=== PATIENT | female | born 1935 | race Caucasian/White ===

== ENCOUNTER → 2019-11-17 14:10 | Outpatient (REF) | payer MEDICARE, MEDICAID, SELFPAY ==
--- NOTE | 2019-11-17 14:14 | ECG_ITS ---
Test Reason : HTN Blood Pressure : / mmHG Vent. Rate : 053 BPM Atrial Rate : 053 BPM P-R Int : 166 ms QRS Dur : 096 ms QT Int : 442 ms P-R-T Axes : 050 -36 -23 degrees QTc Int : 414 ms Sinus bradycardia Left axis deviation Nonspecific ST and T wave abnormality Abnormal ECG When compared with ECG of 07-JAN-2015 09:23, Premature ventricular complexes are no longer Present Referred By: Adry Young Electronically Signed By:PHIL GOTTI
== END ==
LOC: HO.CARD 14:10
PROVIDERS: PCP Internal Medicine; Visit Provider Internal Medicine
DX: I10 Essential (primary) hypertension (principal)
CPT/HCPCS: 93005; 93010

== ENCOUNTER 2019-12-09 20:47 | Observation (INO) | payer MEDICARE, MEDICAID, SELFPAY ==
--- NOTE | 2019-12-09 | ECG_ITS ---
Test Reason : CHEST PAIN Blood Pressure : / mmHG Vent. Rate : 062 BPM Atrial Rate : 062 BPM P-R Int : 158 ms QRS Dur : 092 ms QT Int : 424 ms P-R-T Axes : 046 -43 051 degrees QTc Int : 430 ms Normal sinus rhythm Left anterior fascicular block Nonspecific ST abnormality Abnormal ECG When compared with ECG of 17-NOV-2019 14:59, Heart rate has increased Referred By: Demarco Shell Electronically Signed By:DIGNA GONZALEZ MD
[2019-12-09 22:36] VITALS: BP 128/66; PULSE 62; RESP 16; TEMP 37.9; O2SAT 97; BMI 32.1
--- NOTE | 2019-12-09 23:06 | ED.CHESTPAIN ---
HPI - Chest Pain General Chief Complaint: Chest Pain Stated Complaint: chest pain,sob Time Seen by Provider: 12/09/19 23:06 Source: patient Mode of arrival: ambulatory Limitations: no limitations History of Present Illness MD complaint: chest pain Onset (ago): hour(s) (6pm ) Timing of current episode: constant Prior episodes: No Onset: after eating (felt like her BLT got stuck but able to swallow and drink fluids) Pain location: substernal Pain radiation: none Severity: mild Quality: aching and fullness Relieving factors: nothing Exacerbating factors: inspiration Context: recent surgery (11/16 status post bilateral oopherectomy ) Associated symptoms: dyspnea Treatment prior to arrival: none Related Data Home Medications Medication Instructions Recorded Confirmed amlodipine 10 mg tablet 10 mg PO DAILY 11/13/19 11/17/19 losartan 100 mg tablet 100 mg PO DAILY 11/13/19 11/17/19 metoprolol succinate 50 mg 50 mg PO DAILY 11/13/19 11/17/19 tablet,extended release 24 hr tizanidine 4 mg tablet 4 mg PO TID PRN 11/13/19 11/17/19 triamcinolone acetonide 0.5 % 1 applic TOPICAL BID 11/13/19 11/17/19 topical cream Previous Rx's Medication Instructions Recorded terbinafine HCl 250 mg tablet 250 mg PO DAILY 90 Days #90 tab 11/25/19 Allergies Allergy/AdvReac Type Severity Reaction Status Date / Time No Known Allergies Allergy Unverified 11/17/19 13:32 [No Known Allergies*] Review of Systems Review of Systems: Constitutional : No Weight loss, No Fever, No Chills ENT/Mouth : No sore throat, No Rhinorrhea Eyes: No Eye Pain, No Swelling Cardiovascular : pos Chest Pain, pos SOB, no Dyspnea on Exertion, No Orthopnea, No Edema, No Palpitations Respiratory : No Cough, No Sputum Gastrointestinal : no Nausea, No Vomiting, No Diarrhea, No abdominal Pain, No Hematochezia, No Melena Genitourinary : No Dysuria, No Urinary Frequency Musculoskeletal : No joint pain, No Myalgias, No Joint Swelling Skin : No Skin Lesions, No rash Neuro : No Weakness, No Numbness, No Dizziness, No Headache Psych : No Anxiety/Panic, No Depression All other systems reviewed and are negative [facility] Past Medical History Medical History Adnexal mass Chronic kidney disease (CKD) stage G3b/A3, moderately decreased glomerular filtration rate (GFR) between 30-44 mL/min/1.73 square meter and albuminuria creatinine ratio greater than 300 mg/g Degenerative disc disease, lumbar Gout Hypercholesterolemia Hypertension Onychomycosis Osteopenia Polycystic kidney disease Surgical History History of cholecystectomy History of hysterectomy Family History Family History (Updated 11/13/19 @ 16:24 by Barbara Jimenez CMA) Father No problems noted. Mother No problems noted. Brother No problems noted. Daughter No problems noted. Daughter No problems noted. Daughter No problems noted. Daughter No problems noted. Social History Social History Alcohol intake: never Smoking Status: Never smoker Advance Directives: No Physical Exam Vital Signs: Vital Signs: Vital Signs Temp Pulse Resp BP Pulse Ox 12/10/19 00:00 61 16 165/69 H 96 12/09/19 23:27 97.9 F 62 18 156/80 H 98 12/09/19 22:36 100.3 F 62 16 128/66 97 Body Mass Index 32.1 Appearance: Alert. Oriented X3. No acute distress. Eyes: Pupils equal, round and reactive to light. ENT: Pharynx normal. Neck: Normal inspection. Neck supple. CVS: Normal heart rate and rhythm. Pulses normal. Respiratory: No respiratory distress. Breath sounds normal. Abdomen: Soft and nontender. Skin: Skin warm and dry. Normal skin color. Normal skin turgor. Extremities: No lower extremity edema. No calf ttp Neuro: Oriented X 3. No motor deficit. No sensory deficit. Course Course Course Narrative: plan to admit for chest pain and observation with VQ scan in AM MDM - Chest Pain MDM Narrative Medical decision making narrative: 84 yo female s/p bilateral oophorectomy on 11/16 here with chest pain that started at 6pm after eating a BLT - at this time will need labs, EKG, troponin, states pain is pleuritic in nature will also need ddimer and likely VQ scan she has CRI so CTA not possible at this time - tylenol and ASA. dispo per results and improvement. Lab Data Result diagrams: 12/09/19 23:33 12/10/19 00:23 Labs: Lab Results 12/09/19 12/09/19 12/09/19 Range/Units 23:33 23:33 23:33 WBC 14.3 H (4.8-10.8) X10*3/uL RBC 4.68 (4.20-5.50) X10*6/uL Hgb 14.3 (12.0-16.0) g/dl Hct 43.0 (37-47) % MCV 91.9 (80-98) fL MCH 30.6 (27.0-33.0) pg MCHC 33.3 (31.0-35.0) g/dl RDW 13.0 (11.0-16.0) % Plt Count 212 (160-400) X10*3/uL MPV 11.6 (9.4-12.3) fL Immature Gran % (Auto) 0.4 (0.0-0.4) % Neut % (Auto) 84.9 H (45-73) % Lymph % (Auto) 7.4 L (20-40) % [place] % (Auto) 6.1 (2-11) % Eos % (Auto) 0.7 (0-4) % Baso % (Auto) 0.5 (0-2) % Lymph # (Auto) 1.1 L (1.2-4.9) X10*3/uL [place] # (Auto) 0.9 (0.1-1.2) X10*3/uL Eos # (Auto) 0.1 (0.0-0.4) X10*3/uL Baso # (Auto) 0.1 (0.0-0.2) X10*3/uL Abs Immat Gran (auto) 0.05 H (0.00-0.03) X10*3/uL Absolute Neuts (auto) 12.1 H (2.0-8.3) X10*3/uL Absolute Nucleated RBC 0.000 (0.0-0.012) X10*3/uL Nucleated RBC % (auto) 0.0 (0.0-0.2) /100WBC PT (10.8-13.0) SEC INR (0.9-1.1) APTT (24.1-38.0) SEC D-Dimer NG/ML Lactate Dehydrogenase Cancelled Troponin I High Sens (<3.5-17.0) ng/L B-Natriuretic Peptide 93 (<100) pg/mL 12/09/19 12/09/19 Range/Units 23:33 23:33 WBC (4.8-10.8) X10*3/uL RBC (4.20-5.50) X10*6/uL Hgb (12.0-16.0) g/dl Hct (37-47) % MCV (80-98) fL MCH (27.0-33.0) pg MCHC (31.0-35.0) g/dl RDW (11.0-16.0) % Plt Count (160-400) X10*3/uL MPV (9.4-12.3) fL Immature Gran % (Auto) (0.0-0.4) % Neut % (Auto) (45-73) % Lymph % (Auto) (20-40) % [place] % (Auto) (2-11) % Eos % (Auto) (0-4) % Baso % (Auto) (0-2) % Lymph # (Auto) (1.2-4.9) X10*3/uL [place] # (Auto) (0.1-1.2) X10*3/uL Eos # (Auto) (0.0-0.4) X10*3/uL Baso # (Auto) (0.0-0.2) X10*3/uL Abs Immat Gran (auto) (0.00-0.03) X10*3/uL Absolute Neuts (auto) (2.0-8.3) X10*3/uL Absolute Nucleated RBC (0.0-0.012) X10*3/uL Nucleated RBC % (auto) (0.0-0.2) /100WBC PT 11.7 (10.8-13.0) SEC INR 1.0 (0.9-1.1) APTT 34.7 (24.1-38.0) SEC D-Dimer 558 NG/ML Lactate Dehydrogenase Troponin I High Sens 28.4 H (<3.5-17.0) ng/L B-Natriuretic Peptide (<100) pg/mL ECG Data ECG #1: Attestation: I personally reviewed and interpreted this ECG as follows: ECG interpretation date: 12/09/19 ECG interpretation time: 23:21 Interpretation: Rate: 62 Rhythm: NSR [place]: left, LVS Normal P waves. Normal CALVIN. Normal QRS complex. ST T wave : nonspecific qTC: normal prior studies: unchanged no acute ischemia The study has been interpreted contemporaneously by me. . Discharge Plan Discharge Prescriptions: No Action terbinafine HCl 250 mg tablet 250 mg PO DAILY 90 Days Qty: 90 RF: 0 triamcinolone acetonide 0.5 % cream 1 applic topical BID RF: 0 tizanidine 4 mg tablet 4 mg PO TID PRNRF: 0 losartan 100 mg tablet 100 mg PO DAILY RF: 0 metoprolol succinate 50 mg tablet extended release 24 hr 50 mg PO DAILY RF: 0 amlodipine 10 mg tablet 10 mg PO DAILY RF: 0
--- NOTE | 2019-12-09 23:09 | XR_ITS ---
EXAMINATION: XR CHEST CLINICAL INFORMATION: Dyspnea COMPARISON: 07/25/2019 TECHNIQUE: Frontal view of the chest was obtained. FINDINGS: Cardiac leads overlie the chest. The lungs are well expanded. There is no focal consolidation, edema, or effusion. No pneumothorax. The cardiomediastinal silhouette is within normal limits. No acute osseous abnormality. XR/XR chest 1V IMPRESSION: No acute pulmonary finding.
[2019-12-09] MEDS: Acetaminophen 325 MG TABLET 650 MG PO (23:21)
[2019-12-09] MEDS: Aspirin 81 MG TAB.CHEW PO (23:22)
[2019-12-09 23:27] VITALS: BP 156/80; PULSE 62; RESP 18; TEMP 36.6; O2SAT 98
[2019-12-09 23:39] LABS: MANUAL DIFF FLAG NO
[2019-12-09 23:44] LABS: Basophils Absolute Auto 0.1 X10*3/uL (0.0-0.2); Basophils Percent Auto 0.5 % (0-2); Eosinophils Absolute Auto 0.1 X10*3/uL (0.0-0.4); Eosinophils Percent Auto 0.7 % (0-4); Hemoglobin 14.3 g/dl (12.0-16.0); Imm Gran Abs Auto 0.05 X10*3/uL (0.00-0.03); Imm Gran Pct Auto 0.4 % (0.0-0.4); Lymphocytes Absolute Auto 1.1 X10*3/uL (1.2-4.9); Lymphocytes Percent Auto 7.4 % (20-40); Mean Corpuscular HGB Conc 33.3 g/dl (31.0-35.0); Mean Corpuscular Hemoglobin 30.6 pg (27.0-33.0); Mean Corpuscular Volume 91.9 fL (80-98); Mean Platelet Volume 11.6 fL (9.4-12.3); Monocytes Absolute Auto 0.9 X10*3/uL (0.1-1.2); Monocytes Percent Auto 6.1 % (2-11); Neutrophils Absolute Auto 12.1 X10*3/uL (2.0-8.3); Neutrophils Percent Auto 84.9 % (45-73); Platelet Count 212 X10*3/uL (160-400); Red Blood Count 4.68 X10*6/uL (4.20-5.50); White Blood Count 14.3 X10*3/uL (4.8-10.8)
[2019-12-09 23:53] LABS: D Dimer 558 NG/ML
[2019-12-10] VITALS (12 sets, daily range): BP systolic 92–182; BP diastolic 55–90; PULSE 58–94; RESP 14–18; TEMP 36.4–36.7; O2SAT 92–99; BMI 32.0
--- NOTE | 2019-12-10 | ECG_ITS ---
Test Reason : CHest pain Blood Pressure : / mmHG Vent. Rate : 068 BPM Atrial Rate : 068 BPM P-R Int : 174 ms QRS Dur : 088 ms QT Int : 686 ms P-R-T Axes : 051 -40 016 degrees QTc Int : 729 ms Sinus rhythm with marked sinus arrhythmia with Premature atrial complexes Left axis deviation Nonspecific ST and T wave abnormality Abnormal ECG When compared with ECG of 09-DEC-2019 20:53, Premature atrial complexes and Sinus Arrhythmia are new Referred By: Geremias Weinstein Electronically Signed By:DIGNA GONZALEZ MD
[2019-12-10 00:09] LABS: Prothrombin Time 11.7 SEC (10.8-13.0)
[2019-12-10 00:12] LABS: Partial Thromboplastin Time 34.7 SEC (24.1-38.0)
[2019-12-10 00:14] LABS: B Type Natriuretic Peptide 93 pg/mL (<100)
[2019-12-10 00:20] LABS: Troponin-I High Sensitivity 28.4 ng/L (<3.5-17.0)
--- NOTE | 2019-12-10 00:44 | NM_ITS ---
EXAMINATION: PULMONARY PERFUSION STUDY CLINICAL INFORMATION: Pleuritic chest pain. Elevated d-dimer. COMPARISON: No previous lung scan is available for comparison. A radiograph the chest dated 12/09/2019 is available for comparison. TECHNIQUE: Following the intravenous injection of 4.0 mCi Tc-99m MAA, an 8-view perfusion study was performed using a gamma scintillation camera. FINDINGS: No segmental perfusion defects are present. There is minimal heterogeneity in the distribution of activity bilaterally. There are no focal anatomic appearing perfusion defects present. NM/NM pul perfusion IMPRESSION: Very low probability of pulmonary embolism.
[2019-12-10 00:57] LABS: Alanine Aminotransferase 12 U/L (0-31); Albumin Level 4.3 g/dL (3.5-5.0); Alkaline Phosphatase 82 U/L (39-117); Anion Gap 14 (12-20); Aspartate Amino Transferase 12 U/L (5-31); Bilirubin Direct < 0.2 mg/dL (0.0-0.5); Bilirubin Total 0.4 mg/dL (0.0-1.0); Blood Urea Nitrogen 14 mg/dL (9-16); Calcium 9.7 mg/dL (8.4-10.2); Carbon Dioxide 26 mmol/L (22-29); Chloride 107 mmol/L (96-108); Estimated Glomerular Filt Rate 34; Glucose Random 159 mg/dL (60-115); Lactate Dehydrogenase 173 U/L (122-220); Magnesium 1.9 mg/dL (1.6-2.6); Potassium 4.1 mmol/l (3.3-5.1); Sodium 143 mmol/L (135-145); Total Protein 6.6 g/dL (6.5-8.0)
[2019-12-10 02:11] LABS: SARS COV2 PCR INHOUSE NEGATIVE (Negative)
--- NOTE | 2019-12-10 04:20 | PC.NURSE ---
report given to imc at this time. no distress ntoed. pt awaiting admission transport.
--- NOTE | 2019-12-10 05:24 | P.HPIM_ITS ---
History of Present Illness Date of Service: 12/10/19 Chief Complaint: chest pain this is an 84-year-old female with past medical history of hypertension, CKD and hyperlipidemia who presents to the hospital stating chest pain. Patient reports that she ate a grinder hand earlier in the day and felt that it was a little dry and has slight difficulty swallowing it. She reports that after eating this grinder hand she started having esophageal pain radiating to the back as well as throat. She describes it as achy/horrible feeling and taking a deep breath caused her worsening of this pain. She reports that it is the pain radiates from the epigastric region all the way to the neck, radiating to the back. Not radiating to the arm. patient denies any shortness of breath although reports has difficulty taking a deep breath due to the pain, she has no palpitations, no cough, no sputum production, no abdominal pain nausea or vomiting. No urinary symptoms and no lower extremity edema. Of note patient recently underwent complete of her ectomy secondary to ovarian cyst on the 16 of November but has been active and not bed-bound. on arrival to the ED patient hemodynamically stable with no significant abnormal vitals. Labs are significant for WBC count of 14.3, BUN of 14, creatinine of 1.48 (around baseline ), high sensitivity troponin of 28.4, no EKG changes suggestive of ACS. D-dimer of [address] scan for PE and therefore will be admitted for V/Q scan in the a.m. chest x-ray shows no acute pulmonary findings past medical history: Hypertension, hyperlipidemia, CKD past surgical history: Oophorectomy, partial hysterectomy, cholecystectomy family history: she is adopted by her aunt and does not know her mother or father's past medical history social history: Comes from home, denies any tobacco alcohol or illicit drugs Review of Systems Review of Systems: Yes all other systems are reviewed and are negative [facility] Medical History Adnexal mass Chronic kidney disease (CKD) stage G3b/A3, moderately decreased glomerular filtration rate (GFR) between 30-44 mL/min/1.73 square meter and albuminuria creatinine ratio greater than 300 mg/g Degenerative disc disease, lumbar Gout Hypercholesterolemia Hypertension Onychomycosis Osteopenia Polycystic kidney disease Family History Father No problems noted. Mother No problems noted. Brother No problems noted. Daughter No problems noted. Daughter No problems noted. Daughter No problems noted. Daughter No problems noted. Surgical History History of cholecystectomy History of hysterectomy Social History Alcohol intake: never Smoking Status: Never smoker Smoked in Last 30 Days: No Use of substances other than those prescribed or required for medical reasons: No Advance Directives: No Meds Allergies Allergy/AdvReac Type Severity Reaction Status Date / Time No Known Allergies Allergy Unverified 11/17/19 13:32 [No Known Allergies*] Home Medications Medication Instructions Recorded Confirmed Type amlodipine 10 mg tablet 10 mg PO DAILY 11/13/19 12/10/19 History losartan 100 mg tablet 100 mg PO DAILY 11/13/19 12/10/19 History metoprolol succinate 50 mg 50 mg PO DAILY 11/13/19 12/10/19 History tablet,extended release 24 hr tizanidine 4 mg tablet 4 mg PO TID PRN 11/13/19 12/10/19 History mirabegron [Myrbetriq] 50 mg PO DAILY 12/10/19 12/10/19 History Physical Exam Vital Signs and Narrative: Vital Signs: Last Vital Signs Temp 97.6 F 12/10/19 03:10 Pulse 58 12/10/19 03:10 Resp 14 12/10/19 03:10 BP 180/73 H 12/10/19 03:10 Pulse Ox 96 12/10/19 03:10 Body Mass Index 32.1 Const: General: cooperative and no acute distress Orientation/consciousness: patient oriented x3 Eyes: General: appearance normal, both eyes and all related structures Pupils: Equal, round and reactive pupils present Resp: Effort & Inspection: normal respiratory effort and able to speak in complete sentences Auscultation: clear to auscultation bilaterally Cardio: Rate: regular rate Rhythm: regular rhythm GI: Palpation (GI): Soft to palpation Auscultation: normal bowel sounds Skin: General skin exam: no rashes or lesions noted Neuro: General: patient oriented x3 Cranial nerves: Yes Equal, round and reactive pupils present Cognition (Neuro): normal cognition Extrem: General: Yes normal to inspection and Yes no pedal edema Results Labs Labs: Laboratory Tests 12/09/19 12/09/19 12/09/19 23:33 23:33 23:33 WBC 14.3 H RBC 4.68 Hgb 14.3 Hct 43.0 MCV 91.9 MCH 30.6 MCHC 33.3 RDW 13.0 Plt Count 212 MPV 11.6 Immature Gran % (Auto) 0.4 Neut % (Auto) 84.9 H Lymph % (Auto) 7.4 L [place] % (Auto) 6.1 Eos % (Auto) 0.7 Baso % (Auto) 0.5 Lymph # (Auto) 1.1 L [place] # (Auto) 0.9 Eos # (Auto) 0.1 Baso # (Auto) 0.1 Abs Immat Gran (auto) 0.05 H Absolute Neuts (auto) 12.1 H Absolute Nucleated RBC 0.000 Nucleated RBC % (auto) 0.0 PT INR APTT D-Dimer Sodium Potassium Chloride Carbon Dioxide Anion Gap BUN Creatinine Estim Creat Clear Calc Estimated GFR Random Glucose Calcium Magnesium Total Bilirubin Direct Bilirubin AST ALT Alkaline Phosphatase Lactate Dehydrogenase Cancelled Troponin I High Sens B-Natriuretic Peptide 93 Total Protein Albumin Coronavirus (PCR) 12/09/19 12/09/19 12/10/19 23:33 23:33 00:23 WBC RBC Hgb Hct MCV MCH MCHC RDW Plt Count MPV Immature Gran % (Auto) Neut % (Auto) Lymph % (Auto) [place] % (Auto) Eos % (Auto) Baso % (Auto) Lymph # (Auto) [place] # (Auto) Eos # (Auto) Baso # (Auto) Abs Immat Gran (auto) Absolute Neuts (auto) Absolute Nucleated RBC Nucleated RBC % (auto) PT 11.7 INR 1.0 APTT 34.7 D-Dimer 558 Sodium 143 Potassium 4.1 Chloride 107 Carbon Dioxide 26 Anion Gap 14 BUN 14 Creatinine 1.48 H Estim Creat Clear Calc 24.0 Estimated GFR 34 Random Glucose 159 H Calcium 9.7 Magnesium 1.9 Total Bilirubin 0.4 Direct Bilirubin < 0.2 AST 12 ALT 12 Alkaline Phosphatase 82 Lactate Dehydrogenase 173 Troponin I High Sens 28.4 H B-Natriuretic Peptide Total Protein 6.6 Albumin 4.3 Coronavirus (PCR) 12/10/19 12/10/19 00:23 00:50 WBC RBC Hgb Hct MCV MCH MCHC RDW Plt Count MPV Immature Gran % (Auto) Neut % (Auto) Lymph % (Auto) [place] % (Auto) Eos % (Auto) Baso % (Auto) Lymph # (Auto) [place] # (Auto) Eos # (Auto) Baso # (Auto) Abs Immat Gran (auto) Absolute Neuts (auto) Absolute Nucleated RBC Nucleated RBC % (auto) PT INR APTT D-Dimer Sodium Cancelled Potassium Cancelled Chloride Cancelled Carbon Dioxide Cancelled Anion Gap Cancelled BUN Cancelled Creatinine Cancelled Estim Creat Clear Calc Cancelled Estimated GFR Cancelled Random Glucose Cancelled Calcium Cancelled Magnesium Cancelled Total Bilirubin Cancelled Direct Bilirubin Cancelled AST Cancelled ALT Cancelled Alkaline Phosphatase Cancelled Lactate Dehydrogenase Troponin I High Sens B-Natriuretic Peptide Total Protein Cancelled Albumin Cancelled Coronavirus (PCR) NEGATIVE Imaging Chest x-ray: Radiologist's impression: No acute pulmonary finding. Assessment and Plan (1) Chest pain: Qualifiers: Chest pain type: chest pain on breathing Qualified Code(s): R07.1 - Chest pain on breathing Status: Acute (2) Chronic kidney disease (CKD) stage G3b/A3, moderately decreased glomerular filtration rate (GFR) between 30-44 mL/min/1.73 square meter and albuminuria creatinine ratio greater than 300 mg/g: Status: Acute (3) Hypercholesterolemia: Status: Acute (4) Hypertension: Qualifiers: Hypertension type: essential hypertension Qualified Code(s): I10 - Essential (primary) hypertension Status: Acute this is a an 84-year-old female with past medical history of hypertension who presents to the hospital with chest pain. Patient is being admitted for further management # pleuritic chest pain - atypical, pleuritic in nature, occurred after eating there for possible esophageal spasm versus GERD versus PE versus ACS less likely - patient has no tachypnea, no tachycardia, no hypoxia, D-dimer is elevated but patient cannot undergo CT angiogram for PE protocol due to CKD - high sensitivity troponin slightly elevated at 28,awaiting a 2nd troponin Plan: - Repeat troponin stat, obtain stat EKG ( no ekg done on pt arrival) - will obtain V/Q scan to rule out high PE probability - Maalox p.r.n. - telemetry # leukocytosis - possibly reactive although unclear etiology - afebrile, no evidence of infection, chest x-ray negative, patient has no urinary symptoms, no evidence of soft tissue injury or infection Plan: - Will follow CBC # hypertension - elevated - will resume her home medications including amlodipine and losartan as well as metoprolol monitor # CKD - creatinine at baseline - monitor daily BMP DVT prophylaxis: Lovenox
[2019-12-10] MEDS: Enoxaparin Sodium 40 MG/0.4 ML SYRINGE SUBCUT (05:29)
[2019-12-10 06:18] LABS: Appearance Urine HAZY; Color Urine YELLOW; Glucose Urine UA NEG (NEG); Leukocyte Esterase Urine NEG (NEG); Nitrite Urine POS (NEG); Specific Gravity - Urine 1.015 (1.005-1.025); Urine Blood NEG (NEG); Urine Ketones NEG (NEG); Urine Protein NEG (NEG-TRACE)
[2019-12-10 06:24] LABS: Bacteria Urine 4+ /LPF; RBC Urine 0 /HPF (0); Squamous Epithelial Cell Urine 2+ /LPF
[2019-12-10 07:32] LABS: Alanine Aminotransferase 12 U/L (0-31); Albumin Level 4.1 g/dL (3.5-5.0); Alkaline Phosphatase 75 U/L (39-117); Anion Gap 15 (12-20); Aspartate Amino Transferase 13 U/L (5-31); Bilirubin Direct 0.2 mg/dL (0.0-0.5); Bilirubin Total 0.5 mg/dL (0.0-1.0); Blood Urea Nitrogen 15 mg/dL (9-16); Calcium 9.6 mg/dL (8.4-10.2); Carbon Dioxide 28 mmol/L (22-29); Chloride 107 mmol/L (96-108); Creatinine Clr Calc Pharmacy 27.3; Estimated Glomerular Filt Rate 39; Glucose Random 92 mg/dL (60-115); Potassium 4.6 mmol/l (3.3-5.1); Sodium 145 mmol/L (135-145); Total Protein 6.3 g/dL (6.5-8.0)
[2019-12-10] MEDS: 0.9 % Sodium Chloride Flush 3 ML SYRINGE IVFLUSH ×3 (09:12→23:31)
[2019-12-10] MEDS: amLODIPine Besylate 10 MG TABLET PO (09:13)
[2019-12-10] MEDS: Metoprolol Succinate ER 50 MG TAB.ER.24H PO (09:15)
[2019-12-10] MEDS: Losartan Potassium 50 MG TABLET 100 MG PO (09:15)
[2019-12-10] MEDS: Mirabegron 50 MG TAB.ER.24H PO (09:15)
[2019-12-10 09:25] LABS: Troponin-I High Sensitivity 60.5 ng/L (<3.5-17.0)
--- NOTE | 2019-12-10 12:37 | MHC.CM.PN ---
CM met patient at the bedside who reports she lives alone, dtr lives upstairs and is independent. Patient does have a HCP and a copy is on file. Discussed discharge plan, home no services. Dtr will provide transport. CM will continue to follow for discharge needs.
[2019-12-10 16:13] LABS: Troponin-I High Sensitivity 49.1 ng/L (<3.5-17.0)
[2019-12-10] MEDS: TiZANidine HCL 4 MG TABLET PO (21:50)
[2019-12-11] VITALS (7 sets, daily range): BP systolic 94–150; BP diastolic 51–85; PULSE 57–96; RESP 16–20; TEMP 35.8–36.8; O2SAT 91–98
--- NOTE | 2019-12-11 | NM_ITS ---
Myocardial perfusion study Indication: Elevated troponin chest discomfort to evaluate for myocardial ischemia Technique: The patient was brought in for a Lexiscan perfusion study on 12/12/2019. Patient performed low-level exercise and was injected 0.4 mg of Lexiscan intravenously. Within a minute of injection, 25 mCi of sestamibi was given intravenously. Images were obtained using the SPECT gamma camera interlaced with the gating device. Images were obtained in supine position. Resting perfusion study was performed on 12/11/2019. Patient was administered 25 mCi of sestamibi intravenously at rest. Images were then obtained in supine position. Images obtained with and without CT attenuation. Total DLP 95 MGY-CM Images were processed with the software and compared side to side in short axis, horizontal long axis and vertical long axis views. Findings: The stress perfusion study showed non attenuated images show minimally reduced uptake in the distal lateral wall of the LV myocardium. Remainder of the LV myocardium is normally perfused. Attenuation corrected images show mildly reduced uptake in the apex of the LV myocardium.. The gated study shows normal LV systolic function with calculated LVEF of greater than 70 %. LV cavity is normal in size. The gated study shows normal systolic wall thickening and contraction of segments. Resting study shows nontender images show mildly reduced uptake in the inferior wall of the LV myocardium. Attenuation corrected images shows mildly reduced uptake in the apex of the LV myocardium. Gating at rest reveals normal systolic wall motion with ejection fraction at greater than 70 %. The findings are consistent with likely normal myocardial perfusion. NM/NM yovany perf SPECT rest & str Impression: 1. Myocardial perfusion imaging study shows normal myocardial perfusion 2. Gated LVEF is greater than 70% 3. Transient ischemic dilatation not present : EKG is nondiagnostic for ischemia
[2019-12-11] MEDS: Enoxaparin Sodium 40 MG/0.4 ML SYRINGE SUBCUT (05:20)
[2019-12-11 06:18] LABS: MANUAL DIFF FLAG NO
[2019-12-11 06:28] LABS: Basophils Absolute Auto 0.1 X10*3/uL (0.0-0.2); Basophils Percent Auto 0.6 % (0-2); Eosinophils Absolute Auto 0.1 X10*3/uL (0.0-0.4); Eosinophils Percent Auto 0.6 % (0-4); Hematocrit 35.7 % (37-47); Hemoglobin 11.7 g/dl (12.0-16.0); Imm Gran Abs Auto 0.03 X10*3/uL (0.00-0.03); Imm Gran Pct Auto 0.4 % (0.0-0.4); Lymphocytes Absolute Auto 1.4 X10*3/uL (1.2-4.9); Mean Corpuscular HGB Conc 32.8 g/dl (31.0-35.0); Mean Corpuscular Hemoglobin 30.5 pg (27.0-33.0); Mean Platelet Volume 12.5 fL (9.4-12.3); Monocytes Absolute Auto 0.9 X10*3/uL (0.1-1.2); Monocytes Percent Auto 10.9 % (2-11); Neutrophils Absolute Auto 5.9 X10*3/uL (2.0-8.3); Neutrophils Percent Auto 70.5 % (45-73); Platelet Count 164 X10*3/uL (160-400); Red Blood Count 3.84 X10*6/uL (4.20-5.50); Red Cell Distribution Width 13.1 % (11.0-16.0); White Blood Count 8.3 X10*3/uL (4.8-10.8)
[2019-12-11 06:55] LABS: Anion Gap 13 (12-20); Blood Urea Nitrogen 18 mg/dL (9-16); Carbon Dioxide 28 mmol/L (22-29); Chloride 105 mmol/L (96-108); Creatinine Clr Calc Pharmacy 26.1; Estimated Glomerular Filt Rate 37; Glucose Random 116 mg/dL (60-115); Potassium 4.6 mmol/l (3.3-5.1); Sodium 141 mmol/L (135-145)
[2019-12-11] MEDS: Metoprolol Succinate ER 50 MG TAB.ER.24H PO (09:53)
[2019-12-11] MEDS: 0.9 % Sodium Chloride Flush 3 ML SYRINGE IVFLUSH ×2 (09:53→15:59)
[2019-12-11] MEDS: Mirabegron 50 MG TAB.ER.24H PO (09:53)
[2019-12-11] MEDS: Losartan Potassium 50 MG TABLET 100 MG PO (09:53)
[2019-12-11] MEDS: amLODIPine Besylate 10 MG TABLET PO (09:53)
--- NOTE | 2019-12-11 10:00 | CA_ITS ---
Acquisition Time: 2019-12-12 10:45:30 Total Exercise Time: 00:02:00 Test Indications: chest pain Medications: Protocol: LEXISCAN Max HR: 100 BPM 74% of Pred: 135 BPM Max BP: 140/078 mmHG Max Work Load: 1.0 METS Pharmacological stress test using Lexiscan while sitting and kicking her feet. Pt tolerated well, denies any anginal sx. EKG without any arrhythmias. non-diagnostic for ischemia. Nuclear images to follow. Normotensiver esponse to test. Test reviewed with Dr. Ramos. Referred By: Demarco Shell Overread By: Tayla Pepe
--- NOTE | 2019-12-11 10:05 | CA_ITS ---
Transthoracic Echocardiogram Patient (Last, First, Middle): Tiffani Garíca, Gender: Female Date of : 1935 Age: 84 Procedure Date: 12/11/2019 Procedure Type: Transthoracic Echocardiogram [place] [facility] [place]: 149. cm Weight: 72. kg BSA: 1.66 m2 Heart Rate: bpm BP: 137 / 85 mmHg Bridge Crew Member: MITCH Referring MD: Demarco Shell MD Sort Worker: Demarco Shell MD Symptoms: Elevated troponin Study Quality: Technically Difficult ECG Rhythm: Sinus Conclusions: - 1. Normal LV systolic function with mild LVH with impaired relaxation filling pattern 2. Mild aortic regurgitation 3. Normal RV systolic pressure Findings Left Ventricle Normal left ventricular size and systolic function. There is mildly increased left ventricular wall thickness. The visually estimated ejection fraction is between 60-65%. Spectral Doppler is indicative of an impaired relaxation filling pattern. E/E prime ratio is between 8 and 15 consistent with indeterminate filling pressures. Right Ventricle The right ventricle was not well visualized. Atria The left atrium is likely dilated. Interatrial shunt cannot be excluded. The right atrium was not well visualized. Aortic Valve The aortic valve was not well visualized. There is no aortic valve stenosis. There is mild aortic valve regurgitation. Mitral Valve There is mild anterior and posterior mitral leaflet thickening. There is trace mitral valve regurgitation. There is no mitral valve stenosis. Pulmonic Valve The pulmonic valve was not well visualized. Tricuspid Valve Likely normal tricuspid valve structure and function. There is trace tricuspid valve regurgitation. The right ventricular systolic pressure is normal. The right ventricular systolic pressure is 28 mmHg. Normal right atrial pressure. There is no evidence of pulmonary hypertension. Great Vessels All visible segments of the aorta are normal in size. The pulmonary artery was not well visualized. Venous The inferior vena cava is normal in size and collapses greater than 50% with inspiration. Pericardium/Pleural The pericardium was not well visualized. Prior Study Comparison No previous study in the last 5 years for comparison Measurements 2D Linear Measurements IVSd: 1.37 0.6-0.9/0.6-1.0 cm LVIDd: 4.19 3.9-5.3/4.2-5.9 cm LVIDd Index: 2.52 2.4-3.2/2.2-3.1 cm/m2 LVIDs: 2.70 2.0-3.6 cm LVPWd: 1.33 0.7-1.1 cm Ao Root: 2.90 2.1-3.5 cm LA Diam: 4.00 2.7-3.8/3.0-4.0 cm LAIDs Index: 2.41 1.5-2.3 cm/m2 LV Mass: 263.66 67-162/88-224 g LV Mass Index: 158.83 43-95/49-115 g/m2 LVOT Diam: 2.00 3.0+(-)1.3 cm 2D Systolic Function EF 4C: 71.00 >55% EF 2C: 61.70 >55% Mitral Valve MV Pk E: 0.42 MV PK A: 0.74 MV Decel Time: 90.00 E/A: 0.60 E'Lateral: 6.77 E'Medial: 4.64 E/E' Med: 9.10 E/E' Lat: 6.20 PHT: 26.00 MVA PHT: 8.46 Decel [place]kins: 4.70 Aortic Valve AoV Pk Caleb: 1.15 AoV Pk Grad: 5.00 AI Pk Caleb: 2.44 AI Tompkins: 1.67 LVOT LVOT Pk Caleb: 0.98 LVOT Mn Caleb: 0.70 LVOT VTI: 0.18 LVOT Pk Grad: 4.00 LVOT Mn Grad: 2.00 LVOT Diam: 2.00 LVOT Area: 3.14 Diastolic Function MV Pk E: 0.42 MV Pk A: 0.74 E/A: 0.60 E'Medial: 4.64 E/E' Med: 9.10 E' Laterial: 6.77 E/E' Lat: 6.20 Tricuspid Valve TR Pk Caleb: 2.50 TR Pk Grad: 25.00 RA Press: 3.00 RVSP: 28.00 Great Vessels Aorta Ao Root-2D: 2.90 2.0-3.7 cm Ao Asc: 3.70 2.1-3.4 cm Updated in Other Vendor System with Status of Final Demarco Shell MD electronically signed on 12/11/2019 4:52:55 PM with status of Final
--- NOTE | 2019-12-11 10:05 | P.CONCA_ITS ---
History of Present Illness History of Present Illness Date of Consult: December 11, 2019 Requesting physician: Jose Alberto [facility] Consult reason: chest pain Chief complaint: chest pain,sob/CHEST PAIN, R/O PE Narrative: Tiffani is an 84-year-old woman who was admitted on Sunday evening with symptoms of acute onset chest discomfort. She is a pleasant and active 84-year-old man who lives by herself, a prior history of hypertension as well as chronic kidney disease. No prior cardiac issues. Since Sunday night she had supper with a regrinder operator which she ate. She then felt like the food got stuck in the esophagus and subsequently developed sudden onset of severe retrosternal chest discomfort. She was not able to shake this chest discomfort after few hours her daughter brought her to the emergency room. Symptoms she said lasted for few hours, was worse with deep breathing. She has never had prior discomfort like this. No exertional chest discomfort recently. Initial troponin as listed at 28.1. Subsequent troponin elevated into the 60s. EKG shows nonspecific ST changes. She says her chest discomfort has completely resolved but lasted for almost today. Cardiology consult was called for further management plan. She has had no recent shortness of breath, orthopnea, PND. No recent palpitations, syncope. No nausea vomiting diaphoresis. She has always had some issues with swallowing in the past but never has had chest discomfort with it. Due to the chest discomfort and pleuritic nature of chest discomfort as well as elevated D-dimer she underwent V/Q scan which was showing low probability for pulmonary embolism. Review of Systems Constitutional: Comments: No systemic symptoms. No recent weight loss weight gain. Eyes: Eyes: Reports no additional eye complaints ENT: Reports system reviewed and no additional complaints, except as d ocumented Cardiovascular: Cardiovascular: Reports no additional cardiovascular complaints Respiratory: Respiratory: Reports no additional respiratory complaints Gastrointestinal: Gastrointestinal: Reports no additional gastrointestinal complaints Genitourinary: Genitourinary: Reports no additional female genitourinary complaints Musculoskeletal: Musculoskeletal: Reports no additional musculoskeletal complaints Neurologic: Reports system reviewed and no additional complaints, except as documented Psychiatric: Psychiatric: Reports no additional psychiatric complaints Allergic/Immunologic: Allergic/Immunologic: Reports no additional allergic/immunologic complaints PMFSH Past Medical History Medical History Adnexal mass Chronic kidney disease (CKD) stage G3b/A3, moderately decreased glomerular filtration rate (GFR) between 30-44 mL/min/1.73 square meter and albuminuria creatinine ratio greater than 300 mg/g Degenerative disc disease, lumbar Gout Hypercholesterolemia Hypertension Onychomycosis Osteopenia Polycystic kidney disease Functional capacity: independent ambulation Patient : No Family History Family History Father No problems noted. Mother No problems noted. Brother No problems noted. Daughter No problems noted. Daughter No problems noted. Daughter No problems noted. Daughter No problems noted. Surgical History Surgical History History of cholecystectomy History of hysterectomy Social History Social History Alcohol intake: never Smoking Status: Never smoker Smoked in Last 30 Days: No Use of substances other than those prescribed or required for medical reasons: No Advance Directives: No service: No Current occupational status: retired [employer] Allergies Allergy/AdvReac Type Severity Reaction Status Date / Time No Known Allergies Allergy Unverified 11/17/19 13:32 [No Known Allergies*] Home Medications Medication Instructions Recorded Confirmed Type amlodipine 10 mg tablet 10 mg PO DAILY 11/13/19 12/10/19 History losartan 100 mg tablet 100 mg PO DAILY 11/13/19 12/10/19 History metoprolol succinate 50 mg 50 mg PO DAILY 11/13/19 12/10/19 History tablet,extended release 24 hr tizanidine 4 mg tablet 4 mg PO TID PRN 11/13/19 12/10/19 History mirabegron [Myrbetriq] 50 mg PO DAILY 12/10/19 12/10/19 History Physical Exam Vital Signs: Vital Signs: Vital Signs Temp Pulse Resp BP Pulse Ox 12/11/19 07:26 98.1 F 65 18 132/81 91 L 12/11/19 03:43 98.3 F 57 18 103/51 L 94 12/10/19 23:34 97.9 F 65 18 92/55 L 92 12/10/19 19:56 98.0 F 90 18 170/60 H 96 12/10/19 16:00 66 172/82 H 12/10/19 15:20 98.0 F 82 18 170/80 H 96 12/10/19 11:05 98 F 94 18 180/88 H 99 Body Mass Index 32.0 Const: General: cooperative, healthy appearing, comfortable, no acute distress, alert and awake Nutritional Appearance: obese Orientation/consciousness: patient oriented x3 HENMT: Head: Yes normal to inspection, Yes normocephalic and Yes atraumatic Eyes: General: appearance normal, both eyes and all related structures Neck: Neck: Yes full ROM, Yes trachea midline and Yes no JVD Carotids: other (No carotid bruit) Chest: Chest palpation & inspection: normal inspection of the chest Resp: Effort & Inspection: normal respiratory effort Auscultation: clear to auscultation bilaterally Cardio: Jugular venous distension: no JVD Palpation: normal PMI Rate: regular rate Rhythm: regular rhythm Heart sounds: S1 normal heart sound present, S2 normal heart sound present and Other heart sounds present (Soft S4) GI: Inspection: Yes normal to inspection Auscultation: normal bowel sounds Skin: General skin exam: elasticity normal and turgor normal Neuro: General: patient oriented x3 and no focal motor deficits Extrem: General: Yes no clubbing, cyanosis or edema Psych: Appearance: grossly normal Results Labs and Meds Result diagrams: 12/11/19 05:18 12/11/19 05:18 Lab results: Laboratory Results - last 24 hr 12/10/19 12/11/19 12/11/19 15:13 05:18 05:18 WBC 8.3 RBC 3.84 L Hgb 11.7 L Hct 35.7 L MCV 93.0 MCH 30.5 MCHC 32.8 RDW 13.1 Plt Count 164 MPV 12.5 H Immature Gran % (Auto) 0.4 Neut % (Auto) 70.5 Lymph % (Auto) 17.0 L [place] % (Auto) 10.9 Eos % (Auto) 0.6 Baso % (Auto) 0.6 Lymph # (Auto) 1.4 [place] # (Auto) 0.9 Eos # (Auto) 0.1 Baso # (Auto) 0.1 Abs Immat Gran (auto) 0.03 Absolute Neuts (auto) 5.9 Absolute Nucleated RBC 0.000 Nucleated RBC % (auto) 0.0 Sodium 141 Potassium 4.6 Chloride 105 Carbon Dioxide 28 Anion Gap 13 BUN 18 H Creatinine 1.36 Estim Creat Clear Calc 26.1 Estimated GFR 37 Random Glucose 116 H Calcium 9.0 Troponin I High Sens 49.1 H EKG reviewed shows normal sinus rhythm with PACs but shows nonspecific ST rema nges. Assessment and Plan (1) Elevated troponin: Status: Acute (2) Chest pain: Qualifiers: Chest pain type: chest pain on breathing Qualified Code(s): R07.1 - Chest pain on breathing Status: Acute Sudden-onset chest discomfort in elderly woman with risk factors of hypertension and hyperlipidemia. Rise and fall of troponin is concerning for possible unstable angina despite given underlying chronic kidney disease. Will need further evaluation for myocardial ischemia. I recommend inpatient myocardial perfusion imaging to further assess for myocardial ischemia and further guidance for treatment. Will suggest a resting perfusion study today and stress perfusion study with vaso dilator tomorrow morning. Also recommend echocardiogram to evaluate LV systolic and diastolic function as well as to evaluate for regional wall motion abnormality. Currently she is chest pain- free. She is slightly disappointed for staying another day in the hospital but understands the management. Other option of pursuing invasive management was discussed. She favors noninvasive workup at this point in time. Continue low- dose aspirin therapy. Blood pressure is well optimized. Continue current therapy. No need for anticoagulation at this point in time. Will follow with the patient. Thank you for allowing me to partake in her care (3) Hypertension: Qualifiers: Hypertension type: essential hypertension Qualified Code(s): I10 - Essential (primary) hypertension Status: Acute
--- NOTE | 2019-12-11 10:47 | P.PNIM_ITS ---
Subjective Subjective Date of Service: 12/11/19 Interval History: Seen in follow up for for chest pain and elevated troponin. Has no chest pain or sob this morning Review of Systems no chest pain no sob Physical Exam Vital Signs: Vital Signs: Vital Signs Temp Pulse Resp BP Pulse Ox 12/11/19 07:26 98.1 F 65 18 132/81 91 L 12/11/19 03:43 98.3 F 57 18 103/51 L 94 12/10/19 23:34 97.9 F 65 18 92/55 L 92 12/10/19 19:56 98.0 F 90 18 170/60 H 96 12/10/19 16:00 66 172/82 H 12/10/19 15:20 98.0 F 82 18 170/80 H 96 12/10/19 11:05 98 F 94 18 180/88 H 99 Appearance: Alert. Oriented X3. No acute distress. Eyes: Pupils equal, round and reactive to light. ENT: Pharynx normal. Neck: Normal inspection. Neck supple. CVS: Normal heart rate and rhythm. Pulses normal. Respiratory: No respiratory distress. Breath sounds normal. Abdomen: Soft and nontender. Skin: Skin warm and dry. Normal skin color. Normal skin turgor. Extremities: No lower extremity edema. No calf ttp Neuro: Oriented X 3. No motor deficit. No sensory deficit. Objective Data Current Medications Generic Name Dose Route Start Last Admin Trade Name Freq PRN Reason Stop Dose Admin Acetaminophen 650 mg 12/10/19 04:10 Acetaminophen 325 Mg Tablet PO Q6H PRN Pain, Mild (Pain Scale 1-3) Al Hydroxide/Mg Hydroxide 15 ml 12/10/19 05:49 Magnesium Hydrox/Alum Hydrox 30 Ml Oral.Susp PO Q6H PRN Heartburn Amlodipine Besylate 10 mg 12/10/19 09:00 12/11/19 09:53 Amlodipine Besylate 10 Mg Tablet PO 10 mg DAILY JEANNINE Administration Protocol Enoxaparin Sodium 40 mg 12/10/19 04:10 12/11/19 05:20 Enoxaparin Sodium 40 Mg/0.4 Ml Syringe SUBCUT 40 mg Q24H JEANNINE Administration Losartan Potassium 100 mg 12/10/19 09:00 12/11/19 09:53 Losartan Potassium 50 Mg Tablet PO 100 mg DAILY JEANNINE Administration Protocol Metoprolol Succinate 50 mg 12/10/19 09:00 12/11/19 09:53 Metoprolol Succinate Er 50 Mg Tab.Er.24h PO 50 mg DAILY JEANNINE Administration Protocol Mirabegron 50 mg 12/10/19 09:00 12/11/19 09:53 Mirabegron 50 Mg Tab.Er.24h PO 50 mg DAILY JEANNINE Administration Ondansetron HCl 4 mg 12/10/19 04:10 Ondansetron Hcl 4 Mg/2 Ml Vial IVPUSH Q8H PRN Nausea and Vomiting Pharmacy Consult 1 each 12/10/19 00:37 Consult Rx Perform Med Rec MISCELLANE ONCE PRN Consult order Sodium Chloride 3 ml 12/10/19 08:00 12/11/19 09:53 0.9 % Sodium Chloride Flush 3 Ml Syringe IVFLUSH 3 ml QSHIFT JEANNINE Administration Tizanidine HCl 4 mg 12/10/19 05:50 12/10/19 21:50 Tizanidine Hcl 4 Mg Tablet PO 4 mg TID PRN Administration Muscle Spasm Labs CBC & Chem 7: 12/11/19 05:18 12/11/19 05:18 Microbiology Microbiology Results: Microbiology 12/10/19 00:23 Blood - Venous Blood Culture - Preliminary No growth after 24 hours. 12/10/19 00:23 Blood - Venous Blood Culture - Preliminary No growth after 24 hours. Assessment and Plan (1) Chest pain: Status: Acute (2) Chronic kidney disease (CKD) stage G3b/A3, moderately decreased glomerular filtration rate (GFR) between 30-44 mL/min/1.73 square meter and albuminuria cre atinine ratio greater than 300 mg/g: Status: Acute (3) Hypercholesterolemia: Status: Acute (4) Hypertension: Status: Acute Assessment and Plan: 84-year-old female with past medical history of hypertension who presents to the hospital with chest pain. Patient is being admitted for further management # Chest pain--atypical yet + trop, non specific ECG changes. Negaive VQ scan -cardiology recommends inpatient stress with resting today # leukocytosis--reactive, now normal. # hypertension--BP within normal today. Continue outpatient meds # CKD - creatinine at baseline - monitor daily BMP DVT prophylaxis: Lovenox
[2019-12-11] MEDS: TiZANidine HCL 4 MG TABLET PO (21:10)
[2019-12-12] MEDS: 0.9 % Sodium Chloride Flush 3 ML SYRINGE IVFLUSH ×2 (00:08→08:49)
[2019-12-12 03:54] VITALS: BP 114/55; PULSE 60; RESP 18; TEMP 36.9; O2SAT 94
[2019-12-12] MEDS: Enoxaparin Sodium 40 MG/0.4 ML SYRINGE SUBCUT (05:59)
[2019-12-12 08:00] VITALS: BP 145/83; PULSE 65; RESP 18; TEMP 36.4; O2SAT 96
[2019-12-12 12:45] VITALS: BP 125/67; PULSE 86; RESP 18; TEMP 36.5; O2SAT 98
[2019-12-12] MEDS: amLODIPine Besylate 10 MG TABLET PO (12:46)
[2019-12-12] MEDS: Mirabegron 50 MG TAB.ER.24H PO (12:46)
[2019-12-12] MEDS: Metoprolol Succinate ER 50 MG TAB.ER.24H PO (12:46)
[2019-12-12] MEDS: Losartan Potassium 50 MG TABLET 100 MG PO (12:47)
--- NOTE | 2019-12-12 12:59 | PM.DS ---
DS: Providers Provider Date of admission: 12/10/19 01:50 Primary care physician: Adry Young MD Consults: 12/10/19 14:56 Consult to Cardiology Routine Consulting Provider: Demarco Shell Reason for consultation: elevated troponin, chest pain Has provider been notified: Yes DS: Diagnosis Discharge Diagnosis (1) Chest pain: Status: Acute (2) Chronic kidney disease (CKD) stage G3b/A3, moderately decreased glomerular filtration rate (GFR) between 30-44 mL/min/1.73 square meter and albuminuria creatinine ratio greater than 300 mg/g: Status: Acute (3) Hypercholesterolemia: Status: Acute (4) Hypertension: Status: Acute DS: Summary Hospital Course Hospital Course: Patient presented with chest discomfort and mild increase in troponin. She was observed in hospital and underwent stress test which show Status at Discharge Functional status at discharge: independent ambulation Overall status at discharge: patient is back to baseline Time Spent with Patient Time attestation: Total time spent providing and/or coordinating discharge services: Physical Exam Vital Signs: Vital Signs: Vital Signs Temp Pulse Resp BP Pulse Ox 12/12/19 12:45 97.7 F 86 18 125/67 98 12/12/19 08:00 97.6 F 65 18 145/83 H 96 12/12/19 03:54 98.5 F 60 18 114/55 L 94 12/11/19 23:54 98.1 F 76 18 94/59 L 91 L 12/11/19 19:30 98.1 F 96 16 138/74 96 12/11/19 15:52 98.1 F 89 16 138/74 93 12/11/19 14:00 96.4 F L 86 20 150/74 H 98 Body Mass Index 32.0 General: AO X 3, no acute distress Resp: CTA bilateral CVS: S1,S2,RRR GI: +BS, NT, no distention Skin: No rash Neuro: motor grossly intact Psych: appropriate affect DS: Data Data Completed and Pending Labs on day of discharge: Preliminary micro results at discharge 12/10/19 00:23 Blood Culture - Preliminary Blood - Venous No growth after 48 hours. 12/10/19 00:23 Blood Culture - Preliminary Blood - Venous No growth after 48 hours. Discharge Plan Discharge Anticipated Discharge Date/Time: 12/12/19 12:48 Patient Disposition: Home, Self-Care Referrals: Adry Young MD [Primary Care Provider] - Discharge Medications: Continued Myrbetriq 50 mg tablet extended release 24 hr 50 mg PO DAILY RF: 0 tizanidine 4 mg tablet 4 mg PO TID PRN (Reason: Muscle Spasm) RF: 0 losartan 100 mg tablet 100 mg PO DAILY RF: 0 metoprolol succinate 50 mg tablet extended release 24 hr 50 mg PO DAILY RF: 0 amlodipine 10 mg tablet 10 mg PO DAILY RF: 0 Diet: advance to your usual diet Activity on Discharge: As tolerated Visit Report Forms: Patient Portal Discharge page Care Plan Goals: control heart disease Health Concerns: cardiovascular disease Plan of Treatment: Take all your medications as recommended and follow up with your Doctor in a week, call for appointment
--- NOTE | 2019-12-12 15:20 | P.PNCAR_ITS ---
Subjective Subjective Principal diagnosis: abnormal troponin, chest discomfort Interval history: Seen in follow up for for chest pain and elevated troponin. Has no chest pain or sob this morning. underwent myocardial perfusion imaging this morning with normal myocardial perfusion Review of Systems Review of Systems Yes all other systems are reviewed and are negative Reports system reviewed and no additional complaints, except as documented Physical Exam Vital Signs: Vital Signs Temp Pulse Resp BP Pulse Ox 12/12/19 12:45 97.7 F 86 18 125/67 98 12/12/19 08:00 97.6 F 65 18 145/83 H 96 12/12/19 03:54 98.5 F 60 18 114/55 L 94 12/11/19 23:54 98.1 F 76 18 94/59 L 91 L 12/11/19 19:30 98.1 F 96 16 138/74 96 12/11/19 15:52 98.1 F 89 16 138/74 93 Body Mass Index 32.0 Const General: cooperative, comfortable and no acute distress Nutritional Appearance: obese HENMT Head: Yes normocephalic and Yes atraumatic Neck Neck: Yes trachea midline and Yes no JVD Chest Chest palpation & inspection: normal inspection of the chest Resp Effort & Inspection: normal respiratory effort Auscultation: clear to auscultation bilaterally Cardio Rate: regular rate Rhythm: regular rhythm Heart sounds: S1 normal heart sound present and S2 normal heart sound present Peripheral pulses: Peripheral pulses 2+ throughout GI Auscultation: normal bowel sounds Skin General skin exam: elasticity normal and turgor normal Neuro General: no focal motor deficits Extrem General: Yes no clubbing, cyanosis or edema Results Labs and Meds Result diagrams: 12/11/19 05:18 12/11/19 05:18 Progress Note: A&P Assessment and plan (1) Elevated troponin: Problem details: abnormal troponin with rise and fall in a elderly woman with chest pain after eating. Myocardial perfusion imaging is within normal limits and reassuring. Likelihood of significant obstructive coronary artery disease is extremely low. No further workup is necessary at this point in time. Continue medical therapy with low-dose aspirin therapy and control of blood pressure. Blood pressure is well optimized. Evaluate for other causes of chest discomfort especially es ophageal pathology. Patient can be discharged from cardiac perspective. Status: Acute (2) Chest pain: Status: Acute (3) Hypertension: Status: Acute Fall Risk Details Current Medications: Current Medications Generic Name Dose Route Start Last Admin Trade Name Freq PRN Reason Stop Dose Admin Acetaminophen 650 mg 12/10/19 04:10 Acetaminophen 325 Mg Tablet PO Q6H PRN Pain, Mild (Pain Scale 1-3) Al Hydroxide/Mg Hydroxide 15 ml 12/10/19 05:49 Magnesium Hydrox/Alum Hydrox 30 Ml Oral.Susp PO Q6H PRN Heartburn Amlodipine Besylate 10 mg 12/10/19 09:00 12/12/19 12:46 Amlodipine Besylate 10 Mg Tablet PO 10 mg DAILY JEANNINE Administration Protocol Enoxaparin Sodium 40 mg 12/10/19 04:10 12/12/19 05:59 Enoxaparin Sodium 40 Mg/0.4 Ml Syringe SUBCUT 40 mg Q24H JEANNINE Administration Losartan Potassium 100 mg 12/10/19 09:00 12/12/19 12:47 Losartan Potassium 50 Mg Tablet PO 100 mg DAILY JEANNINE Administration Protocol Metoprolol Succinate 50 mg 12/10/19 09:00 12/12/19 12:46 Metoprolol Succinate Er 50 Mg Tab.Er.24h PO 50 mg DAILY JEANNINE Administration Protocol Mirabegron 50 mg 12/10/19 09:00 12/12/19 12:46 Mirabegron 50 Mg Tab.Er.24h PO 50 mg DAILY JEANNINE Administration Ondansetron HCl 4 mg 12/10/19 04:10 Ondansetron Hcl 4 Mg/2 Ml Vial IVPUSH Q8H PRN Nausea and Vomiting Pharmacy Consult 1 each 12/10/19 00:37 Consult Rx Perform Med Rec MISCELLANE ONCE PRN Consult order Sodium Chloride 3 ml 12/10/19 08:00 12/12/19 08:49 0.9 % Sodium Chloride Flush 3 Ml Syringe IVFLUSH 3 ml QSHIFT JEANNINE Administration Tizanidine HCl 4 mg 12/10/19 05:50 12/11/19 21:10 Tizanidine Hcl 4 Mg Tablet PO 4 mg TID PRN Administration Muscle Spasm Time Spent With Patient Time: Total time spent is greater than 50% in coordination of care (as documented) at patient's floor/unit and/or counseling patient: Time with patient: 15 - 24 minutes
--- NOTE | 2019-12-12 15:28 | MHC.CM.PN ---
Patient will be discharged home no services. Dtr will provide transportation.
[2019-12-12 15:44] VITALS: BP 135/57; PULSE 81; RESP 18; TEMP 36.5; O2SAT 98
== END 2019-12-12 16:15 | disposition home or self-care (01) ==
LOC: HO.ED 12-10 01:42 → HO.IMC 12-10 06:23
PROVIDERS: Admitting Provider Internal Medicine; Emergency Provider Emergency Medicine; PCP Internal Medicine; Visit Provider Internal Medicine
DX: R07.1 Chest pain on breathing (principal); R06.00 Dyspnea, unspecified; R77.8 Other specified abnormalities of plasma proteins; I44.4 Left anterior fascicular block; I49.1 Atrial premature depolarization; E78.00 Pure hypercholesterolemia, unspecified; E78.5 Hyperlipidemia, unspecified; I12.9 Hypertensive chronic kidney disease with stage 1 through stage 4 chronic kidney disease, or unspecified chronic kidney disease; N18.32 Chronic kidney disease, stage 3b; M10.9 Gout, unspecified; M85.80 Other specified disorders of bone density and structure, unspecified site; Q61.3 Polycystic kidney, unspecified; D72.829 Elevated white blood cell count, unspecified; Z20.828 Contact with and (suspected) exposure to other viral communicable diseases; Z90.710 Acquired absence of both cervix and uterus; Z90.49 Acquired absence of other specified parts of digestive tract; Z90.722 Acquired absence of ovaries, bilateral; Z79.899 Other long term (current) drug therapy
CPT/HCPCS: 36415; 71045; 78452; 78580; 80048; 80076; 81001; 83615; 83735; 83880; 84484; 85025; 85379; 85610; 85730; 87040; 87086; 87088; 87186; 87635; 93005; 93017; 93306; 99219; 99285; A9500; A9540; J1650; J2785

== ENCOUNTER 2020-03-17 | Outpatient (REF) | payer MEDICARE, MEDICAID, SELFPAY | END 2020-03-17 00:01 | disposition home or self-care (01) | LOC: HO.VC | PROVIDERS: Visit Provider Internal Medicine | DX: Z23 Encounter for immunization (principal) | CPT/HCPCS: 0011A ==

== ENCOUNTER 2020-04-13 | Outpatient (REF) | payer MEDICARE, MEDICAID, SELFPAY | END 2020-04-13 00:01 | disposition home or self-care (01) | LOC: HO.VC | PROVIDERS: Visit Provider Internal Medicine | DX: Z23 Encounter for immunization (principal) | CPT/HCPCS: 0012A ==

== ENCOUNTER 2020-05-29 13:20 | Emergency (ER) | payer MEDICARE, MEDICAID, SELFPAY ==
--- NOTE | ~2020-05-29 | CT_ITS ---
EXAMINATION: CT HEAD WITHOUT CONTRAST CLINICAL INFORMATION: Headache. Rule out bleed. COMPARISON: None TECHNIQUE: Contiguous axial imaging was performed from the skull base to vertex without intravenous administration of contrast. This CT examination was performed using dose optimization techniques as appropriate, variously including the following: *Automated exposure control *Adjustment of mA and/or kV according to patient size (this includes techniques or standardized protocols for targeted exams where dose is matched to indication/reason for exam; i.e. extremities or head) *Use of iterative reconstruction technique DLP: 653 mGy-cm FINDINGS: There is no evidence of acute intracranial hemorrhage or territorial infarction. No abnormal mass effect or midline shift is seen. Dean to white matter differentiation is well preserved. No extra-axial fluid collections are identified. The lateral ventricles are enlarged and so are the cortical sulci. There is mild periventricular hypodensity and both cerebral hemispheres without mass effect. The osseous structures and soft tissues are normal. The mastoid air cells and visualized portions of the paranasal sinuses are well aerated. CT/CT head/brain wo con IMPRESSION: No acute intracranial process seen.
[2020-05-29 13:57] VITALS: BP 214/102; PULSE 58; RESP 18; TEMP 36.7; O2SAT 99; BMI 32.5
--- NOTE | 2020-05-29 14:12 | ED.GENADULT ---
HPI - General Adult General Chief complaint: General Medical Stated complaint: SHARP PAIN LUTHERAN OF HEAD Time Seen by Provider: 05/29/20 14:09 Source: patient Mode of arrival: ambulatory Limitations: no limitations History of Present Illness HPI narrative: 84 yo female with past medical history of HLD, HTN, GERD, gout, CKD, DDD here with complaints of right sided DANIEL described as throbbing intermittent x 7 days. Pain radiates from posterior head to right samaritan. No vision changes, photophobia, fevers, chills, neck pain, nausea, vomiting, diarrhea. Took APAP with continued symptoms. She has had some nasal congestion with clear rhinorrhea. No ear pain, cough, SOB, sore throat. H/o hypertension. No recent changes in medication. She has been compliant. Related Data Home Medications Medication Instructions Recorded Confirmed tizanidine 4 mg tablet 4 mg PO TID PRN 11/13/19 04/05/20 terbinafine HCl 250 mg tablet 250 mg PO DAILY 01/05/20 04/05/20 melatonin 10 mg tablet 10 mg PO BEDTIME PRN 04/05/20 04/05/20 Previous Rx's Medication Instructions Recorded metoprolol succinate 50 mg 50 mg PO DAILY #90 tab 01/29/20 tablet,extended release 24 hr donepezil 10 mg tablet 10 mg PO BEDTIME #30 tab 04/05/20 fluticasone propionate 50 1 spray INTRANASAL DAILY #16 g 04/05/20 mcg/actuation nasal spray,suspension losartan 100 mg tablet 100 mg PO DAILY #90 tab 04/05/20 mirabegron 50 mg tablet,extended 50 mg PO BID #60 tab 04/19/20 release 24 hr amlodipine 5 mg tablet 5 mg PO DAILY #90 tab 05/28/20 azithromycin See Rx Instructions .ROUTE 05/29/20 .COMPLEX #6 tab Allergies Allergy/AdvReac Type Severity Reaction Status Date / Time No Known Allergies Allergy Verified 03/22/20 12:57 [No Known Allergies*] Review of Systems Review of Systems: Yes all other systems are reviewed and are negative Constitutional: Constitutional: Reports no additional constitutional complaints, Denies body ache(s), Denies chills, Denies fever(s), Reports headache(s) and Denies weakness Eyes: Eyes: Reports no additional eye complaints and Denies change in vision ENT: Reports system reviewed and no additional complaints, except as documented, Denies dizziness, Reports headache(s), Denies nasal congestion, Denies nasal discharge and Denies neck pain Cardiovascular: Cardiovascular: Reports no additional cardiovascular complaints, Denies chest pain, Denies leg edema and Denies dyspnea Respiratory: Respiratory: Reports no additional respiratory complaints, Denies cough and Denies dyspnea Gastrointestinal: Gastrointestinal: Reports no additional gastrointestinal complaints, Denies abdominal pain, Denies diarrhea, Denies nausea and Denies vomiting Genitourinary: Genitourinary: Reports no additional female genitourinary complaints and Denies urinary incontinence Musculoskeletal: Musculoskeletal: Reports no additional musculoskeletal complaints, Denies back pain, Denies arthralgias, Denies joint swelling, Denies neck pain, Denies numbness and Denies tingling Integumentary/Breasts: Skin/Breast: Reports system reviewed and no additional complaints, except as docu and Denies rash Neurologic: Reports system reviewed and no additional complaints, except as documented, Denies Abnormal speech present, Denies dizziness, Reports headache(s), Denies numbness, Denies tingling and Denies weakness PMFSH Past Medical History Attestation statement: The following information was validated with the patient. Source: old records reviewed and nursing notes reviewed Medical History Adnexal mass Chronic kidney disease (CKD) stage G3b/A3, moderately decreased glomerular filtration rate (GFR) between 30-44 mL/min/1.73 square meter and albuminuria creatinine ratio greater than 300 mg/g Degenerative disc disease, lumbar GERD (gastroesophageal reflux disease) Gout Hypercholesterolemia Hypertension Mild cognitive impairment Obesity (BMI 30-39.9) Onychomycosis Osteoarthritis Osteopenia Peripheral vascular disease Polycystic kidney disease Spondylosis of cervical spine Urinary incontinence Vitamin D deficiency Surgical History History of cholecystectomy History of hysterectomy Family History Family History Father No problems noted. Mother No problems noted. Brother No problems noted. Daughter No problems noted. Daughter No problems noted. Daughter No problems noted. Daughter No problems noted. Social History Social History Alcohol intake: never Smoking Status: Never smoker Advance Directives: Yes Advance Directives Information Provided: Yes Advance Directives on File: No service: No Current occupational status: retired Physical Exam Vital Signs: Vital Signs: Last Vital Signs Temp 98.6 F 05/29/20 16:58 Pulse 55 05/29/20 16:58 Resp 15 05/29/20 16:58 BP 173/78 H 05/29/20 16:58 Pulse Ox 96 05/29/20 16:58 Body Mass Index 32.5 Const: General: cooperative, healthy appearing, comfortable and no acute distress Orientation/consciousness: patient oriented x3 Limitations: no limitations HENMT: Other: R sided DANIEL-unable to illicit pain on palpation, no temporal artery tenderness Head: Yes normal to inspection Ears: hearing grossly normal bilaterally General nose exam: Normal external nose present Face and sinus: Yes normal facial exam Mouth: Normal oral and palatal mucosa present Throat: Yes posterior oropharynx normal Eyes: General: appearance normal, both eyes and all related structures Pupils: Equal, round and reactive pupils present Neck: Neck: Yes normal visual inspection, Yes full ROM, Yes no lymphadenopathy and Yes no meningeal signs Chest: Chest palpation & inspection: normal inspection of the chest Resp: Effort & Inspection: normal respiratory effort Auscultation: clear to auscultation bilaterally Cardio: Rate: regular rate Rhythm: regular rhythm Peripheral pulses: Peripheral pulses 2+ throughout GI: Inspection: Yes normal to inspection Palpation (GI): Soft to palpation and nontender Auscultation: normal bowel sounds Back/Spine/Pelvis: Thoracic/Lumbar Spine: thoracic and lumbar spine normal to inspection Skin: General skin exam: no rashes or lesions noted Neuro: General: patient oriented x3, no meningeal signs, no focal motor deficits and normal sensation to monofilament Cranial nerves: Yes CN's II-XII intact bilaterally, Yes Equal, round and reactive pupils present, Yes Bilaterally intact EOM present, Yes Nystagmus not present, Yes Normal facial strength present and Yes Midline tongue present Cognition (Neuro): normal cognition Speech: No Abnormal speech present Gait exam (Neuro): Normal gait present Motor exam (neuro): 5/5 motor strength present throughout Sensory Exam: Normal double simultaneous stimulation for sensation Coordination: [id number] test normal and [id number] test normal Extrem: General: Yes normal to inspection, Yes no pedal edema and Yes no calf tenderness Course Course Course Narrative: 84 yo female here with intermittent R sided DANIEL x 1 week with associated nasal congestion with clear rhinorrhea. No neuro deficits. Mild hypertension with no recent changes in medications and she has been compliant. ?secondary to pain vs hypertensive crisis. Will need labs including inflammatory markers, CT head, and analgesia. Will follow blood pressure and address as needed. 1630-Labs including inflammatory markers are unremarkable. CT head negative. Blood pressure improved without intervention. Patient tells me her headache is improving. She tells me that it feels worse when she lays flat and when she moves her head and she feels like there is pressure over the sinus. ? Sinusitis. Will treat with course of antibiotics, recommend OTC allergy medicine. Reviewed worrisome signs and symptoms and when to return to the emergency department. Comfortable with discharge home. Medical Decision Making MDM Narrative Medical decision making narrative: ICH versus lesion versus CVA versus temporal arteritis versus sinusitis versus hypertensive crisis Less likely ICH, lesion or CVA with negative CT head and symptoms greater than 7 days. Less likely temporal arteritis with no visual disturbances, no fever, and negative inflammatory markers. Less likely hypertensive crisis with blood pressure improved without intervention. Medical Records Medical records reviewed: Yes I reviewed the patient's medical records. Lab Data Lab results reviewed: Yes I reviewed the patient's lab results. Result diagrams: 05/29/20 15:06 05/29/20 15:06 Labs: Lab Results 05/29/20 05/29/20 05/29/20 Range/Units 15:05 15:06 15:06 WBC 7.6 (4.8-10.8) X10*3/uL RBC 4.71 D (4.20-5.50) X10*6/uL Hgb 14.3 D (12.0-16.0) g/dl Hct 43.0 D (37-47) % MCV 91.3 (80-98) fL MCH 30.4 (27.0-33.0) pg MCHC 33.3 (31.0-35.0) g/dl RDW 13.2 (11.0-16.0) % Plt Count 237 D (160-400) X10*3/uL MPV 11.0 (9.4-12.3) fL Immature Gran % (Auto) 0.3 (0.0-0.4) % Neut % (Auto) 63.9 (45-73) % Lymph % (Auto) 23.9 (20-40) % [place] % (Auto) 7.0 (2-11) % Eos % (Auto) 3.8 (0-4) % Baso % (Auto) 1.1 (0-2) % Lymph # (Auto) 1.8 (1.2-4.9) X10*3/uL [place] # (Auto) 0.5 (0.1-1.2) X10*3/uL Eos # (Auto) 0.3 (0.0-0.4) X10*3/uL Baso # (Auto) 0.1 (0.0-0.2) X10*3/uL Abs Immat Gran (auto) 0.02 (0.00-0.03) X10*3/uL Absolute Neuts (auto) 4.9 (2.0-8.3) X10*3/uL Absolute Nucleated RBC 0.000 (0.0-0.012) X10*3/uL Nucleated RBC % (auto) 0.0 (0.0-0.2) /100WBC ESR 8 (0-20) MM/HR PT (10.8-13.0) SEC INR (0.9-1.1) Sodium (135-145) mmol/L Potassium (3.3-5.1) mmol/L Chloride (96-108) mmol/L Carbon Dioxide (22-29) mmol/L Anion Gap (12-20) BUN (9-16) mg/dL Creatinine (0.5-1.4) mg/dL Estim Creat Clear Calc Estimated GFR Random Glucose (60-115) mg/dL Calcium (8.4-10.2) mg/dL Magnesium 2.2 (1.6-2.6) mg/dL Total Bilirubin (0.0-1.0) mg/dL Direct Bilirubin (0.0-0.5) mg/dL AST (5-31) U/L ALT (0-31) U/L Alkaline Phosphatase (39-117) U/L C-Reactive Protein (< or = 0.50) mg/dL Total Protein (6.5-8.0) g/dL Albumin (3.5-5.0) g/dL 05/29/20 05/29/20 Range/Units 15:06 15:06 WBC (4.8-10.8) X10*3/uL RBC (4.20-5.50) X10*6/uL Hgb (12.0-16.0) g/dl Hct (37-47) % MCV (80-98) fL MCH (27.0-33.0) pg MCHC (31.0-35.0) g/dl RDW (11.0-16.0) % Plt Count (160-400) X10*3/uL MPV (9.4-12.3) fL Immature Gran % (Auto) (0.0-0.4) % Neut % (Auto) (45-73) % Lymph % (Auto) (20-40) % [place] % (Auto) (2-11) % Eos % (Auto) (0-4) % Baso % (Auto) (0-2) % Lymph # (Auto) (1.2-4.9) X10*3/uL [place] # (Auto) (0.1-1.2) X10*3/uL Eos # (Auto) (0.0-0.4) X10*3/uL Baso # (Auto) (0.0-0.2) X10*3/uL Abs Immat Gran (auto) (0.00-0.03) X10*3/uL Absolute Neuts (auto) (2.0-8.3) X10*3/uL Absolute Nucleated RBC (0.0-0.012) X10*3/uL Nucleated RBC % (auto) (0.0-0.2) /100WBC ESR (0-20) MM/HR PT 11.4 (10.8-13.0) SEC INR 1.0 (0.9-1.1) Sodium 142 (135-145) mmol/L Potassium 4.4 (3.3-5.1) mmol/L Chloride 108 (96-108) mmol/L Carbon Dioxide 24 (22-29) mmol/L Anion Gap 14 (12-20) BUN 20 H (9-16) mg/dL Creatinine 1.02 (0.5-1.4) mg/dL Estim Creat Clear Calc 35.0 Estimated GFR 52 Random Glucose 89 (60-115) mg/dL Calcium 9.3 (8.4-10.2) mg/dL Magnesium (1.6-2.6) mg/dL Total Bilirubin 0.5 (0.0-1.0) mg/dL Direct Bilirubin < 0.2 (0.0-0.5) mg/dL AST 22 D (5-31) U/L ALT 17 (0-31) U/L Alkaline Phosphatase 80 (39-117) U/L C-Reactive Protein 0.69 H (< or = 0.50) mg/dL Total Protein 6.7 (6.5-8.0) g/dL Albumin 4.1 (3.5-5.0) g/dL Imaging Data CT scan - abdomen: Attestation: I personally reviewed and interpreted this imaging study as follows: Radiologist's impression: FINDINGS: There is no evidence of acute intracranial hemorrhage or territorial infarction. No abnormal mass effect or midline shift is seen. Dean to white matter differentiation is well preserved. No extra-axial fluid collections are identified. The lateral ventricles are enlarged and so are the cortical sulci. There is mild periventricular hypodensity and both cerebral hemispheres without mass effect. The osseous structures and soft tissues are normal. The mastoid air cells and visualized portions of the paranasal sinuses are well aerated. CT/CT head/brain wo con IMPRESSION: No acute intracranial process seen. Discharge Plan Discharge Clinical Impression: Sinusitis, Headache, Hypertension Patient Disposition: Home, Self-Care Instructions: Sinusitis (ED), Acute Headache (ED), Hypertension (ED) Additional Instructions: Take an over the counter allergy medication such as claritin or zrytec once daily for the next few days Starting tomorrow increase your dose of amlodipine to 10mg daily from 5mg daily Start your antibiotic and take with food Return for fever >100.4, vomiting, severe headache which is worsening. Follow-up with your PCP on Sunday for a blood pressure check Prescriptions: New azithromycin 250 mg tablet See Rx Instructions .ROUTE .COMPLEX Qty: 6 RF: 0 No Action metoprolol succinate 50 mg tablet extended release 24 hr 50 mg PO DAILY Qty: 90 RF: 1 mirabegron [Myrbetriq] 50 mg tablet extended release 24 hr 50 mg PO BID Qty: 60 RF: 6 amlodipine 5 mg tablet 5 mg PO DAILY Qty: 90 RF: 3 terbinafine HCl 250 mg tablet 250 mg PO DAILY RF: 0 melatonin 10 mg tablet 10 mg PO BEDTIME PRNRF: 0 donepezil [Aricept] 10 mg tablet 10 mg PO BEDTIME Qty: 30 RF: 2 losartan 100 mg tablet 100 mg PO DAILY Qty: 90 RF: 3 fluticasone propionate [Flonase Allergy Relief] 50 mcg/actuation spray,suspension 1 spray intranasal DAILY Qty: 16 RF: 4 tizanidine 4 mg tablet 4 mg PO TID PRN (Reason: Muscle Spasm) RF: 0 Referrals: Po,Adry Fink MD [Primary Care Provider] - 2 days Interventions: ED Discharge Assessment Last Done: 05/29/20 17:39 Discharge Date/Time: 05/29/20 17:39
[2020-05-29 15:11] LABS: MANUAL DIFF FLAG NO
[2020-05-29 15:12] LABS: Basophils Absolute Auto 0.1 X10*3/uL (0.0-0.2); Basophils Percent Auto 1.1 % (0-2); Eosinophils Absolute Auto 0.3 X10*3/uL (0.0-0.4); Eosinophils Percent Auto 3.8 % (0-4); Hemoglobin 14.3 g/dl (12.0-16.0); Imm Gran Abs Auto 0.02 X10*3/uL (0.00-0.03); Imm Gran Pct Auto 0.3 % (0.0-0.4); Lymphocytes Absolute Auto 1.8 X10*3/uL (1.2-4.9); Lymphocytes Percent Auto 23.9 % (20-40); Mean Corpuscular HGB Conc 33.3 g/dl (31.0-35.0); Mean Corpuscular Hemoglobin 30.4 pg (27.0-33.0); Mean Corpuscular Volume 91.3 fL (80-98); Monocytes Absolute Auto 0.5 X10*3/uL (0.1-1.2); Neutrophils Absolute Auto 4.9 X10*3/uL (2.0-8.3); Neutrophils Percent Auto 63.9 % (45-73); Platelet Count 237 X10*3/uL (160-400); Red Blood Count 4.71 X10*6/uL (4.20-5.50); Red Cell Distribution Width 13.2 % (11.0-16.0); White Blood Count 7.6 X10*3/uL (4.8-10.8)
[2020-05-29 15:18] LABS: Prothrombin Time 11.4 SEC (10.8-13.0)
[2020-05-29] MEDS: Butalb/Acetamin/Caff 50/325/40 TABLET 1 TAB PO (15:39)
[2020-05-29 15:50] VITALS: BP 188/68; PULSE 56; RESP 18
[2020-05-29 15:50] LABS: Alanine Aminotransferase 17 U/L (0-31); Albumin Level 4.1 g/dL (3.5-5.0); Alkaline Phosphatase 80 U/L (39-117); Anion Gap 14 (12-20); Aspartate Amino Transferase 22 U/L (5-31); Bilirubin Direct < 0.2 mg/dL (0.0-0.5); Bilirubin Total 0.5 mg/dL (0.0-1.0); Blood Urea Nitrogen 20 mg/dL (9-16); C Reactive Protein 0.69 mg/dL (< or = 0.50); Calcium 9.3 mg/dL (8.4-10.2); Carbon Dioxide 24 mmol/L (22-29); Chloride 108 mmol/L (96-108); Estimated Glomerular Filt Rate 52; Glucose Random 89 mg/dL (60-115); Potassium 4.4 mmol/L (3.3-5.1); Sodium 142 mmol/L (135-145); Total Protein 6.7 g/dL (6.5-8.0)
[2020-05-29 15:50] LABS: Magnesium 2.2 mg/dL (1.6-2.6)
[2020-05-29 15:54] LABS: Erythrocyte Sedimentation Rate 8 MM/HR (0-20)
[2020-05-29 16:58] VITALS: BP 173/78; PULSE 55; RESP 15; TEMP 37; O2SAT 96
== END 2020-05-29 17:39 | disposition home or self-care (01) ==
PROVIDERS: Nurse Practitioner Family; Emergency Provider Emergency Medicine; PCP Internal Medicine
DX: J32.9 Chronic sinusitis, unspecified (principal); R51.9 Headache, unspecified; I12.9 Hypertensive chronic kidney disease with stage 1 through stage 4 chronic kidney disease, or unspecified chronic kidney disease; N18.32 Chronic kidney disease, stage 3b; K21.9 Gastro-esophageal reflux disease without esophagitis; E78.5 Hyperlipidemia, unspecified
CPT/HCPCS: 36415; 70450; 80048; 80076; 83735; 85025; 85610; 85652; 86140; 99283; 99284

== ENCOUNTER → 2020-08-04 13:46 | Outpatient (BNVA) | payer MEDICARE, MEDICAID, SELFPAY | PROVIDERS: PCP Internal Medicine | DX: R32 Unspecified urinary incontinence (principal); N18.31 Chronic kidney disease, stage 3a; E78.00 Pure hypercholesterolemia, unspecified; I10 Essential (primary) hypertension; Q61.3 Polycystic kidney, unspecified; E55.9 Vitamin D deficiency, unspecified; Z90.710 Acquired absence of both cervix and uterus; Z90.49 Acquired absence of other specified parts of digestive tract | CPT/HCPCS: 51798; 99212 ==

== ENCOUNTER 2020-10-15 16:01 | Inpatient (IN) | payer MEDICARE, MEDICAID, SELFPAY ==
--- NOTE | ~2020-10-15 | XR_ITS ---
EXAMINATION: XR CHEST CLINICAL INFORMATION: Chest pain, left shoulder pain COMPARISON: 12/09/2019, 07/25/2019 TECHNIQUE: 2 views of the chest were obtained. FINDINGS: The lungs and pleural spaces appear clear. The mediastinum is stable. There is no vascular congestion. There is accentuation of the thoracic kyphosis with spondylosis through the mid thoracic spine. XR/XR chest 2V IMPRESSION: No evidence of active disease in the chest.
[2020-10-15 16:13] VITALS: BP 160/80; BP 98/59; PULSE 80; PULSE 88; RESP 19; TEMP 37.8; O2SAT 96; BMI 33.9
--- NOTE | 2020-10-15 16:22 | ECG_ITS ---
Test Reason : CHEST HEAVYNESS Blood Pressure : / mmHG Vent. Rate : 084 BPM Atrial Rate : 084 BPM P-R Int : 162 ms QRS Dur : 100 ms QT Int : 370 ms P-R-T Axes : 013 -39 071 degrees QTc Int : 437 ms Normal sinus rhythm Left axis deviation Nonspecific ST and T wave abnormality Abnormal ECG When compared with ECG of 10-DEC-2019 05:50, Premature atrial complexes are no longer Present Non-specific change in ST segment in Lateral leads QT has shortened Referred By: My Pickett Electronically Signed By:PHIL GOTTI
--- NOTE | 2020-10-15 16:26 | ED_ITS ---
HPI - Chest Pain General Chief Complaint: Chest Pain Stated Complaint: chest pain-resolved Time Seen by Provider: 10/15/20 16:22 Source: patient, family and EMS Mode of arrival: EMS Limitations: no limitations History of Present Illness HPI narrative: 84-year-old female with past medical history of hypercholesterole adriana, hypertension, GERD, obesity, round, lumbar degenerative disc disease, mild cognitive impairment is coming here today with left shoulder, neck pain, chest pressure that now resolved. Epigastric discomfort and burning. Patient denies any SOB with or without exertion. Patient denies any presyncope, syncope, PND. Patient reports that he had he will at home, will great subjective fever. Wilma ríos gave her full-dose aspirin. Patient's daughter reports that her mom was moving furniture couple days ago today reports that her left neck and shoulder is painful. Patient denies any dyspepsia, dysphagia or odynophagia. Denies any nausea, vomiting and diarrhea, constipation. MD complaint: chest pain Onset (ago): hour(s) Pain radiation: left arm, neck and left shoulder Severity: mild Quality: tightness Associated symptoms: vomiting Treatment prior to arrival: none Risk Factors Coronary artery disease risk factors: hyperlipidemia and hypertension Related Data Home Medications Medication Instructions Recorded Confirmed tizanidine 4 mg tablet 4 mg PO BEDTIME PRN 11/13/19 10/15/20 terbinafine HCl 250 mg tablet 250 mg PO DAILY 01/05/20 10/15/20 amlodipine 5 mg tablet 5 mg PO DAILY@1200 10/15/20 10/15/20 metoprolol succinate 50 mg 50 mg PO BEDTIME 10/15/20 10/15/20 tablet,extended release 24 hr Previous Rx's Medication Instructions Recorded losartan 100 mg tablet 100 mg PO DAILY #90 tab 04/05/20 donepezil 10 mg tablet (Aricept) 10 mg PO BEDTIME 90 Days #90 tab 06/21/20 cholestyramine-aspartame 4 gram 4 g PO BID #60 ea 07/05/20 oral powder for susp in a packet (Prevalite) trazodone 50 mg tablet 50 mg PO BEDTIME PRN 30 Days #30 08/17/20 tab mirabegron 50 mg tablet,extended 50 mg PO BID #60 tab 09/27/20 release 24 hr (Myrbetriq) Allergies Allergy/AdvReac Type Severity Reaction Status Date / Time No Known Allergies Allergy Verified 10/15/20 16:13 [No Known Allergies*] Review of Systems Review of Systems: Constitutional : No Weight loss, No Fever, No Chills, No Night Sweats, No Fatigue, No Malaise ENT/Mouth : No Hearing loss, No Ear Pain, No Nasal Congestion, No Sinus Pain, No Hoarseness, No sore throat, No Rhinorrhea, No Swallowing Difficulty Eyes: No Eye Pain, No Swelling, No Redness, No Foreign Body, No Discharge, No Vision Changes Cardiovascular : Chest Pain, No SOB, No Dyspnea on Exertion, No Orthopnea, No Edema, No Palpitations Respiratory : No Cough, No Sputum, No Wheezing, No Smoke Exposure, No Dyspnea Gastrointestinal : No Nausea, No Vomiting, No Diarrhea, No Constipation, No abd ominal Pain, No Hematochezia, No Melena Genitourinary : no irregular bleeding, No Dysuria, No Urinary Frequency, No Hematuria, No Urinary Incontinence, No Urgency, No Flank Pain, No Urinary Flow Changes, No Hesitancy Musculoskeletal : joint pain, Myalgias, No Joint Swelling, left shoulder pain Skin : No Skin Lesions, No rash Neuro : No Weakness, No Numbness, No Paresthesias, No Loss of Consciousness, No Dizziness, No Headache Psych : No Anxiety/Panic, No Depression, No SI/HI/AH/VH, No Social Issues, Heme/Lymph: No Bruising, No Bleeding,No Lymphadenopathy Endocrine : No Polyuria, No Polydipsia, No Temperature Intolerance Yes all other systems are reviewed and are negative [facility] Past Medical History Medical History Adnexal mass Chronic kidney disease (CKD) stage G3b/A3, moderately decreased glomerular filtration rate (GFR) between 30-44 mL/min/1.73 square meter and albuminuria creatinine ratio greater than 300 mg/g Degenerative disc disease, lumbar GERD (gastroesophageal reflux disease) Gout Hypercholesterolemia Hypertension Mild cognitive impairment Obesity (BMI 30-39.9) Onychomycosis Osteoarthritis Osteopenia Peripheral vascular disease Polycystic kidney disease Spondylosis of cervical spine Urinary incontinence Vitamin D deficiency Surgical History History of cholecystectomy History of hysterectomy History of surgery Family History Family History Father No problems noted. Mother No problems noted. Brother No problems noted. Daughter No problems noted. Daughter No problems noted. Daughter No problems noted. Daughter No problems noted. Social History Social History Household Members: None Housing: Apartment Do you presently have visiting nurse or other home services: No Alcohol intake: never Patient Tobacco Use Status: Never used Tobacco e-Cigarette/Vaping Use: Never Used Second Hand Smoke Exposure: No Use of substances other than those prescribed or required for medical reasons: No Have you been hit, kicked, punched, or otherwise hurt by someone within the past year? If so, by whom?: No Do you feel safe in your current relationship?: No Current Relationship Is there a partner from a previous relationship who is making you feel unsafe now?: No Are you made to feel afraid or neglected: No Advance Directives: No Advance Directives Information Provided: Yes Do you have thoughts of harming others: None Do you have a plan to hurt others: No Plan Recently lost weight without trying: No Nutrition Risks: No Nutritional Risk service: No Current occupational status: retired Physical Exam Vital Signs: Vital Signs: Last Vital Signs Temp 98.4 F 10/16/20 00:00 Pulse 69 10/16/20 00:00 Resp 18 10/16/20 00:00 BP 138/88 10/16/20 00:00 Pulse Ox 95 10/16/20 00:00 Body Mass Index 33.9 Const: General: healthy appearing, no acute distress and well developed Nutritional Appearance: well nourished Orientation/consciousness: patient oriented x3 HENMT: Head: Yes normal to inspection, Yes normocephalic and Yes atraumatic Ears: external ears normal, TM's normal bilaterally and other ([place]) General nose exam: Normal external nose present Face and sinus: Yes normal facial exam Mouth: Normal oral and palatal mucosa present Eyes: General: appearance normal, both eyes and all related structures Pupils: Equal, round and reactive pupils present Neck: Neck: Yes normal visual inspection, Yes full ROM and Yes trachea midline Thyroid: Thyroid normal Resp: Auscultation: clear to auscultation bilaterally Cardio: Rate: regular rate Rhythm: regular rhythm GI: Inspection: Yes normal to inspection and No distended Palpation (GI): No hepatosplenomegaly present Auscultation: normal bowel sounds Skin: General skin exam: elasticity normal, turgor normal and dry skin Neuro: General: patient oriented x3 Cranial nerves: Yes Equal, round and reactive pupils present Course Course Course Narrative: 84-year-old female with past medical history of cholesterolemia hypertension, GERD, obesity, gout is here today for complaint of chest tightness, left shoulder and neck pain. Patient was moving furniture few days ago and is complaining of neck pain and chest tightness Upon exam left trapezius very tense and tender to touch. Decreased range of motion to left extremity. Upon exam patient started belching, patient vomited. Will do CBC, CMP with lipase. I will order troponin, EKG, chest x-ray. Patient has low- grade fever will do blood cultures and COVID testing. Reevaluation(s) Reevaluation #1: Labs back patient has troponin 40.9. Will repeat EKG and troponin in 2 hours, patient denies any chest pain right now. Patient reports to be feeling much better. Patient denies chest pain, nausea or vomiting. COVID test negative Reevaluation #2: Troponin up to 92.5. Patient denies any chest pain at this time. Will call hospitalist for admission, call out to Cardiology for further management consult. Heparin drip ordered per protocol Reevaluation #3: Spoke with Dr. Shell who was on-call for Cardiology, appropriate treatment with heparin. Patient can have troponin repeated in 8 hours from the last one. Will let the hospitalist know. Patient denies any chest pain at this moment. Aware of admission both patient and her daughter. MDM - Chest Pain Differential Diagnosis Differential diagnosis: Likely chest pain Differential diagnosis: NSTEMI, Medical Records Data Attestation: I reviewed the patient's medical records. Lab Data Attestation: I reviewed the patient's lab results. Result diagrams: 10/15/20 17:51 10/15/20 17:51 Labs: Lab Results 10/15/20 10/15/20 10/15/20 Range/Units 16:57 17:51 17:51 WBC 8.2 (4.8-10.8) X10*3/uL RBC 4.04 L (4.20-5.50) X10*6/uL Hgb 12.3 (12.0-16.0) g/dl Hct 36.6 L (37-47) % MCV 90.6 (80-98) fL MCH 30.4 (27.0-33.0) pg MCHC 33.6 (31.0-35.0) g/dl RDW 13.0 (11.0-16.0) % Plt Count 144 L D (160-400) X10*3/uL MPV 10.5 (9.4-12.3) fL Immature Gran % (Auto) 0.9 H (0.0-0.4) % Neut % (Auto) 94.5 H (45-73) % Lymph % (Auto) 3.1 L (20-40) % [place] % (Auto) 0.9 L (2-11) % Eos % (Auto) 0.2 (0-4) % Baso % (Auto) 0.4 (0-2) % Lymph # (Auto) 0.3 L (1.2-4.9) X10*3/uL [place] # (Auto) 0.1 (0.1-1.2) X10*3/uL Eos # (Auto) 0.0 (0.0-0.4) X10*3/uL Baso # (Auto) 0.0 (0.0-0.2) X10*3/uL Abs Immat Gran (auto) 0.07 H (0.00-0.03) X10*3/uL Absolute Neuts (auto) 7.7 (2.0-8.3) X10*3/uL Absolute Nucleated RBC 0.000 (0.0-0.012) X10*3/uL Nucleated RBC % (auto) 0.0 (0.0-0.2) /100WBC Smear Tech's Comments VERIFIED Sodium 139 (135-145) mmol/L Potassium 3.9 (3.3-5.1) mmol/L Chloride 113 H (96-108) mmol/L Carbon Dioxide 18 L (22-29) mmol/L Anion Gap 12 (12-20) BUN 16 (9-16) mg/dL Creatinine 1.05 (0.5-1.4) mg/dL Estim Creat Clear Calc 34.9 Estimated GFR 50 Random Glucose 88 (60-115) mg/dL Calcium 8.7 D (8.4-10.2) mg/dL Total Bilirubin 0.7 (0.0-1.0) mg/dL AST 16 (5-31) U/L ALT 11 (0-31) U/L Alkaline Phosphatase 65 (39-117) U/L Troponin I High Sens (<3.5-17.0) ng/L Total Protein 5.4 L (6.5-8.0) g/dL Albumin 3.7 (3.5-5.0) g/dL Lipase (8-78) U/L Coronavirus (PCR) NEGATIVE (Negative) Influenza Type A (PCR) NEGATIVE (Negative) Influenza Type B (PCR) NEGATIVE (Negative) RSV RNA Qual (PCR) NEGATIVE (Negative) 10/15/20 10/15/20 10/15/20 Range/Units 17:51 17:51 20:13 WBC (4.8-10.8) X10*3/uL RBC (4.20-5.50) X10*6/uL Hgb (12.0-16.0) g/dl Hct (37-47) % MCV (80-98) fL MCH (27.0-33.0) pg MCHC (31.0-35.0) g/dl RDW (11.0-16.0) % Plt Count (160-400) X10*3/uL MPV (9.4-12.3) fL Immature Gran % (Auto) (0.0-0.4) % Neut % (Auto) (45-73) % Lymph % (Auto) (20-40) % [place] % (Auto) (2-11) % Eos % (Auto) (0-4) % Baso % (Auto) (0-2) % Lymph # (Auto) (1.2-4.9) X10*3/uL [place] # (Auto) (0.1-1.2) X10*3/uL Eos # (Auto) (0.0-0.4) X10*3/uL Baso # (Auto) (0.0-0.2) X10*3/uL Abs Immat Gran (auto) (0.00-0.03) X10*3/uL Absolute Neuts (auto) (2.0-8.3) X10*3/uL Absolute Nucleated RBC (0.0-0.012) X10*3/uL Nucleated RBC % (auto) (0.0-0.2) /100WBC Smear Tech's Comments Sodium (135-145) mmol/L Potassium (3.3-5.1) mmol/L Chloride (96-108) mmol/L Carbon Dioxide (22-29) mmol/L Anion Gap (12-20) BUN (9-16) mg/dL Creatinine (0.5-1.4) mg/dL Estim Creat Clear Calc Estimated GFR Random Glucose (60-115) mg/dL Calcium (8.4-10.2) mg/dL Total Bilirubin (0.0-1.0) mg/dL AST (5-31) U/L ALT (0-31) U/L Alkaline Phosphatase (39-117) U/L Troponin I High Sens 40.9 H* 92.5 H* D (<3.5-17.0) ng/L Total Protein (6.5-8.0) g/dL Albumin (3.5-5.0) g/dL Lipase 54 (8-78) U/L Coronavirus (PCR) (Negative) Influenza Type A (PCR) (Negative) Influenza Type B (PCR) (Negative) RSV RNA Qual (PCR) (Negative) Imaging Data Chest x-ray: Radiologist's impression: No evidence of active disease in the chest ECG Data ECG #1: Interpretation: Ventricular and atrial rate 84, P are 0.16, QRS 0.1 normal sinus with left axis deviation Attending Attestation The lungs pleural spaces appear clear. The mediastinum a is stable. There is no vascular congestion. There is accentuation of the thoracic kyphosis with spondylosis through the midthoracic spine Discharge Plan Discharge Clinical Impression: Elevated troponin Chest pain Qualifiers: Chest pain type: unspecified Qualified Code(s): R07.9 - Chest pain, unspecified Patient Disposition: Admitted As Inpatient Interventions: Admission Worksheet (ED) Last Done: 10/16/20 00:07 Discharge Date/Time: 10/16/20 00:08
[2020-10-15] MEDS: ondansetron HCL 4 MG/2 ML VIAL IVPUSH (16:29)
[2020-10-15] MEDS: Pantoprazole Sodium 40 MG/10 ML VIAL IVPUSH (16:29)
[2020-10-15] MEDS: 0.9 % Sodium Chloride 500 ML IV (16:29)
[2020-10-15 16:36] VITALS: PULSE 85
[2020-10-15 17:58] LABS: Basophils Percent Auto 0.4 % (0-2); Eosinophils Percent Auto 0.2 % (0-4); Hematocrit 36.6 % (37-47); Hemoglobin 12.3 g/dl (12.0-16.0); Imm Gran Abs Auto 0.07 X10*3/uL (0.00-0.03); Imm Gran Pct Auto 0.9 % (0.0-0.4); Lymphocytes Absolute Auto 0.3 X10*3/uL (1.2-4.9); Lymphocytes Percent Auto 3.1 % (20-40); MANUAL DIFF FLAG SCAN; Mean Corpuscular HGB Conc 33.6 g/dl (31.0-35.0); Mean Corpuscular Hemoglobin 30.4 pg (27.0-33.0); Mean Corpuscular Volume 90.6 fL (80-98); Mean Platelet Volume 10.5 fL (9.4-12.3); Monocytes Absolute Auto 0.1 X10*3/uL (0.1-1.2); Monocytes Percent Auto 0.9 % (2-11); Neutrophils Absolute Auto 7.7 X10*3/uL (2.0-8.3); Neutrophils Percent Auto 94.5 % (45-73); Platelet Count 144 X10*3/uL (160-400); Red Blood Count 4.04 X10*6/uL (4.20-5.50); SCAN SMEAR FLAG 1; White Blood Count 8.2 X10*3/uL (4.8-10.8)
[2020-10-15 18:16] LABS: Alanine Aminotransferase 11 U/L (0-31); Albumin Level 3.7 g/dL (3.5-5.0); Alkaline Phosphatase 65 U/L (39-117); Anion Gap 12 (12-20); Aspartate Amino Transferase 16 U/L (5-31); Bilirubin Total 0.7 mg/dL (0.0-1.0); Blood Urea Nitrogen 16 mg/dL (9-16); Calcium 8.7 mg/dL (8.4-10.2); Carbon Dioxide 18 mmol/L (22-29); Chloride 113 mmol/L (96-108); Creatinine Clr Calc Pharmacy 34.9; Estimated Glomerular Filt Rate 50; Glucose Random 88 mg/dL (60-115); Potassium 3.9 mmol/L (3.3-5.1); Sodium 139 mmol/L (135-145); Total Protein 5.4 g/dL (6.5-8.0)
[2020-10-15 18:17] LABS: Lipase 54 U/L (8-78)
[2020-10-15 18:18] LABS: Influenza A PCR NEGATIVE (Negative); Influenza B PCR NEGATIVE (Negative); Resp Syncy Virus RNA Qual PCR NEGATIVE (Negative); SARS COV2 PCR INHOUSE NEGATIVE (Negative)
[2020-10-15 18:21] LABS: SLIDE REVIEW VERIFIED
[2020-10-15 18:23] LABS: Troponin-I High Sensitivity 40.9 ng/L (<3.5-17.0)
[2020-10-15 19:49] VITALS: BP 122/54; PULSE 72; RESP 18; O2SAT 95
[2020-10-15 20:49] LABS: Troponin-I High Sensitivity 92.5 ng/L (<3.5-17.0)
--- NOTE | 2020-10-15 21:19 | PC.NURSE ---
PATIENT HAD A TUNA SANDWICH ,AND SOME ORANGE JUICE .
[2020-10-15 21:42] VITALS: BMI 34.2
--- NOTE | 2020-10-15 21:42 | PM.IMHP ---
History of Present Illness Date of Service: 10/15/20 Chief Complaint: Chest pain 84-year-old female with a past medical history of hypertension, hyperlipidemia, GERD, obesity, mild cognitive impairment, osteoarthritis, chronic back pain presented to the hospital with a chief complaint of chest pain. Patient reports that she had chest pain, tight in nature, no associated lightheadedness dizziness nausea vomiting or diaphoresis. Lasted about few minutes; nonradiating; currently resolved with the time of my injury. Denies any recent travel or sick contacts. Patient does report moving furniture around and subsequently developed body aches. Denies any cough. Denies any GI or symptoms. Review of all other systems is negative except mentioned above ER course: Per ER team patient's EKG was nonischemic; patient chest pain improved. Patient troponins up from 40.9 to 92.5. Cardiology was notified. Patient was started on heparin drip for possible NSTEMI. Admitted for further management. [facility] Medical History Adnexal mass Chronic kidney disease (CKD) stage G3b/A3, moderately decreased glomerular filtration rate (GFR) between 30-44 mL/min/1.73 square meter and albuminuria creatinine ratio greater than 300 mg/g Degenerative disc disease, lumbar GERD (gastroesophageal reflux disease) Gout Hypercholesterolemia Hypertension Mild cognitive impairment Obesity (BMI 30-39.9) Onychomycosis Osteoarthritis Osteopenia Peripheral vascular disease Polycystic kidney disease Spondylosis of cervical spine Urinary incontinence Vitamin D deficiency Family History Father No problems noted. Mother No problems noted. Brother No problems noted. Daughter No problems noted. Daughter No problems noted. Daughter No problems noted. Daughter No problems noted. Surgical History History of cholecystectomy History of hysterectomy History of surgery Social History Household Members: None Housing: Apartment Do you presently have visiting nurse or other home services: No Alcohol intake: never Patient Tobacco Use Status: Never used Tobacco e-Cigarette/Vaping Use: Never Used Second Hand Smoke Exposure: No Use of substances other than those prescribed or required for medical reasons: No Currently Displaying Signs/Symptoms of Drug Intoxication Withdrawal: No Have you been hit, kicked, punched, or otherwise hurt by someone within the past year? If so, by whom?: No Do you feel safe in your current relationship?: No Current Relationship Is there a partner from a previous relationship who is making you feel unsafe now?: No Are you made to feel afraid or neglected: No Advance Directives: No Advance Directives Information Provided: Yes Do you have thoughts of harming others: None Do you have a plan to hurt others: No Plan Recently lost weight without trying: No Nutrition Risks: No Nutritional Risk service: No Current occupational status: retired [employer] Allergies Allergy/AdvReac Type Severity Reaction Status Date / Time No Known Allergies Allergy Verified 10/15/20 16:13 [No Known Allergies*] Active Medications: Current Medications Generic Name Dose Route Start Last Admin Trade Name Freq PRN Reason Stop Dose Admin Acetaminophen 650 mg 10/15/20 21:36 Acetaminophen 325 Mg Tablet PO Q6H PRN Pain, Mild (Pain Scale 1-3) Aspirin 81 mg 10/16/20 09:00 Aspirin Enteric Coated 81 Mg Tablet.Dr PO DAILY [facility] Famotidine 20 mg 10/16/20 09:00 Famotidine 20 Mg Tablet PO BID [facility] Heparin Sodium (Porcine) 3,000 unit 10/15/20 21:36 Heparin Sodium,Porcine 5,000 Unit/Ml Vial 40 unit/kg (3000 unit) IVPUSH PROTOCOL BOLUS PRN 40 unit/kg - Heparin Protocol Protocol Heparin Sodium (Porcine) 6,100 unit 10/15/20 21:36 Heparin Sodium,Porcine 5,000 Unit/Ml Vial 80 unit/kg (6100 unit) IVPUSH PROTOCOL BOLUS PRN 80 unit/kg - Heparin Protocol Protocol Heparin Sodium/Sodium Chloride 25,000 unit in 250 mls @ 0 mls/hr 10/15/20 21:15 IVCONT .Q0M [facility] Protocol Per Protocol Melatonin 6 mg 10/15/20 21:36 Melatonin 3 Mg Tablet PO BEDTIME PRN Insomnia Metoprolol Succinate 50 mg 10/16/20 09:00 Metoprolol Succinate Er 50 Mg Tab.Er.24h PO DAILY [facility] Protocol Oxycodone HCl 5 mg 10/15/20 21:36 Oxycodone Hcl Immed Release 5 Mg Tablet PO Q6H PRN Pain, Severe (Pain Scale 7-10) Pharmacy Consult 1 each 10/15/20 21:39 Consult Rx Perform Med Rec MISCELLANE ONCE PRN Consult order Sodium Chloride 3 ml 10/16/20 00:00 0.9 % Sodium Chloride Flush 3 Ml Syringe [facility] Home Medications Medication Instructions Recorded Confirmed Last Taken Type tizanidine 4 mg tablet 4 mg PO BEDTIME PRN 11/13/19 10/15/20 10/14/20 History terbinafine HCl 250 mg tablet 250 mg PO DAILY 01/05/20 10/15/20 10/15/20 History amlodipine 5 mg tablet 5 mg PO DAILY@1200 10/15/20 10/15/20 10/15/20 History metoprolol succinate 50 mg 50 mg PO BEDTIME 10/15/20 10/15/20 10/14/20 History tablet,extended release 24 hr Physical Exam Vital Signs and Narrative: Vital Signs: Last Vital Signs Temp 100.0 F 10/15/20 16:13 Pulse 72 10/15/20 19:49 Resp 18 10/15/20 19:49 BP 122/54 L 10/15/20 19:49 Pulse Ox 95 10/15/20 19:49 Body Mass Index 33.9 Gen: Appears be in no acute distress HEENT: NCAT, Moist mucosa. Pulmonary: Vesicular breath sounds, fair air entry CVS: Normal S1-S2 Abdomen: BS+, Soft, Nontender Extremities: Warm well perfused Neuro: Alert and awake. Results Labs CBC and Chem 7: 10/15/20 17:51 10/15/20 17:51 Labs: Laboratory Results - last 24 hr 10/15/20 10/15/20 10/15/20 16:57 17:51 17:51 MCV 90.6 MCH 30.4 MCHC 33.6 RDW 13.0 Plt Count 144 L D MPV 10.5 Immature Gran % (Auto) 0.9 H Neut % (Auto) 94.5 H Lymph % (Auto) 3.1 L [place] % (Auto) 0.9 L Eos % (Auto) 0.2 Baso % (Auto) 0.4 Lymph # (Auto) 0.3 L [place] # (Auto) 0.1 Eos # (Auto) 0.0 Baso # (Auto) 0.0 Abs Immat Gran (auto) 0.07 H Absolute Neuts (auto) 7.7 Absolute Nucleated RBC 0.000 Nucleated RBC % (auto) 0.0 Smear Tech's Comments VERIFIED Anion Gap 12 Estim Creat Clear Calc 34.9 Estimated GFR 50 Random Glucose 88 Calcium 8.7 D Total Bilirubin 0.7 AST 16 ALT 11 Alkaline Phosphatase 65 Troponin I High Sens Total Protein 5.4 L Albumin 3.7 Lipase Coronavirus (PCR) NEGATIVE Influenza Type A (PCR) NEGATIVE Influenza Type B (PCR) NEGATIVE RSV RNA Qual (PCR) NEGATIVE 10/15/20 10/15/20 10/15/20 17:51 17:51 20:13 MCV MCH MCHC RDW Plt Count MPV Immature Gran % (Auto) Neut % (Auto) Lymph % (Auto) [place] % (Auto) Eos % (Auto) Baso % (Auto) Lymph # (Auto) [place] # (Auto) Eos # (Auto) Baso # (Auto) Abs Immat Gran (auto) Absolute Neuts (auto) Absolute Nucleated RBC Nucleated RBC % (auto) Smear Tech's Comments Anion Gap Estim Creat Clear Calc Estimated GFR Random Glucose Calcium Total Bilirubin AST ALT Alkaline Phosphatase Troponin I High Sens 40.9 H* 92.5 H* D Total Protein Albumin Lipase 54 Coronavirus (PCR) Influenza Type A (PCR) Influenza Type B (PCR) RSV RNA Qual (PCR) Assessment and Plan (1) Chest pain: Status: Acute 84-year-old female with a past medical history of hypertension, hyperlipidemia, GERD, obesity, mild cognitive impairment, osteoarthritis, chronic back pain presented to the hospital with a chief complaint of chest pain. Noted to have NSTEMI. Admitted for further management. NSTEMI: Continue heparin drip. Patient started on aspirin. Continue home beta-marilynn. Also start the patient on Lipitor 40 mg. Cardiology consult. Telemetry Cycle cardiac enzymes Echocardiogram UTI: pt reported chills; ; has Low grade temp; UA abnormal consistant with UTI. s/w Ceftriaxone f/u Cultures Hypertension: Blood pressure controlled. Continue home metoprolol. Hold home losartan and amlodipine for now. For all other chronic conditions, home medications will be continued DVT prophylaxis: Patient on systemic anticoagulation Code status: Full code Quality Stroke Does the patient have a stroke diagnosis?: No VTE Prior VTE?: No VTE Risk Level:: Medical - moderate - high VTE Device Contraindication: N/A - Device Ordered VTE Drug Contraindication: Treatment Not Indicated
[2020-10-15 22:08] LABS: INTERNATIONAL NORM RATIO 1.1 (0.9-1.1); Prothrombin Time 12.4 SEC (9.9-13.0)
[2020-10-15 22:11] LABS: Partial Thromboplastin Time 32.9 SEC (24.1-38.0)
--- NOTE | 2020-10-15 22:13 | PC.NURSE ---
heparin on hold awaiting labs.
[2020-10-15 22:17] LABS: D Dimer 2728 NG/ML
[2020-10-15] MEDS: Heparin Sodium,Porcine 5,000 UNIT/ML VIAL 5000 UNIT IVPUSH (22:21)
[2020-10-15] MEDS: Heparin Sodium,Porcine/1/2NS 25,000 UNIT/250 ML IV.SOLN 9.14 UNIT IVCONT (22:22)
[2020-10-15 22:43] VITALS: BP 106/44; PULSE 78; RESP 18; TEMP 37.3
--- NOTE | 2020-10-15 23:09 | PC.NURSE ---
pt a&O, denies any sob or chest pain. Vital signs are stable. report called to unit. Gave report to
--- NOTE | 2020-10-15 23:14 | PC.NURSE ---
pt is normal sinus on monitor.
[2020-10-16] VITALS (8 sets, daily range): BP systolic 119–143; BP diastolic 54–88; PULSE 57–69; RESP 18; TEMP 36.6–37.3; O2SAT 93–97; BMI 33.1
[2020-10-16 00:56] LABS: Glucose Urine UA NEG (NEG); Leukocyte Esterase Urine 2+ (NEG); Nitrite Urine POS (NEG); PH 5.5 (5.0-8.0); UACC Culture Trigger YES; Urine Blood NEG (NEG); Urine Ketones NEG (NEG); Urine Protein TRACE MG/DL (NEG-TRACE)
[2020-10-16 00:57] LABS: Appearance Urine HAZY; Color Urine YELLOW
[2020-10-16 01:06] LABS: Bacteria Urine 4+ /LPF; RBC Urine 0 /HPF (0); Squamous Epithelial Cell Urine 2+ /LPF; WBC Urine 30-49 /HPF (0-4)
[2020-10-16] MEDS: cefTRIAXone sodium 1 GM in 0.9 % Sodium Chloride 50 ML IV (02:31)
[2020-10-16 04:54] LABS: Basophils Absolute Auto 0.1 X10*3/uL (0.0-0.2); Basophils Percent Auto 0.3 % (0-2); Eosinophils Percent Auto 0.1 % (0-4); Hematocrit 33.3 % (37-47); Imm Gran Abs Auto 0.08 X10*3/uL (0.00-0.03); Imm Gran Pct Auto 0.5 % (0.0-0.4); Lymphocytes Absolute Auto 0.7 X10*3/uL (1.2-4.9); MANUAL DIFF FLAG SCAN; Mean Corpuscular Hemoglobin 30.4 pg (27.0-33.0); Mean Platelet Volume 11.4 fL (9.4-12.3); Monocytes Absolute Auto 0.6 X10*3/uL (0.1-1.2); Neutrophils Absolute Auto 13.2 X10*3/uL (2.0-8.3); Neutrophils Percent Auto 90.1 % (45-73); Platelet Count 145 X10*3/uL (160-400); Red Blood Count 3.62 X10*6/uL (4.20-5.50); Red Cell Distribution Width 13.2 % (11.0-16.0); SCAN SMEAR FLAG 1; White Blood Count 14.6 X10*3/uL (4.8-10.8)
[2020-10-16 05:21] LABS: PTT Heparin Drip > 200.0 SEC (53-77.9)
[2020-10-16 05:23] LABS: SLIDE REVIEW VERIFIED
[2020-10-16 05:27] LABS: Anion Gap 12 (12-20); Blood Urea Nitrogen 20 mg/dL (9-16); Calcium 8.2 mg/dL (8.4-10.2); Carbon Dioxide 20 mmol/L (22-29); Chloride 112 mmol/L (96-108); Creatinine Clr Calc Pharmacy 27.2; Estimated Glomerular Filt Rate 38; Glucose Random 90 mg/dL (60-115); Potassium 4.2 mmol/L (3.3-5.1); Sodium 140 mmol/L (135-145)
[2020-10-16 07:21] LABS: PTT Heparin Drip 182.8 SEC (53-77.9)
--- NOTE | 2020-10-16 08:00 | CA_ITS ---
Transthoracic Echocardiogram Patient (Last, First, Middle): Tiffani García, Gender: Female Date of : 1935 Age: 84 Procedure Date: 10/16/2020 Procedure Type: Transthoracic Echocardiogram Location: [facility] [place] [facility] [place] Height: 149.86 cm Weight: 74.39 kg BSA: 1.69 m2 Heart Rate: bpm BP: 122 / 61 mmHg Voltmeter Operator: KAVITHA Harrison MD: Lee Kumar MD Caramel Coloring Operator: Demarco Shell MD Symptoms: NSTEMI Study Quality: Fair ECG Rhythm: Sinus Conclusions: - 1. Normal LV systolic function with grade 1 diastolic dysfunction 2. Mild aortic regurgitation 3. Normal RV systolic pressure 4. No gross pericardial effusion Findings Left Ventricle Normal left ventricular size, thickness, and systolic function. The visually estimated ejection fraction is between 60-65%. Spectral Doppler is indicative of an impaired relaxation filling pattern. E/E prime ratio is <8, consistent with normal filling pressures. Evidence suggests grade I (mild) diastolic dysfunction. Right Ventricle Normal right ventricular cavity size and systolic function. Atria The left atrium is mildly dilated. There is no evidence of interatrial shunt. The right atrium is normal in size. Aortic Valve Normal aortic valve structure and function. There is no aortic valve stenosis. There is mild aortic valve regurgitation. Mitral Valve There is mild anterior and posterior mitral leaflet thickening. There is trace mitral valve regurgitation. There is no mitral valve stenosis. Pulmonic Valve The pulmonic valve was not well visualized. Tricuspid Valve Likely normal tricuspid valve structure and function. There is trace tricuspid valve regurgitation. The right ventricular systolic pressure is normal. The right ventricular systolic pressure is 32 mmHg. Normal right atrial pressure. There is no evidence of pulmonary hypertension. Great Vessels All visible segments of the aorta are normal in size. The pulmonary artery was not well visualized. Venous The inferior vena cava is normal in size and collapses greater than 50% with inspiration. Pericardium/Pleural There is no evidence of pericardial effusion. Prior Study Comparison No significant change compared to prior study dated: 12/11/2019. Measurements 2D Linear Measurements IVSd: 1.14 0.6-0.9/0.6-1.0 cm LVIDd: 4.50 3.9-5.3/4.2-5.9 cm LVIDd Index: 2.66 2.4-3.2/2.2-3.1 cm/m2 LVIDs: 2.36 2.0-3.6 cm LVPWd: 1.11 0.7-1.1 cm Ao Root: 3.40 2.1-3.5 cm LA Diam: 3.10 2.7-3.8/3.0-4.0 cm LAIDs Index: 1.83 1.5-2.3 cm/m2 LV Mass: 225.08 67-162/88-224 g LV Mass Index: 133.18 43-95/49-115 g/m2 LVOT Diam: 2.00 3.0+(-)1.3 cm 2D Systolic Function EF 4C: 66.40 >55% EF 2C: 67.90 >55% EF BiP: 66.80 >55% Mitral Valve MV Pk E: 0.71 MV PK A: 1.15 MV Decel Time: 302.00 E/A: 0.60 E'Lateral: 8.05 E'Medial: 6.85 E/E' Med: 10.40 E/E' Lat: 8.80 PHT: 88.00 MVA PHT: 2.50 Decel [place]: 2.35 Aortic Valve AoV Pk Caleb: 1.69 AoV Mn Caleb: 1.15 AoV VTI: 0.39 AoV Pk Grad: 11.00 Aov Mn Grad: 6.00 CARSON Cont.VTI: 1.83 LVOT LVOT Pk Caleb: 1.11 LVOT Mn Caleb: 0.70 LVOT VTI: 0.23 LVOT Pk Grad: 5.00 LVOT Mn Grad: 2.00 LVOT Diam: 2.00 LVOT Area: 3.14 Diastolic Function MV Pk E: 0.71 MV Pk A: 1.15 E/A: 0.60 E'Medial: 6.85 E/E' Med: 10.40 E' Laterial: 8.05 E/E' Lat: 8.80 Right Ventricle TAPSE (mm): 1.67 TVS' Caleb: 12.10 Tricuspid Valve TR Pk Caleb: 2.69 TR Pk Grad: 29.00 RA Press: 3.00 RVSP: 32.00 Great Vessels Aorta Ao Root-2D: 3.40 2.0-3.7 cm Ao Asc: 3.70 2.1-3.4 cm Updated in Other Vendor System with Status of Final Demarco Suleman MD electronically signed on 10/16/2020 11:43:49 AM with status of Final
[2020-10-16] MEDS: 0.9 % Sodium Chloride Flush 3 ML SYRINGE IVFLUSH ×3 (08:34→20:26)
[2020-10-16] MEDS: Aspirin Enteric Coated 81 MG TABLET.DR PO (08:34)
[2020-10-16] MEDS: Metoprolol Succinate ER 50 MG TAB.ER.24H PO (08:34)
[2020-10-16] MEDS: Famotidine 20 MG TABLET PO ×2 (08:34→20:26)
[2020-10-16 08:44] LABS: PTT Heparin Drip 79.5 SEC (53-77.9)
--- NOTE | 2020-10-16 08:50 | MHC.CM.PN ---
CM met with Patient and her Daughter/HCP/Fara and addressed IMM with them, providing them with the original and placing a copy on the chart. 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 CM has initiated and will follow for dc planning. PCP is DR. Adry Young.
--- NOTE | 2020-10-16 10:54 | P.CONCA_ITS ---
History of Present Illness History of Present Illness Date of Service: 10/16/20 Requesting physician: Lee Kumar Chief complaint: NSTEMI Narrative: I was requested to see Tiffani in cardiology consultation today for chest pressure and elevated troponins. She is 84-year-old woman with prior history of hypertension, acid reflux disease, chronic diarrhea, hyperlipidemia came to the hospital with chest pressure. She says she was in usual state of health yesterday rearranging her seasonal decorations in her bowel kidney and then was sitting down. She then started having shaking feeling similar to chills throughout her body. Her daughter said for a to go and rest. She then developed left shoulder discomfort which was reproducible with movement as well as than severe right shoulder discomfort which was also reproducible with movement and she could not move her shoulders. And then she developed retrosternal chest pressure. She called her daughter for help who then called 911 and brought her to the emergency room. The emergency room initial troponin was in the 40s subsequent troponin alpa into the 90s. She was admitted with IV heparin and treatment for unstable angina. She says she had similar symptoms last year and seems like she underwent a myocardial perfusion imaging which was within normal limits. She has not had any exertional chest pain leading into this symptoms. She vomited when she came to the emergency room. Otherwise she has no other complaints. She complains of chronic diarrhea which she is trying to control with her diet pattern. She denies any shortness of breath, orthopnea, PND. Her symptoms have completely resolved at this point time. Review of Systems Review of Systems: Yes all other systems are reviewed and are negative Constitutional: Constitutional: Denies body ache(s), Reports chills, Denies fever(s) and Denies frequent falls Eyes: Eyes: Reports no additional eye complaints ENT: Reports system reviewed and no additional complaints, except as documented Cardiovascular: Cardiovascular: Reports chest pain, Denies leg edema, Denies lightheadedness, Denies Loss of Consciousness, Denies palpitations and Denies dyspnea Respiratory: Respiratory: Reports no additional respiratory complaints and Denies dyspnea Gastrointestinal: Gastrointestinal: Reports no additional gastrointestinal complaints Genitourinary: Genitourinary: Reports no additional female genitourinary complaints Musculoskeletal: Musculoskeletal: Reports no additional musculoskeletal complaints Integumentary/Breasts: Skin/Breast: Reports system reviewed and no additional complaints, except as docu Neurologic: Reports system reviewed and no additional complaints, except as documented and Denies frequent falls Psychiatric: Psychiatric: Reports no additional psychiatric complaints Endocrine: Endocrine: Denies palpitations PMFSH Past Medical History Medical History Adnexal mass Chronic kidney disease (CKD) stage G3b/A3, moderately decreased glomerular filtration rate (GFR) between 30-44 mL/min/1.73 square meter and albuminuria creatinine ratio greater than 300 mg/g Degenerative disc disease, lumbar GERD (gastroesophageal reflux disease) Gout Hypercholesterolemia Hypertension Mild cognitive impairment Obesity (BMI 30-39.9) Onychomycosis Osteoarthritis Osteopenia Peripheral vascular disease Polycystic kidney disease Spondylosis of cervical spine Urinary incontinence Vitamin D deficiency Family History Family History Father No problems noted. Mother No problems noted. Brother No problems noted. Daughter No problems noted. Daughter No problems noted. Daughter No problems noted. Daughter No problems noted. Surgical History Surgical History History of cholecystectomy History of hysterectomy History of surgery Social History Social History Household Members: None Housing: Apartment Do you presently have visiting nurse or other home services: No Alcohol intake: never Patient Tobacco Use Status: Never used Tobacco e-Cigarette/Vaping Use: Never Used Second Hand Smoke Exposure: No Use of substances other than those prescribed or required for medical reasons: No Currently Displaying Signs/Symptoms of Drug Intoxication Withdrawal: No Have you been hit, kicked, punched, or otherwise hurt by someone within the past year? If so, by whom?: No Do you feel safe in your current relationship?: No Current Relationship Is there a partner from a previous relationship who is making you feel unsafe now?: No Are you made to feel afraid or neglected: No Advance Directives: No Advance Directives Information Provided: Yes Do you have thoughts of harming others: None Do you have a plan to hurt others: No Plan Recently lost weight without trying: No Nutrition Risks: No Nutritional Risk service: No Current occupational status: retired Meds Allergies Allergy/AdvReac Type Severity Reaction Status Date / Time No Known Allergies Allergy Verified 10/15/20 16:13 [No Known Allergies*] Active Medications: Current Medications Generic Name Dose Route Start Last Admin Trade Name Vicq PRN Reason Stop Dose Admin Acetaminophen 650 mg 10/15/20 21:36 Acetaminophen 325 Mg Tablet PO Q6H PRN Pain, Mild (Pain Scale 1-3) Aspirin 81 mg 10/16/20 09:00 10/16/20 08:34 Aspirin Enteric Coated 81 Mg Tablet.Dr PO 81 mg DAILY JEANNINE Administration Atorvastatin Calcium 40 mg 10/16/20 21:00 Atorvastatin Calcium 40 Mg Tablet PO BEDTIME JEANNINE Famotidine 20 mg 10/16/20 09:00 10/16/20 08:34 Famotidine 20 Mg Tablet PO 20 mg BID JEANNINE Administration Heparin Sodium (Porcine) 3,000 unit 10/15/20 21:36 Heparin Sodium,Porcine 5,000 Unit/Ml Vial 40 unit/kg (3000 unit) IVPUSH PROTOCOL BOLUS PRN 40 unit/kg - Heparin Protocol Protocol Heparin Sodium (Porcine) 6,100 unit 10/15/20 21:36 Heparin Sodium,Porcine 5,000 Unit/Ml Vial 80 unit/kg (6100 unit) IVPUSH PROTOCOL BOLUS PRN 80 unit/kg - Heparin Protocol Protocol Heparin Sodium/Sodium Chloride 25,000 unit in 250 mls @ 0 mls/hr 10/15/20 21:15 10/16/20 08:59 IVCONT 10 units/kg/hr .Q0M JEANNINE 7.62 mls/hr Titration Protocol Per Protocol Ceftriaxone Sodium 1 gm/ 50 mls @ 100 mls/hr 10/16/20 02:00 10/16/20 03:24 Sodium Chloride IV Infused Q24H JEANNINE Infusion Melatonin 6 mg 10/15/20 21:36 Melatonin 3 Mg Tablet PO BEDTIME PRN Insomnia Metoprolol Succinate 50 mg 10/16/20 09:00 10/16/20 08:34 Metoprolol Succinate Er 50 Mg Tab.Er.24h PO 50 mg DAILY JEANNINE Administration Protocol Oxycodone HCl 5 mg 10/15/20 21:36 Oxycodone Hcl Immed Release 5 Mg Tablet PO Q6H PRN Pain, Severe (Pain Scale 7-10) Pharmacy Consult 1 each 10/15/20 21:39 Consult Rx Perform Med Rec MISCELLANE ONCE PRN Consult order Sodium Chloride 3 ml 10/16/20 00:00 10/16/20 08:34 0.9 % Sodium Chloride Flush 3 Ml [facility] Home Medications Medication Instructions Recorded Confirmed Last Taken Type tizanidine 4 mg tablet 4 mg PO BEDTIME PRN 11/13/19 10/15/20 10/14/20 History terbinafine HCl 250 mg tablet 250 mg PO DAILY 01/05/20 10/15/20 10/15/20 History amlodipine 5 mg tablet 5 mg PO DAILY@1200 10/15/20 10/15/20 10/15/20 History metoprolol succinate 50 mg 50 mg PO BEDTIME 10/15/20 10/15/20 10/14/20 History tablet,extended release 24 hr Physical Exam Vital Signs: Vital Signs: Last Vital Signs Temp 98.4 F 10/16/20 07:44 Pulse 64 10/16/20 08:34 Resp 18 10/16/20 07:44 BP 122/61 10/16/20 08:34 Pulse Ox 96 10/16/20 07:44 Body Mass Index 33.1 Const: General: cooperative, comfortable, no acute distress, alert and awake Nutritional Appearance: obese Orientation/consciousness: patient oriented x3 HENMT: Head: Yes normocephalic and Yes atraumatic Neck: Neck: Yes trachea midline, Yes supple and Yes no JVD Resp: Effort & Inspection: normal respiratory effort Auscultation: clear to auscultation bilaterally Cardio: Jugular venous distension: no JVD Palpation: normal PMI Rate: regular rate Rhythm: regular rhythm Heart sounds: S1 normal heart sound present, S2 normal heart sound present, no click, no gallops, no murmurs and no rubs GI: Auscultation: normal bowel sounds Skin: General skin exam: no rashes or lesions noted Neuro: General: patient oriented x3 and no focal motor deficits Extrem: General: Yes no clubbing, cyanosis or edema Psych: Appearance: grossly normal Affect: Anxious affect present Results Labs and Meds Result diagrams: 10/16/20 04:27 10/16/20 04:27 Lab results: Laboratory Results - last 24 hr 10/15/20 10/15/20 10/15/20 16:57 17:51 17:51 WBC 8.2 RBC 4.04 L Hgb 12.3 Hct 36.6 L MCV 90.6 MCH 30.4 MCHC 33.6 RDW 13.0 Plt Count 144 L D MPV 10.5 Immature Gran % (Auto) 0.9 H Neut % (Auto) 94.5 H Lymph % (Auto) 3.1 L [place] % (Auto) 0.9 L Eos % (Auto) 0.2 Baso % (Auto) 0.4 Lymph # (Auto) 0.3 L [place] # (Auto) 0.1 Eos # (Auto) 0.0 Baso # (Auto) 0.0 Abs Immat Gran (auto) 0.07 H Absolute Neuts (auto) 7.7 Absolute Nucleated RBC 0.000 Nucleated RBC % (auto) 0.0 Smear Tech's Comments VERIFIED PT INR APTT PTT (Heparin Protocol) D-Dimer Sodium 139 Potassium 3.9 Chloride 113 H Carbon Dioxide 18 L Anion Gap 12 BUN 16 Creatinine 1.05 Estim Creat Clear Calc 34.9 Estimated GFR 50 Random Glucose 88 Calcium 8.7 D Total Bilirubin 0.7 AST 16 ALT 11 Alkaline Phosphatase 65 Troponin I High Sens Total Protein 5.4 L Albumin 3.7 Lipase Urine Color Urine Appearance Urine pH Ur Specific [place] Urine Protein Urine Glucose (UA) Urine Ketones Urine Blood Urine Nitrite Ur Leukocyte Esterase Urine RBC Urine WBC Ur Squamous Epith Cells Urine Bacteria Coronavirus (PCR) NEGATIVE Influenza Type A (PCR) NEGATIVE Influenza Type B (PCR) NEGATIVE RSV RNA Qual (PCR) NEGATIVE 10/15/20 10/15/20 10/15/20 17:51 17:51 20:13 WBC RBC Hgb Hct MCV MCH MCHC RDW Plt Count MPV Immature Gran % (Auto) Neut % (Auto) Lymph % (Auto) [place] % (Auto) Eos % (Auto) Baso % (Auto) Lymph # (Auto) [place] # (Auto) Eos # (Auto) Baso # (Auto) Abs Immat Gran (auto) Absolute Neuts (auto) Absolute Nucleated RBC Nucleated RBC % (auto) Smear Tech's Comments PT INR APTT PTT (Heparin Protocol) D-Dimer Sodium Potassium Chloride Carbon Dioxide Anion Gap BUN Creatinine Estim Creat Clear Calc Estimated GFR Random Glucose Calcium Total Bilirubin AST ALT Alkaline Phosphatase Troponin I High Sens 40.9 H* 92.5 H* D Total Protein Albumin Lipase 54 Urine Color Urine Appearance Urine pH Ur Specific [place] Urine Protein Urine Glucose (UA) Urine Ketones Urine Blood Urine Nitrite Ur Leukocyte Esterase Urine RBC Urine WBC Ur Squamous Epith Cells Urine Bacteria Coronavirus (PCR) Influenza Type A (PCR) Influenza Type B (PCR) RSV RNA Qual (PCR) 10/15/20 10/15/20 10/16/20 21:57 21:57 00:30 WBC RBC Hgb Hct MCV MCH MCHC RDW Plt Count MPV Immature Gran % (Auto) Neut % (Auto) Lymph % (Auto) [place] % (Auto) Eos % (Auto) Baso % (Auto) Lymph # (Auto) [place] # (Auto) Eos # (Auto) Baso # (Auto) Abs Immat Gran (auto) Absolute Neuts (auto) Absolute Nucleated RBC Nucleated RBC % (auto) Smear Tech's Comments PT 12.4 INR 1.1 APTT 32.9 PTT (Heparin Protocol) D-Dimer 2728 Sodium Potassium Chloride Carbon Dioxide Anion Gap BUN Creatinine Estim Creat Clear Calc Estimated GFR Random Glucose Calcium Total Bilirubin AST ALT Alkaline Phosphatase Troponin I High Sens Total Protein Albumin Lipase Urine Color YELLOW Urine Appearance HAZY Urine pH 5.5 Ur Specific [place] 1.020 Urine Protein TRACE Urine Glucose (UA) NEG Urine Ketones NEG Urine Blood NEG Urine Nitrite POS H Ur Leukocyte Esterase 2+ H Urine RBC 0 Urine WBC 30-49 H Ur Squamous Epith Cells 2+ Urine Bacteria 4+ Coronavirus (PCR) Influenza Type A (PCR) Influenza Type B (PCR) RSV RNA Qual (PCR) 10/16/20 10/16/20 10/16/20 04:27 04:27 04:27 WBC 14.6 H RBC 3.62 L Hgb 11.0 L Hct 33.3 L MCV 92.0 MCH 30.4 MCHC 33.0 RDW 13.2 Plt Count 145 L MPV 11.4 Immature Gran % (Auto) 0.5 H Neut % (Auto) 90.1 H Lymph % (Auto) 5.0 L [place] % (Auto) 4.0 Eos % (Auto) 0.1 Baso % (Auto) 0.3 Lymph # (Auto) 0.7 L [place] # (Auto) 0.6 Eos # (Auto) 0.0 Baso # (Auto) 0.1 Abs Immat Gran (auto) 0.08 H Absolute Neuts (auto) 13.2 H Absolute Nucleated RBC 0.000 Nucleated RBC % (auto) 0.0 Smear Tech's Comments VERIFIED PT INR APTT PTT (Heparin Protocol) > 200.0 H* D-Dimer Sodium 140 Potassium 4.2 Chloride 112 H Carbon Dioxide 20 L Anion Gap 12 BUN 20 H Creatinine 1.33 Estim Creat Clear Calc 27.2 Estimated GFR 38 Random Glucose 90 Calcium 8.2 L Total Bilirubin AST ALT Alkaline Phosphatase Troponin I High Sens Total Protein Albumin Lipase Urine Color Urine Appearance Urine pH Ur Specific [place] Urine Protein Urine Glucose (UA) Urine Ketones Urine Blood Urine Nitrite Ur Leukocyte Esterase Urine RBC Urine WBC Ur Squamous Epith Cells Urine Bacteria Coronavirus (PCR) Influenza Type A (PCR) Influenza Type B (PCR) RSV RNA Qual (PCR) 10/16/20 10/16/20 06:36 08:09 WBC RBC Hgb Hct MCV MCH MCHC RDW Plt Count MPV Immature Gran % (Auto) Neut % (Auto) Lymph % (Auto) [place] % (Auto) Eos % (Auto) Baso % (Auto) Lymph # (Auto) [place] # (Auto) Eos # (Auto) Baso # (Auto) Abs Immat Gran (auto) Absolute Neuts (auto) Absolute Nucleated RBC Nucleated RBC % (auto) Smear Tech's Comments PT INR APTT PTT (Heparin Protocol) 182.8 H* 79.5 H D D-Dimer Sodium Potassium Chloride Carbon Dioxide Anion Gap BUN Creatinine Estim Creat Clear Calc Estimated GFR Random Glucose Calcium Total Bilirubin AST ALT Alkaline Phosphatase Troponin I High Sens Total Protein Albumin Lipase Urine Color Urine Appearance Urine pH Ur Specific [place] Urine Protein Urine Glucose (UA) Urine Ketones Urine Blood Urine Nitrite Ur Leukocyte Esterase Urine RBC Urine WBC Ur Squamous Epith Cells Urine Bacteria Coronavirus (PCR) Influenza Type A (PCR) Influenza Type B (PCR) RSV RNA Qual (PCR) EKG shows normal sinus with no acute ST depression elevation. Assessment and Plan (1) Acute coronary syndrome: Status: Acute Patient presents with acute chest pressure symptoms which are concerning for myocardial ischemia. Her other symptoms of chills and bilateral shoulder discomfort, not sure if they are related to the whole syndrome or could be related to anxiety. Her chest pain syndrome has resolved. There is bump in troponin consistent with a delta suggestive of myocardial injury with her symptoms is concerning for underlying coronary artery disease. She had workup for similar symptoms last year which was within normal limits with normal myocardial perfusion. At this time her symptoms are resolved and would consider treating her medically at this point time. And will follow as outpatient. Will continue IV heparin for total of 48 hours. Continue aspirin. Start on high- intensity statin therapy. Would also start on metoprolol as well as isosorbide mononitrate 30 mg daily. Out of bed to chair today. Ambulate tomorrow. If she has no recurrent symptoms will discharge home tomorrow with outpatient follow- up. If any point in time in future she has recurrent symptoms will require invasive cardiac catheterization. This was discussed with her and she is agreeable with this management plan. Will review her echocardiogram is done today and is as significant wall motion abnormalities unchanged in plan with cardiac catheterization during this hospitalization. Will follow the patient Procedures Date of Service Date of Service: 10/16/20
--- NOTE | 2020-10-16 14:57 | P.PNIM_ITS ---
Progress Note: A&P (1) Acute coronary syndrome: Status: Acute Assessment and Plan: 84-year-old female with a past medical history of hypertension, hyperlipidemia, GERD, obesity, mild cognitive impairment, osteoarthritis, chronic back pain presented to the hospital with a chief complaint of chest pain.? Noted to have NSTEMI.? Admitted for further management. ? Bacteremia. Blood cx 1/2 GPR Follow species Continue Rocephin for now NSTEMI. Continue heparin drip fo ute more day asa, BB and statin Echocardiogram showed normal LV systolic function with grade 1 diastolic d ysfunction, mild aortic regurgitation, EF 60-65% cardiology following Trend troponin UTI. Rocephin f/u Cultures Hypertension Blood pressure controlled.? Continue home metoprolol, losartan and amlodipine for now. DVT prophylaxis:? Patient on systemic anticoagulation Code status:? Full code Attending Dr Silva Subjective Subjective Date of Service: 10/16/20 Review of Systems Follow up NSTEMI, UTI No chest pain feeling better Physical Exam Vital Signs: Vital Signs: Last Vital Signs Temp 98.0 F 10/16/20 12:00 Pulse 63 10/16/20 12:00 Resp 18 10/16/20 12:00 BP 139/60 10/16/20 12:00 Pulse Ox 97 10/16/20 12:00 Body Mass Index 33.1 Appearing in no acute distress lung sounds are clear to auscultation heart regular rate rhythm, clear S1, S2 positive bowel sounds, abdomen is soft, nontender neuro patient is alert x3, no focal deficits Objective Data Current Medications Generic Name Dose Route Start Last Admin Trade Name Freq PRN Reason Stop Dose Admin Acetaminophen 650 mg 10/15/20 21:36 Acetaminophen 325 Mg Tablet PO Q6H PRN Pain, Mild (Pain Scale 1-3) Aspirin 81 mg 10/16/20 09:00 10/16/20 08:34 Aspirin Enteric Coated 81 Mg Tablet. PO 81 mg DAILY JEANNINE Administration Atorvastatin Calcium 40 mg 10/16/20 21:00 Atorvastatin Calcium 40 Mg Tablet PO BEDTIME JEANNINE Famotidine 20 mg 10/16/20 09:00 10/16/20 08:34 Famotidine 20 Mg Tablet PO 20 mg BID JEANNINE Administration Heparin Sodium (Porcine) 3,000 unit 10/15/20 21:36 Heparin Sodium,Porcine 5,000 Unit/Ml Vial 40 unit/kg (3000 unit) IVPUSH PROTOCOL BOLUS PRN 40 unit/kg - Heparin Protocol Protocol Heparin Sodium (Porcine) 6,100 unit 10/15/20 21:36 Heparin Sodium,Porcine 5,000 Unit/Ml Vial 80 unit/kg (6100 unit) IVPUSH PROTOCOL BOLUS PRN 80 unit/kg - Heparin Protocol Protocol Heparin Sodium/Sodium Chloride 25,000 unit in 250 mls @ 0 mls/hr 10/15/20 21:15 10/16/20 08:59 IVCONT 10 units/kg/hr .Q0M JEANNINE 7.62 mls/hr Titration Protocol Per Protocol Ceftriaxone Sodium 1 gm/ 50 mls @ 100 mls/hr 10/16/20 02:00 10/16/20 03:24 Sodium Chloride IV Infused Q24H [facility] Infusion Melatonin 6 mg 10/15/20 21:36 Melatonin 3 Mg Tablet PO BEDTIME PRN Insomnia Metoprolol Succinate 50 mg 10/16/20 09:00 10/16/20 08:34 Metoprolol Succinate Er 50 Mg Tab.Er.24h PO 50 mg DAILY [facility] Administration Protocol Oxycodone HCl 5 mg 10/15/20 21:36 Oxycodone Hcl Immed Release 5 Mg Tablet PO Q6H PRN Pain, Severe (Pain Scale 7-10) Pharmacy Consult 1 each 10/15/20 21:39 Consult Rx Perform Med Rec MISCELLANE ONCE PRN Consult order Sodium Chloride 3 ml 10/16/20 00:00 10/16/20 08:34 0.9 % Sodium Chloride Flush 3 Ml Syringe IVFLUSH 3 ml QSHIFT [facility] Administration Labs CBC & Chem 7: 10/16/20 04:27 10/16/20 04:27 Labs: Laboratory Results - last 24 hr 10/15/20 10/15/20 10/15/20 16:57 17:51 17:51 MCV 90.6 MCH 30.4 MCHC 33.6 RDW 13.0 Plt Count 144 L D MPV 10.5 Immature Gran % (Auto) 0.9 H Neut % (Auto) 94.5 H Lymph % (Auto) 3.1 L Randolph % (Auto) 0.9 L Eos % (Auto) 0.2 Baso % (Auto) 0.4 Lymph # (Auto) 0.3 L Randolph # (Auto) 0.1 Eos # (Auto) 0.0 Baso # (Auto) 0.0 Abs Immat Gran (auto) 0.07 H Absolute Neuts (auto) 7.7 Absolute Nucleated RBC 0.000 Nucleated RBC % (auto) 0.0 Smear Tech's Comments VERIFIED PT INR APTT PTT (Heparin Protocol) D-Dimer Anion Gap 12 Estim Creat Clear Calc 34.9 Estimated GFR 50 Random Glucose 88 Calcium 8.7 D Total Bilirubin 0.7 AST 16 ALT 11 Alkaline Phosphatase 65 Troponin I High Sens Total Protein 5.4 L Albumin 3.7 Lipase Urine Color Urine Appearance Urine pH Ur Specific Mcdermott Urine Protein Urine Glucose (UA) Urine Ketones Urine Blood Urine Nitrite Ur Leukocyte Esterase Urine RBC Urine WBC Ur Squamous Epith Cells Urine Bacteria Coronavirus (PCR) NEGATIVE Influenza Type A (PCR) NEGATIVE Influenza Type B (PCR) NEGATIVE RSV RNA Qual (PCR) NEGATIVE 10/15/20 10/15/20 10/15/20 17:51 17:51 20:13 MCV MCH MCHC RDW Plt Count MPV Immature Gran % (Auto) Neut % (Auto) Lymph % (Auto) Randolph % (Auto) Eos % (Auto) Baso % (Auto) Lymph # (Auto) Randolph # (Auto) Eos # (Auto) Baso # (Auto) Abs Immat Gran (auto) Absolute Neuts (auto) Absolute Nucleated RBC Nucleated RBC % (auto) Smear Tech's Comments PT INR APTT PTT (Heparin Protocol) D-Dimer Anion Gap Estim Creat Clear Calc Estimated GFR Random Glucose Calcium Total Bilirubin AST ALT Alkaline Phosphatase Troponin I High Sens 40.9 H* 92.5 H* D Total Protein Albumin Lipase 54 Urine Color Urine Appearance Urine pH Ur Specific [place] Urine Protein Urine Glucose (UA) Urine Ketones Urine Blood Urine Nitrite Ur Leukocyte Esterase Urine RBC Urine WBC Ur Squamous Epith Cells Urine Bacteria Coronavirus (PCR) Influenza Type A (PCR) Influenza Type B (PCR) RSV RNA Qual (PCR) 10/15/20 10/15/20 10/16/20 21:57 21:57 00:30 MCV MCH MCHC RDW Plt Count MPV Immature Gran % (Auto) Neut % (Auto) Lymph % (Auto) Randolph % (Auto) Eos % (Auto) Baso % (Auto) Lymph # (Auto) Randolph # (Auto) Eos # (Auto) Baso # (Auto) Abs Immat Gran (auto) Absolute Neuts (auto) Absolute Nucleated RBC Nucleated RBC % (auto) Smear Tech's Comments PT 12.4 INR 1.1 APTT 32.9 PTT (Heparin Protocol) D-Dimer 2728 Anion Gap Estim Creat Clear Calc Estimated GFR Random Glucose Calcium Total Bilirubin AST ALT Alkaline Phosphatase Troponin I High Sens Total Protein Albumin Lipase Urine Color YELLOW Urine Appearance HAZY Urine pH 5.5 Ur Specific Mcdermott 1.020 Urine Protein TRACE Urine Glucose (UA) NEG Urine Ketones NEG Urine Blood NEG Urine Nitrite POS H Ur Leukocyte Esterase 2+ H Urine RBC 0 Urine WBC 30-49 H Ur Squamous Epith Cells 2+ Urine Bacteria 4+ Coronavirus (PCR) Influenza Type A (PCR) Influenza Type B (PCR) RSV RNA Qual (PCR) 10/16/20 10/16/20 10/16/20 04:27 04:27 04:27 MCV 92.0 MCH 30.4 MCHC 33.0 RDW 13.2 Plt Count 145 L MPV 11.4 Immature Gran % (Auto) 0.5 H Neut % (Auto) 90.1 H Lymph % (Auto) 5.0 L Randolph % (Auto) 4.0 Eos % (Auto) 0.1 Baso % (Auto) 0.3 Lymph # (Auto) 0.7 L Randolph # (Auto) 0.6 Eos # (Auto) 0.0 Baso # (Auto) 0.1 Abs Immat Gran (auto) 0.08 H Absolute Neuts (auto) 13.2 H Absolute Nucleated RBC 0.000 Nucleated RBC % (auto) 0.0 Smear Tech's Comments VERIFIED PT INR APTT PTT (Heparin Protocol) > 200.0 H* D-Dimer Anion Gap 12 Estim Creat Clear Calc 27.2 Estimated GFR 38 Random Glucose 90 Calcium 8.2 L Total Bilirubin AST ALT Alkaline Phosphatase Troponin I High Sens Total Protein Albumin Lipase Urine Color Urine Appearance Urine pH Ur Specific Mc[place]ott Urine Protein Urine Glucose (UA) Urine Ketones Urine Blood Urine Nitrite Ur Leukocyte Esterase Urine RBC Urine WBC Ur Squamous Epith Cells Urine Bacteria Coronavirus (PCR) Influenza Type A (PCR) Influenza Type B (PCR) RSV RNA Qual (PCR) 10/16/20 10/16/20 06:36 08:09 MCV MCH MCHC RDW Plt Count MPV Immature Gran % (Auto) Neut % (Auto) Lymph % (Auto) Randolph % (Auto) Eos % (Auto) Baso % (Auto) Lymph # (Auto) Randolph # (Auto) Eos # (Auto) Baso # (Auto) Abs Immat Gran (auto) Absolute Neuts (auto) Absolute Nucleated RBC Nucleated RBC % (auto) Smear Tech's Comments PT INR APTT PTT (Heparin Protocol) 182.8 H* 79.5 H D D-Dimer Anion Gap Estim Creat Clear Calc Estimated GFR Random Glucose Calcium Total Bilirubin AST ALT Alkaline Phosphatase Troponin I High Sens Total Protein Albumin Lipase Urine Color Urine Appearance Urine pH Ur Specific Mc[place]ott Urine Protein Urine Glucose (UA) Urine Ketones Urine Blood Urine Nitrite Ur Leukocyte Esterase Urine RBC Urine WBC Ur Squamous Epith Cells Urine Bacteria Coronavirus (PCR) Influenza Type A (PCR) Influenza Type B (PCR) RSV RNA Qual (PCR) Microbiology Microbiology Results: Microbiology 10/15/20 16:57 Blood - Venous Blood Culture - Preliminary Prelim: GPR Gram Stain only Quality Stroke Does the patient have a stroke diagnosis?: No VTE Prior VTE?: No VTE Risk Level:: Medical - moderate - high VTE Device Contraindication: N/A - Device Ordered VTE Drug Contraindication: Treatment Not Indicated
[2020-10-16] MEDS: Atorvastatin Calcium 40 MG TABLET PO (20:26)
[2020-10-16 22:34] LABS: PTT Heparin Drip 61.1 SEC (53-77.9)
[2020-10-16] MEDS: Heparin Sodium,Porcine/1/2NS 25,000 UNIT/250 ML IV.SOLN 5.33 UNIT IVCONT (22:58)
[2020-10-17] VITALS (10 sets, daily range): BP systolic 122–165; BP diastolic 47–85; PULSE 50–67; RESP 18; TEMP 36.4–37.1; O2SAT 95–97
[2020-10-17] MEDS: cefTRIAXone sodium 1 GM in 0.9 % Sodium Chloride 50 ML IV (01:52)
[2020-10-17 04:22] LABS: PTT Heparin Drip 56.1 SEC (53-77.9)
[2020-10-17] MEDS: 0.9 % Sodium Chloride Flush 3 ML SYRINGE IVFLUSH ×3 (07:55→20:37)
[2020-10-17] MEDS: Aspirin Enteric Coated 81 MG TABLET.DR PO (07:55)
[2020-10-17] MEDS: Famotidine 20 MG TABLET PO ×2 (07:55→20:36)
[2020-10-17] MEDS: Metoprolol Succinate ER 50 MG TAB.ER.24H PO ×2 (07:55→20:36)
[2020-10-17 08:50] LABS: Anion Gap 11 (12-20); Blood Urea Nitrogen 17 mg/dL (9-16); Calcium 8.2 mg/dL (8.4-10.2); Carbon Dioxide 21 mmol/L (22-29); Chloride 112 mmol/L (96-108); Creatinine Clr Calc Pharmacy 28.5; Estimated Glomerular Filt Rate 40; Glucose Random 91 mg/dL (60-115); Potassium 4.1 mmol/L (3.3-5.1); Sodium 140 mmol/L (135-145)
[2020-10-17 09:34] LABS: Troponin-I High Sensitivity 32.5 ng/L (<3.5-17.0)
--- NOTE | 2020-10-17 11:01 | PM.PNCARD ---
Subjective Subjective Date of Service: 10/17/20 Principal diagnosis: Acute coronary syndrome Interval history: Patient not having chest pain this morning. Says a urinary and diarrhea symptoms have improved. Count is elevated today and her blood cultures are positive. She has been started on antibiotics. Echocardiogram showed normal LV systolic function with no regional wall motion abnormality, basically unchanged. Review of Systems Review of Systems Yes all other systems are reviewed and are negative Constitutional: Denies body ache(s), Reports chills, Denies fever(s) and Denies frequent falls Eyes: Reports no additional eye complaints Reports system reviewed and no additional complaints, except as documented Cardiovascular: Reports chest pain, Denies leg edema, Denies lightheadedness, Denies Loss of Consciousness, Denies palpitations and Denies dyspnea Respiratory: Reports no additional respiratory complaints and Denies dyspnea Gastrointestinal: Reports no additional gastrointestinal complaints Genitourinary: Reports no additional female genitourinary complaints Musculoskeletal: Reports no additional musculoskeletal complaints Skin/Breast: Reports system reviewed and no additional complaints, except as docu Reports system reviewed and no additional complaints, except as documented and Denies frequent falls Psychiatric: Reports no additional psychiatric complaints Endocrine: Denies palpitations Physical Exam Vital Signs: Last Vital Signs Temp 97.6 F 10/17/20 07:38 Pulse 66 10/17/20 07:55 Resp 18 10/17/20 07:38 BP 165/67 H 10/17/20 07:55 Pulse Ox 95 10/17/20 07:38 Body Mass Index 33.1 Const General: cooperative, comfortable, alert and awake Nutritional Appearance: obese Orientation/consciousness: patient oriented x3 Neck Neck: Yes trachea midline, Yes supple and Yes no JVD Resp Effort & Inspection: normal respiratory effort Auscultation: clear to auscultation bilaterally Cardio Jugular venous distension: no JVD Palpation: normal PMI Rate: regular rate Rhythm: regular rhythm Heart sounds: S1 normal heart sound present, S2 normal heart sound present, no click, no gallops, no murmurs and no rubs GI Percussion: Yes normal to percussion Neuro General: patient oriented x3 Extrem General: Yes no clubbing, cyanosis or edema Results Labs and Meds Result diagrams: 10/16/20 04:27 10/17/20 03:39 Lab results: Laboratory Results - last 24 hr 10/16/20 10/16/20 10/17/20 14:58 22:09 03:39 PTT (Heparin Protocol) 102.0 H D 61.1 D Sodium 140 Potassium 4.1 Chloride 112 H Carbon Dioxide 21 L Anion Gap 11 L BUN 17 H Creatinine 1.27 Estim Creat Clear Calc 28.5 Estimated GFR 40 Random Glucose 91 Calcium 8.2 L Troponin I High Sens 10/17/20 10/17/20 04:00 08:55 PTT (Heparin Protocol) 56.1 Sodium Potassium Chloride Carbon Dioxide Anion Gap BUN Creatinine Estim Creat Clear Calc Estimated GFR Random Glucose Calcium Troponin I High Sens 32.5 H* D Progress Note: A&P Assessment and plan (1) Acute coronary syndrome: Status: Acute Assessment and Plan: Acute coronary syndrome. Currently not having any cardiac symptoms. Troponin has down trended. Echocardiogram shows no significant abnormalities and wall motion abnormality that are concerning at this point time. Management will be conservative. Continue metoprolol, isosorbide was added by me today. IV heparin for total of 48 hours. Continue aspirin high-intensity statin therapy. Blood pressure is elevated and can restart her amlodipine. Home measurement of blood pressure and if remains elevated can add losartan at home. From cardiac perspective later in the day patient ambulating and having no chest discomfort can be discharged. Will follow up as outpatient Fall Risk Details Current Medications: Current Medications Generic Name Dose Route Start Last Admin Trade Name Freq PRN Reason Stop Dose Admin Acetaminophen 650 mg 10/15/20 21:36 Acetaminophen 325 Mg Tablet PO Q6H PRN Pain, Mild (Pain Scale 1-3) Aspirin 81 mg 10/16/20 09:00 10/17/20 07:55 Aspirin Enteric Coated 81 Mg Tablet. PO 81 mg DAILY JEANNINE Administration Atorvastatin Calcium 40 mg 10/16/20 21:00 10/16/20 20:26 Atorvastatin Calcium 40 Mg Tablet PO 40 mg BEDTIME JEANNINE Administration Famotidine 20 mg 10/16/20 09:00 10/17/20 07:55 Famotidine 20 Mg Tablet PO 20 mg BID JEANNINE Administration Heparin Sodium (Porcine) 3,000 unit 10/15/20 21:36 Heparin Sodium,Porcine 5,000 Unit/Ml Vial 40 unit/kg (3000 unit) IVPUSH PROTOCOL BOLUS PRN 40 unit/kg - Heparin Protocol Protocol Heparin Sodium (Porcine) 6,100 unit 10/15/20 21:36 Heparin Sodium,Porcine 5,000 Unit/Ml Vial 80 unit/kg (6100 unit) IVPUSH PROTOCOL BOLUS PRN 80 unit/kg - Heparin Protocol Protocol Heparin Sodium/Sodium Chloride 25,000 unit in 250 mls @ 0 mls/hr 10/15/20 21:15 10/17/20 05:40 IVCONT 7 units/kg/hr .Q0M JEANNINE 5.33 mls/hr Titration Protocol Per Protocol Ceftriaxone Sodium 1 gm/ 50 mls @ 100 mls/hr 10/16/20 02:00 10/17/20 03:04 Sodium Chloride IV Infused Q24H JEANNINE Infusion Isosorbide Mononitrate 30 mg 10/17/20 10:30 Isosorbide Mononitrate 30 Mg Tab.Er.24h PO DAILY JEANNINE Protocol Melatonin 6 mg 10/15/20 21:36 Melatonin 3 Mg Tablet PO BEDTIME PRN Insomnia Metoprolol Succinate 50 mg 10/16/20 09:00 10/17/20 07:55 Metoprolol Succinate Er 50 Mg Tab.Er.24h PO 50 mg DAILY JEANNINE Administration Protocol Oxycodone HCl 5 mg 10/15/20 21:36 Oxycodone Hcl Immed Release 5 Mg Tablet PO Q6H PRN Pain, Severe (Pain Scale 7-10) Pharmacy Consult 1 each 10/15/20 21:39 Consult Rx Perform Med Rec MISCELLANE ONCE PRN Consult order Sodium Chloride 3 ml 10/16/20 00:00 10/17/20 07:55 0.9 % Sodium Chloride Flush 3 Ml Syringe IVFLUSH 3 ml QSHIFT JEANNINE Administration Time Spent With Patient Time: Total time spent is greater than 50% in coordination of care (as documented) at patient's floor/unit and/or counseling patient: Time with patient: 15 - 24 minutes Progress Note: Quality Stroke Does the patient have a stroke diagnosis?: No Procedures Date of Service Date of Service: 10/17/20
[2020-10-17] MEDS: Isosorbide Mononitrate 30 MG TAB.ER.24H PO (11:13)
--- NOTE | 2020-10-17 11:53 | PM.IMPN ---
Progress Note: A&P (1) Acute coronary syndrome: Status: Acute (2) Bacteremia: Status: Acute (3) UTI (urinary tract infection): Status: Acute Assessment and Plan: 84-year-old female with a past medical history of hypertension, hyperlipidemia, GERD, obesity, mild cognitive impairment, osteoarthritis, chronic back pain presented to the hospital with a chief complaint of chest pain.? Noted to have NSTEMI.? Admitted for further management. ? Bacteremia. Blood and urine cx GNR Follow species Continue Rocephin for now NSTEMI. Stop heparin at 10pm. asa, BB and statin, isosorbide added Echocardiogram showed normal LV systolic function with grade 1 diastolic dysfunction, mild aortic regurgitation, EF 60-65% cardiology following Trend troponin UTI. Rocephin f/u Cultures Hypertension Blood pressure controlled.? Continue home metoprolol, losartan and amlodipine for now. DVT prophylaxis:? Patient on systemic anticoagulation Code status:? Full code Attending Dr Silva Subjective Subjective Date of Service: 10/17/20 Review of Systems Follow up NSTEMI, UTI and bacteremia Doing well OOB to chair no chest pain or urinary difficulties Physical Exam Vital Signs: Vital Signs: Last Vital Signs Temp 97.7 F 10/17/20 11:05 Pulse 54 10/17/20 11:13 Resp 18 10/17/20 11:05 BP 156/85 H 10/17/20 11:13 Pulse Ox 96 10/17/20 11:05 Body Mass Index 33.1 Appearing in no acute distress lung sounds are clear to auscultation heart regular rate rhythm, clear S1, S2 positive bowel sounds, abdomen is soft, nontender neuro patient is alert x3, no focal deficits Objective Data Current Medications Generic Name Dose Route Start Last Admin Trade Name Freq PRN Reason Stop Dose Admin Acetaminophen 650 mg 10/15/20 21:36 Acetaminophen 325 Mg Tablet PO Q6H PRN Pain, Mild (Pain Scale 1-3) Amlodipine Besylate 5 mg 10/17/20 12:00 Amlodipine Besylate 5 Mg Tablet PO DAILY@1200 [facility] Protocol Aspirin 81 mg 10/16/20 09:00 10/17/20 07:55 Aspirin Enteric Coated 81 Mg Tablet. PO 81 mg DAILY JEANNINE Administration Atorvastatin Calcium 40 mg 10/16/20 21:00 10/16/20 20:26 Atorvastatin Calcium 40 Mg Tablet PO 40 mg BEDTIME JEANNINE Administration Donepezil HCl 10 mg 10/17/20 21:00 Donepezil Hcl 10 Mg Tablet PO BEDTIME JEANNINE Famotidine 20 mg 10/16/20 09:00 10/17/20 07:55 Famotidine 20 Mg Tablet PO 20 mg BID JEANNINE Administration Heparin Sodium (Porcine) 3,000 unit 10/15/20 21:36 Heparin Sodium,Porcine 5,000 Unit/Ml Vial 40 unit/kg (3000 unit) IVPUSH PROTOCOL BOLUS PRN 40 unit/kg - Heparin Protocol Protocol Heparin Sodium (Porcine) 6,100 unit 10/15/20 21:36 Heparin Sodium,Porcine 5,000 Unit/Ml Vial 80 unit/kg (6100 unit) IVPUSH PROTOCOL BOLUS PRN 80 unit/kg - Heparin Protocol Protocol Heparin Sodium/Sodium Chloride 25,000 unit in 250 mls @ 0 mls/hr 10/15/20 21:15 10/17/20 05:40 IVCONT 7 units/kg/hr .Q0M JEANNINE 5.33 mls/hr Titration Protocol Per Protocol Ceftriaxone Sodium 1 gm/ 50 mls @ 100 mls/hr 10/16/20 02:00 10/17/20 03:04 Sodium Chloride IV Infused Q24H JEANNINE Infusion Isosorbide Mononitrate 30 mg 10/17/20 10:30 10/17/20 11:13 Isosorbide Mononitrate 30 Mg Tab.Er.24h PO 30 mg DAILY JEANNINE Administration Protocol Losartan Potassium 100 mg 10/17/20 12:00 Losartan Potassium 50 Mg Tablet PO DAILY JEANNINE Protocol Melatonin 6 mg 10/15/20 21:36 Melatonin 3 Mg Tablet PO BEDTIME PRN Insomnia Metoprolol Succinate 50 mg 10/16/20 09:00 10/17/20 07:55 Metoprolol Succinate Er 50 Mg Tab.Er.24h PO 50 mg DAILY JEANNINE Administration Protocol Metoprolol Succinate 50 mg 10/17/20 21:00 Metoprolol Succinate Er 50 Mg Tab.Er.24h PO BEDTIME JEANNINE Protocol Mirabegron 50 mg 10/17/20 21:00 Mirabegron 50 Mg Tab.Er.24h PO BID JEANNINE Non-Formulary Medication 250 mg 10/18/20 09:00 Terbinafine Hcl PO DAILY JEANNINE Oxycodone HCl 5 mg 10/15/20 21:36 Oxycodone Hcl Immed Release 5 Mg Tablet PO Q6H PRN Pain, Severe (Pain Scale 7-10) Pharmacy Consult 1 each 10/15/20 21:39 Consult Rx Perform Med Rec MISCELLANE ONCE PRN Consult order Sodium Chloride 3 ml 10/16/20 00:00 10/17/20 07:55 0.9 % Sodium Chloride Flush 3 Ml Syringe IVFLUSH 3 ml QSHIFT JEANNINE Administration Tizanidine HCl 4 mg 10/17/20 11:51 Tizanidine Hcl 4 Mg Tablet PO BEDTIME PRN Muscle Spasm Trazodone HCl 50 mg 10/17/20 11:51 Trazodone Hcl 50 Mg Tablet PO BEDTIME PRN sleep Labs CBC & Chem 7: 10/16/20 04:27 10/17/20 03:39 Labs: Laboratory Results - last 24 hr 10/16/20 10/16/20 10/17/20 14:58 22:09 03:39 PTT (Heparin Protocol) 102.0 H D 61.1 D Anion Gap 11 L Estim Creat Clear Calc 28.5 Estimated GFR 40 Random Glucose 91 Calcium 8.2 L Troponin I High Sens 10/17/20 10/17/20 04:00 08:55 PTT (Heparin Protocol) 56.1 Anion Gap Estim Creat Clear Calc Estimated GFR Random Glucose Calcium Troponin I High Sens 32.5 H* D Microbiology Microbiology Results: Microbiology 10/16/20 00:00 Urine clean catch - Urine hagan top Urine Culture - Preliminary Gram negative maura 10/15/20 16:57 Blood - Venous Blood Culture - Preliminary Gram negative maura 10/15/20 17:31 Blood - Venous Blood Culture - Preliminary No growth after 24 hours. Quality Stroke Does the patient have a stroke diagnosis?: No VTE Prior VTE?: No VTE Risk Level:: Medical - moderate - high VTE Device Contraindication: N/A - Device Ordered VTE Drug Contraindication: Treatment Not Indicated
[2020-10-17] MEDS: Mirabegron 50 MG TAB.ER.24H PO (12:50)
[2020-10-17] MEDS: amLODIPine Besylate 5 MG TABLET PO (12:50)
[2020-10-17] MEDS: Losartan Potassium 50 MG TABLET 100 MG PO (12:50)
--- NOTE | 2020-10-17 16:35 | PC.NURSE ---
Patient ambulated in the hallway per cardiology request. Patient ambulated 100 feet with stand by assist. Patient tolerated activity well
[2020-10-17] MEDS: Donepezil HCl 10 MG TABLET PO (20:36)
[2020-10-17] MEDS: Atorvastatin Calcium 40 MG TABLET PO (20:36)
[2020-10-18] VITALS (8 sets, daily range): BP systolic 108–166; BP diastolic 53–92; PULSE 50–59; RESP 18–20; TEMP 36.4–37.1; O2SAT 94–98
[2020-10-18] MEDS: cefTRIAXone sodium 1 GM in 0.9 % Sodium Chloride 50 ML IV (02:21)
[2020-10-18 06:35] LABS: PTT Heparin Drip 47.2 SEC (53-77.9)
--- NOTE | 2020-10-18 09:31 | PM.IMPN ---
Progress Note: A&P (1) Bacteremia due to Klebsiella pneumoniae: Status: Acute (2) UTI due to Klebsiella species: Status: Acute (3) Acute coronary syndrome: Status: Acute Assessment and Plan: 84-year-old female with a past medical history of hypertension, hyperlipidemia, GERD, obesity, mild cognitive impairment, osteoarthritis, chronic back pain presented to the hospital with a chief complaint of chest pain.? Noted to have NSTEMI.? Admitted for further management. Bacteremia. Blood and urine cx klebsiella Continue Rocephin for now ID consult Can do 10 days of po ceftin on discharge NSTEMI. heparin stopped asa, BB and statin, isosorbide added Echocardiogram showed normal LV systolic function with grade 1 diastolic dysfunction, mild aortic regurgitation, EF 60-65% cardiology following UTI. klebsiella Rocephin Hypertension Blood pressure controlled.? Continue home metoprolol, losartan and amlodipine Likely dc tomorrow if medically stable DVT prophylaxis sc heparin Code status:? Full code Attending Dr Silva Subjective Subjective Date of Service: 10/18/20 Review of Systems Follow up NSTEMI, klebsiella bacteremia No chest pain feels good oob to chair Physical Exam Vital Signs: Vital Signs: Last Vital Signs Temp 98.7 F 10/18/20 07:41 Pulse 57 10/18/20 07:41 Resp 20 10/18/20 07:41 BP 164/72 H 10/18/20 07:41 Pulse Ox 94 10/18/20 07:41 Body Mass Index 33.1 Appearing in no acute distress lung sounds are clear to auscultation heart regular rate rhythm, clear S1, S2 positive bowel sounds, abdomen is soft, nontender neuro patient is alert x3, no focal deficits Bruising to both arms Objective Data Current Medications Generic Name Dose Route Start Last Admin Trade Name Freq PRN Reason Stop Dose Admin Acetaminophen 650 mg 10/15/20 21:36 Acetaminophen 325 Mg Tablet PO Q6H PRN Pain, Mild (Pain Scale 1-3) Amlodipine Besylate 5 mg 10/17/20 12:00 10/17/20 12:50 Amlodipine Besylate 5 Mg Tablet PO 5 mg DAILY@1200 JEANNINE Administration Protocol Aspirin 81 mg 10/16/20 09:00 10/17/20 07:55 Aspirin Enteric Coated 81 Mg Tablet. PO 81 mg DAILY JEANNINE Administration Atorvastatin Calcium 40 mg 10/16/20 21:00 10/17/20 20:36 Atorvastatin Calcium 40 Mg Tablet PO 40 mg BEDTIME JEANNINE Administration Donepezil HCl 10 mg 10/17/20 21:00 10/17/20 20:36 Donepezil Hcl 10 Mg Tablet PO 10 mg BEDTIME JEANNINE Administration Famotidine 20 mg 10/16/20 09:00 10/17/20 20:36 Famotidine 20 Mg Tablet PO 20 mg BID JEANNINE Administration Heparin Sodium (Porcine) 3,000 unit 10/15/20 21:36 Heparin Sodium,Porcine 5,000 Unit/Ml Vial 40 unit/kg (3000 unit) IVPUSH PROTOCOL BOLUS PRN 40 unit/kg - Heparin Protocol Protocol Heparin Sodium (Porcine) 6,100 unit 10/15/20 21:36 Heparin Sodium,Porcine 5,000 Unit/Ml Vial 80 unit/kg (6100 unit) IVPUSH PROTOCOL BOLUS PRN 80 unit/kg - Heparin Protocol Protocol Ceftriaxone Sodium 1 gm/ 50 mls @ 100 mls/hr 10/16/20 02:00 10/18/20 03:20 Sodium Chloride IV Infused Q24H JEANNINE Infusion Isosorbide Mononitrate 30 mg 10/17/20 10:30 10/17/20 11:13 Isosorbide Mononitrate 30 Mg Tab.Er.24h PO 30 mg DAILY JEANNINE Administration Protocol Losartan Potassium 100 mg 10/17/20 12:00 10/17/20 12:50 Losartan Potassium 50 Mg Tablet PO 100 mg DAILY JEANNINE Administration Protocol Melatonin 6 mg 10/15/20 21:36 Melatonin 3 Mg Tablet PO BEDTIME PRN Insomnia Metoprolol Succinate 50 mg 10/16/20 09:00 10/17/20 07:55 Metoprolol Succinate Er 50 Mg Tab.Er.24h PO 50 mg DAILY JEANNINE Administration Protocol Metoprolol Succinate 50 mg 10/17/20 21:00 10/17/20 20:36 Metoprolol Succinate Er 50 Mg Tab.Er.24h PO 50 mg BEDTIME JEANNINE Administration Protocol Mirabegron 50 mg 10/17/20 12:15 10/17/20 12:50 Mirabegron 50 Mg Tab.Er.24h PO 50 mg DAILY JEANNINE Administration Oxycodone HCl 5 mg 10/15/20 21:36 Oxycodone Hcl Immed Release 5 Mg Tablet PO Q6H PRN Pain, Severe (Pain Scale 7-10) Pharmacy Consult 1 each 10/15/20 21:39 Consult Rx Perform Med Rec MISCELLANE ONCE PRN Consult order Sodium Chloride 3 ml 10/16/20 00:00 10/17/20 20:37 0.9 % Sodium Chloride Flush 3 Ml Syringe IVFLUSH 3 ml QSHIFT JEANNINE Administration Tizanidine HCl 4 mg 10/17/20 11:51 Tizanidine Hcl 4 Mg Tablet PO BEDTIME PRN Muscle Spasm Trazodone HCl 50 mg 10/17/20 11:51 Trazodone Hcl 50 Mg Tablet PO BEDTIME PRN sleep Labs CBC & Chem 7: 10/16/20 04:27 10/17/20 03:39 Labs: Laboratory Results - last 24 hr 10/17/20 10/18/20 08:55 05:52 PTT (Heparin Protocol) 47.2 L Troponin I High Sens 32.5 H* D Microbiology Microbiology Results: Microbiology 10/15/20 16:57 Blood - Venous Blood Culture - Final Klebsiella pneumoniae 10/16/20 00:00 Urine clean catch - Urine hagan top Urine Culture - Final Klebsiella pneumoniae 10/15/20 17:31 Blood - Venous Blood Culture - Preliminary No growth after 48 hours. Quality Stroke Does the patient have a stroke diagnosis?: No VTE Prior VTE?: No VTE Risk Level:: Medical - moderate - high VTE Device Contraindication: N/A - Device Ordered VTE Drug Contraindication: Treatment Not Indicated
[2020-10-18] MEDS: 0.9 % Sodium Chloride Flush 3 ML SYRINGE IVFLUSH ×3 (09:47→20:31)
[2020-10-18] MEDS: Famotidine 20 MG TABLET PO ×2 (09:50→20:31)
[2020-10-18] MEDS: Aspirin Enteric Coated 81 MG TABLET.DR PO (09:50)
[2020-10-18] MEDS: Mirabegron 50 MG TAB.ER.24H PO (09:51)
[2020-10-18] MEDS: Losartan Potassium 50 MG TABLET 100 MG PO (09:59)
[2020-10-18] MEDS: Isosorbide Mononitrate 30 MG TAB.ER.24H PO (09:59)
--- NOTE | 2020-10-18 11:17 | PC.NURSE ---
MD NOTIFIED OF LOW HR OF 50 BEFORE GIVING AM MEDICATIONS. METOPROLOL SUCC ER 50 MG HELD PER .
[2020-10-18] MEDS: amLODIPine Besylate 5 MG TABLET PO (11:34)
--- NOTE | 2020-10-18 13:53 | W.PM.IDCN ---
History of Present Illness Data of Consult Service Date: 10/18/20 Requesting physician: Carmelita Solis Primary Care Provider: Unknown Physician HPI Reason for consult: bacteremia She had urinary hesitancy on presentation,now improved. 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 Mother No problems noted. Brother No problems noted. Daughter No problems noted. Daughter No problems noted. Daughter No problems noted. Daughter No problems noted. Surgical History Surgical History History of cholecystectomy History of hysterectomy History of surgery Social History Social History Household Members: None Housing: Apartment Do you presently have visiting nurse or other home services: No Alcohol intake: never Patient Tobacco Use Status: Never used Tobacco e-Cigarette/Vaping Use: Never Used Second Hand Smoke Exposure: No service: No Current occupational status: retired [employer] Allergies Allergy/AdvReac Type Severity Reaction Status Date / Time No Known Allergies Allergy Verified 10/15/20 16:13 [No Known Allergies*] Active Medications: Current Medications Generic Name Dose Route Start Last Admin Trade Name Freq PRN Reason Stop Dose Admin Acetaminophen 650 mg 10/15/20 21:36 Acetaminophen 325 Mg Tablet PO Q6H PRN Pain, Mild (Pain Scale 1-3) Amlodipine Besylate 5 mg 10/17/20 12:00 10/18/20 11:34 Amlodipine Besylate 5 Mg Tablet PO 5 mg DAILY@1200 JEANNINE Administration Protocol Aspirin 81 mg 10/16/20 09:00 10/18/20 09:50 Aspirin Enteric Coated 81 Mg Tablet.Dr PO 81 mg DAILY JEANNINE Administration Atorvastatin Calcium 40 mg 10/16/20 21:00 10/17/20 20:36 Atorvastatin Calcium 40 Mg Tablet PO 40 mg BEDTIME JEANNINE Administration Donepezil HCl 10 mg 10/17/20 21:00 10/17/20 20:36 Donepezil Hcl 10 Mg Tablet PO 10 mg BEDTIME JEANNINE Administration Famotidine 20 mg 10/16/20 09:00 10/18/20 09:50 Famotidine 20 Mg Tablet PO 20 mg BID JEANNINE Administration Heparin Sodium (Porcine) 3,000 unit 10/15/20 21:36 Heparin Sodium,Porcine 5,000 Unit/Ml Vial 40 unit/kg (3000 unit) IVPUSH PROTOCOL BOLUS PRN 40 unit/kg - Heparin Protocol Protocol Heparin Sodium (Porcine) 6,100 unit 10/15/20 21:36 Heparin Sodium,Porcine 5,000 Unit/Ml Vial 80 unit/kg (6100 unit) IVPUSH PROTOCOL BOLUS PRN 80 unit/kg - Heparin Protocol Protocol Ceftriaxone Sodium 1 gm/ 50 mls @ 100 mls/hr 10/16/20 02:00 10/18/20 03:20 Sodium Chloride IV Infused Q24H JEANNINE Infusion Isosorbide Mononitrate 30 mg 10/17/20 10:30 10/18/20 09:59 Isosorbide Mononitrate 30 Mg Tab.Er.24h PO 30 mg DAILY JEANNINE Administration Protocol Losartan Potassium 100 mg 10/17/20 12:00 10/18/20 09:59 Losartan Potassium 50 Mg Tablet PO 100 mg DAILY JEANNINE Administration Protocol Melatonin 6 mg 10/15/20 21:36 Melatonin 3 Mg Tablet PO BEDTIME PRN Insomnia Metoprolol Succinate 50 mg 10/16/20 09:00 10/18/20 09:58 Metoprolol Succinate Er 50 Mg Tab.Er.24h PO Not Given DAILY JEANNINE Protocol Metoprolol Succinate 50 mg 10/17/20 21:00 10/17/20 20:36 Metoprolol Succinate Er 50 Mg Tab.Er.24h PO 50 mg BEDTIME JEANNINE Administration Protocol Mirabegron 50 mg 10/17/20 12:15 10/18/20 09:51 Mirabegron 50 Mg Tab.Er.24h PO 50 mg DAILY JEANNINE Administration Oxycodone HCl 5 mg 09/03/21 21:36 Oxycodone Hcl Immed Release 5 Mg Tablet PO Q6H PRN Pain, Severe (Pain Scale 7-10) Pharmacy Consult 1 each 10/15/20 21:39 Consult Rx Perform Med Rec MISCELLANE ONCE PRN Consult order Sodium Chloride 3 ml 10/16/20 00:00 10/18/20 09:47 0.9 % Sodium Chloride Flush 3 Ml Syringe IVFLUSH 3 ml QSHIFT JEANNINE Administration Tizanidine HCl 4 mg 10/17/20 11:51 Tizanidine Hcl 4 Mg Tablet PO BEDTIME PRN Muscle Spasm Trazodone HCl 50 mg 10/17/20 11:51 Trazodone Hcl 50 Mg Tablet PO BEDTIME PRN sleep Home Medications Medication Instructions Recorded Confirmed Last Taken Type tizanidine 4 mg tablet 4 mg PO BEDTIME PRN 11/13/19 10/15/20 10/14/20 History amlodipine 5 mg tablet 5 mg PO DAILY@1200 10/15/20 10/15/20 10/15/20 History metoprolol succinate 50 mg 50 mg PO BEDTIME 10/15/20 10/15/20 10/14/20 History tablet,extended release 24 hr Physical Exam Vital Signs: Vital Signs: Last Vital Signs Temp 97.7 F 10/18/20 11:01 Pulse 51 10/18/20 11:34 Resp 20 10/18/20 11:01 BP 151/61 H 10/18/20 11:34 Pulse Ox 95 10/18/20 11:01 Body Mass Index 33.1 HENMT: Head: Yes normal to inspection Mouth: Normal oral and palatal mucosa present Resp: Effort & Inspection: normal respiratory effort Cardio: Rate: regular rate Rhythm: regular rhythm Skin: General skin exam: no rashes or lesions noted Extrem: General: Yes normal to inspection Results Labs CBC & Chem 7: 10/16/20 04:27 10/17/20 03:39 Microbiology Microbiology Results: Microbiology 10/15/20 16:57 Blood - Venous Blood Culture - Final Klebsiella pneumoniae 10/16/20 00:00 Urine clean catch - Urine hagan top Urine Culture - Final Klebsiella pneumoniae 10/15/20 17:31 Blood - Venous Blood Culture - Preliminary No growth after 48 hours. Assessment and Plan (1) UTI (urinary tract infection): Status: Deleted (2) Bacteremia: Status: Acute She has Klebsiella Now improving There appears to be no obstruction Po Ceftin bid for 10 days Cranberry juice home acidify urine
[2020-10-18] MEDS: Atorvastatin Calcium 40 MG TABLET PO (20:31)
[2020-10-18] MEDS: Donepezil HCl 10 MG TABLET PO (20:31)
[2020-10-18] MEDS: traZODone HCL 50 MG TABLET PO (22:15)
[2020-10-19] VITALS: BP 117/42; PULSE 73; RESP 18; TEMP 36.8; O2SAT 93
[2020-10-19] MEDS: cefTRIAXone sodium 1 GM in 0.9 % Sodium Chloride 50 ML IV (02:30)
[2020-10-19 04:00] VITALS: BP 141/70; PULSE 55; RESP 18; TEMP 36.8; O2SAT 95
[2020-10-19 07:25] VITALS: BP 147/65; PULSE 67; RESP 16; TEMP 37; O2SAT 95
[2020-10-19 08:51] VITALS: PULSE 74
[2020-10-19 08:52] VITALS: BP 147/65; PULSE 74
[2020-10-19] MEDS: Metoprolol Succinate ER 50 MG TAB.ER.24H PO (08:52)
[2020-10-19] MEDS: Mirabegron 50 MG TAB.ER.24H PO (08:52)
[2020-10-19] MEDS: Losartan Potassium 50 MG TABLET 100 MG PO (08:52)
[2020-10-19 08:53] VITALS: PULSE 74
[2020-10-19] MEDS: Aspirin Enteric Coated 81 MG TABLET.DR PO (08:53)
[2020-10-19] MEDS: Famotidine 20 MG TABLET PO (08:53)
[2020-10-19] MEDS: Isosorbide Mononitrate 30 MG TAB.ER.24H PO (08:53)
[2020-10-19] MEDS: 0.9 % Sodium Chloride Flush 3 ML SYRINGE IVFLUSH (08:54)
--- NOTE | 2020-10-19 10:00 | P.DS_ITS ---
DS: Providers Provider Date of Service: 10/19/20 Date of admission: 10/15/20 21:36 Primary care physician: Unknown Physician Consults: 10/15/20 21:36 Consult to Cardiology Routine Consulting Provider: Demarco Shell Reason for consultation: NSTEMI 10/17/20 08:18 Consult to Infectious Diseases Routine Consulting Provider: Lauren Ch Reason for consultation: gnr 1 Has provider been notified: No Attending physician on discharge: Rome Frank Discharging clinician: Carmelita Solis DS: Diagnosis Discharge Diagnosis (1) Acute coronary syndrome: Status: Acute (2) Bacteremia due to Klebsiella pneumoniae: Status: Acute (3) UTI due to Klebsiella species: Status: Acute DS: Summary Hospital Course Hospital Course: HP as per admitting provider 84-year-old female with a past medical history of hypertension, hyperlipidemia, GERD, obesity, mild cognitive impairment, osteoarthritis, chronic back pain presented to the hospital with a chief complaint of chest pain. Patient reports that she had chest pain, tight in nature, no associated lightheadedness dizziness nausea vomiting or diaphoresis. Lasted about few minutes; nonradiating; currently resolved with the time of my injury. Denies any recent travel or sick contacts.? Patient does report moving furniture around and subsequently developed body aches. Denies any cough.? Denies any GI or symptoms. Review of all other systems is negative except mentioned above ER course: Per ER team patient's EKG was nonischemic; patient chest pain improved.? Patient troponins up from 40.9 to 92.5.? Cardiology was notified.? Patient was started on heparin drip for possible NSTEMI.? Admitted for further management . NSTEMI . Initially presented with chest tightness and had elevated troponins with peak at 92.5. Patient was treated with IV heparin, aspirin, statin, beta- marilynn. She was seen and evaluated by Cardiology. Conservative measures recommended at this time. Patient no longer had any chest pain or noted further ischemic changes on EKG. IV heparin drip was discontinued and patient will be sent home. She may follow-up with Cardiology as needed on an outpatient basis. Klebsiella bacteremia with Klebsiella UTI. / blood culture, positive urine culture. Treated with IV Rocephin . Patient never had any fever, she did have mild leukocytosis. Urinary symptoms improved significantly with antibiotics. She will be sent home with p.o. Ceftin for 10 days. Time Spent with Patient Time attestation: Total time spent providing and/or coordinating discharge services: Discharge coordination time: Greater than 30 minutes Quality: Stroke Does the patient have a stroke diagnosis?: No Physical Exam Vital Signs: Vital Signs: Last Vital Signs Temp 98.6 F 10/19/20 07:25 Pulse 74 10/19/20 08:53 Resp 16 10/19/20 07:25 BP 147/65 H 10/19/20 08:52 Pulse Ox 95 10/19/20 07:25 Body Mass Index 33.1 Appearing in no acute distress head is normocephalic atraumatic eyes pupils are PERRLA sclera is anicteric mouth throat mucous membranes are intact and moist neck is supple no lymphadenopathy, no JVD noted lung sounds are clear to auscultation heart regular rate rhythm, clear S1, S2 positive bowel sounds, abdomen is soft, nontender neuro patient is alert x3, no focal deficits DS: Data Data Completed and Pending Labs on day of discharge: Preliminary micro results at discharge 10/15/20 17:31 Blood Culture - Preliminary Blood - Venous No growth after 48 hours. Discharge Plan Discharge Anticipated Discharge Date/Time: 10/19/20 08:03 Patient Disposition: Home, Self-Care Discharge Diagnosis: Nstemi Klebsiella bacteremia Klebsiella UTI Referrals: Physician,Unknown [Primary Care Provider] - 1 Week Discharge Medications: New aspirin 81 mg Tablet,Delayed Release (Dr/Ec) 81 mg PO DAILY Qty: 30 RF: 0 atorvastatin 40 mg Tablet 40 mg PO BEDTIME Qty: 30 RF: 0 cefuroxime axetil 500 mg tablet 500 mg PO BID Qty: 20 RF: 0 Continued donepezil [Aricept] 10 mg tablet 10 mg PO BEDTIME 90 Days Qty: 90 RF: 1 Myrbetriq 50 mg tablet extended release 24 hr 50 mg PO BID Qty: 60 RF: 6 metoprolol succinate 50 mg tablet extended release 24 hr 50 mg PO BEDTIME RF: 0 amlodipine 5 mg tablet 5 mg PO DAILY@1200 RF: 0 losartan 100 mg tablet 100 mg PO DAILY Qty: 90 RF: 3 trazodone 50 mg tablet 50 mg PO BEDTIME PRN (Reason: sleep) 30 Days Qty: 30 RF: 3 tizanidine 4 mg tablet 4 mg PO BEDTIME PRN (Reason: Muscle Spasm) RF: 0 Prevalite 4 gram powder in packet 4 g PO BID Qty: 60 RF: 3 Discharge Orders: Discharge Order (Routine); Ordered 10/19/20 Ordered By: Carmelita Solis Diet: advance to usual diet Activity on Discharge: As tolerated Stand Alone Forms: Patient Portal Discharge page Care Plan Goals: Complete resolution of bacteremia Health Concerns: Nstemi Klebsiella bacteremia Klebsiella UTI Plan of Treatment: Follow-up in her primary care provider as needed Take prescribed antibiotics for the next 10 days Assessment: See discharge summary
--- NOTE | 2020-10-19 10:03 | MHC.CM.PN ---
PT CLEARED TO [facility] TODAY WITH NO SERVICES. FOLLOW UP [facility] DELIVERED PT REPORTS SHE SPOKE WITH HER DAUGHTER WHO WILL BE PICKING HER UP AROUND LUNCH TIME
== END 2020-10-19 13:37 | disposition home or self-care (01) | DRG 689 ==
LOC: HO.ED 16:35 → HO.IMC 22:52
PROVIDERS: Nurse Practitioner Family; Admitting Provider Hospitalist; Emergency Provider Emergency Medicine; Visit Provider Nurse Practitioner Acute Care
DX: N39.0 Urinary tract infection, site not specified (principal); I21.4 Non-ST elevation (NSTEMI) myocardial infarction; R78.81 Bacteremia; B96.1 Klebsiella pneumoniae [K. pneumoniae] as the cause of diseases classified elsewhere; K21.9 Gastro-esophageal reflux disease without esophagitis; I10 Essential (primary) hypertension; Z20.822 Contact with and (suspected) exposure to COVID-19; Z79.82 Long term (current) use of aspirin; Z79.899 Other long term (current) drug therapy
CPT/HCPCS: 0241U; 36415; 71046; 80048; 80053; 81001; 83690; 84484; 85025; 85379; 85610; 85730; 87040; 87077; 87086; 87088; 87186; 87205; 93005; 93306; 96361; 96374; 96375; 99285; J0696; J2405

== ENCOUNTER → 2020-11-17 14:31 | Outpatient (BNVA) | payer MEDICARE, MEDICAID, SELFPAY | PROVIDERS: Referring Provider Internal Medicine; Visit Provider Nurse Practitioner Family | DX: I24.9 Acute ischemic heart disease, unspecified (principal); I10 Essential (primary) hypertension; R07.89 Other chest pain; E78.00 Pure hypercholesterolemia, unspecified | CPT/HCPCS: 99212 ==

== ENCOUNTER → 2021-02-08 10:01 | Outpatient (BNVA) | payer MEDICARE, MEDICAID, SELFPAY | PROVIDERS: PCP Internal Medicine | DX: R32 Unspecified urinary incontinence (principal) | CPT/HCPCS: 99212 ==

== ENCOUNTER 2021-04-22 09:37 | Outpatient (REF) | payer MEDICARE, MEDICAID, SELFPAY ==
--- NOTE | ~2021-04-22 | MM_ITS ---
EXAMINATION: BONE DENSITOMETRY CLINICAL INDICATION: Encounter for screening for osteoporosis. COMPARISON: Previous BD dated 04/19/2018 and baseline BD dated 04/06/2006. TECHNIQUE: Using a Infrascale DXA System (software version: 13.1) manufactured by [employer], dual-energy x-ray absorptiometry was performed of the lumbar spine and left hip. The images are of good technical quality. Summary results are attached. FINDINGS: AP SPINE L1-L4: Current: BMD 1.323 g/cm2, Z-score 2.8, T-score 1.2, normal, 0.6% decrease from previous, 22.4% increase from baseline (<5% change is not significant). Prior: BMD 1.331 g/cm2. Baseline: BMD 1.081 g/cm2. LEFT FEMUR, NECK: Current: BMD 0.591 g/cm2, Z-score -1.0, T-score -3.2, osteoporosis. Prior: BMD 0.807 g/cm2. Baseline: BMD 0.866 g/cm2. LEFT FEMUR, TOTAL: Current: BMD 0.688 g/cm2, Z-score -0.4, T-score -2.5, osteoporosis, 24.4% decrease from previous, 31.3% decrease from baseline (<5% change is not significant). Prior: BMD 0.910 g/cm2. Baseline: BMD 1.001 g/cm2. IDENTIFIED RISK FACTORS: Renal, height loss, low calcium intake. Early menopause, secondary osteoporosis, hysterectomy, bilateral oophorectomy. HISTORY OF FRACTURE: None listed. MEDICATIONS: None listed. MM/XR DEXA axial skeleton IMPRESSION: 1. DIAGNOSIS: Osteoporosis based on the lowest T-score value of -3.2 in the femoral neck applying World Health Organization criteria. 2. 10-YEAR FRACTURE RISK PREDICTION, FRAX: According to the guidelines, FRAX calculation should only be performed on patients in the osteopenia bone density category. Therefore, FRAX was not performed on this patient. 3. Treatment Recommendations: NOF guidelines recommend consideration for treatment in postmenopausal women and men age 50 and older presenting with the following: -A hip or vertebral (clinical or morphometric) fracture. -T-score less than or equal to -2.5 at the femoral neck or spine after appropriate evaluation to exclude secondary causes. -Low bone mass at the hip or spine and a 10-year fracture probability by FRAX of greater than or equal to 3% for hip fracture or greater than or equal to 20% for major osteoporotic fracture based on the [place] adapted WHO algorithm. 4. Other Recommendations: All treatment decisions require clinical judgment and consideration of individual patient factors, including patient preferences, comorbidities, previous drug use, risk factors not captured in the FRAX model (e.g. frailty, falls, vitamin D deficiency, increased bone turnover, interval significant decline in bone density) and possible under or overestimation of fracture risk by FRAX. Additional medical evaluation for secondary cause of low bone mineral density may be appropriate. FUTURE SCAN RECOMMENDATION: People with diagnosed cases of osteoporosis or at high risk for fracture should have regular bone mineral density tests. For patients eligible for Medicare, routine testing is allowed once every 2 years. The testing frequency can be increased to one year for patients who have rapidly progressing disease, those who are receiving or discontinuing medical therapy to restore bone mass, or have additional risk factors.
== END 2021-04-22 09:38 | disposition home or self-care (01) ==
LOC: HO.MAMMO 09:37
PROVIDERS: PCP Internal Medicine; Visit Provider Nurse Practitioner Family
DX: Z13.820 Encounter for screening for osteoporosis (principal); M81.0 Age-related osteoporosis without current pathological fracture; Z78.0 Asymptomatic menopausal state; Z98.890 Other specified postprocedural states
CPT/HCPCS: 77080

== ENCOUNTER 2021-07-07 07:51 | Outpatient (REF) | payer MEDICARE, MEDICAID, SELFPAY ==
[2021-07-07 08:38] LABS: MANUAL DIFF FLAG NO
[2021-07-07 09:23] LABS: Basophils Absolute Auto 0.1 X10*3/uL (0.0-0.2); Basophils Percent Auto 0.9 % (0-2); Eosinophils Absolute Auto 0.5 X10*3/uL (0.0-0.4); Eosinophils Percent Auto 6.3 % (0-4); Hematocrit 42.2 % (37.0-47.0); Hemoglobin 13.9 g/dl (12.0-16.0); Imm Gran Abs Auto 0.02 X10*3/uL (0.00-0.03); Imm Gran Pct Auto 0.3 % (0.0-0.4); Lymphocytes Absolute Auto 1.4 X10*3/uL (1.2-4.9); Lymphocytes Percent Auto 18.3 % (20-40); Mean Corpuscular HGB Conc 32.9 g/dl (31.0-35.0); Mean Corpuscular Hemoglobin 29.4 pg (27.0-33.0); Mean Corpuscular Volume 89.4 fL (80.0-98.0); Monocytes Absolute Auto 0.5 X10*3/uL (0.1-1.2); Monocytes Percent Auto 6.7 % (2-11); Neutrophils Absolute Auto 5.2 x10*3/uL (2.0-8.3); Neutrophils Percent Auto 67.5 % (45-73); Platelet Count 210 X10*3/uL (160-400); Red Blood Count 4.72 X10*6/uL (4.20-5.50); Red Cell Distribution Width 12.9 % (11.0-16.0); White Blood Count 7.7 X10*3/uL (4.8-10.8)
[2021-07-07 09:48] LABS: Appearance Urine HAZY; Color Urine YELLOW; Glucose Urine UA NEG (NEG); Leukocyte Esterase Urine 2+ (NEG); Nitrite Urine POS (NEG); UACC Culture Trigger YES; Urine Blood NEG (NEG); Urine Ketones NEG (NEG); Urine Protein NEG (NEG-TRACE)
[2021-07-07 09:56] LABS: Alanine Aminotransferase 17 U/L (0-31); Albumin Level 4.2 g/dL (3.5-5.0); Alkaline Phosphatase 79 U/L (39-117); Anion Gap 13 (12-20); Aspartate Amino Transferase 16 U/L (5-31); Bilirubin Total 0.7 mg/dL (0.0-1.0); Blood Urea Nitrogen 19 mg/dL (9-16); Calcium 9.8 mg/dL (8.4-10.2); Carbon Dioxide 26 mmol/L (22-29); Chloride 108 mmol/L (96-108); Cholesterol 112 mg/dL; Estimated Glomerular Filt Rate 35; Glucose Random 88 mg/dL (60-115); HDL Cholesterol 43 mg/dL; Iron 85 mcg/dL (30-160); LDL Cholesterol Calculated 48 mg/dl; Magnesium 2.1 mg/dL (1.6-2.6); Percent Iron Saturation 28 % (15-50); Phosphorus 3.6 mg/dL (2.7-4.5); Potassium 4.5 mmol/L (3.3-5.1); Sodium 142 mmol/L (135-145); Total Iron Binding Capacity 304 mcg/dL (228-428); Total Protein 6.6 g/dL (6.5-8.0); Triglycerides 106 mg/dL; Unsaturated Iron Binding 219 ug/dL
[2021-07-07 10:12] LABS: Bacteria Urine 4+ /LPF; RBC Urine 0-2 /HPF (0); Squamous Epithelial Cell Urine 3+ /LPF
[2021-07-07 10:13] LABS: Renal Epithelial Cells Urine 1+ /LPF
[2021-07-07 10:20] LABS: Ferritin 82 ng/mL (10-250); Free T4 (Free Thyroxine) 1.08 ng/dL (0.71-1.85); Thyroid Stimulating Hormone 2.28 uIU/mL (0.32-4.0)
[2021-07-07 10:26] LABS: Folate 10.1 ng/mL (> or = 4.0); Vitamin B12 865 pg/mL (200-900)
== END 2021-07-07 07:52 | disposition home or self-care (01) ==
LOC: HO.LAB 07:51
PROVIDERS: PCP Internal Medicine; Visit Provider Internal Medicine
DX: R25.2 Cramp and spasm (principal); E78.00 Pure hypercholesterolemia, unspecified; I10 Essential (primary) hypertension; D64.9 Anemia, unspecified; E55.9 Vitamin D deficiency, unspecified; M81.0 Age-related osteoporosis without current pathological fracture; R82.71 Bacteriuria; B96.89 Other specified bacterial agents as the cause of diseases classified elsewhere
CPT/HCPCS: 36415; 80053; 80061; 81001; 82306; 82607; 82728; 82746; 83540; 83735; 84100; 84439; 84443; 85025; 87086; 87088; 87186

== ENCOUNTER 2021-11-30 09:07 | Outpatient (REF) | payer MEDICARE, MEDICAID, SELFPAY ==
[2021-11-30 10:09] LABS: Alanine Aminotransferase 18 U/L (0-31); Albumin Level 4.1 g/dL (3.5-5.0); Alkaline Phosphatase 85 U/L (39-117); Anion Gap 16 (12-20); Aspartate Amino Transferase 19 U/L (5-31); Bilirubin Total 0.7 mg/dL (0.0-1.0); Blood Urea Nitrogen 16 mg/dL (9-16); Calcium 9.3 mg/dL (8.4-10.2); Carbon Dioxide 23 mmol/L (22-29); Chloride 108 mmol/L (96-108); Estimated Glomerular Filt Rate 38; Glucose Random 105 mg/dL (60-115); Potassium 4.6 mmol/L (3.3-5.1); Sodium 142 mmol/L (135-145); Total Protein 6.2 g/dL (6.5-8.0)
[2021-11-30 15:57] LABS: Appearance Urine Turbid; Color Urine Yellow; Glucose Urine UA Negative (Negative); Leukocyte Esterase Urine Small (1+) (Negative); Nitrite Urine Negative (Negative); PH 5.5 (5.0-9.0); UMIC TRIGGER UACC YES; Urine Blood Negative (Negative); Urine Ketones Negative (Negative); Urine Protein Negative (Neg-Trace)
[2021-11-30 16:02] LABS: Bacteria Urine 2+ (None Seen); Hyaline Casts Urine 0-2 /LPF (0-2); RBC Urine 0-2 /HPF (0-2); UACC Culture Trigger YES
== END 2021-11-30 09:08 | disposition home or self-care (01) ==
LOC: HO.LAB 09:07
PROVIDERS: PCP Internal Medicine; Visit Provider Internal Medicine
DX: N28.9 Disorder of kidney and ureter, unspecified (principal)
CPT/HCPCS: 36415; 80053; 81001; 81003; 87086

== ENCOUNTER 2021-12-01 14:42 | Outpatient (REF) | payer MEDICARE, MEDICAID, SELFPAY ==
--- NOTE | ~2021-12-01 | US_ITS ---
EXAMINATION: US RETROPERITONEAL COMPLETE (RENAL) CLINICAL INFORMATION: Unspecified urinary incontinence. COMPARISON: Ultrasound abdomen complete there were 02/01/2020. TECHNIQUE: Real-time imaging of the kidneys and bladder. FINDINGS: RIGHT KIDNEY: 12.1 x 4.1 x 6.4 cm (SAG x AP x TRV). The kidney is normal in size, contour, and echogenicity. Renal cortical thickness is normal. There are innumerable cysts, largest measuring 1.5 cm. No renal calculi or hydronephrosis. LEFT KIDNEY: 11.7 x 5.6 x 5.2 cm (SAG x AP x TRV). The kidney is normal in size, contour, and echogenicity. Renal cortical thickness is normal. There are innumerable cysts, largest measuring 1 x 2 cm. There is a 3 mm echogenic density with twinkle artifact in the upper pole suggestive of a small stone. No hydronephrosis. BLADDER: Partially distended. Bilateral ureteral jets are demonstrated. Prevoid bladder volume is 85.8 mL. Postvoid bladder volume is 12.1 mL. US/US retroperitoneal comp IMPRESSION: Multiple small bilateral renal cysts. 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 Question small left renal stone. Bladder not optimally distended but appears unremarkable.
== END 2021-12-01 14:43 | disposition home or self-care (01) ==
LOC: HO.US 14:42
PROVIDERS: Visit Provider Internal Medicine
DX: R32 Unspecified urinary incontinence (principal)
CPT/HCPCS: 76770

== ENCOUNTER 2021-12-23 10:45 | Outpatient (REF) | payer MEDICARE, MEDICAID, SELFPAY ==
--- NOTE | ~2021-12-23 | XR_ITS ---
EXAMINATION: XR CHEST CLINICAL INFORMATION: COVID-19 COMPARISON: Chest 10/15/2020. TECHNIQUE: 2 views of the chest were obtained. FINDINGS: No significant abnormality is noted involving the heart, lungs, mediastinum, bony thorax or soft tissues. XR/XR chest 2V IMPRESSION: Unremarkable examination.
== END 2021-12-23 10:46 | disposition home or self-care (01) ==
LOC: HO.XRAY 10:45
PROVIDERS: PCP Internal Medicine; Visit Provider Internal Medicine
DX: U07.1 COVID-19 (principal)
CPT/HCPCS: 71046

== ENCOUNTER → 2022-02-08 09:26 | Outpatient (BNVA) | payer MEDICARE, MEDICAID, SELFPAY | PROVIDERS: PCP Internal Medicine; Visit Provider Nurse Practitioner Family | DX: N39.46 Mixed incontinence (principal) | CPT/HCPCS: 51798; 99212 ==

== ENCOUNTER 2022-03-28 11:34 | Observation (INO) | payer MEDICARE, MEDICAID, SELFPAY ==
--- NOTE | ~2022-03-28 | XR_ITS ---
EXAMINATION: XR CHEST CLINICAL INFORMATION: Shortness of breath COMPARISON: X-ray 03/28/2022 TECHNIQUE: Frontal view of the chest was obtained. FINDINGS: Study somewhat limited by rotation and suboptimal inspiration. Low lung volumes. Right hemidiaphragm elevation. Bronchovascular crowding in the right lung base. Hazy opacity left cardiophrenic angle, could represent a small effusion versus overlapping densities. No gross infiltrate. No pulmonary edema or pneumothorax is seen. Degenerative changes in the spine. XR/XR chest 1V IMPRESSION: Low lung volumes. Right lung base bronchovascular crowding. Small left pleural effusion versus sequela of overlapping densities. No gross infiltrate.
--- NOTE | ~2022-03-28 | CT_ITS ---
EXAMINATION: CT ABDOMEN AND PELVIS WITHOUT CONTRAST CLINICAL INFORMATION: 86-year-old female with abdominal pain. COMPARISON: Ultrasound exams from 03/26/2019 and 12/01/2021. Pelvic ultrasound from 07/25/2019. TECHNIQUE: Multidetector volumetric imaging was performed from the superior aspect of the liver through the pubic symphysis. Sagittal and coronal reformatted images were obtained on the technologist's workstation. This CT examination was performed using dose optimization techniques as appropriate, variously including the following: *Automated exposure control *Adjustment of mA and/or kV according to patient size (this includes techniques or standardized protocols for targeted exams where dose is matched to indication/reason for exam; i.e. extremities or head) *Use of iterative reconstruction technique DLP: 692 mGy-cm FINDINGS: LUNG BASES: Mild atelectasis within visualized lung bases. No focal consolidation or pleural effusion. There is atherosclerotic calcification of coronary arteries. LIVER: Liver has density of approximately 30 Hounsfield units which suggests likelihood of steatosis. No focal lesion or intrahepatic ductal dilatation. GALLBLADDER AND BILIARY TREE: Gallbladder is surgically absent. Common duct is chronically, mildly dilated and measures up to 1 cm transverse diameter. PANCREAS: Moderately atrophied. No edema, pancreatic ductal dilatation or mass. SPLEEN: Normal. ADRENAL GLANDS: Normal. KIDNEYS AND URETERS: Again noted is polycystic renal disease. Multiple simple cysts are present. Also, there are several hyperdense foci, likely representing proteinaceous cyst but not fully characterized on this noncontrast examination. Many of the lesions are indeterminate, such as 1.9 cm focus of the lateral right lower pole, density of 50 Hounsfield units and 1.6 cm meter focus of posterior left upper pole, density of 55 Hounsfield units. No nephrolithiasis or hydronephrosis. Mild bilateral perinephric edema is present. BLADDER: Unremarkable. BOWEL AND PERITONEUM: No dilated bowel loops. Instead, there is lack of distention of bowel. The appendix is not identified. No inflammatory changes in the right lower quadrant. Diverticula of the colon without evidence of diverticulitis. No abdominal free fluid or free air. ABDOMINAL WALL: Obese body habitus. Mild streak artifact produced by metallic eduin of the right abdominal wall. There is atrophy of rectus abdominis muscles. At the level of the umbilicus there is approximately 6 cm diastases of the rectus abdominis muscles. No significant hernia. VASCULATURE: Mild atherosclerotic calcification of the abdominal aorta without aneurysm. No retroperitoneal hematoma. LYMPH NODES: No pathologic sized lymph nodes in the abdomen or pelvis. No inguinal lymphadenopathy. PELVIC VISCERA: Status post hysterectomy. No adnexal mass or pelvic free fluid. MUSCULOSKELETAL: Chondrocalcinosis, multilevel facet osteoarthritis and degenerative disc disease of the lumbar spine. Discovertebral degenerative changes within the visualized lower thoracic spine, as well. Mild degenerative retrolisthesis at T12-L1, L1-L2 and L2-L3. There is 0.8 cm of grade 2 anterolisthesis at L4-L5. No suspicious bone lesions. CT/CT abdomen pelvis wo IV con IMPRESSION: * Obesity and mild hepatic steatosis. * Cholecystectomy and chronically mildly dilated common duct. * Polycystic renal disease. Multiple foci within both kidneys are not simple cysts and are not well characterized on this noncontrast examination. Some of these have a density of > 70 HU and are consistent with benign proteinaceous/hyperdense cysts whereas others are indeterminate, but are probably proteinaceous cysts. No nephrolithiasis or hydronephrosis. * Colonic diverticulosis without diverticulitis.
--- NOTE | ~2022-03-28 | XR_ITS ---
EXAMINATION: XR CHEST CLINICAL INFORMATION: Weakness. COMPARISON: December 23, 2021. TECHNIQUE: Semierect, associated AP and lateral views of the chest. XR/XR chest 2V FINDINGS/IMPRESSION: The study is somewhat limited by suboptimal inspiration. No gross infiltrate, effusion, pneumothorax is seen. The right hemidiaphragm is mildly elevated. The heart appears normal in size. The aorta is uncoiled, suggesting hypertension. There are mild degenerative changes of the spine.
--- NOTE | ~2022-03-28 | CT_ITS ---
EXAMINATION: CT CHEST WITHOUT CONTRAST CLINICAL INFORMATION: Questionable lung mass COMPARISON: CT abdomen pelvis and chest radiograph earlier today which failed to demonstrate any mass lesions. TECHNIQUE: Multidetector volumetric CT imaging of the chest was done. Axial MIP volume rendering provided. Sagittal and coronal reformatted images were obtained. This CT examination was performed using dose optimization techniques as appropriate, variously including the following: *Automated exposure control *Adjustment of mA and/or kV according to patient size (this includes techniques or standardized protocols for targeted exams where dose is matched to indication/reason for exam; i.e. extremities or head) *Use of iterative reconstruction technique DLP: 328 mGy-cm FINDINGS: LUNGS: Scattered areas atelectasis are present. There is a 4 mm perifissural right middle lobe nodule, most likely a lymph node again (5:248). There are some tiny areas of endobronchial mucous (for example 5:197). No worrisome lung mass is seen MEDIASTINUM: Heart size is normal. No mediastinal or hilar lymphadenopathy is seen. The thoracic aorta is unremarkable. CORONARY ARTERY CALCIFICATION: Moderate present. PLEURA: There is no pleural effusion. No pleural mass or thickening. AXILLA: No lymphadenopathy. UPPER ABDOMEN: See CT scan performed earlier today. Again noted is hepatic steatosis, cholecystectomy and benign bilateral renal cysts which need no additional imaging or follow-up. OSSEOUS STRUCTURES: Degenerative changes are present throughout the spine. No acute fractures or bony destructive lesions. CT/CT chest wo IV con IMPRESSION: 1. A worrisome lung mass is not seen. There is a 4 mm perifissural right middle lobe nodule which is most likely a lymph node. 2. Incidentally noted hepatic steatosis, cholecystectomy and benign renal cysts which need no additional imaging or follow-up. 2017 Fleischner Society Recommendations for Lung Nodule(s): Follow-Up based on size (average of long- and short-axis diameters). Use most suspicious nodule for followup. Single Solid low risk nodule < 6 mm: No routine follow-up imaging is recommended in low risk and high risk patients. These guidelines do not apply to patients younger than 35 years, immunocompromised patients, and patients with cancer. F/u in patients with significant comorbidities as clinically warranted. For lung cancer screening, adhere to Lung-RADS guidelines. Reference: Radiology. 2017 Alex; 284(1):228-243
[2022-03-28 11:51] VITALS: BP 156/69; PULSE 78; RESP 22; TEMP 36.6; O2SAT 91; BMI 33.2
--- NOTE | 2022-03-28 12:01 | ED.GENADULT ---
HPI - General Adult General Chief complaint: Nausea/Vomiting/Diarrhea Stated complaint: N/V/LOW FEVER PER EMS Time Seen by Provider: 03/28/22 12:00 Source: patient Mode of arrival: ambulatory Limitations: no limitations History of Present Illness HPI narrative: 86 [id number] presents from home via EMS c/o generalized weakness, N/V/D, dysuria, and fever for two days. Initially awoke with nausea with progression to vomiting and diarrhea. Unable to keep any liquids/solids/medications down. Pt endorses abdominal pain, with localization in RLQ as well as generalized fatigue. Denies sick contacts/recent travel. Denies chills, chest pain, SOB, cough. Onset (ago): day(s) (2) Location: abdomen Related Data Home Medications Medication Instructions Recorded Confirmed fexofenadine 60 mg tablet 60 mg PO DAILY 03/28/22 03/28/22 tizanidine 4 mg tablet 4 mg PO BEDTIME PRN Muscle Pain 03/28/22 03/28/22 Previous Rx's Medication Instructions Recorded losartan 100 mg tablet 100 mg PO DAILY #90 tabs 04/04/21 donepezil 10 mg tablet (Aricept) 10 mg PO BEDTIME 90 days #90 tabs 06/14/21 metoprolol succinate 50 mg 50 mg PO BEDTIME 90 days #90 tabs 09/26/21 tablet,extended release 24 hr ropinirole 0.25 mg tablet 0.25 mg PO BEDTIME #90 tabs 01/18/22 atorvastatin 40 mg tablet 40 mg PO BEDTIME 30 days #30 tabs 02/27/22 mirabegron 50 mg tablet,extended 50 mg PO BID 90 days #180 tabs 03/22/22 release 24 hr (Myrbetriq) trazodone 50 mg tablet 100 mg PO BEDTIME PRN sleep 90 03/24/22 days #180 tabs amlodipine 10 mg tablet 10 mg PO DAILY #30 tabs 04/02/22 cefuroxime axetil 500 mg tablet 500 mg PO BID 10 days #20 tabs 04/02/22 Allergies Allergy/AdvReac Type Severity Reaction Status Date / Time No Known Allergies Allergy Verified 03/24/22 09:26 [No Known Allergies*] Review of Systems Constitutional: Constitutional: Reports no additional constitutional complaints, Denies chills and Denies night sweats Eyes: Eyes: Reports no additional eye complaints, Denies blurry vision, Denies change in vision, Denies diplopia, Denies eye discharge, Denies loss of vision and Denies eye pain ENT: Denies dizziness Cardiovascular: Cardiovascular: Reports no additional cardiovascular complaints, Denies chest pain, Denies lightheadedness, Denies Loss of Consciousness and Denies dyspnea Respiratory: Respiratory: Reports no additional respiratory complaints and Denies dyspnea Gastrointestinal: Gastrointestinal: Reports no additional gastrointestinal complaints, Reports abdominal pain, Denies melena, Denies hematochezia, Denies change in bowel habits, Denies change in stool character, Reports diarrhea, Reports nausea and Reports vomiting Genitourinary: Genitourinary: Denies hematuria, Denies urinary frequency, Denies dysuria, Reports urinary incontinence (baseline for patient), Denies urinary hesitancy and Denies urinary urgency Musculoskeletal: Musculoskeletal: Reports no additional musculoskeletal complaints, Reports myalgias, Denies numbness and Denies tingling Neurologic: Denies dizziness, Denies loss of vision, Denies numbness and Denies tingling Psychiatric: Psychiatric: Reports no additional psychiatric complaints Endocrine: Endocrine: Reports no additional endocrine complaints Hematologic/Lymphatic: Hematologic/Lymphatic: Reports no additional hematologic/lymphatic complaints Allergic/Immunologic: Allergic/Immunologic: Reports no additional allergic/immunologic complaints [facility] Past Medical History Attestation statement: The following information was validated with the patient. Source: old records reviewed Medical History (Updated 03/31/22 @ 15:49 by Lauren Ch MD) Acute coronary syndrome Adnexal mass Bacteremia due to Klebsiella pneumoniae Chest discomfort Chronic kidney disease (CKD) stage G3b/A3, moderately decreased glomerular filtration rate (GFR) between 30-44 mL/min/1.73 square meter and albuminuria creatinine ratio greater than 300 mg/g Decreased hearing of both ears Degenerative disc disease, lumbar Diarrhea E coli bacteremia Encounter for annual wellness exam in Medicare patient GERD (gastroesophageal reflux disease) Gout Hypercholesterolemia Hypertension Leg cramps Mild cognitive impairment Obesity (BMI 30-39.9) Onychomycosis Osteoarthritis Osteopenia Osteoporosis screening Peripheral vascular disease Polycystic kidney disease Sepsis Spondylosis of cervical spine Urinary incontinence Vitamin D deficiency Surgical History History of cholecystectomy History of hysterectomy History of surgery Family History Family History Father No problems noted. Mother No problems noted. Brother No problems noted. Daughter No problems noted. Daughter No problems noted. Daughter No problems noted. Daughter No problems noted. Social History Social History Household Members: Family Household Members Other:: 1 Housing: House Do you presently have visiting nurse or other home services: No Alcohol intake: never Patient Tobacco Use Status: Never used Tobacco e-Cigarette/Vaping Use: Never Used Second Hand Smoke Exposure: No Advance Directives Date on File: 11/17/19 service: No Current occupational status: retired Cognitive needs: No Hearing needs: No Vision needs: Yes Physical Exam ED Vital Signs: Vital Signs - 24 hr 03/28/22 11:51 03/28/22 12:07 03/28/22 13:50 Temperature 97.8 F 103.2 F H 100.1 F Pulse Rate 78 89 Respiratory Rate 22 H 28 H Blood Pressure 156/69 H 145/65 H Pulse Oximetry 91 L 90 L Oxygen Delivery Method Room Air Room Air Oxygen Flow Rate 03/28/22 15:46 Temperature 101.3 F H Pulse Rate 85 Respiratory Rate 18 Blood Pressure 118/46 L Pulse Oximetry 93 Oxygen Delivery Method Nasal Cannula Oxygen Flow Rate 2 BMI result Body Mass Index 33.2 Const General: cooperative, awake and ill appearing Nutritional Appearance: well nourished Orientation/consciousness: patient oriented x3 Limitations: no limitations HENMT Head: Yes normal to inspection and Yes atraumatic Ears: hearing grossly normal bilaterally and external ears normal General nose exam: Normal external nose present, no nasal discharge noted and no epistaxis Face and sinus: Yes normal facial exam, No abrasion and No laceration Mouth: Normal oral and palatal mucosa present, no drooling and no muffled voice Throat: Yes posterior oropharynx normal Eyes General: appearance normal, both eyes and all related structures Periorbital: periorbital findings normal Eyelids: Yes eyelids normal Conjunctivae: conjunctivae normal Pupils: Equal, round and reactive pupils present EOM: EOMs intact bilaterally Neck Neck: Yes normal visual inspection, Yes full ROM and Yes no lymphadenopathy Chest Chest palpation & inspection: normal inspection of the chest Resp Effort & Inspection: normal respiratory effort and able to speak in complete sentences Auscultation: clear to auscultation bilaterally Cardio Rate: regular rate Rhythm: regular rhythm GI Inspection: Yes scar (RUQ) Palpation (GI): Tenderness to palpation present (GI) (RLQ>LLQ; abdomen distended) in the LLQ and in the RLQ Auscultation: normal bowel sounds Neuro General: patient oriented x3 Cranial nerves: Yes Equal, round and reactive pupils present Cognition (Neuro): normal cognition Motor exam (neuro): 5/5 motor strength present throughout Sensory Exam: Normal double simultaneous stimulation for sensation Coordination: [id number] test normal Extrem General: Yes normal to inspection, Yes full ROM and Yes capillary refill normal Psych Appearance: grossly normal Mental Status: mental status grossly normal Affect: normal affect Attitude: cooperative Thought process: Normal thought process present Thought content: Normal thought content present Insight: Good insight present (Psych) Medications Administered Discontinued Medications Generic Name Dose Route Start Last Admin Trade Name Freq PRN Reason Stop Dose Admin Acetaminophen 650 mg 03/28/22 12:22 03/28/22 14:42 Acetaminophen Supp [address] 650 mg Q6H PRN Administration fever Acetaminophen 650 mg 03/28/22 18:52 04/01/22 11:27 Acetaminophen 325 Mg Tablet PO 650 mg Q6H PRN Administration Pain, Mild (Pain Scale 1-3) Amlodipine Besylate 5 mg 04/01/22 09:00 04/01/22 09:07 Amlodipine Besylate 5 Mg Tablet PO 5 mg DAILY JEANNINE Administration Protocol Amlodipine Besylate 10 mg 04/02/22 09:00 04/02/22 07:59 Amlodipine Besylate 10 Mg Tablet PO 10 mg DAILY JEANNINE Administration Protocol Atorvastatin Calcium 40 mg 03/28/22 21:00 04/01/22 23:05 Atorvastatin Calcium 40 Mg Tablet PO 40 mg BEDTIME JEANNINE Administration Donepezil HCl 10 mg 03/28/22 21:00 04/01/22 23:06 Donepezil Hcl 10 Mg Tablet PO 10 mg BEDTIME JEANNINE Administration Enoxaparin Sodium 30 mg 03/28/22 19:00 04/01/22 18:24 Enoxaparin Sodium 30 Mg/0.3 Ml Syringe SUBCUT 30 mg Q24H JEANNINE Administration Hydralazine HCl 10 mg 04/01/22 10:57 04/01/22 15:49 Hydralazine Hcl 20 Mg/Ml Vial IVPUSH 10 mg Q6H PRN Administration SBP> 180 Protocol Sodium Chloride 1,000 mls @ 999 mls/hr 03/28/22 12:30 03/28/22 19:19 Ns IV 03/28/22 13:30 Infused .Q1H1M JEANNINE Infusion Ceftriaxone Sodium 2 gm/ 50 mls @ 100 mls/hr 03/28/22 12:21 03/28/22 15:44 Sodium Chloride IV 03/28/22 12:50 Infused ONCE ONE Infusion Sodium Chloride 1,000 mls @ 999 mls/hr 03/28/22 17:45 03/28/22 21:18 Ns IV 03/28/22 18:45 Infused .Q1H1M JEANNINE Infusion Sodium Chloride 1,000 mls @ 80 mls/hr 03/28/22 19:00 03/30/22 22:23 Ns IVCONT Infused .[id number] JEANNINE Infusion Ceftriaxone Sodium 1 gm/ 50 mls @ 100 mls/hr 03/29/22 14:00 03/30/22 16:19 Sodium Chloride IV Infused Q24H JEANNINE Infusion Ceftriaxone Sodium 2 gm/ 50 mls @ 100 mls/hr 03/31/22 15:00 04/01/22 15:35 Sodium Chloride IV Infused Q24H JEANNINE Infusion Ketorolac Tromethamine 15 mg 03/28/22 17:34 03/28/22 19:18 Ketorolac Tromethamine 15 Mg/Ml Vial IVPUSH 03/28/22 17:35 15 mg ONCE ONE Administration Loratadine 10 mg 03/29/22 09:00 04/02/22 07:58 Loratadine 10 Mg Tablet PO 10 mg DAILY JEANNINE Administration Losartan Potassium 100 mg 04/01/22 09:00 04/02/22 07:59 Losartan Potassium 50 Mg Tablet PO 100 mg DAILY JEANNINE Administration Protocol Metoprolol Succinate 50 mg 03/28/22 21:00 03/31/22 21:43 Metoprolol Succinate Er 50 Mg Tab.Er.24h PO 50 mg BEDTIME JEANNINE Administration Protocol Metoprolol Succinate 50 mg 04/01/22 09:00 04/02/22 07:59 Metoprolol Succinate Er 50 Mg Tab.Er.24h PO 50 mg DAILY JEANNINE Administration Protocol Mirabegron 50 mg 03/28/22 21:00 04/02/22 07:59 Mirabegron 50 Mg Tab.Er.24h PO 50 mg BID JEANNINE Administration Ondansetron HCl 4 mg 03/28/22 12:16 03/28/22 14:41 Ondansetron Hcl 4 Mg/2 Ml Vial IVPUSH 03/28/22 12:17 4 mg ONCE ONE Administration Ropinirole HCl 0.25 mg 03/28/22 21:00 04/01/22 23:05 Ropinirole Hcl 0.25 Mg Tablet PO 0.25 mg BEDTIME JEANNINE Administration Sodium Chloride 3 ml 03/29/22 00:00 04/02/22 07:58 0.9 % Sodium Chloride Flush 3 Ml Syringe IVFLUSH 3 ml QSHIFT JEANNINE Administration Tizanidine HCl 4 mg 03/28/22 18:54 03/29/22 21:09 Tizanidine Hcl 4 Mg Tablet PO 4 mg BEDTIME PRN Administration Muscle Pain Trazodone HCl 100 mg 03/28/22 18:54 03/30/22 21:09 Trazodone Hcl 100 Mg Tablet PO 100 mg BEDTIME PRN Administration sleep Medical Decision Making Medical Decision Making MDM Narrative: Patient is an 86 year old assigned female at with a history of klebsiella UTI, HTN, and CKD presenting to the emergency department today with nausea, vomiting, diarrhea, dysuria, and fever. Patient's physical exam showed a febrile and obviously dry individual. Patient's blood work showed a WBC count of 12, CR of 1.65, lactic acid of 2.5 with a repeat of 2.4, mag of 1.5, trop of 22.9 with a repeat of 2.1 - this is chronic for the patient, and BNP of 118. Patient's urine showed an acute urinary tract infection. Patient's EKG was unremarkable. Patient's chest x-ray showed no acute process. Patient's CT of the abdomen/pelvis shows polycystic renal disease. Patient's chest CT showed no acute process. Patient was given IV antibiotics and fluids. I spoke to the hospitalist team who agreed to admission. I explained my physical exam findings as well as all test results to the patient. I answered all questions asked by the patient. Patient verbalized agreement and understanding with this treatment plan and admission. Differential Diagnosis Differential Diagnoses: The differential diagnosis associated with the presentation includes UTI Consult Healthcare Provider Management of the patient was discussed with: Hospitalist (agreed to admission) Lab Data MDM Lab Attestation statement: I reviewed the patient's lab results. 03/28/22 12:50 03/28/22 12:50 Labs: Lab Results 03/28/22 03/28/22 03/28/22 Range/Units 12:50 12:50 12:50 WBC 12.0 H (4.8-10.8) X10*3/uL RBC 4.60 (4.20-5.50) X10*6/uL Hgb 13.7 (12.0-16.0) g/dl Hct 41.4 (37.0-47.0) % MCV 90.0 (80.0-98.0) fL MCH 29.8 (27.0-33.0) pg MCHC 33.1 (31.0-35.0) g/dl RDW 12.9 (11.0-16.0) % Plt Count 142 L D (160-400) X10*3/uL MPV 11.1 (9.4-12.3) fL Immature Gran % (Auto) 0.6 H (0.0-0.4) % Neut % (Auto) 96.7 H (45-73) % Lymph % (Auto) 1.3 L (20-40) % [place] % (Auto) 1.1 L (2-11) % Eos % (Auto) 0.0 (0-4) % Baso % (Auto) 0.3 (0-2) % Lymph # (Auto) 0.2 L (1.2-4.9) X10*3/uL [place] # (Auto) 0.1 (0.1-1.2) X10*3/uL Eos # (Auto) 0.0 (0.0-0.4) X10*3/uL Baso # (Auto) 0.0 (0.0-0.2) X10*3/uL Abs Immat Gran (auto) 0.07 H (0.00-0.03) X10*3/uL Absolute Neuts (auto) 11.6 H (2.0-8.3) x10*3/uL Absolute Nucleated RBC 0.000 (0.0-0.012) X10*3/uL Nucleated RBC % (auto) 0.0 (0.0-0.2) /100WBC Smear Tech's Comments VERIFIED Sodium 142 (135-145) mmol/L Potassium 4.1 (3.3-5.1) mmol/L Chloride 107 (96-108) mmol/L Carbon Dioxide 25 (22-29) mmol/L Anion Gap 14 (12-20) BUN 15 (9-16) mg/dL Creatinine 1.65 H (0.5-1.4) mg/dL Estim Creat Clear Calc 22.0 Estimated GFR 29 Random Glucose 121 H (60-115) mg/dL Lactic Acid 2.5 H* (0.5-2.0) mmol/L Lactic Acid F/U @ 2Hr (0.5-2.0) mmol/L Calcium 9.3 (8.4-10.2) mg/dL Magnesium 1.5 L (1.6-2.6) mg/dL Total Bilirubin 1.9 H (0.0-1.0) mg/dL AST 31 (5-31) U/L ALT 26 (0-31) U/L Alkaline Phosphatase 115 (39-117) U/L Troponin I High Sens (<3.5-17.0) ng/L B-Natriuretic Peptide (<100) pg/mL Total Protein 5.9 L (6.5-8.0) g/dL Albumin 3.9 (3.5-5.0) g/dL Respiratory Panel [place] Adenovirus (Rapid PCR) (Not Detect.) B.pert (TEM-PCR) (Not Detect.) B.parapertussis DNA PCR (Not Detect.) C. pneumoniae DNA (PCR) (Not Detect.) Coronavirus OC43 (PCR) (Not Detect.) Coronavirus HKU1 (PCR) (Not Detect.) Coronavirus 229E (PCR) (Not Detect.) Coronavirus NL63 (PCR) (Not Detect.) Human Metapneumovir PCR (Not Detect.) Influenza A (RT-PCR) (Not Detect.) Influenza Type A (PCR) (Negative) Influenza B (RT-PCR) (Not Detect.) Influenza Type B (PCR) (Negative) M. pneumoniae (PCR) (Not Detect.) Parainfluenza 1 (PCR) (Not Detect.) Parainfluenza 2 (PCR) (Not Detect.) Parainfluenza 3 (PCR) (Not Detect.) Parainfluenza 4 (PCR) (Not Detect.) RSV (PCR) (Not Detect.) RSV RNA Qual (PCR) (Negative) Entero/Rhino (PCR) (Not Detect.) SARS-CoV-2 RNA (RT-PCR) (Negative) 03/28/22 03/28/22 03/28/22 Range/Units 12:50 12:50 12:50 WBC (4.8-10.8) X10*3/uL RBC (4.20-5.50) X10*6/uL Hgb (12.0-16.0) g/dl Hct (37.0-47.0) % MCV (80.0-98.0) fL MCH (27.0-33.0) pg MCHC (31.0-35.0) g/dl RDW (11.0-16.0) % Plt Count (160-400) X10*3/uL MPV (9.4-12.3) fL Immature Gran % (Auto) (0.0-0.4) % Neut % (Auto) (45-73) % Lymph % (Auto) (20-40) % [place] % (Auto) (2-11) % Eos % (Auto) (0-4) % Baso % (Auto) (0-2) % Lymph # (Auto) (1.2-4.9) X10*3/uL [place] # (Auto) (0.1-1.2) X10*3/uL Eos # (Auto) (0.0-0.4) X10*3/uL Baso # (Auto) (0.0-0.2) X10*3/uL Abs Immat Gran (auto) (0.00-0.03) X10*3/uL Absolute Neuts (auto) (2.0-8.3) x10*3/uL Absolute Nucleated RBC (0.0-0.012) X10*3/uL Nucleated RBC % (auto) (0.0-0.2) /100WBC Smear Tech's Comments Sodium (135-145) mmol/L Potassium (3.3-5.1) mmol/L Chloride (96-108) mmol/L Carbon Dioxide (22-29) mmol/L Anion Gap (12-20) BUN (9-16) mg/dL Creatinine (0.5-1.4) mg/dL Estim Creat Clear Calc Estimated GFR Random Glucose (60-115) mg/dL Lactic Acid (0.5-2.0) mmol/L Lactic Acid F/U @ 2Hr (0.5-2.0) mmol/L Calcium (8.4-10.2) mg/dL Magnesium (1.6-2.6) mg/dL Total Bilirubin (0.0-1.0) mg/dL AST (5-31) U/L ALT (0-31) U/L Alkaline Phosphatase (39-117) U/L Troponin I High Sens 22.9 H (<3.5-17.0) ng/L B-Natriuretic Peptide 118 H (<100) pg/mL Total Protein (6.5-8.0) g/dL Albumin (3.5-5.0) g/dL Respiratory Panel [place] Adenovirus (Rapid PCR) (Not Detect.) B.pert (TEM-PCR) (Not Detect.) B.parapertussis DNA PCR (Not Detect.) C. pneumoniae DNA (PCR) (Not Detect.) Coronavirus OC43 (PCR) (Not Detect.) Coronavirus HKU1 (PCR) (Not Detect.) Coronavirus 229E (PCR) (Not Detect.) Coronavirus NL63 (PCR) (Not Detect.) Human Metapneumovir PCR (Not Detect.) Influenza A (RT-PCR) (Not Detect.) Influenza Type A (PCR) NEGATIVE (Negative) Influenza B (RT-PCR) (Not Detect.) Influenza Type B (PCR) NEGATIVE (Negative) M. pneumoniae (PCR) (Not Detect.) Parainfluenza 1 (PCR) (Not Detect.) Parainfluenza 2 (PCR) (Not Detect.) Parainfluenza 3 (PCR) (Not Detect.) Parainfluenza 4 (PCR) (Not Detect.) RSV (PCR) (Not Detect.) RSV RNA Qual (PCR) NEGATIVE (Negative) Entero/Rhino (PCR) (Not Detect.) SARS-CoV-2 RNA (RT-PCR) NEGATIVE (Negative) 03/28/22 03/28/22 03/28/22 Range/Units 15:56 15:57 16:00 WBC (4.8-10.8) X10*3/uL RBC (4.20-5.50) X10*6/uL Hgb (12.0-16.0) g/dl Hct (37.0-47.0) % MCV (80.0-98.0) fL MCH (27.0-33.0) pg MCHC (31.0-35.0) g/dl RDW (11.0-16.0) % Plt Count (160-400) X10*3/uL MPV (9.4-12.3) fL Immature Gran % (Auto) (0.0-0.4) % Neut % (Auto) (45-73) % Lymph % (Auto) (20-40) % [place] % (Auto) (2-11) % Eos % (Auto) (0-4) % Baso % (Auto) (0-2) % Lymph # (Auto) (1.2-4.9) X10*3/uL [place] # (Auto) (0.1-1.2) X10*3/uL Eos # (Auto) (0.0-0.4) X10*3/uL Baso # (Auto) (0.0-0.2) X10*3/uL Abs Immat Gran (auto) (0.00-0.03) X10*3/uL Absolute Neuts (auto) (2.0-8.3) x10*3/uL Absolute Nucleated RBC (0.0-0.012) X10*3/uL Nucleated RBC % (auto) (0.0-0.2) /100WBC Smear Tech's Comments Sodium (135-145) mmol/L Potassium (3.3-5.1) mmol/L Chloride (96-108) mmol/L Carbon Dioxide (22-29) mmol/L Anion Gap (12-20) BUN (9-16) mg/dL Creatinine (0.5-1.4) mg/dL Estim Creat Clear Calc Estimated GFR Random Glucose (60-115) mg/dL Lactic Acid (0.5-2.0) mmol/L Lactic Acid F/U @ 2Hr 2.4 H* (0.5-2.0) mmol/L Calcium (8.4-10.2) mg/dL Magnesium (1.6-2.6) mg/dL Total Bilirubin (0.0-1.0) mg/dL AST (5-31) U/L ALT (0-31) U/L Alkaline Phosphatase (39-117) U/L Troponin I High Sens 25.1 H (<3.5-17.0) ng/L B-Natriuretic Peptide (<100) pg/mL Total Protein (6.5-8.0) g/dL Albumin (3.5-5.0) g/dL Respiratory Panel [place] See Note Adenovirus (Rapid PCR) Not Detected (Not Detect.) B.pert (TEM-PCR) Not Detected (Not Detect.) B.parapertussis DNA PCR Not Detected (Not Detect.) C. pneumoniae DNA (PCR) Not Detected (Not Detect.) Coronavirus OC43 (PCR) Not Detected (Not Detect.) Coronavirus HKU1 (PCR) Not Detected (Not Detect.) Coronavirus 229E (PCR) Not Detected (Not Detect.) Coronavirus NL63 (PCR) Not Detected (Not Detect.) Human Metapneumovir PCR Not Detected (Not Detect.) Influenza A (RT-PCR) Not Detected (Not Detect.) Influenza Type A (PCR) (Negative) Influenza B (RT-PCR) Not Detected (Not Detect.) Influenza Type B (PCR) (Negative) M. pneumoniae (PCR) Not Detected (Not Detect.) Parainfluenza 1 (PCR) Not Detected (Not Detect.) Parainfluenza 2 (PCR) Not Detected (Not Detect.) Parainfluenza 3 (PCR) Not Detected (Not Detect.) Parainfluenza 4 (PCR) Not Detected (Not Detect.) RSV (PCR) Not Detected (Not Detect.) RSV RNA Qual (PCR) (Negative) Entero/Rhino (PCR) Not Detected (Not Detect.) SARS-CoV-2 RNA (RT-PCR) Not Detected (Negative) Independent Interpretation I performed an independent interpretation of an: EKG Interpretation: Vent. Rate: 093 BPM ? ? Atrial Rate: 093 BPM P-R Int: 154 ms? QRS Dur: 092 ms QT Int: 362 ms ? ? ? P-R-T Axes: 021 -50 007 degrees QTc Int: 450 ms ? Normal sinus rhythm Left anterior fascicular block Nonspecific ST and T wave abnormality Abnormal ECG When compared with ECG of 15-OCT-2020 16:35, No significant change was found ? Electronically Signed By:Matheus Velazquez Dictated By: Matheus Velazquez MD Signed By: Electronically signed by Matheus Velazquez MD 03/28/222130 Radiology Impression Radiologist Impression: My interpretation is in agreement with the radiologist's impression of these imaging studies. EXAMINATION: CT ABDOMEN AND PELVIS WITHOUT CONTRAST? CLINICAL INFORMATION: 86-year-old female with abdominal pain.? COMPARISON: Ultrasound exams from 03/26/2019 and 12/01/2021. Pelvic ultrasound from 07/25/2019.? TECHNIQUE: Multidetector volumetric imaging was performed from the superior aspect of the liver through the pubic symphysis. Sagittal and coronal reformatted images were obtained on the technologist's workstation.? This CT examination was performed using dose optimization techniques as appropriate, variously including the following: *Automated exposure control *Adjustment of mA and/or kV according to patient size (this includes techniques or standardized protocols for targeted exams where dose is matched to indication/reason for exam; i.e. extremities or head) *Use of iterative reconstruction technique DLP: 692 mGy-cm FINDINGS: LUNG BASES: Mild atelectasis within visualized lung bases. No focal consolidation or pleural effusion. There is atherosclerotic calcification of coronary arteries. LIVER: Liver has density of approximately 30 Hounsfield units which suggests likelihood of steatosis. No focal lesion or intrahepatic ductal dilatation. GALLBLADDER AND BILIARY TREE: Gallbladder is surgically absent. Common duct is chronically, mildly dilated and measures up to 1 cm transverse diameter. PANCREAS: Moderately atrophied. No edema, pancreatic ductal dilatation or mass.? SPLEEN: Normal.? ADRENAL GLANDS: Normal.? KIDNEYS AND URETERS: Again noted is polycystic renal disease. Multiple simple cysts are present. Also, there are several hyperdense foci, likely representing proteinaceous cyst but not fully characterized on this noncontrast examination. Many of the lesions are indeterminate, such as 1.9 cm focus of the lateral right lower pole, density of 50 Hounsfield units and 1.6 cm meter focus of posterior left upper pole, density of 55 Hounsfield units. No nephrolithiasis or hydronephrosis. Mild bilateral perinephric edema is present. BLADDER:? Unremarkable. BOWEL AND PERITONEUM: No dilated bowel loops. Instead, there is lack of distention of bowel. The appendix is not identified. No inflammatory changes in the right lower quadrant. Diverticula of the colon without evidence of diverticulitis. No abdominal free fluid or free air. ABDOMINAL WALL: Obese body habitus. Mild streak artifact produced by metallic eduin of the right abdominal wall. There is atrophy of rectus abdominis muscles. At the level of the umbilicus there is approximately 6 cm diastases of the rectus abdominis muscles. No significant hernia.? VASCULATURE: Mild atherosclerotic calcification of the abdominal aorta without aneurysm. No retroperitoneal hematoma. LYMPH NODES: No pathologic sized lymph nodes in the abdomen or pelvis. No inguinal lymphadenopathy. PELVIC VISCERA: Status post hysterectomy. No adnexal mass or pelvic free fluid. MUSCULOSKELETAL: Chondrocalcinosis, multilevel facet osteoarthritis and degenerative disc disease of the lumbar spine. Discovertebral degenerative changes within the visualized lower thoracic spine, as well. Mild degenerative retrolisthesis at T12-L1, L1-L2 and L2-L3. There is 0.8 cm of grade 2 anterolisthesis at L4-L5. No suspicious bone lesions. CT/CT abdomen pelvis wo IV con IMPRESSION: *? Obesity and mild hepatic steatosis. *? Cholecystectomy and chronically mildly dilated common duct. *? Polycystic renal disease. Multiple foci within both kidneys are not simple cysts and are not well characterized on this noncontrast examination. Some of these have a density of > 70 HU and are consistent with benign proteinaceous/hyperdense cysts whereas others are indeterminate, but are probably proteinaceous cysts. No nephrolithiasis or hydronephrosis. *? Colonic diverticulosis without diverticulitis. Dictated By: Villa Ambrocio MD Signed By: Electronically signed by Villa Ambrocio MD 03/28/22 1504 EXAMINATION: XR CHEST CLINICAL INFORMATION: Weakness. COMPARISON: December 23, 2021. TECHNIQUE: Semierect, associated AP and lateral views of the chest. XR/XR chest 2V FINDINGS/IMPRESSION: ? The study is somewhat limited by suboptimal inspiration. ? No gross infiltrate, effusion, pneumothorax is seen. ? The right hemidiaphragm is mildly elevated. ? The heart appears normal in size. The aorta is uncoiled, suggesting hypertension. ? There are mild degenerative changes of the spine. Dictated By: Rian Sutherland Signed By: Electronically signed by Maxim 03/28/22 1600 EXAMINATION: CT CHEST WITHOUT CONTRAST CLINICAL INFORMATION: Questionable lung mass? COMPARISON: CT abdomen pelvis and chest radiograph earlier today which failed to demonstrate any mass lesions.? TECHNIQUE: Multidetector volumetric CT imaging of the chest was done. Axial MIP volume rendering provided. Sagittal and coronal reformatted images were obtained.? This CT examination was performed using dose optimization techniques as appropriate, variously including the following: *Automated exposure control *Adjustment of mA and/or kV according to patient size (this includes techniques or standardized protocols for targeted exams where dose is matched to indication/reason for exam; i.e. extremities or head) *Use of iterative reconstruction technique DLP: 328 mGy-cm FINDINGS: LUNGS: Scattered areas atelectasis are present. There is a 4 mm perifissural right middle lobe nodule, most likely a lymph node again (5:248). There are some tiny areas of endobronchial mucous (for example 5:197). No worrisome lung mass is seen MEDIASTINUM: Heart size is normal. No mediastinal or hilar lymphadenopathy is seen. The thoracic aorta is unremarkable.? CORONARY ARTERY CALCIFICATION: Moderate present. PLEURA: There is no pleural effusion. No pleural mass or thickening.? AXILLA: No lymphadenopathy.? UPPER ABDOMEN: See CT scan performed earlier today. Again noted is hepatic steatosis, cholecystectomy and benign bilateral renal cysts which need no additional imaging or follow-up. OSSEOUS STRUCTURES: Degenerative changes are present throughout the spine. No acute fractures or bony destructive lesions.? CT/CT chest wo IV con IMPRESSION: 1.? A worrisome lung mass is not seen. There is a 4 mm perifissural right middle lobe nodule which is most likely a lymph node. 2.? Incidentally noted hepatic steatosis, cholecystectomy and benign renal cysts which need no additional imaging or follow-up. ? 2017 Fleischner Society Recommendations for Lung Nodule(s): Follow-Up based on size (average of long- and short-axis diameters). Use most suspicious nodule for followup. ? Single Solid low risk nodule < 6 mm: No routine follow-up imaging is recommended in low risk and high risk patients.? ? These guidelines do not apply to patients younger than 35 years, immunocompromised patients, and patients with cancer. F/u in patients with significant comorbidities as clinically warranted. For lung cancer screening, adhere to Lung-RADS guidelines.? Reference:? Radiology. 2017 Aug; 284(1):228-243 Dictated By: Mason Borrero MD Signed By: Electronically signed by Mason Borrero MD 03/28/22 5311 Critical Care Time Critical Care Time Critical Care Time: Yes Total Critical Care Time: 30 Attestation: I spent 30 minutes of Critical Care Time with this patient. This does not include time spent on separately reported billable procedures. Discharge Plan Discharge Clinical Impression: Sepsis, Acidosis, lactic Patient Disposition: Admitted As Inpatient Interventions: Admission Worksheet (ED) Last Done: 03/29/22 19:23 Discharge Date/Time: 03/29/22 19:24
[2022-03-28 12:07] VITALS: TEMP 39.6
--- NOTE | 2022-03-28 12:16 | ECG_ITS ---
Test Reason : weakness Blood Pressure : / mmHG Vent. Rate : 093 BPM Atrial Rate : 093 BPM P-R Int : 154 ms QRS Dur : 092 ms QT Int : 362 ms P-R-T Axes : 021 -50 007 degrees QTc Int : 450 ms Normal sinus rhythm Left anterior fascicular block Nonspecific ST and T wave abnormality Abnormal ECG When compared with ECG of 15-OCT-2020 16:35, No significant change was found Referred By: Sofia Cee Electronically Signed By:Matheus Velazquez
--- NOTE | 2022-03-28 12:57 | PHA.MEDREC ---
Pharmacy Consult ? Medication Reconciliation Pharmacy has completed the medication reconciliation. Spoke to patients daughter at bedside and she reviewed medication list with me.
[2022-03-28 13:00] LABS: Basophils Percent Auto 0.3 % (0-2); Hematocrit 41.4 % (37.0-47.0); Hemoglobin 13.7 g/dl (12.0-16.0); Imm Gran Abs Auto 0.07 X10*3/uL (0.00-0.03); Imm Gran Pct Auto 0.6 % (0.0-0.4); Lymphocytes Absolute Auto 0.2 X10*3/uL (1.2-4.9); Lymphocytes Percent Auto 1.3 % (20-40); MANUAL DIFF FLAG SCAN; Mean Corpuscular HGB Conc 33.1 g/dl (31.0-35.0); Mean Corpuscular Hemoglobin 29.8 pg (27.0-33.0); Mean Platelet Volume 11.1 fL (9.4-12.3); Monocytes Absolute Auto 0.1 X10*3/uL (0.1-1.2); Monocytes Percent Auto 1.1 % (2-11); Neutrophils Absolute Auto 11.6 x10*3/uL (2.0-8.3); Neutrophils Percent Auto 96.7 % (45-73); Platelet Count 142 X10*3/uL (160-400); Red Cell Distribution Width 12.9 % (11.0-16.0); SCAN SMEAR FLAG 1
[2022-03-28 13:18] LABS: Alanine Aminotransferase 26 U/L (0-31); Albumin Level 3.9 g/dL (3.5-5.0); Alkaline Phosphatase 115 U/L (39-117); Anion Gap 14 (12-20); Aspartate Amino Transferase 31 U/L (5-31); Bilirubin Total 1.9 mg/dL (0.0-1.0); Blood Urea Nitrogen 15 mg/dL (9-16); Calcium 9.3 mg/dL (8.4-10.2); Carbon Dioxide 25 mmol/L (22-29); Chloride 107 mmol/L (96-108); Estimated Glomerular Filt Rate 29; Glucose Random 121 mg/dL (60-115); Magnesium 1.5 mg/dL (1.6-2.6); Potassium 4.1 mmol/L (3.3-5.1); Sodium 142 mmol/L (135-145); Total Protein 5.9 g/dL (6.5-8.0)
[2022-03-28 13:22] LABS: Lactic Acid 2.5 mmol/L (0.5-2.0)
[2022-03-28 13:25] LABS: Troponin-I High Sensitivity 22.9 ng/L (<3.5-17.0)
[2022-03-28 13:38] LABS: SLIDE REVIEW VERIFIED
[2022-03-28 13:50] VITALS: BP 145/65; PULSE 89; RESP 28; TEMP 37.8; O2SAT 90
[2022-03-28 14:03] LABS: Influenza A PCR NEGATIVE (Negative); Influenza B PCR NEGATIVE (Negative); Resp Syncy Virus RNA Qual PCR NEGATIVE (Negative); SARS COV2 PCR INHOUSE NEGATIVE (Negative)
[2022-03-28] MEDS: 0.9 % Sodium Chloride 1,000 ML 999 ML IV ×2 (14:41→19:19)
[2022-03-28] MEDS: ondansetron HCL 4 MG/2 ML VIAL IVPUSH (14:41)
[2022-03-28] MEDS: cefTRIAXone sodium 2 GM in 0.9 % Sodium Chloride 50 ML IV (14:42)
[2022-03-28] MEDS: Acetaminophen Supp 650 MG SUPP.RECT PR (14:42)
[2022-03-28 14:55] LABS: Reflex Lactate? Lactic Acid Added
[2022-03-28 15:46] VITALS: BP 118/46; PULSE 85; RESP 18; TEMP 38.5; O2SAT 93
[2022-03-28 16:25] LABS: ~Lactic Acid-LAB USE ONLY 2.4 mmol/L (0.5-2.0)
[2022-03-28 16:32] LABS: Troponin-I High Sensitivity 25.1 ng/L (<3.5-17.0)
[2022-03-28 16:32] LABS: B Type Natriuretic Peptide 118 pg/mL (<100)
[2022-03-28 17:31] LABS: Adenovirus PCR Not Detected (Not Detect.); Bordetella parapertussis PCR Not Detected (Not Detect.); Bordetella pertussis PCR Not Detected (Not Detect.); Chlamydia pneumoniae PCR Not Detected (Not Detect.)
[2022-03-28 17:32] LABS: Coronavirus 229E PCR Not Detected (Not Detect.); Coronavirus HKU1 PCR Not Detected (Not Detect.); Coronavirus NL63 PCR Not Detected (Not Detect.); Coronavirus OC43 PCR Not Detected (Not Detect.); Human metapneumovirus PCR Not Detected (Not Detect.); Influenza A PCR Not Detected (Not Detect.); Influenza B PCR Not Detected (Not Detect.); Mycoplasma pneumoniae PCR Not Detected (Not Detect.); Parainfluenza 1 PCR Not Detected (Not Detect.); Parainfluenza 2 PCR Not Detected (Not Detect.); Parainfluenza 3 PCR Not Detected (Not Detect.); Parainfluenza 4 PCR Not Detected (Not Detect.); RSV PCR Not Detected (Not Detect.); Rhino/Enterovirus PCR Not Detected (Not Detect.); SARS-CoV-2 PCR Not Detected (Not Detect.)
[2022-03-28 18:04] LABS: Reflex Lactate? 2 Y
--- NOTE | 2022-03-28 18:56 | P.HPHOSP_ITS ---
History of Present Illness Date of Service: 03/28/22 Attending physician on admission: Jose Alberto [facility] Chief Complaint: n/v, fever 84-year-old female with a past medical history of hypertension, hyperlipidemia, GERD, obesity, mild cognitive impairment, osteoarthritis, chronic back pain, CKD stage 3, ACS, hx klebsiella UTI, osteopenia, PVD, polycystic kidney disease presented to the ED with her daughter for evaluation of malaise, nausea, vomiting x 5 episodes, fevers around 100, and decreased PO tolerance since early this morning around 4am. Also noted to be generally weak with gait imbalance. On arrival, patient became febrile to 103.2, treated with acetaminophen. Tachypneic to 28, and hypoxic to 89% placed on 2 L supplemental O2. Leukocytosis of 12.0. Creatinine 1.65 (baseline 1.32), BUN 15, locked lytes normal, except for mild hypomagnesemia of 1.5. Initial lactic acid elevated at 2.5, repeat at 2.4. Initial troponin 22.9, repeat 25.1. BNP 118. Viral respiratory panel negative including for COVID-[address] abdomen/pelvis showing mild hepatic steatosis and chronically mildly dilated common bile duct as well as polycystic renal disease, likely proteinaceous cysts. No evidence nephrolithiasis or hydronephrosis. There is also colonic diverticulosis without diverticulitis. CXR negative for any acute cardiopulmonary abnormality. Chest CT without any acute abnormality. Small 4 mm perifissural right middle lobe nodule noted which likely represents lymph node. Pt denies eating any bad foods. No known sick contacts. No abdominal pain, diarrhea, constipation, hematochezia, melena, flank pain, dysuria, hematuria, increased urinary frequency, cough, sob, palpitations, lighteadedness, chest pain. Review of Systems Review of Systems: General: No fevers, malaise, unintentional weight loss HEENT: No blurred vision, diplopia. No sore throat, nasal congestion, rhinorrhea, sinus pain, ear pain Cardiovascular: No chest pain, palpitations, or leg edema Respiratory: No shortness of breath, wheezing, cough GI: No abdominal pain, nausea, vomiting, diarrhea, constipation, melena, hematochezia : No dysuria, hematuria, increased urinary frequency, decreased urinary output MSK: No myalgia, back pain Neuro: No headaches, weakness, paresthesias Skin: No rashes or lesions [facility] Medical History Acute coronary syndrome Adnexal mass Bacteremia due to Klebsiella pneumoniae Chest discomfort Chronic kidney disease (CKD) stage G3b/A3, moderately decreased glomerular filtration rate (GFR) between 30-44 mL/min/1.73 square meter and albuminuria creatinine ratio greater than 300 mg/g Decreased hearing of both ears Degenerative disc disease, lumbar Diarrhea Encounter for annual wellness exam in Medicare patient GERD (gastroesophageal reflux disease) Gout Hypercholesterolemia Hypertension Leg cramps Mild cognitive impairment Obesity (BMI 30-39.9) Onychomycosis Osteoarthritis Osteopenia Osteoporosis screening Peripheral vascular disease Polycystic kidney disease Sepsis Spondylosis of cervical spine Urinary incontinence Vitamin D deficiency Family History Father No problems noted. Mother No problems noted. Brother No problems noted. Daughter No problems noted. Daughter No problems noted. Daughter No problems noted. Daughter No problems noted. Surgical History History of cholecystectomy History of hysterectomy History of surgery Social History Household Members: None Housing: Apartment Do you presently have visiting nurse or other home services: No Alcohol intake: never Patient Tobacco Use Status: Never used Tobacco Smoked in Last 30 Days: No e-Cigarette/Vaping Use: Never Used Second Hand Smoke Exposure: No Use of substances other than those prescribed or required for medical reasons: No Advance Directives: Yes Advance Directives on File: Yes Advance Directives Date on File: 11/17/19 Nutrition Risks: No Nutritional Risk service: No Current occupational status: retired Cognitive needs: No Hearing needs: No Vision needs: Yes Meds Allergies Allergy/AdvReac Type Severity Reaction Status Date / Time No Known Allergies Allergy Verified 03/24/22 09:26 [No Known Allergies*] Active Medications: Current Medications Acetaminophen (Acetaminophen Supp 650 Mg Supp.Rect) 650 mg CO Q6H PRN PRN Reason: fever Last Admin: 03/28/22 14:42 Dose: 650 mg Acetaminophen (Acetaminophen 325 Mg Tablet) 650 mg PO Q6H PRN PRN Reason: Pain, Mild (Pain Scale 1-3) Atorvastatin Calcium (Atorvastatin Calcium 40 Mg Tablet) 40 mg PO BEDTIME JEANNINE Docusate Sodium (Docusate Sodium 100 Mg Capsule) 100 mg PO DAILY PRN PRN Reason: Constipation Donepezil HCl (Donepezil Hcl 10 Mg Tablet) 10 mg PO BEDTIME JEANNINE Enoxaparin Sodium (Enoxaparin Sodium 40 Mg/0.4 Ml Syringe) 40 mg SUBCUT Q24H JEANNINE Sodium Chloride (Ns) 1,000 mls @ 80 mls/hr IVCONT .[id number] JEANNINE Metoprolol Succinate (Metoprolol Succinate Er 50 Mg Tab.Er.24h) 50 mg PO BEDTIME JEANNINE; Protocol Mirabegron (Mirabegron 50 Mg Tab.Er.24h) 50 mg PO BID JEANNINE Non-Formulary Medication (Fexofenadine) 60 mg PO DAILY JEANNINE Ondansetron HCl (Ondansetron Hcl 4 Mg/2 Ml Vial) 4 mg IVPUSH Q8H PRN PRN Reason: Nausea and Vomiting Pharmacy Consult (Consult Rx Perform Med Rec) 1 each MISCELLANE ONCE PRN PRN Reason: Consult order Ropinirole HCl (Ropinirole Hcl 0.25 Mg Tablet) 0.25 mg PO BEDTIME JEANNINE Sodium Chloride (0.9 % Sodium Chloride Flush 3 Ml Syringe) 3 ml IVFLUSH QSHIFT JEANNINE Tizanidine HCl (Tizanidine Hcl 4 Mg Tablet) 4 mg PO BEDTIME PRN PRN Reason: Muscle Pain Trazodone HCl (Trazodone Hcl 100 Mg Tablet) 100 mg PO BEDTIME PRN PRN Reason: sleep Home Medications Medication Instructions Recorded Confirmed Last Taken Type fexofenadine 60 mg tablet 60 mg PO DAILY 03/28/22 03/28/22 03/27/22 History tizanidine 4 mg tablet 4 mg PO BEDTIME PRN Muscle Pain 03/28/22 03/28/22 03/27/22 History Physical Exam Vital Signs and Narrative: Vital Signs: Last Vital Signs Temp 101.3 F H 03/28/22 15:46 Pulse 85 03/28/22 15:46 Resp 18 03/28/22 15:46 BP 118/46 L 03/28/22 15:46 Pulse Ox 93 03/28/22 15:46 O2 Del Method 03/28/22 15:46 O2 Flow Rate 2 03/28/22 15:46 BMI result Body Mass Index 33.2 Constitutional - Awake and Alert, No apparent distress Eyes - PERRLA, EOMI Cardiovascular - S1S2, RRR, No edema Respiratory - Normal lung expansion, Normal respiratory effort, No respiratory distress, CTA bilaterally Gastrointestinal - NT / ND; +BS; No rebound or guarding Extremities - no calf tenderness bilaterally, no swelling Skin - Warm/Dry Neurological - Alert & oriented x3, CN II-XII in tact, 5/5 strength BUE and BLE Psychological - Appropriate affect Results Labs 03/28/22 12:50 03/28/22 12:50 Labs: Laboratory Results - last 24 hr 03/28/22 03/28/22 03/28/22 12:50 12:50 12:50 MCV 90.0 MCH 29.8 MCHC 33.1 RDW 12.9 Plt Count 142 L D MPV 11.1 Immature Gran % (Auto) 0.6 H Neut % (Auto) 96.7 H Lymph % (Auto) 1.3 L [place] % (Auto) 1.1 L Eos % (Auto) 0.0 Baso % (Auto) 0.3 Lymph # (Auto) 0.2 L [place] # (Auto) 0.1 Eos # (Auto) 0.0 Baso # (Auto) 0.0 Abs Immat Gran (auto) 0.07 H Absolute Neuts (auto) 11.6 H Absolute Nucleated RBC 0.000 Nucleated RBC % (auto) 0.0 Smear Tech's Comments VERIFIED Anion Gap 14 Estim Creat Clear Calc 22.0 Estimated GFR 29 Random Glucose 121 H Lactic Acid 2.5 H* Lactic Acid F/U @ 2Hr Calcium 9.3 Magnesium 1.5 L Total Bilirubin 1.9 H AST 31 ALT 26 Alkaline Phosphatase 115 Troponin I High Sens B-Natriuretic Peptide Total Protein 5.9 L Albumin 3.9 Respiratory Panel [place] Adenovirus (Rapid PCR) B.pert (TEM-PCR) B.parapertussis DNA PCR C. pneumoniae DNA (PCR) Coronavirus OC43 (PCR) Coronavirus HKU1 (PCR) Coronavirus 229E (PCR) Coronavirus NL63 (PCR) Human Metapneumovir PCR Influenza A (RT-PCR) Influenza Type A (PCR) Influenza B (RT-PCR) Influenza Type B (PCR) M. pneumoniae (PCR) Parainfluenza 1 (PCR) Parainfluenza 2 (PCR) Parainfluenza 3 (PCR) Parainfluenza 4 (PCR) RSV (PCR) RSV RNA Qual (PCR) Entero/Rhino (PCR) SARS-CoV-2 RNA (RT-PCR) 03/28/22 03/28/22 03/28/22 12:50 12:50 12:50 MCV MCH MCHC RDW Plt Count MPV Immature Gran % (Auto) Neut % (Auto) Lymph % (Auto) [place] % (Auto) Eos % (Auto) Baso % (Auto) Lymph # (Auto) [place] # (Auto) Eos # (Auto) Baso # (Auto) Abs Immat Gran (auto) Absolute Neuts (auto) Absolute Nucleated RBC Nucleated RBC % (auto) Smear Tech's Comments Anion Gap Estim Creat Clear Calc Estimated GFR Random Glucose Lactic Acid Lactic Acid F/U @ 2Hr Calcium Magnesium Total Bilirubin AST ALT Alkaline Phosphatase Troponin I High Sens 22.9 H B-Natriuretic Peptide 118 H Total Protein Albumin Respiratory Panel [place] Adenovirus (Rapid PCR) B.pert (TEM-PCR) B.parapertussis DNA PCR C. pneumoniae DNA (PCR) Coronavirus OC43 (PCR) Coronavirus HKU1 (PCR) Coronavirus 229E (PCR) Coronavirus NL63 (PCR) Human Metapneumovir PCR Influenza A (RT-PCR) Influenza Type A (PCR) NEGATIVE Influenza B (RT-PCR) Influenza Type B (PCR) NEGATIVE M. pneumoniae (PCR) Parainfluenza 1 (PCR) Parainfluenza 2 (PCR) Parainfluenza 3 (PCR) Parainfluenza 4 (PCR) RSV (PCR) RSV RNA Qual (PCR) NEGATIVE Entero/Rhino (PCR) SARS-CoV-2 RNA (RT-PCR) NEGATIVE 03/28/22 03/28/22 03/28/22 15:56 15:57 16:00 MCV MCH MCHC RDW Plt Count MPV Immature Gran % (Auto) Neut % (Auto) Lymph % (Auto) [place] % (Auto) Eos % (Auto) Baso % (Auto) Lymph # (Auto) [place] # (Auto) Eos # (Auto) Baso # (Auto) Abs Immat Gran (auto) Absolute Neuts (auto) Absolute Nucleated RBC Nucleated RBC % (auto) Smear Tech's Comments Anion Gap Estim Creat Clear Calc Estimated GFR Random Glucose Lactic Acid Lactic Acid F/U @ 2Hr 2.4 H* Calcium Magnesium Total Bilirubin AST ALT Alkaline Phosphatase Troponin I High Sens 25.1 H B-Natriuretic Peptide Total Protein Albumin Respiratory Panel [place] See Note Adenovirus (Rapid PCR) Not Detected B.pert (TEM-PCR) Not Detected B.parapertussis DNA PCR Not Detected C. pneumoniae DNA (PCR) Not Detected Coronavirus OC43 (PCR) Not Detected Coronavirus HKU1 (PCR) Not Detected Coronavirus 229E (PCR) Not Detected Coronavirus NL63 (PCR) Not Detected Human Metapneumovir PCR Not Detected Influenza A (RT-PCR) Not Detected Influenza Type A (PCR) Influenza B (RT-PCR) Not Detected Influenza Type B (PCR) M. pneumoniae (PCR) Not Detected Parainfluenza 1 (PCR) Not Detected Parainfluenza 2 (PCR) Not Detected Parainfluenza 3 (PCR) Not Detected Parainfluenza 4 (PCR) Not Detected RSV (PCR) Not Detected RSV RNA Qual (PCR) Entero/Rhino (PCR) Not Detected SARS-CoV-2 RNA (RT-PCR) Not Detected Imaging Radiologist's Impressions: Impressions Abdomen/Pelvis CT 03/28/22 13:42 IMPRESSION: * Obesity and mild hepatic steatosis. * Cholecystectomy and chronically mildly dilated common duct. * Polycystic renal disease. Multiple foci within both kidneys are not simple cysts and are not well characterized on this noncontrast examination. Some of these have a density of > 70 HU and are consistent with benign proteinaceous/hyperdense cysts whereas others are indeterminate, but are probably proteinaceous cysts. No nephrolithiasis or hydronephrosis. * Colonic diverticulosis without diverticulitis. Chest X-Ray 03/28/22 15:18 FINDINGS/IMPRESSION: The study is somewhat limited by suboptimal inspiration. No gross infiltrate, effusion, pneumothorax is seen. The right hemidiaphragm is mildly elevated. The heart appears normal in size. The aorta is uncoiled, suggesting hypertension. There are mild degenerative changes of the spine. Chest CT 03/28/22 16:56 IMPRESSION: 1. A worrisome lung mass is not seen. There is a 4 mm perifissural right middle lobe nodule which is most likely a lymph node. 2. Incidentally noted hepatic steatosis, cholecystectomy and benign renal cysts which need no additional imaging or follow-up. 2017 Fleischner Society Recommendations for Lung Nodule(s): Follow-Up based on size (average of long- and short-axis diameters). Use most suspicious nodule for followup. Single Solid low risk nodule < 6 mm: No routine follow-up imaging is recommended in low risk and high risk patients. These guidelines do not apply to patients younger than 35 years, immunocompromised patients, and patients with cancer. F/u in patients with significant comorbidities as clinically warranted. For lung cancer screening, adhere to Lung-RADS guidelines. Reference: Radiology. 2017 Aug; 284(1):228-243 Assessment and Plan (1) Nausea and vomiting: Status: Acute Plan 84-year-old female with a past medical history of hypertension, hyperlipidemia, GERD, obesity, mild cognitive impairment, osteoarthritis, chronic back pain, CKD stage 3, ACS, hx klebsiella UTI, osteopenia, PVD, polycystic kidney disease to be observed for nausea, vomiting, and PO intolerance. #Nausea/vomiting/PO intolerance -No diarrhea. febrile to 103.2. Suspect viral etiology -Creat 1.62, above baseline, but no DARLING. Lytes normal except mild hypomagnesemia 1.5 -Abd/pelvis CT without acute abnormality, shows chronic dilitation of CBD s/p cholecystectomy -Continue gentle IVF -Clear liquid diet, advanced as tolerated -ondansetron p.r.n. -Tylenol p.r.n. for fevers -mild leukocytosis- likely reactive in setting of vomiting -follow cbc, bmp -pt eval for generalized weakness/gait imbalance #Lactic acidosis -initial 2.5, repeat 2.4 -likely related to tissue hypoperfusion, not severe sepsis -continue ivf #?UTI -pt with history klebsiella UTI. Treated with 2g ceftriaxone in ED. pt asymptomatic -UA/UC not yet collected. Straight cath ordered -Follow cultures #Acute hypoxia -CXR/CT chest negative. Respiratory panel negative -desatting to 89% on RA. no hx chronic lung disease. ?obesity hypoventilation syndrome -Continue supplemental O2 to maintain oximetry >92% #CKD stage 3- likely related to polycystic kidney disease -CT abdomen/pelvis showing proteinaceous cysts bilaterally -creatinine 1.62, slightly above baseline, but no DARLING -follow BMP #HTN -BP soft. Continue metoprolol, hold losartan amlodipine #Unspecified mild dementia without behavioral disturbance -continue denies a pill #CAD/HLD -continue statin, bb DVT prophylaxis-Lovenox Full code Healthcare proxy- daughter Fara with whom she lives [phone] Time Spent With Patient Time: Total time managing care of this patient today ____ minutes. Quality Stroke Does the patient have a stroke diagnosis?: No VTE Prior VTE?: No VTE Risk Level:: Medical - moderate - high VTE Device Contraindication: Treatment Not Indicated VTE Drug Contraindication: N/A - Med Ordered
--- NOTE | 2022-03-28 19:08 | PC.NURSE ---
This designer writer assumed care of this PT at 1900. PT A&Ox3, reports 3/10 intermittent leg pain. Denies any CP, headache or N/V.
[2022-03-28] MEDS: Ketorolac Tromethamine 15 MG/ML VIAL IVPUSH (19:18)
[2022-03-28] MEDS: Enoxaparin Sodium 30 MG/0.3 ML SYRINGE SUBCUT (19:19)
[2022-03-28 19:27] VITALS: BP 104/48; PULSE 67; RESP 20; TEMP 36.7; O2SAT 94
[2022-03-28 20:21] LABS: ~Lactic Acid-LAB USE ONLY 0.6 mmol/L (0.5-2.0)
--- NOTE | 2022-03-28 20:35 | PC.NURSE ---
straight cath urine sample obtained and sent to lab. Urine dark valentino color. PT tolerated well.
[2022-03-28 20:42] LABS: Appearance Urine Cloudy; Color Urine Dark Yellow; Glucose Urine UA Negative (Negative); Leukocyte Esterase Urine Large (3+) (Negative); Nitrite Urine Positive (Negative); PH 5.5 (5.0-9.0); Specific Gravity - Urine 1.015 (1.005-1.025); UMIC TRIGGER UACC YES; Urine Blood Trace (Negative); Urine Ketones Trace mg/dL (Negative); Urine Protein 30 (1+) mg/dL (Neg-Trace)
[2022-03-28 21:05] LABS: Bacteria Urine 4+ (None Seen); RBC Urine 0-2 /HPF (0-2); UACC Culture Trigger YES; WBC Urine >50 /HPF (0-5)
[2022-03-28 21:18] VITALS: BP 99/46; PULSE 58; RESP 17; O2SAT 93
--- NOTE | 2022-03-28 21:18 | PC.NURSE ---
BP med not given d/r HR.
[2022-03-28] MEDS: Atorvastatin Calcium 40 MG TABLET PO (21:22)
[2022-03-28] MEDS: Mirabegron 50 MG TAB.ER.24H PO (21:22)
[2022-03-28] MEDS: 0.9 % Sodium Chloride 1,000 ML 80 ML IVCONT (21:28)
[2022-03-28] MEDS: rOPINIRole HCL 0.25 MG TABLET PO (21:35)
[2022-03-28] MEDS: Donepezil HCl 10 MG TABLET PO (21:35)
--- NOTE | 2022-03-28 23:14 | PC.NURSE ---
BC results + for gram negative rods. Provider notified.
[2022-03-29] VITALS (9 sets, daily range): BP systolic 105–164; BP diastolic 43–71; PULSE 57–85; RESP 13–22; TEMP 36.4–37; O2SAT 91–98; BMI 33.8
--- NOTE | 2022-03-29 04:27 | PC.NURSE ---
PT awakens upon physical stimulation, PT repositioned and checked for toileting needs. No apparent distress, will CTM.
[2022-03-29 05:05] LABS: MANUAL DIFF FLAG NO
[2022-03-29 05:08] LABS: Basophils Absolute Auto 0.1 X10*3/uL (0.0-0.2); Basophils Percent Auto 0.3 % (0-2); Eosinophils Percent Auto 0.2 % (0-4); Hematocrit 36.3 % (37.0-47.0); Hemoglobin 12.2 g/dl (12.0-16.0); Imm Gran Abs Auto 0.09 X10*3/uL (0.00-0.03); Imm Gran Pct Auto 0.5 % (0.0-0.4); Lymphocytes Percent Auto 5.1 % (20-40); Mean Corpuscular HGB Conc 33.6 g/dl (31.0-35.0); Mean Corpuscular Hemoglobin 30.6 pg (27.0-33.0); Mean Platelet Volume 11.7 fL (9.4-12.3); Monocytes Percent Auto 5.2 % (2-11); Neutrophils Absolute Auto 16.5 x10*3/uL (2.0-8.3); Neutrophils Percent Auto 88.7 % (45-73); Platelet Count 121 X10*3/uL (160-400); Red Blood Count 3.99 X10*6/uL (4.20-5.50); Red Cell Distribution Width 13.2 % (11.0-16.0); White Blood Count 18.6 X10*3/uL (4.8-10.8)
[2022-03-29 05:27] LABS: Anion Gap 15 (12-20); Blood Urea Nitrogen 23 mg/dL (9-16); Calcium 7.9 mg/dL (8.4-10.2); Carbon Dioxide 21 mmol/L (22-29); Chloride 111 mmol/L (96-108); Creatinine Clr Calc Pharmacy 21.8; Estimated Glomerular Filt Rate 29; Glucose Random 103 mg/dL (60-115); Potassium 4.7 mmol/L (3.3-5.1); Sodium 142 mmol/L (135-145)
--- NOTE | 2022-03-29 07:42 | HO.PM.IMPN ---
Subjective Subjective Date of Service: 03/29/22 Interval History: f/u on hypoxia, n/v , hypoxia interval history: feels better, oxygen level is better Physical Exam Vital Signs: Vital Signs: Last Vital Signs Temp 97.6 F 03/29/22 07:01 Pulse 59 03/29/22 07:01 Resp 15 03/29/22 07:01 BP 134/56 L 03/29/22 07:01 Pulse Ox 98 03/29/22 07:01 O2 Del Method 03/29/22 07:01 O2 Flow Rate 1 03/29/22 06:33 BMI result Body Mass Index 33.2 Const: Other: Constitutional - Awake and Alert, No apparent distress Eyes - PERRLA, EOMI Cardiovascular - S1S2, RRR, No edema Respiratory - Normal lung expansion, Normal respiratory effort, No respiratory distress, CTA bilaterally Gastrointestinal - NT / ND; +BS; No rebound or guarding Extremities - no calf tenderness bilaterally, no swelling Skin - Warm/Dry Neurological - Alert & oriented x3, CN II-XII in tact, 5/5 strength BUE and BLE Psychological - Appropriate affect Objective Data Active Medications Acetaminophen (Acetaminophen Supp 650 Mg Supp.Rect) 650 mg [place] Q6H PRN PRN Reason: fever Last Admin: 03/28/22 14:42 Dose: 650 mg Documented By: GENEVA Acetaminophen (Acetaminophen 325 Mg Tablet) 650 mg PO Q6H PRN PRN Reason: Pain, Mild (Pain Scale 1-3) Atorvastatin Calcium (Atorvastatin Calcium 40 Mg Tablet) 40 mg PO BEDTIME [facility] Last Admin: 03/28/22 21:22 Dose: 40 mg Documented By: ALAN Docusate Sodium (Docusate Sodium 100 Mg Capsule) 100 mg PO DAILY PRN PRN Reason: Constipation Donepezil HCl (Donepezil Hcl 10 Mg Tablet) 10 mg PO BEDTIME [facility] Last Admin: 03/28/22 21:35 Dose: 10 mg Documented By: ALAN Enoxaparin Sodium (Enoxaparin Sodium 30 Mg/0.3 Ml Syringe) 30 mg SUBCUT Q24H [facility] Last Admin: 03/28/22 19:19 Dose: 30 mg Documented By: ALAN Sodium Chloride (Ns) 1,000 mls @ 80 mls/hr IVCONT .[id number] [facility] Last Admin: 03/28/22 21:28 Dose: 80 mls/hr Documented By: ALAN Loratadine (Loratadine 10 Mg Tablet) 10 mg PO DAILY [facility] Metoprolol Succinate (Metoprolol Succinate Er 50 Mg Tab.Er.24h) 50 mg PO BEDTIME [facility]; Protocol Last Admin: 03/28/22 21:13 Dose: Not Given Documented By: ALAN Non-Admin Reason: See Note Mirabegron (Mirabegron 50 Mg Tab.Er.24h) 50 mg PO BID [facility] Last Admin: 03/28/22 21:22 Dose: 50 mg Documented By: ALAN Ondansetron HCl (Ondansetron Hcl 4 Mg/2 Ml Vial) 4 mg IVPUSH Q8H PRN PRN Reason: Nausea and Vomiting Pharmacy Consult (Consult Rx Perform Med Rec) 1 each MISCELLANE ONCE PRN PRN Reason: Consult order Ropinirole HCl (Ropinirole Hcl 0.25 Mg Tablet) 0.25 mg PO BEDTIME [facility] Last Admin: 03/28/22 21:35 Dose: 0.25 mg Documented By: ALAN Sodium Chloride (0.9 % Sodium Chloride Flush 3 Ml Syringe) 3 ml IVFLUSH QSHIFT [facility] Last Admin: 03/29/22 01:33 Dose: Not Given Documented By: ALAN Non-Admin Reason: IV Running Tizanidine HCl (Tizanidine Hcl 4 Mg Tablet) 4 mg PO BEDTIME PRN PRN Reason: Muscle Pain Trazodone HCl (Trazodone Hcl 100 Mg Tablet) 100 mg PO BEDTIME PRN PRN Reason: sleep Labs 03/29/22 04:59 03/29/22 04:59 Labs: Laboratory Results - last 24 hr 03/28/22 03/28/22 03/28/22 12:50 12:50 12:50 MCV 90.0 MCH 29.8 MCHC 33.1 RDW 12.9 Plt Count 142 L D MPV 11.1 Immature Gran % (Auto) 0.6 H Neut % (Auto) 96.7 H Lymph % (Auto) 1.3 L [place] % (Auto) 1.1 L Eos % (Auto) 0.0 Baso % (Auto) 0.3 Lymph # (Auto) 0.2 L [place] # (Auto) 0.1 Eos # (Auto) 0.0 Baso # (Auto) 0.0 Abs Immat Gran (auto) 0.07 H Absolute Neuts (auto) 11.6 H Absolute Nucleated RBC 0.000 Nucleated RBC % (auto) 0.0 Smear Tech's Comments VERIFIED Anion Gap 14 Estim Creat Clear Calc 22.0 Estimated GFR 29 Random Glucose 121 H Lactic Acid 2.5 H* Lactic Acid F/U @ 2Hr Lactic Acid F/U @ 4Hr Calcium 9.3 Magnesium 1.5 L Total Bilirubin 1.9 H AST 31 ALT 26 Alkaline Phosphatase 115 Troponin I High Sens B-Natriuretic Peptide Total Protein 5.9 L Albumin 3.9 Urine Color Urine Appearance Urine pH Ur Specific [place] Urine Protein Urine Glucose (UA) Urine Ketones Urine Blood Urine Nitrite Ur Leukocyte Esterase Urine RBC Urine WBC Ur Squamous Epith Cells Urine Bacteria Hyaline Casts Respiratory Panel [place] Adenovirus (Rapid PCR) B.pert (TEM-PCR) B.parapertussis DNA PCR C. pneumoniae DNA (PCR) Coronavirus OC43 (PCR) Coronavirus HKU1 (PCR) Coronavirus 229E (PCR) Coronavirus NL63 (PCR) Human Metapneumovir PCR Influenza A (RT-PCR) Influenza Type A (PCR) Influenza B (RT-PCR) Influenza Type B (PCR) M. pneumoniae (PCR) Parainfluenza 1 (PCR) Parainfluenza 2 (PCR) Parainfluenza 3 (PCR) Parainfluenza 4 (PCR) RSV (PCR) RSV RNA Qual (PCR) Entero/Rhino (PCR) SARS-CoV-2 RNA (RT-PCR) 03/28/22 03/28/22 03/28/22 12:50 12:50 12:50 MCV MCH MCHC RDW Plt Count MPV Immature Gran % (Auto) Neut % (Auto) Lymph % (Auto) [place] % (Auto) Eos % (Auto) Baso % (Auto) Lymph # (Auto) [place] # (Auto) Eos # (Auto) Baso # (Auto) Abs Immat Gran (auto) Absolute Neuts (auto) Absolute Nucleated RBC Nucleated RBC % (auto) Smear Tech's Comments Anion Gap Estim Creat Clear Calc Estimated GFR Random Glucose Lactic Acid Lactic Acid F/U @ 2Hr Lactic Acid F/U @ 4Hr Calcium Magnesium Total Bilirubin AST ALT Alkaline Phosphatase Troponin I High Sens 22.9 H B-Natriuretic Peptide 118 H Total Protein Albumin Urine Color Urine Appearance Urine pH Ur Specific [place] Urine Protein Urine Glucose (UA) Urine Ketones Urine Blood Urine Nitrite Ur Leukocyte Esterase Urine RBC Urine WBC Ur Squamous Epith Cells Urine Bacteria Hyaline Casts Respiratory Panel [place] Adenovirus (Rapid PCR) B.pert (TEM-PCR) B.parapertussis DNA PCR C. pneumoniae DNA (PCR) Coronavirus OC43 (PCR) Coronavirus HKU1 (PCR) Coronavirus 229E (PCR) Coronavirus NL63 (PCR) Human Metapneumovir PCR Influenza A (RT-PCR) Influenza Type A (PCR) NEGATIVE Influenza B (RT-PCR) Influenza Type B (PCR) NEGATIVE M. pneumoniae (PCR) Parainfluenza 1 (PCR) Parainfluenza 2 (PCR) Parainfluenza 3 (PCR) Parainfluenza 4 (PCR) RSV (PCR) RSV RNA Qual (PCR) NEGATIVE Entero/Rhino (PCR) SARS-CoV-2 RNA (RT-PCR) NEGATIVE 03/28/22 03/28/22 03/28/22 15:56 15:57 16:00 MCV MCH MCHC RDW Plt Count MPV Immature Gran % (Auto) Neut % (Auto) Lymph % (Auto) [place] % (Auto) Eos % (Auto) Baso % (Auto) Lymph # (Auto) [place] # (Auto) Eos # (Auto) Baso # (Auto) Abs Immat Gran (auto) Absolute Neuts (auto) Absolute Nucleated RBC Nucleated RBC % (auto) Smear Tech's Comments Anion Gap Estim Creat Clear Calc Estimated GFR Random Glucose Lactic Acid Lactic Acid F/U @ 2Hr 2.4 H* Lactic Acid F/U @ 4Hr Calcium Magnesium Total Bilirubin AST ALT Alkaline Phosphatase Troponin I High Sens 25.1 H B-Natriuretic Peptide Total Protein Albumin Urine Color Urine Appearance Urine pH Ur Specific [place] Urine Protein Urine Glucose (UA) Urine Ketones Urine Blood Urine Nitrite Ur Leukocyte Esterase Urine RBC Urine WBC Ur Squamous Epith Cells Urine Bacteria Hyaline Casts Respiratory Panel [place] See Note Adenovirus (Rapid PCR) Not Detected B.pert (TEM-PCR) Not Detected B.parapertussis DNA PCR Not Detected C. pneumoniae DNA (PCR) Not Detected Coronavirus OC43 (PCR) Not Detected Coronavirus HKU1 (PCR) Not Detected Coronavirus 229E (PCR) Not Detected Coronavirus NL63 (PCR) Not Detected Human Metapneumovir PCR Not Detected Influenza A (RT-PCR) Not Detected Influenza Type A (PCR) Influenza B (RT-PCR) Not Detected Influenza Type B (PCR) M. pneumoniae (PCR) Not Detected Parainfluenza 1 (PCR) Not Detected Parainfluenza 2 (PCR) Not Detected Parainfluenza 3 (PCR) Not Detected Parainfluenza 4 (PCR) Not Detected RSV (PCR) Not Detected RSV RNA Qual (PCR) Entero/Rhino (PCR) Not Detected SARS-CoV-2 RNA (RT-PCR) Not Detected 03/28/22 03/28/22 03/29/22 20:02 20:32 04:59 MCV 91.0 MCH 30.6 MCHC 33.6 RDW 13.2 Plt Count 121 L MPV 11.7 Immature Gran % (Auto) 0.5 H Neut % (Auto) 88.7 H Lymph % (Auto) 5.1 L [place] % (Auto) 5.2 Eos % (Auto) 0.2 Baso % (Auto) 0.3 Lymph # (Auto) 1.0 L [place] # (Auto) 1.0 Eos # (Auto) 0.0 Baso # (Auto) 0.1 Abs Immat Gran (auto) 0.09 H Absolute Neuts (auto) 16.5 H Absolute Nucleated RBC 0.000 Nucleated RBC % (auto) 0.0 Smear Tech's Comments Anion Gap Estim Creat Clear Calc Estimated GFR Random Glucose Lactic Acid Lactic Acid F/U @ 2Hr Lactic Acid F/U @ 4Hr 0.6 Calcium Magnesium Total Bilirubin AST ALT Alkaline Phosphatase Troponin I High Sens B-Natriuretic Peptide Total Protein Albumin Urine Color Dark Yellow Urine Appearance Cloudy Urine pH 5.5 Ur Specific [place] 1.015 Urine Protein 30 (1+) H Urine Glucose (UA) Negative Urine Ketones Trace Urine Blood Trace H Urine Nitrite Positive H Ur Leukocyte Esterase Large (3+) H Urine RBC 0-2 Urine WBC >50 H Ur Squamous Epith Cells 3-5 Urine Bacteria 4+ Hyaline Casts 3-5 Respiratory Panel [place] Adenovirus (Rapid PCR) B.pert (TEM-PCR) B.parapertussis DNA PCR C. pneumoniae DNA (PCR) Coronavirus OC43 (PCR) Coronavirus HKU1 (PCR) Coronavirus 229E (PCR) Coronavirus NL63 (PCR) Human Metapneumovir PCR Influenza A (RT-PCR) Influenza Type A (PCR) Influenza B (RT-PCR) Influenza Type B (PCR) M. pneumoniae (PCR) Parainfluenza 1 (PCR) Parainfluenza 2 (PCR) Parainfluenza 3 (PCR) Parainfluenza 4 (PCR) RSV (PCR) RSV RNA Qual (PCR) Entero/Rhino (PCR) SARS-CoV-2 RNA (RT-PCR) 03/29/22 04:59 MCV MCH MCHC RDW Plt Count MPV Immature Gran % (Auto) Neut % (Auto) Lymph % (Auto) [place] % (Auto) Eos % (Auto) Baso % (Auto) Lymph # (Auto) [place] # (Auto) Eos # (Auto) Baso # (Auto) Abs Immat Gran (auto) Absolute Neuts (auto) Absolute Nucleated RBC Nucleated RBC % (auto) Smear Tech's Comments Anion Gap 15 Estim Creat Clear Calc 21.8 Estimated GFR 29 Random Glucose 103 Lactic Acid Lactic Acid F/U @ 2Hr Lactic Acid F/U @ 4Hr Calcium 7.9 L D Magnesium Total Bilirubin AST ALT Alkaline Phosphatase Troponin I High Sens B-Natriuretic Peptide Total Protein Albumin Urine Color Urine Appearance Urine pH Ur Specific [place] Urine Protein Urine Glucose (UA) Urine Ketones Urine Blood Urine Nitrite Ur Leukocyte Esterase Urine RBC Urine WBC Ur Squamous Epith Cells Urine Bacteria Hyaline Casts Respiratory Panel [place] Adenovirus (Rapid PCR) B.pert (TEM-PCR) B.parapertussis DNA PCR C. pneumoniae DNA (PCR) Coronavirus OC43 (PCR) Coronavirus HKU1 (PCR) Coronavirus 229E (PCR) Coronavirus NL63 (PCR) Human Metapneumovir PCR Influenza A (RT-PCR) Influenza Type A (PCR) Influenza B (RT-PCR) Influenza Type B (PCR) M. pneumoniae (PCR) Parainfluenza 1 (PCR) Parainfluenza 2 (PCR) Parainfluenza 3 (PCR) Parainfluenza 4 (PCR) RSV (PCR) RSV RNA Qual (PCR) Entero/Rhino (PCR) SARS-CoV-2 RNA (RT-PCR) Microbiology Microbiology Results: Microbiology 03/28/22 12:50 Blood Culture - Preliminary Blood - Venous Prelim: GNR Gram Stain only 03/28/22 12:50 Blood Culture - Preliminary Blood - Venous Prelim: GNR Gram Stain only Assessment and Plan (1) Nausea and vomiting: Status: Acute (2) Acidosis, lactic: Status: Acute Plan 84-year-old female with a past medical history of hypertension, hyperlipidemia, GERD, obesity, mild cognitive impairment, osteoarthritis, chronic back pain, CKD stage 3, ACS, hx klebsiella UTI, osteopenia, PVD, polycystic kidney disease to be observed for nausea, vomiting, and PO intolerance. #Nausea/vomiting/PO intolerance -No diarrhea. febrile to 103.2. Suspect viral etiology -Creat 1.62, above baseline, but no DARLING. Lytes normal except mild hypomagnesemia 1.5 -Abd/pelvis CT without acute abnormality, shows chronic dilitation of CBD s/p cholecystectomy -Continue gentle IVF -Clear liquid diet, advanced as tolerated -ondansetron p.r.n. -Tylenol p.r.n. for fevers -mild leukocytosis- likely reactive in setting of vomiting -follow cbc, bmp -pt eval for generalized weakness/gait imbalance #Acute Lactic acidosis -initial 2.5, repeat 2.4 -likely related to tissue hypoperfusion, not severe sepsis -continue ivf #?UTI--history of Klebsiella., culture pending. Continue ceftriaxone 1 g daily follow culture. #Acute hypoxia -CXR/CT chest negative. Respiratory panel negative -desatting to 89% on RA. no hx chronic lung disease. ?obesity hypoventilation syndrome -Continue supplemental O2 to maintain oximetry >92%--O2 is better today, wean off O2 #CKD stage 3- likely related to polycystic kidney disease -CT abdomen/pelvis showing proteinaceous cysts bilaterally -creatinine 1.62, slightly above baseline, but no DARLING -follow BMP #HTN -BP soft. Continue metoprolol, hold losartan amlodipine, resume tomorrow #Unspecified mild dementia without behavioral disturbance -continue denies a pill #CAD/HLD -continue statin, bb DVT prophylaxis-Lovenox Full code Healthcare proxy- daughter Fara with whom she lives [phone] need for inaptient: acute hypoxia, UTI needing IV Abx ] Time Spent With Patient Time: Total time managing care of this patient today ____ minutes. Quality Stroke Does the patient have a stroke diagnosis?: No VTE Prior VTE?: No VTE Risk Level:: Medical - moderate - high VTE Device Contraindication: Treatment Not Indicated VTE Drug Contraindication: N/A - Med Ordered
--- NOTE | 2022-03-29 08:42 | PC.NURSE ---
dr peterson at bedside evaluating the pt, pt taken of the oxygen 1l, pt is not oxygen dependent at baseline pt alert and oriented, skin pwd, respirations even and unlabored, pt denies pain at this time
[2022-03-29] MEDS: 0.9 % Sodium Chloride Flush 3 ML SYRINGE IVFLUSH (08:47)
[2022-03-29] MEDS: 0.9 % Sodium Chloride 1,000 ML 80 ML IVCONT ×2 (09:46→19:35)
--- NOTE | 2022-03-29 09:49 | PC.NURSE ---
pt AOx3, vss, NS running per order. athletic monitor intact. will continue to monitor.
[2022-03-29] MEDS: Mirabegron 50 MG TAB.ER.24H PO ×2 (10:24→21:09)
[2022-03-29] MEDS: Loratadine 10 MG TABLET PO (10:24)
--- NOTE | 2022-03-29 12:17 | MHC.CM.PN ---
met with pt and her dgter with whom she lives pt has own ride home had no previous services dcplan home with korin no servceis
[2022-03-29] MEDS: cefTRIAXone sodium 1 GM in 0.9 % Sodium Chloride 50 ML IV (16:40)
--- NOTE | 2022-03-29 16:42 | PC.NURSE ---
patient awake/alert, awake overnight monitor intact, vss, ivf running per order, iv abx hung per order, call marie within reach, will continue to monitor
[2022-03-29] MEDS: Enoxaparin Sodium 30 MG/0.3 ML SYRINGE SUBCUT (19:35)
[2022-03-29] MEDS: Atorvastatin Calcium 40 MG TABLET PO (21:08)
[2022-03-29] MEDS: traZODone HCL 100 MG TABLET PO (21:08)
[2022-03-29] MEDS: TiZANidine HCL 4 MG TABLET PO (21:09)
[2022-03-29] MEDS: Metoprolol Succinate ER 50 MG TAB.ER.24H PO (21:09)
[2022-03-29] MEDS: Donepezil HCl 10 MG TABLET PO (21:10)
[2022-03-29] MEDS: rOPINIRole HCL 0.25 MG TABLET PO (21:10)
[2022-03-30 04:00] VITALS: BP 144/65; PULSE 68; RESP 16; TEMP 36.2; O2SAT 93
[2022-03-30 07:33] VITALS: BP 122/59; PULSE 68; RESP 18; TEMP 36.6; O2SAT 92
--- NOTE | 2022-03-30 08:32 | HO.PM.IMPN ---
Subjective Subjective Date of Service: 03/31/22 Interval History: Follow-up on sepsis due to UTI, Interval history: She is feeling better no nausea vomiting no diarrhea no abdominal pain no fever Physical Exam Vital Signs: Vital Signs: Last Vital Signs Temp 97.9 F 03/30/22 07:33 Pulse 68 03/30/22 07:33 Resp 18 03/30/22 07:33 BP 122/59 L 03/30/22 07:33 Pulse Ox 92 03/30/22 07:33 O2 Del Method 03/30/22 07:33 O2 Flow Rate 2 03/30/22 07:33 BMI result Body Mass Index 33.8 Const: Other: General: AO X 2, no acute distress Resp: CTA bilateral CVS: S1,S2,RRR GI: +BS, NT, no distention Skin: No rash Neuro: motor grossly intact Psych: appropriate affect Objective Data Active Medications Acetaminophen (Acetaminophen Supp 650 Mg Supp.Rect) 650 mg [place] Q6H PRN PRN Reason: fever Last Admin: 03/28/22 14:42 Dose: 650 mg Documented By: GENEVA Acetaminophen (Acetaminophen 325 Mg Tablet) 650 mg PO Q6H PRN PRN Reason: Pain, Mild (Pain Scale 1-3) Atorvastatin Calcium (Atorvastatin Calcium 40 Mg Tablet) 40 mg PO BEDTIME [facility] Last Admin: 03/29/22 21:08 Dose: 40 mg Documented By: ALISA Docusate Sodium (Docusate Sodium 100 Mg Capsule) 100 mg PO DAILY PRN PRN Reason: Constipation Donepezil HCl (Donepezil Hcl 10 Mg Tablet) 10 mg PO BEDTIME [facility] Last Admin: 03/29/22 21:10 Dose: 10 mg Documented By: ALISA Enoxaparin Sodium (Enoxaparin Sodium 30 Mg/0.3 Ml Syringe) 30 mg SUBCUT Q24H [facility] Last Admin: 03/29/22 19:35 Dose: 30 mg Documented By: ALISA Sodium Chloride (Ns) 1,000 mls @ 80 mls/hr IVCONT .[id number] [facility] Last Admin: 03/29/22 19:35 Dose: 80 mls/hr Documented By: ALISA Ceftriaxone Sodium 1 gm/ (Sodium Chloride) 50 mls @ 100 mls/hr IV Q24H [facility] Last Infusion: 03/29/22 17:10 Dose: 0 mls/hr Documented By: SHARRI Loratadine (Loratadine 10 Mg Tablet) 10 mg PO DAILY [facility] Last Admin: 03/29/22 10:24 Dose: 10 mg Documented By: MURIEL Metoprolol Succinate (Metoprolol Succinate Er 50 Mg Tab.Er.24h) 50 mg PO BEDTIME [facility]; Protocol Last Admin: 03/29/22 21:09 Dose: 50 mg Documented By: ALISA Mirabegron (Mirabegron 50 Mg Tab.Er.24h) 50 mg PO BID [facility] Last Admin: 03/29/22 21:09 Dose: 50 mg Documented By: ALISA Ondansetron HCl (Ondansetron Hcl 4 Mg/2 Ml Vial) 4 mg IVPUSH Q8H PRN PRN Reason: Nausea and Vomiting Pharmacy Consult (Consult Rx Perform Med Rec) 1 each MISCELLANE ONCE PRN PRN Reason: Consult order Ropinirole HCl (Ropinirole Hcl 0.25 Mg Tablet) 0.25 mg PO BEDTIME [facility] Last Admin: 03/29/22 21:10 Dose: 0.25 mg Documented By: ALISA Sodium Chloride (0.9 % Sodium Chloride Flush 3 Ml Syringe) 3 ml IVFLUSH QSHIFT [facility] Last Admin: 03/29/22 21:10 Dose: Not Given Documented By: ALISA Non-Admin Reason: IV Running Tizanidine HCl (Tizanidine Hcl 4 Mg Tablet) 4 mg PO BEDTIME PRN PRN Reason: Muscle Pain Last Admin: 03/29/22 21:09 Dose: 4 mg Documented By: ALISA Trazodone HCl (Trazodone Hcl 100 Mg Tablet) 100 mg PO BEDTIME PRN PRN Reason: sleep Last Admin: 03/29/22 21:08 Dose: 100 mg Documented By: ALISA Labs 03/29/22 04:59 03/29/22 04:59 Microbiology Microbiology Results: Microbiology 03/28/22 21:00 Urine Culture - Preliminary Urine clean catch - Urine hagan top Culture in progress. 03/28/22 12:50 Blood Culture - Preliminary Blood - Venous Gram negative maura 03/28/22 12:50 Blood Culture - Preliminary Blood - Venous Gram negative maura Assessment and Plan (1) Nausea and vomiting: Status: Acute (2) Acidosis, lactic: Status: Acute Plan 84-year-old female with a past medical history of hypertension, hyperlipidemia, GERD, obesity, mild cognitive impairment, osteoarthritis, chronic back pain, CKD stage 3, ACS, hx klebsiella UTI, osteopenia, PVD, polycystic kidney disease to be observed for nausea, vomiting, and PO intolerance. Severe Sepsis upon initial lactic acid level Gram negative maura bacteremia likely urine source as cause of sepsis. Culture sensitivity pending. -continue ceftriaxone 2 g daily -considered id consult. UTI--continue Ceftriaxone as before #Nausea/vomiting/ fever, PO intolerance--likely above, and resolved. advance to regular diet #Acute Lactic acidosis--due to sepsis given additional information from positive blood culture and UTI #Acute hypoxia -CXR/CT chest negative. Respiratory panel negative -desatting to 89% on RA. no hx chronic lung disease. ?obesity hypoventilation syndrome -Continue supplemental O2 to maintain oximetry >92%--O2 is better today, wean off O2 #CKD stage 3- likely related to polycystic kidney disease -CT abdomen/pelvis showing proteinaceous cysts bilaterally -creatinine 1.62, slightly above baseline, but no DARLING -follow BMP #HTN -BP soft. Continue metoprolol, hold losartan amlodipine, resume tomorrow #Unspecified mild dementia without behavioral disturbance -continue denies a pill #CAD/HLD -continue statin, bb DVT prophylaxis-Lovenox Full code Healthcare proxy- daughter Fara with whom she lives [phone] Need for inpatient: Time Spent With Patient Time: Total time managing care of this patient today ____ minutes. Quality Stroke Does the patient have a stroke diagnosis?: No VTE Prior VTE?: No VTE Risk Level:: Medical - moderate - high VTE Device Contraindication: Treatment Not Indicated VTE Drug Contraindication: N/A - Med Ordered
[2022-03-30] MEDS: Mirabegron 50 MG TAB.ER.24H PO ×2 (09:03→21:09)
[2022-03-30] MEDS: Loratadine 10 MG TABLET PO (09:03)
[2022-03-30] MEDS: 0.9 % Sodium Chloride Flush 3 ML SYRINGE IVFLUSH ×2 (09:04→15:14)
[2022-03-30] MEDS: 0.9 % Sodium Chloride 1,000 ML 80 ML IVCONT (09:09)
[2022-03-30 13:50] VITALS: O2SAT 92
[2022-03-30] MEDS: cefTRIAXone sodium 1 GM in 0.9 % Sodium Chloride 50 ML IV (15:14)
[2022-03-30 15:31] VITALS: BP 159/67; PULSE 84; RESP 18; TEMP 36.7; O2SAT 95
[2022-03-30] MEDS: Enoxaparin Sodium 30 MG/0.3 ML SYRINGE SUBCUT (18:36)
[2022-03-30 19:16] VITALS: BP 136/62; PULSE 80; RESP 18; TEMP 37; O2SAT 94
[2022-03-30] MEDS: traZODone HCL 100 MG TABLET PO (21:09)
[2022-03-30] MEDS: rOPINIRole HCL 0.25 MG TABLET PO (21:09)
[2022-03-30] MEDS: Donepezil HCl 10 MG TABLET PO (21:09)
[2022-03-30] MEDS: Atorvastatin Calcium 40 MG TABLET PO (21:09)
[2022-03-30] MEDS: Metoprolol Succinate ER 50 MG TAB.ER.24H PO (21:09)
[2022-03-31] VITALS (8 sets, daily range): BP systolic 129–180; BP diastolic 58–84; PULSE 57–68; RESP 18–20; TEMP 36–36.8; O2SAT 92–97
[2022-03-31] MEDS: Loratadine 10 MG TABLET PO (07:32)
[2022-03-31] MEDS: Mirabegron 50 MG TAB.ER.24H PO ×2 (07:32→21:42)
[2022-03-31] MEDS: 0.9 % Sodium Chloride Flush 3 ML SYRINGE IVFLUSH ×3 (07:38→21:43)
--- NOTE | 2022-03-31 08:46 | HO.PM.IMPN ---
Subjective Subjective Date of Service: 03/31/22 Interval History: Follow-up on sepsis due to UTI, Interval history: feels better, no new issues Physical Exam Vital Signs: Vital Signs: Last Vital Signs Temp 97.1 F 03/31/22 08:00 Pulse 65 03/31/22 08:00 Resp 20 03/31/22 08:00 BP 180/81 H 03/31/22 08:00 Pulse Ox 93 03/31/22 08:00 O2 Del Method 03/31/22 08:00 O2 Flow Rate 2 03/30/22 07:33 BMI result Body Mass Index 33.8 Const: Other: General: AO X 2, no acute distress Resp: CTA bilateral CVS: S1,S2,RRR GI: +BS, NT, no distention Skin: No rash Neuro: motor grossly intact Psych: appropriate affect Objective Data Active Medications Acetaminophen (Acetaminophen Supp 650 Mg Supp.Rect) 650 mg [place] Q6H PRN PRN Reason: fever Last Admin: 03/28/22 14:42 Dose: 650 mg Documented By: GENEVA Acetaminophen (Acetaminophen 325 Mg Tablet) 650 mg PO Q6H PRN PRN Reason: Pain, Mild (Pain Scale 1-3) Atorvastatin Calcium (Atorvastatin Calcium 40 Mg Tablet) 40 mg PO BEDTIME JEANNINE Last Admin: 03/30/22 21:09 Dose: 40 mg Documented By: YU Docusate Sodium (Docusate Sodium 100 Mg Capsule) 100 mg PO DAILY PRN PRN Reason: Constipation Donepezil HCl (Donepezil Hcl 10 Mg Tablet) 10 mg PO BEDTIME JEANNINE Last Admin: 03/30/22 21:09 Dose: 10 mg Documented By: YU Enoxaparin Sodium (Enoxaparin Sodium 30 Mg/0.3 Ml Syringe) 30 mg SUBCUT Q24H JEANNINE Last Admin: 03/30/22 18:36 Dose: 30 mg Documented By: FUNMILAYO-CARROL Ceftriaxone Sodium 2 gm/ (Sodium Chloride) 50 mls @ 100 mls/hr IV Q24H [facility] Loratadine (Loratadine 10 Mg Tablet) 10 mg PO DAILY [facility] Last Admin: 03/31/22 07:32 Dose: 10 mg Documented By: YOLANDA Metoprolol Succinate (Metoprolol Succinate Er 50 Mg Tab.Er.24h) 50 mg PO BEDTIME JEANNINE; Protocol Last Admin: 03/30/22 21:09 Dose: 50 mg Documented By: YU Comments: AC=[id number] H 80 Mirabegron (Mirabegron 50 Mg Tab.Er.24h) 50 mg PO BID [facility] Last Admin: 03/31/22 07:32 Dose: 50 mg Documented By: YOLANDA Ondansetron HCl (Ondansetron Hcl 4 Mg/2 Ml Vial) 4 mg IVPUSH Q8H PRN PRN Reason: Nausea and Vomiting Pharmacy Consult (Consult Rx Perform Med Rec) 1 each MISCELLANE ONCE PRN PRN Reason: Consult order Ropinirole HCl (Ropinirole Hcl 0.25 Mg Tablet) 0.25 mg PO BEDTIME [facility] Last Admin: 03/30/22 21:09 Dose: 0.25 mg Documented By: YU Sodium Chloride (0.9 % Sodium Chloride Flush 3 Ml Syringe) 3 ml IVFLUSH QSHIFT [facility] Last Admin: 03/31/22 07:38 Dose: 3 ml Documented By: YOLANDA Tizanidine HCl (Tizanidine Hcl 4 Mg Tablet) 4 mg PO BEDTIME PRN PRN Reason: Muscle Pain Last Admin: 03/29/22 21:09 Dose: 4 mg Documented By: ALISA Trazodone HCl (Trazodone Hcl 100 Mg Tablet) 100 mg PO BEDTIME PRN PRN Reason: sleep Last Admin: 03/30/22 21:09 Dose: 100 mg Documented By: YU Labs 03/29/22 04:59 03/29/22 04:59 Microbiology Microbiology Results: Microbiology 03/28/22 21:00 Urine Culture - Final Urine clean catch - Urine hagan top Escherichia coli Streptococcus viridans group 03/28/22 12:50 Blood Culture - Final Blood - Venous Escherichia coli 03/28/22 12:50 Blood Culture - Final Blood - Venous Escherichia coli Assessment and Plan (1) Nausea and vomiting: Status: Acute (2) Acidosis, lactic: Status: Acute Plan 84-year-old female with a past medical history of hypertension, hyperlipidemia, GERD, obesity, mild cognitive impairment, osteoarthritis, chronic back pain, CKD stage 3, ACS, hx klebsiella UTI, osteopenia, PVD, polycystic kidney disease to be observed for nausea, vomiting, and PO intolerance. #Severe Sepsis upon initial lactic acid level Blood culures and urine cultures --E. coli sensistive to ceftriaxone -ID consult pending, will likely be discharge with PO for 10 to 14 days #UTI--continue Ceftriaxone as above #Nausea/vomiting/ fever, PO intolerance--likely above, and resolved. advance to regular diet #Acute Lactic acidosis--due to sepsis given additional information from positive blood culture and UTI #Acute hypoxia -CXR/CT chest negative. Respiratory panel negative, was likely related to above sepsis resolved, 93 on RA #CKD stage 3- likely related to polycystic kidney disease -CT abdomen/pelvis showing proteinaceous cysts bilaterally -creatinine 1.62, slightly above baseline, but no DARLING -follow BMP #HTN -BP soft. Continue metoprolol, hold losartan amlodipine, resume tomorrow #Unspecified mild dementia without behavioral disturbance -continue denies a pill #CAD/HLD -continue statin, bb DVT prophylaxis-Lovenox Full code Healthcare proxy- daughter Fara with whom she lives [phone] Need for inpatient: sepsis, bacteremia on IV Abx until improve Time Spent With Patient Time: Total time managing care of this patient today ____ minutes. Quality Stroke Does the patient have a stroke diagnosis?: No VTE Prior VTE?: No VTE Risk Level:: Medical - moderate - high VTE Device Contraindication: Treatment Not Indicated VTE Drug Contraindication: N/A - Med Ordered
[2022-03-31] MEDS: Acetaminophen 325 MG TABLET 650 MG PO (11:12)
[2022-03-31] MEDS: cefTRIAXone sodium 2 GM in 0.9 % Sodium Chloride 50 ML IV (14:17)
--- NOTE | 2022-03-31 15:45 | P.CNID_ITS ---
History of Present Illness Data of Consult Service Date: 03/31/22 Requesting physician: Jose Alberto Eckert Primary Care Provider: Adry Young MD HPI Reason for consult: sepsis,bacteremia She presents with weakness,frequent urination as well as abdominal discomfort. She has diarrhea. She has E coli bacteremia and no obstruction. Review of Systems Review of Systems: Yes all other systems are reviewed and are negative [facility] Past Medical History Medical History (Updated 03/31/22 @ 15:49 by Lauren Ch MD) Acute coronary syndrome Adnexal mass Bacteremia due to Klebsiella pneumoniae Chest discomfort Chronic kidney disease (CKD) stage G3b/A3, moderately decreased glomerular filtration rate (GFR) between 30-44 mL/min/1.73 square meter and albuminuria creatinine ratio greater than 300 mg/g Decreased hearing of both ears Degenerative disc disease, lumbar Diarrhea E coli bacteremia Encounter for annual wellness exam in Medicare patient GERD (gastroesophageal reflux disease) Gout Hypercholesterolemia Hypertension Leg cramps Mild cognitive impairment Obesity (BMI 30-39.9) Onychomycosis Osteoarthritis Osteopenia Osteoporosis screening Peripheral vascular disease Polycystic kidney disease Sepsis Spondylosis of cervical spine Urinary incontinence Vitamin D deficiency Family History Family History Father No problems noted. Mother No problems noted. Brother No problems noted. Daughter No problems noted. Daughter No problems noted. Daughter No problems noted. Daughter No problems noted. Family history: reviewed and not pertinent Surgical History Surgical History History of cholecystectomy History of hysterectomy History of surgery Social History Social History Household Members: Family Household Members Other:: 1 Housing: House Do you presently have visiting nurse or other home services: No Alcohol intake: never Patient Tobacco Use Status: Never used Tobacco e-Cigarette/Vaping Use: Never Used Second Hand Smoke Exposure: No Advance Directives Date on File: 11/17/19 service: No Current occupational status: retired Cognitive needs: No Hearing needs: No Vision needs: Yes Meds Allergies Allergy/AdvReac Type Severity Reaction Status Date / Time No Known Allergies Allergy Verified 03/24/22 09:26 [No Known Allergies*] Active Medications: Current Medications Acetaminophen (Acetaminophen Supp 650 Mg Supp.Rect) 650 mg [place] Q6H PRN PRN Reason: fever Last Admin: 03/28/22 14:42 Dose: 650 mg Acetaminophen (Acetaminophen 325 Mg Tablet) 650 mg PO Q6H PRN PRN Reason: Pain, Mild (Pain Scale 1-3) Last Admin: 03/31/22 11:12 Dose: 650 mg Atorvastatin Calcium (Atorvastatin Calcium 40 Mg Tablet) 40 mg PO BEDTIME REPLACED BY [facility] Last Admin: 03/30/22 21:09 Dose: 40 mg Docusate Sodium (Docusate Sodium 100 Mg Capsule) 100 mg PO DAILY PRN PRN Reason: Constipation Donepezil HCl (Donepezil Hcl 10 Mg Tablet) 10 mg PO BEDTIME REPLACED BY [facility] Last Admin: 03/30/22 21:09 Dose: 10 mg Enoxaparin Sodium (Enoxaparin Sodium 30 Mg/0.3 Ml Syringe) 30 mg SUBCUT Q24H REPLACED BY [facility] Last Admin: 03/30/22 18:36 Dose: 30 mg Ceftriaxone Sodium 2 gm/ (Sodium Chloride) 50 mls @ 100 mls/hr IV Q24H REPLACED BY [facility] Last Admin: 03/31/22 14:17 Dose: 100 mls/hr Loratadine (Loratadine 10 Mg Tablet) 10 mg PO DAILY REPLACED BY [facility] Last Admin: 03/31/22 07:32 Dose: 10 mg Metoprolol Succinate (Metoprolol Succinate Er 50 Mg Tab.Er.24h) 50 mg PO BEDTIME REPLACED BY [facility]; Protocol Last Admin: 03/30/22 21:09 Dose: 50 mg Mirabegron (Mirabegron 50 Mg Tab.Er.24h) 50 mg PO BID REPLACED BY [facility] Last Admin: 03/31/22 07:32 Dose: 50 mg Ondansetron HCl (Ondansetron Hcl 4 Mg/2 Ml Vial) 4 mg IVPUSH Q8H PRN PRN Reason: Nausea and Vomiting Pharmacy Consult (Consult Rx Perform Med Rec) 1 each MISCELLANE ONCE PRN PRN Reason: Consult order Ropinirole HCl (Ropinirole Hcl 0.25 Mg Tablet) 0.25 mg PO BEDTIME REPLACED BY [facility] Last Admin: 03/30/22 21:09 Dose: 0.25 mg Sodium Chloride (0.9 % Sodium Chloride Flush 3 Ml Syringe) 3 ml IVFLUSH QSHIFT REPLACED BY [facility] Last Admin: 03/31/22 07:38 Dose: 3 ml Tizanidine HCl (Tizanidine Hcl 4 Mg Tablet) 4 mg PO BEDTIME PRN PRN Reason: Muscle Pain Last Admin: 03/29/22 21:09 Dose: 4 mg Trazodone HCl (Trazodone Hcl 100 Mg Tablet) 100 mg PO BEDTIME PRN PRN Reason: sleep Last Admin: 03/30/22 21:09 Dose: 100 mg Home Medications Medication Instructions Recorded Confirmed Last Taken Type fexofenadine 60 mg tablet 60 mg PO DAILY 03/28/22 03/28/22 03/27/22 History tizanidine 4 mg tablet 4 mg PO BEDTIME PRN Muscle Pain 03/28/22 03/28/22 03/27/22 History Physical Exam Vital Signs: Vital Signs: Last Vital Signs Temp 97.6 F 03/31/22 15:32 Pulse 59 03/31/22 15:32 Resp 18 03/31/22 15:32 BP 154/70 H 03/31/22 15:32 Pulse Ox 97 03/31/22 15:32 O2 Del Method 03/31/22 15:32 O2 Flow Rate 2 03/30/22 07:33 BMI result Body Mass Index 33.8 Const: General: cooperative HEENT: Head: Yes normal to inspection Face and sinus: Yes normal facial exam Mouth: Normal oral and palatal mucosa present Teeth and gingiva: dentition normal Eyes: General: appearance normal, both eyes and all related structures Pupils: Equal, round and reactive pupils present Resp: Effort & Inspection: normal respiratory effort Cardio: Rate: regular rate Rhythm: regular rhythm GI: Palpation (GI): Soft to palpation and nontender : General: Yes no CVA tenderness Back/Spine/Pelvis: Back: no CVA tenderness Skin: General skin exam: no rashes or lesions noted Neuro: General: moves all extremities Cranial nerves: Yes Equal, round and reactive pupils present Extrem: General: Yes normal to inspection Psych: Appearance: grossly normal Results Labs 03/29/22 04:59 03/29/22 04:59 Microbiology Microbiology Results: Microbiology 03/28/22 21:00 Urine clean catch - Urine hagan top Urine Culture - Final Escherichia coli Streptococcus viridans group 03/28/22 12:50 Blood - Venous Blood Culture - Final Escherichia coli 03/28/22 12:50 Blood - Venous Blood Culture - Final Escherichia coli Assessment and Plan (1) E coli bacteremia: Status: Acute She has chronic incontinence and abdominal discomfort. Likely bacteremia reason is urinary flow abnormalities Plan Would continue Ceftriaxone. Likely po Ceftin finish 14 days treatment Urology followup Time Spent With Patient Time: Total time managing care of this patient today ____ minutes.
[2022-03-31] MEDS: Enoxaparin Sodium 30 MG/0.3 ML SYRINGE SUBCUT (17:26)
[2022-03-31] MEDS: Donepezil HCl 10 MG TABLET PO (21:42)
[2022-03-31] MEDS: Atorvastatin Calcium 40 MG TABLET PO (21:42)
[2022-03-31] MEDS: rOPINIRole HCL 0.25 MG TABLET PO (21:42)
[2022-03-31] MEDS: Metoprolol Succinate ER 50 MG TAB.ER.24H PO (21:43)
[2022-04-01] VITALS (10 sets, daily range): BP systolic 156–198; BP diastolic 62–82; PULSE 56–72; RESP 18–20; TEMP 36.1–37.1; O2SAT 92–97
--- NOTE | 2022-04-01 04:20 | PC.NURSE ---
Patient is alert and oriented. Denies pain. Oob to bathroom with standby assist. Sleeping most of the shift between care.
--- NOTE | 2022-04-01 07:55 | P.PNIM_ITS ---
Subjective Subjective Date of Service: 04/01/22 Interval History: Follow-up on sepsis due to UTI, Interval history: feels better, no new issues, BP is very high Physical Exam Vital Signs: Vital Signs: Last Vital Signs Temp 97 F 04/01/22 07:40 Pulse 56 04/01/22 07:40 Resp 18 04/01/22 07:40 BP 198/78 H 04/01/22 07:40 Pulse Ox 95 04/01/22 07:40 O2 Del Method 04/01/22 07:40 O2 Flow Rate 2 03/30/22 07:33 BMI result Body Mass Index 33.8 Const: Other: General: AO X 3, no acute distress Resp: CTA bilateral CVS: S1,S2,RRR GI: +BS, NT, no distention Skin: No rash Neuro: motor grossly intact Psych: appropriate affect Objective Data Active Medications Acetaminophen (Acetaminophen Supp 650 Mg Supp.Rect) 650 mg [place] Q6H PRN PRN Reason: fever Last Admin: 03/28/22 14:42 Dose: 650 mg Documented By: GENEVA Acetaminophen (Acetaminophen 325 Mg Tablet) 650 mg PO Q6H PRN PRN Reason: Pain, Mild (Pain Scale 1-3) Last Admin: 03/31/22 11:12 Dose: 650 mg Documented By: YOLANDA Amlodipine Besylate (Amlodipine Besylate 5 Mg Tablet) 5 mg PO DAILY@1200 JEANNINE; P rotocol Atorvastatin Calcium (Atorvastatin Calcium 40 Mg Tablet) 40 mg PO BEDTIME [facility] Last Admin: 03/31/22 21:42 Dose: 40 mg Documented By: COBBOUzma Docusate Sodium (Docusate Sodium 100 Mg Capsule) 100 mg PO DAILY PRN PRN Reason: Constipation Donepezil HCl (Donepezil Hcl 10 Mg Tablet) 10 mg PO BEDTIME [facility] Last Admin: 03/31/22 21:42 Dose: 10 mg Documented By: COBDEANNE Enoxaparin Sodium (Enoxaparin Sodium 30 Mg/0.3 Ml Syringe) 30 mg SUBCUT Q24H [facility] Last Admin: 03/31/22 17:26 Dose: 30 mg Documented By: NGENOAL Ceftriaxone Sodium 2 gm/ (Sodium Chloride) 50 mls @ 100 mls/hr IV Q24H [facility] Last Infusion: 03/31/22 16:42 Dose: 0 mls/hr Documented By: YOU Loratadine (Loratadine 10 Mg Tablet) 10 mg PO DAILY [facility] Last Admin: 03/31/22 07:32 Dose: 10 mg Documented By: YOLANDA Losartan Potassium (Losartan Potassium 50 Mg Tablet) 100 mg PO DAILY [facility]; Protocol Metoprolol Succinate (Metoprolol Succinate Er 50 Mg Tab.Er.24h) 50 mg PO BEDTIME [facility]; Protocol Last Admin: 03/31/22 21:43 Dose: 50 mg Documented By: SANJAY Mirabegron (Mirabegron 50 Mg Tab.Er.24h) 50 mg PO BID [facility] Last Admin: 03/31/22 21:42 Dose: 50 mg Documented By: SANJAY Ondansetron HCl (Ondansetron Hcl 4 Mg/2 Ml Vial) 4 mg IVPUSH Q8H PRN PRN Reason: Nausea and Vomiting Pharmacy Consult (Consult Rx Perform Med Rec) 1 each MISCELLANE ONCE PRN PRN Reason: Consult order Ropinirole HCl (Ropinirole Hcl 0.25 Mg Tablet) 0.25 mg PO BEDTIME [facility] Last Admin: 03/31/22 21:42 Dose: 0.25 mg Documented By: SANJAY Sodium Chloride (0.9 % Sodium Chloride Flush 3 Ml Syringe) [facility] Last Admin: 03/31/22 21:43 Dose: 3 ml Documented By: SANJAY Tizanidine HCl (Tizanidine Hcl 4 Mg Tablet) 4 mg PO BEDTIME PRN PRN Reason: Muscle Pain Last Admin: 03/29/22 21:09 Dose: 4 mg Documented By: ALISA Trazodone HCl (Trazodone Hcl 100 Mg Tablet) 100 mg PO BEDTIME PRN PRN Reason: sleep Last Admin: 03/30/22 21:09 Dose: 100 mg Documented By: CASTILM Labs 03/29/22 04:59 03/29/22 04:59 Microbiology Microbiology Results: Microbiology 03/28/22 21:00 Urine Culture - Final Urine clean catch - Urine hagan top Escherichia coli Streptococcus viridans group Assessment and Plan (1) Nausea and vomiting: Status: Acute (2) Acidosis, lactic: Status: Acute Plan 84-year-old female with a past medical history of hypertension, hyperlipidemia, GERD, obesity, mild cognitive impairment, osteoarthritis, chronic back pain, CKD stage 3, ACS, hx klebsiella UTI, osteopenia, PVD, polycystic kidney disease to be observed for nausea, vomiting, and PO intolerance. #Severe Sepsis upon initial lactic acid level Blood culures and urine cultures --E. coli sensistive to ceftriaxone. She has been treated with IV ceftriaxone during hospitalization and will transition to Oral Ceftin 500 mg twice dailyx 14 per ID recommendation and will need to follow up with Urology on outpatient basis. #UTI--continue Ceftriaxone as above #Nausea/vomiting/ fever, PO intolerance--likely above, and resolved and tolerating diet #Acute Lactic acidosis--due sepsis #Acute hypoxia without symptoms in ED -CXR/CT chest were negative. Respiratory panel and covid 19, negative, was likely related to above sepsis resolved, 95 on RA #CKD stage 3- likely related to polycystic kidney disease -CT abdomen/pelvis showing proteinaceous cysts bilaterally Creatine within baseline #HTN--continue all home meds Metoprolol, Norvasc and Losartan and IV meds PRN for control #Unspecified mild dementia without behavioral disturbance -continue aricept #CAD/HLD -continue statin, bb DVT prophylaxis-Lovenox Full code Healthcare proxy- daughter Fara with whom she lives [phone] Need for inpatient: sepsis, bacteremia on IV Abx until improve Time Spent With Patient Time: Total time managing care of this patient today ____ minutes. Quality Stroke Does the patient have a stroke diagnosis?: No VTE Prior VTE?: No VTE Risk Level:: Medical - moderate - high VTE Device Contraindication: Treatment Not Indicated VTE Drug Contraindication: N/A - Med Ordered
[2022-04-01] MEDS: Losartan Potassium 50 MG TABLET 100 MG PO (08:32)
[2022-04-01] MEDS: Mirabegron 50 MG TAB.ER.24H PO ×2 (08:32→23:06)
[2022-04-01] MEDS: Loratadine 10 MG TABLET PO (08:32)
[2022-04-01] MEDS: 0.9 % Sodium Chloride Flush 3 ML SYRINGE IVFLUSH ×3 (08:32→23:00)
[2022-04-01 08:42] LABS: Anion Gap 13 (12-20); Blood Urea Nitrogen 10 mg/dL (9-16); Calcium 8.7 mg/dL (8.4-10.2); Carbon Dioxide 22 mmol/L (22-29); Chloride 113 mmol/L (96-108); Creatinine Clr Calc Pharmacy 35.3; Estimated Glomerular Filt Rate 50; Glucose Random 92 mg/dL (60-115); Potassium 4.1 mmol/L (3.3-5.1); Sodium 144 mmol/L (135-145)
[2022-04-01] MEDS: amLODIPine Besylate 5 MG TABLET PO (09:07)
[2022-04-01] MEDS: Metoprolol Succinate ER 50 MG TAB.ER.24H PO (10:01)
[2022-04-01] MEDS: Acetaminophen 325 MG TABLET 650 MG PO (11:27)
[2022-04-01] MEDS: hydrALAZINE HCl 20 MG/ML VIAL 10 MG IVPUSH ×2 (11:27→15:49)
[2022-04-01] MEDS: cefTRIAXone sodium 2 GM in 0.9 % Sodium Chloride 50 ML IV (14:54)
--- NOTE | 2022-04-01 17:49 | PC.NURSE ---
Pt had a consistantly high BP throughout the day. Systolics in the 180/190s. Pt home medications did not have effect. MD Sliva ordered Hydralazine 10mg Q6 for systolic over 180. Gave two doses 4hrs apart. Last dose @15:49. reassessed Bp 165/72. MD aware of improvement. Pt has no other complaints. Resting quitely in bed.
[2022-04-01] MEDS: Enoxaparin Sodium 30 MG/0.3 ML SYRINGE SUBCUT (18:24)
[2022-04-01] MEDS: Atorvastatin Calcium 40 MG TABLET PO (23:05)
[2022-04-01] MEDS: rOPINIRole HCL 0.25 MG TABLET PO (23:05)
[2022-04-01] MEDS: Donepezil HCl 10 MG TABLET PO (23:06)
--- NOTE | 2022-04-02 | ECG_ITS ---
Test Reason : sob Blood Pressure : / mmHG Vent. Rate : 098 BPM Atrial Rate : 098 BPM P-R Int : 172 ms QRS Dur : 092 ms QT Int : 308 ms P-R-T Axes : 037 -41 001 degrees QTc Int : 393 ms Sinus rhythm with Premature supraventricular complexes Left axis deviation Nonspecific ST and T wave abnormality Abnormal ECG When compared with ECG of 28-MAR-2022 12:52, Premature supraventricular complexes are now Present Referred By: Jose Alberto Silva Electronically Signed By:MARIANNA BARRIENTOS
[2022-04-02 03:37] VITALS: BP 158/72; PULSE 62; RESP 19; TEMP 36.7; O2SAT 95
[2022-04-02 07:54] VITALS: BP 160/70; PULSE 67; RESP 18; TEMP 36.5; O2SAT 95
[2022-04-02] MEDS: 0.9 % Sodium Chloride Flush 3 ML SYRINGE IVFLUSH (07:58)
[2022-04-02] MEDS: Loratadine 10 MG TABLET PO (07:58)
[2022-04-02] MEDS: Mirabegron 50 MG TAB.ER.24H PO (07:59)
[2022-04-02] MEDS: Metoprolol Succinate ER 50 MG TAB.ER.24H PO (07:59)
[2022-04-02] MEDS: amLODIPine Besylate 10 MG TABLET PO (07:59)
[2022-04-02] MEDS: Losartan Potassium 50 MG TABLET 100 MG PO (07:59)
--- NOTE | 2022-04-02 09:31 | PM.DS ---
DS: Providers Provider Date of Service: 04/08/22 Date of admission: 03/28/22 18:44 Primary care physician: Adry Young MD Consults: 03/30/22 15:30 Consult to Infectious Diseases Routine Consulting Provider: Lauren Ch Reason for consultation: bacteremia, Has provider been notified: No DS: Diagnosis Discharge Diagnosis (1) Nausea and vomiting: Status: Acute (2) Acidosis, lactic: Status: Acute DS: Summary Hospital Course Hospital Course: Chief Complaint: n/v, fever 84-year-old female with a past medical history of hypertension, hyperlipidemia, GERD, obesity, mild cognitive impairment, osteoarthritis, chronic back pain, CKD stage 3, ACS, hx klebsiella UTI, osteopenia, PVD, polycystic kidney disease presented to the ED with her daughter for evaluation of malaise, nausea, vomiting x 5 episodes, fevers around 100, and decreased PO tolerance since early this morning around 4am. Also noted to be generally weak with gait imbalance. On arrival, patient became febrile to 103.2, treated with acetaminophen.? Tachypneic to 28, and hypoxic to 89% placed on 2 L supplemental O2.? Leukocytosis of 12.0.? Creatinine 1.65 (baseline 1.32), BUN 15, locked lytes normal, except for mild hypomagnesemia of 1.5.? Initial lactic acid elevated at 2.5, repeat at 2.4.? Initial troponin 22.9, repeat 25.1.? BNP 118.? Viral respiratory panel negative including for COVID-[address] abdomen/pelvis showing mild hepatic steatosis and chronically mildly dilated common bile duct as well as polycystic renal disease, likely proteinaceous cysts.? No evidence nephrolithiasis or hydronephrosis.? There is also colonic diverticulosis without diverticulitis.? CXR negative for any acute cardiopulmonary abnormality.? Chest CT without any acute abnormality.? Small 4 mm perifissural right middle lobe nodule noted which likely represents lymph node. Pt denies eating any bad foods. No known sick contacts. No abdominal pain, diarrhea, constipation, hematochezia, melena, flank pain, dysuria, hematuria, increased urinary frequency, cough, sob, palpitations, lighteadedness, chest pain. Hospital hospital course: #Severe Sepsis upon initial lactic acid level Blood culures and urine cultures --E. coli sensistive to ceftriaxone. She has been treated with IV ceftriaxone during hospitalization and will transition to Oral Ceftin 500 mg twice dailyx 14 per ID recommendation and will need to follow up with Urology on outpatient basis. #UTI--continue Ceftriaxone as above #Nausea/vomiting/ fever, PO intolerance--likely? above, and resolved and tolerating diet #Acute Lactic acidosis--due sepsis #Acute hypoxia without symptoms in ED -CXR/CT chest were? negative. Respiratory panel? and covid 19, negative, was likely related to above? 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 aricept #CAD/HLD -continue statin, bb #HERNANDEZ--no clinical evidence of heart failure, no hypoxia,.. symptoms were likely related to elevated BPs Time Spent with Patient Time attestation: Total time managing care of this patient today ____ minutes. Discharge coordination time: Greater than 30 minutes Quality: Safe Use of Opioids Does Pt have an Active Cancer Diagnosis on the Problem List?: No Quality: Stroke Does the patient have a stroke diagnosis?: No Physical Exam Vital Signs: Vital Signs: Last Vital Signs Temp 97.7 F 04/02/22 07:54 Pulse 67 04/02/22 07:54 Resp 18 04/02/22 07:54 BP 160/70 H 04/02/22 07:54 Pulse Ox 95 04/02/22 07:54 O2 Del Method 04/02/22 07:54 O2 Flow Rate 2 03/30/22 07:33 BMI result Body Mass Index 33.8 Discharge Plan Discharge Anticipated Discharge Date/Time: 04/02/22 09:14 Patient Disposition: Home Health Service Discharge Diagnosis: Kidney failure, UTI, bacteremia, uncontrolled HTN Referrals: Po,Adry Fink MD [Primary Care Provider] - 1 Week Discharge Medications: New amlodipine 10 mg Tablet 10 mg PO DAILY Qty: 30 0RF Protocol: Hold for SBP< HOLD for SBP < : 90 cefuroxime axetil 500 mg tablet 500 mg PO BID 10 Days Qty: 20 0RF Continued losartan 100 mg tablet 100 mg PO DAILY Qty: 90 3RF donepezil [Aricept] 10 mg tablet 10 mg PO BEDTIME 90 Days Qty: 90 2RF metoprolol succinate 50 mg tablet extended release 24 hr 50 mg PO BEDTIME 90 Days Qty: 90 3RF ropinirole 0.25 mg tablet 0.25 mg PO BEDTIME Qty: 90 2RF Rx Instructions: administer 1-3 hours before bedtime atorvastatin 40 mg tablet 40 mg PO BEDTIME 30 Days Qty: 30 0RF Rx Instructions: Must call cardiology for appt for refills Myrbetriq 50 mg tablet extended release 24 hr 50 mg PO BID 90 Days Qty: 180 3RF fexofenadine 60 mg Tablet 60 mg PO DAILY tizanidine 4 mg Tablet 4 mg PO BEDTIME PRN (Reason: Muscle Pain) trazodone 50 mg tablet 100 mg PO BEDTIME PRN (Reason: sleep) 90 Days Qty: 180 2RF Discontinued amlodipine 5 mg tablet 5 mg PO DAILY@1200 Qty: 90 3RF Discharge Orders: Discharge Order (Routine); Ordered 04/02/22 Ordered By: Jose Alberto Silva Diet: Advance to usual diet Activity on Discharge: As tolerated Stand Alone Forms: Patient Portal Discharge page Care Plan Goals: recovery from UTI, reanl failure, and blood pressure control Health Concerns: UTI and bacteremia Uncontrolled blood pressure Plan of Treatment: You were admitted with sepsis due to UTI, kindey failure and uncontrolled blood pressure Take Cefuroxime (Ceftin) for UTI, be sure to take all pills Please note that Norvasc (Amlodipine) has been increased to 10 mg daily Follow up with your Doctor in a week Assessment: See above Discharge Date/Time: 04/02/22 14:53
--- NOTE | 2022-04-02 09:36 | P.PNIM_ITS ---
Subjective Subjective Date of Service: 04/02/22 Interval History: Follow-up on sepsis due to UTI, Interval history: blood pressure is better, c/o hernandez on exertion Physical Exam Vital Signs: Vital Signs: Last Vital Signs Temp 97.7 F 04/02/22 07:54 Pulse 67 04/02/22 07:54 Resp 18 04/02/22 07:54 BP 160/70 H 04/02/22 07:54 Pulse Ox 95 04/02/22 07:54 O2 Del Method 04/02/22 07:54 O2 Flow Rate 2 03/30/22 07:33 BMI result Body Mass Index 33.8 Const: Other: General: AO X 3, no acute distress Resp: CTA bilateral CVS: S1,S2,RRR GI: +BS, NT, no distention Skin: No rash Neuro: motor grossly intact Psych: appropriate affect Objective Data Active Medications Acetaminophen (Acetaminophen Supp 650 Mg Supp.Rect) 650 mg MN Q6H PRN PRN Reason: fever Last Admin: 03/28/22 14:42 Dose: 650 mg Documented By: GENEVA Acetaminophen (Acetaminophen 325 Mg Tablet) 650 mg PO Q6H PRN PRN Reason: Pain, Mild (Pain Scale 1-3) Last Admin: 04/01/22 11:27 Dose: 650 mg Documented By: DANAE Amlodipine Besylate (Amlodipine Besylate 10 Mg Tablet) 10 mg PO DAILY [facility]; Protocol Last Admin: 04/02/22 07:59 Dose: 10 mg Documented By: DANAE Atorvastatin Calcium (Atorvastatin Calcium 40 Mg Tablet) 40 mg PO BEDTIME [facility] Last Admin: 04/01/22 23:05 Dose: 40 mg Documented By: CORTEZ Docusate Sodium (Docusate Sodium 100 Mg Capsule) 100 mg PO DAILY PRN PRN Reason: Constipation Donepezil HCl (Donepezil Hcl 10 Mg Tablet) 10 mg PO BEDTIME [facility] Last Admin: 04/01/22 23:06 Dose: 10 mg Documented By: CORTEZ Enoxaparin Sodium (Enoxaparin Sodium 40 Mg/0.4 Ml Syringe) 40 mg SUBCUT Q24H JEANNINE Hydralazine HCl (Hydralazine Hcl 20 Mg/Ml Vial) 10 mg IVPUSH Q6H PRN; Protocol PRN Reason: SBP> 180 Last Admin: 04/01/22 15:49 Dose: 10 mg Documented By: DANAE Ceftriaxone Sodium 2 gm/ (Sodium Chloride) 50 mls @ 100 mls/hr IV Q24H [facility] Last Infusion: 04/01/22 15:35 Dose: 0 mls/hr Documented By: DANAE Loratadine (Loratadine 10 Mg Tablet) 10 mg PO DAILY [facility] Last Admin: 04/02/22 07:58 Dose: 10 mg Documented By: DANAE Losartan Potassium (Losartan Potassium 50 Mg Tablet) 100 mg PO DAILY [facility]; Protocol Last Admin: 04/02/22 07:59 Dose: 100 mg Documented By: DANAE Metoprolol Succinate (Metoprolol Succinate Er 50 Mg Tab.Er.24h) 50 mg PO DAILY [facility]; Protocol Last Admin: 04/02/22 07:59 Dose: 50 mg Documented By: DANAE Mirabegron (Mirabegron 50 Mg Tab.Er.24h) 50 mg PO BID [facility] Last Admin: 04/02/22 07:59 Dose: 50 mg Documented By: DANAE Ondansetron HCl (Ondansetron Hcl 4 Mg/2 Ml Vial) 4 mg IVPUSH Q8H PRN PRN Reason: Nausea and Vomiting Pharmacy Consult (Consult Rx Perform Med Rec) 1 each MISCELLANE ONCE PRN PRN Reason: Consult order Ropinirole HCl (Ropinirole Hcl 0.25 Mg Tablet) 0.25 mg PO BEDTIME [facility] Last Admin: 04/01/22 23:05 Dose: 0.25 mg Documented By: CORTEZ Sodium Chloride (0.9 % Sodium Chloride Flush 3 Ml Syringe) 3 ml IVFLUSH QSHIFT [facility] Last Admin: 04/02/22 07:58 Dose: 3 ml Documented By: DANAE Tizanidine HCl (Tizanidine Hcl 4 Mg Tablet) 4 mg PO BEDTIME PRN PRN Reason: Muscle Pain Last Admin: 03/29/22 21:09 Dose: 4 mg Documented By: ALISA Trazodone HCl (Trazodone Hcl 100 Mg Tablet) 100 mg PO BEDTIME PRN PRN Reason: sleep Last Admin: 03/30/22 21:09 Dose: 100 mg Documented By: [facility] 03/29/22 04:59 04/01/22 08:16 Assessment and Plan (1) Nausea and vomiting: Status: Acute (2) Acidosis, lactic: Status: Acute Plan 84-year-old female with a past medical history of hypertension, hyperlipidemia, GERD, obesity, mild cognitive impairment, osteoarthritis, chronic back pain, CKD stage 3, ACS, hx klebsiella UTI, osteopenia, PVD, polycystic kidney disease to be observed for nausea, vomiting, and PO intolerance. #Severe Sepsis upon initial lactic acid level Blood culures and urine cultures --E. coli sensistive to ceftriaxone. She has been treated with IV ceftriaxone during hospitalization and will transition to Oral Ceftin 500 mg twice dailyx 14 per ID recommendation and will need to follow up with Urology on outpatient basis. #UTI--continue Ceftriaxone as above #Nausea/vomiting/ fever, PO intolerance--likely above, and resolved and tolerating diet #Acute Lactic acidosis--due sepsis #Acute hypoxia without symptoms in ED -CXR/CT chest were negative. 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 symptoms were likely related to elevated BPs DVT prophylaxis-Lovenox Full code Healthcare proxy- daughter Fara with whom she lives [phone] Need for inpatient: sepsis, bacteremia on IV Abx until improve Time Spent With Patient Time: Total time managing care of this patient today ____ minutes. Quality Stroke Does the patient have a stroke diagnosis?: No VTE Prior VTE?: No VTE Risk Level:: Medical - moderate - high VTE Device Contraindication: Treatment Not Indicated VTE Drug Contraindication: N/A - Med Ordered
[2022-04-02 10:12] LABS: B Type Natriuretic Peptide 250 pg/mL (<100)
[2022-04-02 12:00] VITALS: BP 150/68; PULSE 75; RESP 18; TEMP 37; O2SAT 94
== END 2022-04-02 14:53 | disposition home health service (06) ==
LOC: HO.ED 17:57 → HO.EDOVER 19:03 → HO.S3 03-29 17:53
PROVIDERS: Physician Assistant Medical; Admitting Provider Physician Assistant; Emergency Provider Emergency Medicine; PCP Internal Medicine; Visit Provider Internal Medicine
DX: A41.51 Sepsis due to Escherichia coli [E. coli] (principal); N39.0 Urinary tract infection, site not specified; E87.21 Acute metabolic acidosis; I12.9 Hypertensive chronic kidney disease with stage 1 through stage 4 chronic kidney disease, or unspecified chronic kidney disease; N18.30 Chronic kidney disease, stage 3 unspecified; I24.9 Acute ischemic heart disease, unspecified; M19.90 Unspecified osteoarthritis, unspecified site; G31.84 Mild cognitive impairment of uncertain or unknown etiology; R09.02 Hypoxemia; Z20.822 Contact with and (suspected) exposure to COVID-19; Z79.899 Other long term (current) drug therapy
CPT/HCPCS: 0241U; 36415; 71045; 71046; 71250; 74176; 80048; 80053; 81001; 83605; 83735; 83880; 84484; 85025; 87040; 87077; 87086; 87088; 87186; 87205; 87633; 93005; 96361; 96365; 96366; 96372; 96375; 96376; 97110; 97116; 97162; 97530; 99221; 99285; J0696; J1650; J1885; J2405

== ENCOUNTER 2022-05-12 08:10 | Outpatient (REF) | payer MEDICARE, MEDICAID, SELFPAY ==
[2022-05-12 08:24] LABS: MANUAL DIFF FLAG NO
[2022-05-12 09:13] LABS: Basophils Absolute Auto 0.1 X10*3/uL (0.0-0.2); Eosinophils Absolute Auto 0.4 X10*3/uL (0.0-0.4); Hematocrit 42.4 % (37.0-47.0); Hemoglobin 13.9 g/dl (12.0-16.0); Imm Gran Abs Auto 0.02 X10*3/uL (0.00-0.03); Imm Gran Pct Auto 0.3 % (0.0-0.4); Lymphocytes Absolute Auto 1.6 X10*3/uL (1.2-4.9); Lymphocytes Percent Auto 22.6 % (20-40); Mean Corpuscular HGB Conc 32.8 g/dl (31.0-35.0); Mean Corpuscular Hemoglobin 29.7 pg (27.0-33.0); Mean Corpuscular Volume 90.6 fL (80.0-98.0); Mean Platelet Volume 11.8 fL (9.4-12.3); Monocytes Absolute Auto 0.4 X10*3/uL (0.1-1.2); Monocytes Percent Auto 5.5 % (2-11); Neutrophils Absolute Auto 4.8 x10*3/uL (2.0-8.3); Neutrophils Percent Auto 65.6 % (45-73); Platelet Count 215 X10*3/uL (160-400); Red Blood Count 4.68 X10*6/uL (4.20-5.50); Red Cell Distribution Width 13.2 % (11.0-16.0); White Blood Count 7.3 X10*3/uL (4.8-10.8)
[2022-05-12 10:03] LABS: Alanine Aminotransferase 16 U/L (0-31); Alkaline Phosphatase 97 U/L (39-117); Anion Gap 14 (12-20); Aspartate Amino Transferase 18 U/L (5-31); Bilirubin Total 0.7 mg/dL (0.0-1.0); Blood Urea Nitrogen 12 mg/dL (9-16); Calcium 9.4 mg/dL (8.4-10.2); Carbon Dioxide 24 mmol/L (22-29); Chloride 110 mmol/L (96-108); Cholesterol 117 mg/dL; Estimated Glomerular Filt Rate 37; Glucose Random 91 mg/dL (60-115); HDL Cholesterol 43 mg/dL; LDL Cholesterol Calculated 51 mg/dl; Magnesium 1.9 mg/dL (1.6-2.6); Potassium 4.6 mmol/L (3.3-5.1); Sodium 143 mmol/L (135-145); Total Protein 6.2 g/dL (6.5-8.0); Triglycerides 117 mg/dL
[2022-05-12 10:19] LABS: Folate 6.6 ng/mL (> or = 4.0); Free T4 (Free Thyroxine) 1.07 ng/dL (0.71-1.85); Thyroid Stimulating Hormone 2.93 uIU/mL (0.32-4.0); Vitamin B12 908 pg/mL (200-900); Vitamin D 25-OH Total 26.3 ng/mL (>30)
== END 2022-05-12 08:11 | disposition home or self-care (01) ==
LOC: HO.LAB 08:10
PROVIDERS: PCP Internal Medicine; Visit Provider Internal Medicine
DX: I73.9 Peripheral vascular disease, unspecified (principal); E78.00 Pure hypercholesterolemia, unspecified; M81.0 Age-related osteoporosis without current pathological fracture
CPT/HCPCS: 36415; 80053; 80061; 82306; 82607; 82746; 83735; 84439; 84443; 85025

== ENCOUNTER 2022-09-12 08:10 | Outpatient (AMB) | payer MEDICARE, MEDICAID, SELFPAY ==
[2022-09-12 08:26] VITALS: BP 120/70; PULSE 43; BMI 32.9
--- NOTE | 2022-09-12 08:26 | A.OFFVIS_ITS ---
Intake Vital Signs 09/12/22 08:26 Height 4 ft 11 in Weight 163 lb 2.273 oz BMI 32.9 BP 120/70 Pulse 43 L Pulse Source Pulse Oximeter Intake Visit Reasons: ED follow up Intake Note: follow up patient is felling some s/b Data Warehousing Engineer Required: No Allergies No Known Allergies [No Known Allergies*] Allergy (Verified 09/12/22 08:33) Medication List - Last Reconciled 09/12/22 by Danni Quigley, ASSISTANT OPERATOR-C amlodipine 10 mg See Protocol PO DAILY atorvastatin 40 mg PO BEDTIME hydrochlorothiazide 25 mg PO DAILY losartan 100 mg PO DAILY metoprolol succinate ER 50 mg PO BEDTIME 90 days mirabegron ER (Myrbetriq) 50 mg PO DAILY 90 days ropinirole 0.25 mg PO BEDTIME tizanidine 4 mg PO BEDTIME PRN HPI ED follow up HPI Details Tiffani is an 86-year-old female with past medical history hypertension, hyperlipidemia, peripheral vascular disease, chronic kidney disease, prior chest discomfort with mildly elevated troponins, echo had shown no wall motion abnormality. She was maintained on meds for presume CAD including atorvastatin, metoprolol, amlodipine. Her last visit to cardiology was 11/17/2020. Today she reports she has been having increasing fatigue and shortness of breath. She feels the symptom has come on gradually. She gets exhausted even with light activities such as making her bed. No clear exertional disc comfort in her chest. No palpitations, dizziness, presyncope, syncope, falls. No PND, orthopnea or edema. She is taking all meds as directed including metoprolol. Her daughter is present. [facility] Medical History Acute coronary syndrome Adnexal mass Bacteremia due to Klebsiella pneumoniae Chest discomfort Chronic kidney disease (CKD) stage G3b/A3, moderately decreased glomerular filtration rate (GFR) between 30-44 mL/min/1.73 square meter and albuminuria creatinine ratio greater than 300 mg/g Decreased hearing of both ears Degenerative disc disease, lumbar Diarrhea E coli bacteremia Encounter for annual wellness exam in Medicare patient GERD (gastroesophageal reflux disease) Gout Hypercholesterolemia Hypertension Leg cramps Mild cognitive impairment Obesity (BMI 30-39.9) Onychomycosis Osteoarthritis Osteopenia Osteoporosis screening Peripheral vascular disease Polycystic kidney disease Sepsis Spondylosis of cervical spine Urinary incontinence Vitamin D deficiency Surgical History History of cholecystectomy History of hysterectomy History of surgery Family History Father No problems noted. Mother No problems noted. Brother No problems noted. Daughter No problems noted. Daughter No problems noted. Daughter No problems noted. Daughter No problems noted. Social History Household Members: Family Household Members Other:: 1 Housing: House Do you presently have visiting nurse or other home services: No Alcohol intake: never Patient Tobacco Use Status: Never used Tobacco e-Cigarette/Vaping Use: Never Used Second Hand Smoke Exposure: No Advance Directives Date on File: 11/17/19 service: No Current occupational status: retired Cognitive needs: No Hearing needs: No Vision needs: Yes Review of Systems Const Details: Fatigue, shortness of breath All systems reviewed & are unremarkable except as noted in HPI and below Card Reports dyspnea on exertion Resp Reports dyspnea on exertion Physical Exam Vital Signs: Last Vital Signs Pulse 43 L 09/12/22 08:26 BP 120/70 09/12/22 08:26 BMI result Body Mass Index 32.9 Const Other: Ambulates with walker General: cooperative, comfortable and no acute distress Orientation/consciousness: patient oriented x3 HEENT Head: Yes normal to inspection Eyes Sclerae: sclerae normal Neck Neck: Yes normal visual inspection Carotids: normal carotid upstroke Chest Chest palpation & inspection: normal inspection of the chest Resp Effort & Inspection: normal respiratory effort Auscultation: clear to auscultation bilaterally, no crackles, no rales, no rhonchi and no wheezes Cardio Jugular venous distension: no JVD Rate: regular rate Rhythm: regular rhythm Heart sounds: S1 normal heart sound present, S2 normal heart sound present, no murmurs and no rubs Peripheral pulses: Peripheral pulses 2+ throughout GI Inspection: Yes normal to inspection Skin General skin exam: no rashes or lesions noted Neuro General: patient oriented x3 Extrem General: Yes normal to inspection, No no pedal edema and No calf tenderness Psych Appearance: grossly normal Mental Status: mental status grossly normal Speech and movement: Normal speech and movement present Office Procedures EKG Details: Today he, read by me, sinus bradycardia PACs, left axis deviation, nonspecific T-wave abnormalities, rate 53, QTC 456 millisecond [id number], Complete Assessment & Plan Assessment & Plan (1) Shortness of breath: Code(s): R06.02 - Shortness of breath Plan: Patient reports significant fatigue and shortness of breath with activity. She says if she makes her bed she then has to rest for 10 minutes. She feels this symptom has gradually occurred over the last year. She denies any chest discomfort at rest or with activity. Initial pulse check with heart rate mid 40s. An EKG shows sinus bradycardia with PACs, nonspecific T-wave abnormalities, rate 53. She has known history of PACs and brief atrial tach noted on prior EKG. It is possible that she has significant Ventura with chronotropic incompetence. Will have her reduce her metoprolol by half down to 25 mg daily. Will check a Holter monitor to assess for average heart rate and for any concerning Ventura arrhythmia or heart blocks. Will update echocardiogram. Cardiology follow-up when test results are available. (2) Bradycardia: Code(s): R00.1 - Bradycardia, unspecified Plan: As above (3) PAC (premature atrial contraction): Code(s): I49.1 - Atrial premature depolarization Orders: Orders CA echo transthoracic complete Today R00.1 - Bradycardia, unspecified, R06.02 - Shortness of breath ECG 3 day holter monitor Today R00.1 - Bradycardia, unspecified, R06.02 - Shortness of breath Coding Level of Care Code Est Pt Level 4 (82298) Diagnoses Shortness of breath R06.02 Bradycardia R00.1 PAC (premature atrial contraction) I49.1 CPT Codes EKG - CPT: 70925-[id number], Complete ([id number]) Time Spent (min) 24 Comment Chart review, documentation, interview, assess
== END 2022-09-12 09:06 | disposition home or self-care (01) ==
PROVIDERS: PCP Internal Medicine; Visit Provider Nurse Practitioner Family
DX: R06.02 Shortness of breath (principal); I49.1 Atrial premature depolarization
CPT/HCPCS: 93010; 99214

== ENCOUNTER → 2022-09-12 08:10 | Outpatient (BNVA) | payer MEDICARE, MEDICAID, SELFPAY | PROVIDERS: PCP Internal Medicine; Visit Provider Nurse Practitioner Family | DX: R06.02 Shortness of breath (principal); I49.1 Atrial premature depolarization; I12.9 Hypertensive chronic kidney disease with stage 1 through stage 4 chronic kidney disease, or unspecified chronic kidney disease; N18.30 Chronic kidney disease, stage 3 unspecified | CPT/HCPCS: 93005; 99212 ==

== ENCOUNTER 2022-09-23 09:56 | Emergency (ER) | payer MEDICARE, MEDICAID, SELFPAY ==
--- NOTE | ~2022-09-23 | XR_ITS ---
EXAMINATION: XR CHEST CLINICAL INFORMATION: Shortness of breath. Left-sided pain. COMPARISON: Previous chest x-ray most recent March 2022 TECHNIQUE: 2 views of the chest were obtained. FINDINGS: The cardiac and mediastinal contours are stable. The lungs are clear. No pleural effusion or pneumothorax. Degenerative changes of the spine. XR/XR chest 2V IMPRESSION: No evidence for acute disease in the chest.
--- NOTE | 2022-09-23 10:01 | ECG_ITS ---
Test Reason : SOB Blood Pressure : / mmHG Vent. Rate : 073 BPM Atrial Rate : 073 BPM P-R Int : 162 ms QRS Dur : 102 ms QT Int : 396 ms P-R-T Axes : 016 -50 -32 degrees QTc Int : 436 ms Normal sinus rhythm Left anterior fascicular block Nonspecific T wave abnormality Abnormal ECG When compared with ECG of 02-APR-2022 10:23, Premature supraventricular complexes are no longer Present Referred By: Generic ED Physician Electronically Signed By:Matheus Velazquez
[2022-09-23 10:20] VITALS: BP 147/60; PULSE 70; RESP 16; TEMP 36.4; O2SAT 95; BMI 31.3
--- NOTE | 2022-09-23 11:15 | ED.BACK ---
HPI - Back Pain/Injury General Chief Complaint: Back Pain/Injury Stated Complaint: sob, L sided chest/back pain Time Seen by Provider: 09/23/22 11:04 Source: patient and family Mode of arrival: wheelchair Limitations: no limitations History of Present Illness HPI Narrative: 86 year old female w/ a pmhx significant for osteoporosis, hypertension, GERD, degenerative lumbar disc disease, Nephrolithiasis, and multiple other comorbidities presents to the ER today for complaints of left sided flank pain and SOB secondary to pain w/ inspiration. She describes it as a sharp constant pain that makes it difficult to sneeze, cough, laugh, or take deep breaths. She denies any recent trauma to the area, but states she may have injured it while getting out of bed yesterday morning. She denies any shoulder involvement, spine pain, radiation of pain in the left arm, chest pain, abdominal pain, urinary/bowel involvement, rashes, or bruising. She has not tried any Tylenol/NSAIDs, heat, or ice for relief. She reports one similar episode a few months ago that resolved spontaneously in a week. MD elicited complaint: other (L flank pain) Onset (ago): day(s) (1) Timing: constant Quality: sharp Location: left flank Radiation: none Exacerbating factors: movement, deep breaths and coughing/sneezing Relieving factors: none Related Data Home Medications Medication Instructions Recorded Confirmed tizanidine 4 mg tablet 4 mg PO BEDTIME PRN Muscle Pain 03/28/22 09/12/22 Previous Rx's Medication Instructions Recorded losartan 100 mg tablet 100 mg PO DAILY #90 tabs 04/14/22 amlodipine 10 mg tablet 10 mg PO DAILY #90 tabs 06/06/22 atorvastatin 40 mg tablet 40 mg PO BEDTIME #90 tabs 07/04/22 hydrochlorothiazide 25 mg tablet 25 mg PO DAILY #30 tabs 08/09/22 mirabegron 50 mg tablet,extended 50 mg PO DAILY 90 days #90 tabs 08/09/22 release 24 hr (Myrbetriq) metoprolol succinate 50 mg 50 mg PO BEDTIME 90 days #90 tabs 09/15/22 tablet,extended release 24 hr ropinirole 0.25 mg tablet 0.25 mg PO BEDTIME #90 tabs 09/21/22 lidocaine 5 % topical patch 1 patch topical DAILY #15 ea 09/23/22 Allergies Allergy/AdvReac Type Severity Reaction Status Date / Time No Known Allergies Allergy Verified 09/23/22 10:20 [No Known Allergies*] Review of Systems Review of Systems: Yes all other systems are reviewed and are negative [facility] Past Medical History Medical History Acute coronary syndrome Adnexal mass Bacteremia due to Klebsiella pneumoniae Chest discomfort Chronic kidney disease (CKD) stage G3b/A3, moderately decreased glomerular filtration rate (GFR) between 30-44 mL/min/1.73 square meter and albuminuria creatinine ratio greater than 300 mg/g Decreased hearing of both ears Degenerative disc disease, lumbar Diarrhea E coli bacteremia Encounter for annual wellness exam in Medicare patient GERD (gastroesophageal reflux disease) Gout Hypercholesterolemia Hypertension Leg cramps Mild cognitive impairment Obesity (BMI 30-39.9) Onychomycosis Osteoarthritis Osteopenia Osteoporosis screening Peripheral vascular disease Polycystic kidney disease Sepsis Spondylosis of cervical spine Urinary incontinence Vitamin D deficiency Surgical History History of cholecystectomy History of hysterectomy History of surgery Family History Family History Father No problems noted. Mother No problems noted. Brother No problems noted. Daughter No problems noted. Daughter No problems noted. Daughter No problems noted. Daughter No problems noted. Social History Social History Household Members: Family Household Members Other:: 1 Housing: House Do you presently have visiting nurse or other home services: No Alcohol intake: never Patient Tobacco Use Status: Never used Tobacco Smoked in Last 30 Days: No e-Cigarette/Vaping Use: Never Used Second Hand Smoke Exposure: No Use of substances other than those prescribed or required for medical reasons: No Advance Directives: Yes Advance Directives on File: Yes Advance Directives Date on File: 11/17/19 service: No Current occupational status: retired Cognitive needs: No Hearing needs: No Vision needs: Yes Physical Exam Vital Signs: Vital Signs: Last Vital Signs Temp 97.6 F 09/23/22 10:20 Pulse 70 09/23/22 10:20 Resp 16 09/23/22 10:20 BP 147/60 H 09/23/22 10:20 Pulse Ox 95 09/23/22 10:20 O2 Del Method Room Air 09/23/22 10:20 BMI result Body Mass Index 31.3 Appearance: Alert. Oriented X3. No acute distress. Head: normocephalic, atraumatic. Eyes: Pupils equal, round and reactive to light. Neck: Normal inspection. Neck supple. CVS: Normal heart rate and rhythm. Pulses normal. Respiratory: No respiratory distress. Breath sounds normal. Back: normal inspection. medial scapular area with soft tissue tenderness and palpable spasm. Skin: Skin warm and dry. Normal skin color. Normal skin turgor. No rashes. Extremities: Normal ROM. Strength and sensory intact. Neuro/psych: Oriented X 3. No motor deficit. No sensory deficit. CN II-XII intact. Normal speech and cognition. Medications Administered Discontinued Medications Generic Name Dose Route Start Last Admin Trade Name Freq PRN Reason Stop Dose Admin Acetaminophen 975 mg 09/23/22 11:46 09/23/22 11:54 Acetaminophen 325 Mg Tablet PO 09/23/22 11:47 975 mg ONCE ONE Administration Lidocaine 1 patch 09/23/22 11:46 09/23/22 11:54 Lidocaine 4 % Patch Adh..Patch TRANSDERMA 09/23/22 11:47 1 patch ONCE ONE Administration Protocol Medical Decision Making Medical Decision Making MDM Narrative: 86 year old female w/ a pmhx significant for osteoporosis, hypertension, GERD, degenerative lumbar disc disease, Nephrolithiasis, and multiple other comorbidities presents to the ER today for complaints of left sided flank pain and SOB secondary to pain w/ inspiration. On exam VSS and she is in NAD, no signs of trauma, and no red flag symptoms present. Likely a muscle strain/spasm given tenderness on exam w/ palpable spasm. Unlikely, broken ribs, nephrolithiasis, pyelonephritis, or shingles. Very unlikely that it is ACS or PE. Plan: EKG, lidocaine patch, X-ray, tylenol, EKG without ischemic changes, x-ray unremarkable. feeling much better after lido patcd and tylenol. stable for d/c home. Differential Diagnosis Differential Diagnoses: The differential diagnosis associated with the presentation includes most likely muscular strain/spasm, Unlikely, broken ribs, nephrolithiasis, pyelonephritis, or shingles. Very unlikely that it is ACS or PE. Admission/Observation Consideration of admission/observation: Escalation of care including admission/observation considered elderly female with multiple comorbidities w/ SOB and pain in the left scapular area Independent Interpretation I performed an independent interpretation of an: EKG and Plain X-Ray Interpretation: CXR w/ clear lungs, no broken ribs EKG w/ normal sinus rhythm, HR 73 bpm, no ST segment elevations or depressions Radiology Impression Discussion of test interpretation with radiology: I have reviewed the radiologist's reading. Radiologist Impression: EXAMINATION: XR CHEST CLINICAL INFORMATION: Shortness of breath. Left-sided pain. COMPARISON: Previous chest x-ray most recent March 2022 TECHNIQUE: 2 views of the chest were obtained. FINDINGS: The cardiac and mediastinal contours are stable. The lungs are clear. No pleural effusion or pneumothorax. Degenerative changes of the spine. XR/XR chest 2V IMPRESSION: No evidence for acute disease in the chest. Independent Historian Clinical information obtained from an independent historian. History obtained from or confirmed by: Other (daughter) External Record Review External record reviewed: Outpatient record, Prior outpatient labs and Prior outpatient radiology Tests considered The following testing was considered but not selected: lab workup considered Prescription Management I considered prescription management with: Pain Medication Chronic Conditions Patient?s care impacted by: Hypertension Critical Care Time Critical Care Time Critical Care Time: No Discharge Plan Discharge Clinical Impression: Muscle spasm Patient Disposition: Home, Self-Care Instructions: Muscle Spasm (ED) Additional Instructions: Your chest x-ray was unremarkable. Your EKG did not show any concerning findings. Your pain is most likely due to muscle strain and spasm. No bending, lifting or twisting. Use heat sseveral times per day for 20 minutes at a time on low heat Take Tylenol 975 mg every 8 hours. Follow up with your Primary Care Doctor this week. If you develop new or worsening symptoms call 911 or come back to the ER for further evaluation. Prescriptions: New lidocaine 5 % adhesive patch,medicated 1 patch topical DAILY Qty: 15 0RF Rx Instructions: leave on most painful area for up to 12 hrs No Action amlodipine 10 mg tablet 10 mg PO DAILY Qty: 90 3RF Protocol: Hold for SBP< HOLD for SBP < : 90 atorvastatin 40 mg tablet 40 mg PO BEDTIME Qty: 90 0RF Rx Instructions: OVERDUE FOR APPT. PLEASE CALL [phone] TO SCHEDULE FOLLOW UP FOR 2022 SO WE CAN CONTINUE REFILLING metoprolol succinate 50 mg tablet extended release 24 hr 50 mg PO BEDTIME 90 Days Qty: 90 3RF ropinirole 0.25 mg tablet 0.25 mg PO BEDTIME Qty: 90 2RF Rx Instructions: administer 1-3 hours before bedtime tizanidine 4 mg Tablet 4 mg PO BEDTIME PRN (Reason: Muscle Pain) hydrochlorothiazide 25 mg tablet 25 mg PO DAILY Qty: 30 3RF Myrbetriq 50 mg tablet extended release 24 hr 50 mg PO DAILY 90 Days Qty: 90 3RF Rx Instructions: concern about the BP and will decrease to QD losartan 100 mg tablet 100 mg PO DAILY Qty: 90 3RF Referrals: Po,Adry Fink MD [Primary Care Provider] - Interventions: ED Discharge Assessment Last Done: 09/23/22 13:41 Discharge Date/Time: 09/23/22 13:42
[2022-09-23] MEDS: Lidocaine 4 % Patch ADH..PATCH 1 PATCH TRANSDERMA (11:54)
[2022-09-23] MEDS: Acetaminophen 325 MG TABLET 975 MG PO (11:54)
--- NOTE | 2022-09-23 12:38 | PC.NURSE ---
pt resting, no resp. distress. repositioned.
== END 2022-09-23 13:42 | disposition home or self-care (01) ==
PROVIDERS: Emergency Provider Emergency Medicine Emergency Medical Services; PCP Internal Medicine
DX: M62.838 Other muscle spasm (principal); R10.9 Unspecified abdominal pain; R06.02 Shortness of breath; I10 Essential (primary) hypertension; M51.36 Other intervertebral disc degeneration, lumbar region; N20.0 Calculus of kidney
CPT/HCPCS: 71046; 93005; 99284; 99285

== ENCOUNTER → 2022-09-23 10:01 | Outpatient (BNV) | payer MEDICARE, MEDICAID, SELFPAY | PROVIDERS: Emergency Provider Emergency Medicine Emergency Medical Services; PCP Internal Medicine; Visit Provider Internal Medicine Cardiovascular Disease | DX: I44.4 Left anterior fascicular block (principal) | CPT/HCPCS: 93010 ==

== ENCOUNTER → 2022-10-23 10:51 | Outpatient (REF) | payer MEDICARE, MEDICAID, SELFPAY ==
--- NOTE | 2022-10-23 10:54 | HM_ITS ---
Conclusion: 1. Patient was monitored for total period of 3 days and 1 hour 2. Baseline was normal sinus rhythm with average heart of 58 beats per minute with frequent sinus bradycardia with 62% of time heart rate below 60 beats per minute with no significant pauses 3. Occasional PACs noted with total burden of 1% with 10 short episodes of SVT longest lasting 5 beats and the fastest at 128 beats per minute 4. No patient reported events MTDD
--- NOTE | 2022-10-23 10:54 | CA_ITS ---
Transthoracic Echocardiogram Patient (Last, First, Middle): Tiffani García, Gender: Female Date of : 1935 Age: 86 Procedure Date: 10/23/2022 Procedure Type: Transthoracic Echocardiogram Location: OP Height: 149.86 cm Weight: 75.75 kg BSA: 1.71 m2 Heart Rate: bpm BP: 118 / 66 mmHg Fabric Cutter: MAGAN Referring MD: Danni Quigley [employer] MENDERLiya Symptoms: R06.02 - Shortness of breath Study Quality: Fair ECG Rhythm: Sinus Conclusions: - The left ventricular systolic function is normal. The visually estimated ejection fraction is between 60-65%. - No obvious valvular pathology seen on this study. Findings Left Ventricle Normal left ventricular cavity size. There is mildly increased left ventricular wall thickness. The left ventricular systolic function is normal. The visually estimated ejection fraction is between 60-65%. There is no evidence of regional wall motion abnormalities. Evidence suggests grade I (mild) diastolic dysfunction. Right Ventricle Normal right ventricular cavity size and systolic function. Atria Both atria are normal in size. Aortic Valve There is a normal trileaflet aortic valve. There is no aortic valve stenosis. There is trace (trivial) aortic valve regurgitation. Mitral Valve The mitral valve appears normal. There is trace mitral valve regurgitation. There is no mitral valve stenosis. Pulmonic Valve The pulmonic valve is likely normal. Tricuspid Valve Normal tricuspid valve structure. There is trace tricuspid valve regurgitation. There is no evidence of pulmonary hypertension. Great Vessels The asc aorta is normal in size. Venous The inferior vena cava is normal in size and collapses greater than 50% with inspiration. Pericardium/Pleural There is no evidence of pericardial effusion. Prior Study Comparison No significant change compared to prior study dated: 10/16/2020. Recommendations, Care & Conclusions No obvious valvular pathology seen on this study. Measurements 2D Linear Measurements IVSd: 1.27 0.6-0.9/0.6-1.0 cm LVIDd: 4.19 3.9-5.3/4.2-5.9 cm LVIDd Index: 2.45 2.4-3.2/2.2-3.1 cm/m2 LVIDs: 2.47 2.0-3.6 cm LVPWd: 1.26 0.7-1.1 cm Ao Root: 3.40 2.1-3.5 cm LA Diam: 3.30 2.7-3.8/3.0-4.0 cm LAIDs Index: 1.93 1.5-2.3 cm/m2 LV Mass: 239.10 67-162/88-224 g LV Mass Index: 139.82 43-95/49-115 g/m2 LVOT Diam: 2.10 3.0+(-)1.3 cm 2D Systolic Function EF 4C: 71.60 >55% EF 2C: 65.60 >55% Mitral Valve MV Pk E: 0.42 MV PK A: 0.86 MV Decel Time: 414.00 E/A: 0.50 E'Lateral: 7.40 E'Medial: 4.68 E/E' Med: 9.00 E/E' Lat: 5.70 PHT: 121.00 MVA PHT: 1.82 Decel [place]: 1.01 Aortic Valve AoV Pk Caleb: 1.27 AoV Mn Caleb: 0.73 AoV VTI: 0.30 AoV Pk Grad: 6.00 Aov Mn Grad: 3.00 LVOT LVOT Diam: 2.10 LVOT Area: 3.46 Diastolic Function MV Pk E: 0.42 MV Pk A: 0.86 E/A: 0.50 E'Medial: 4.68 E/E' Med: 9.00 E' Laterial: 7.40 E/E' Lat: 5.70 Right Ventricle TAPSE (mm): 21.00 TVS' Caleb: 10.00 Tricuspid Valve TR Pk Caleb: 2.31 TR Pk Grad: 21.00 RA Press: 3.00 RVSP: 24.00 Great Vessels Aorta Ao Root-2D: 3.40 2.0-3.7 cm Ao Asc: 3.70 2.1-3.4 cm Pulmonary Valve PV Pk Caleb: 0.72 Peak PV Grad: 2.00 Updated in Other Vendor System with Status of Final Chester Ramos MD electronically signed on 10/24/2022 10:49:02 AM with status of Final
== END ==
LOC: HO.CARD 10:51
PROVIDERS: PCP Internal Medicine; Visit Provider Nurse Practitioner Family
DX: R06.02 Shortness of breath (principal); R00.1 Bradycardia, unspecified
CPT/HCPCS: 93242; 93306

== ENCOUNTER → 2022-10-23 10:54 | Outpatient (BNV) | payer MEDICARE, MEDICAID, SELFPAY | PROVIDERS: PCP Internal Medicine; Visit Provider Internal Medicine | DX: R00.1 Bradycardia, unspecified (principal) | CPT/HCPCS: 93244; 93306 ==

== ENCOUNTER 2022-11-01 12:33 | Outpatient (AMB) | payer MEDICARE, MEDICAID, SELFPAY ==
[2022-11-01 12:42] VITALS: BP 130/72; PULSE 55; O2SAT 93; BMI 32.1
--- NOTE | 2022-11-01 12:42 | MHC.PC.OV ---
Vital Signs 11/01/22 12:42 Height 4 ft 11 in Weight 159 lb BMI 32.1 BP 130/72 Blood Pressure Location Lt brachial Position Sitting Pulse 55 Pulse Source Pulse Oximeter Pulse Oximetry (%) 93 Oxygen Delivery Method Room Air Intake Visit Reasons: HTN, dementia, incontinence Allergies No Known Allergies [No Known Allergies*] Allergy (Verified 11/01/22 12:42) Medication List - Last Reconciled 11/01/22 by Adry Young MD amlodipine 10 mg See Protocol PO DAILY atorvastatin 40 mg PO BEDTIME hydrochlorothiazide 25 mg PO DAILY lidocaine 5% 1 patch topical DAILY losartan 100 mg PO DAILY metoprolol succinate ER 25 mg (1/2 x 50 mg) PO BEDTIME 90 days mirabegron ER (Myrbetriq) 50 mg PO DAILY 90 days ropinirole 0.25 mg PO BEDTIME tizanidine 4 mg PO BEDTIME PRN Tobacco use date assessed: 03/24/22 Fall risk assessment: No Falls in past year Last assessed Fall Risk: 11/01/22 Dental Screening Dental Screen Date: 11/01/22 Did you have a dental visit in the last 12 months?: No Did you have a dental problem in the last 6 months where you did not have access to dental care?: No Was dental information given to patient?: No HPI HTN, dementia, incontinence HPI Details 86-year-old obese female with GERD hypertension hypercholesterolemia last seen in July 2022. Patient did see cardiology September 2022 due to complains of tiredness and shortness of breath metoprolol decreased and advised Holter monitor. Patient is here for follow-up echocardiogram doneThe left ventricular systolic function is normal. The visually estimated ejection fraction is between 60-65%. - No obvious valvular pathology seen on this study. Notes ER visit for left sided chest pain and back pain diagnosis of muscle spasms. Had a Holter done already and awaiting results. Metoprolol has been decreased to half a tablet at bedtime. As for urinary incontinence/urge incontinence patient was previously taking the medication twice a day this was decreased due to the bradycardia. Patient also complains about leg spasms and discussed about hydration since patient is on hydrochlorothiazide and we will be checking for electrolytes. [facility] Medical History (Updated 11/01/22 @ 13:38 by Adry Young MD) Leg cramps E coli bacteremia Sepsis Decreased hearing of both ears Osteoporosis screening Encounter for annual wellness exam in Medicare patient Chest discomfort Bacteremia due to Klebsiella pneumoniae Acute coronary syndrome Diarrhea GERD (gastroesophageal reflux disease) Mild cognitive impairment Osteoarthritis Spondylosis of cervical spine Vitamin D deficiency Urinary incontinence Obesity (BMI 30-39.9) Peripheral vascular disease Onychomycosis Adnexal mass Polycystic kidney disease Osteopenia Gout Degenerative disc disease, lumbar Chronic kidney disease (CKD) stage G3b/A3, moderately decreased glomerular filtration rate (GFR) between 30-44 mL/min/1.73 square meter and albuminuria creatinine ratio greater than 300 mg/g Hypercholesterolemia Hypertension Surgical History History of surgery History of cholecystectomy History of hysterectomy Family History Father No problems noted. Mother No problems noted. Brother No problems noted. Daughter No problems noted. Daughter No problems noted. Daughter No problems noted. Daughter No problems noted. Social History Household Members: Family Household Members Other:: 1 Housing: House Do you presently have visiting nurse or other home services: No Alcohol intake: never Patient Tobacco Use Status: Never used Tobacco e-Cigarette/Vaping Use: Never Used Second Hand Smoke Exposure: No Advance Directives Date on File: 11/17/19 service: No Current occupational status: retired Cognitive needs: No Hearing needs: No Vision needs: Yes Questionnaire PHQ-9 Over the last 2 weeks, how often have you been bothered by any of the following problems? 1. Little interest or pleasure in doing things: not at all 2. Feeling down, depressed, or hopeless: not at all 3. Trouble falling or staying asleep, or sleeping too much: more than half the days 4. Feeling tired or having little energy: several days 5. Poor appetite or overeating: not at all 6. Feeling bad about yourself - or that you are a failure or have let yourself or your family down: not at all 7. Trouble concentrating on things, such as reading the newspaper or watching television: not at all 8. Moving or speaking so slowly that other people could have noticed. Or the opposite - being so fidgety or restless that you have been moving around a lot more than usual: not at all 9. Thoughts that you would be better off or of hurting yourself in some way: not at all Total score: 3 Depression Screening Interpretation: Positive Source: Developed by Drs. Yemi Vela, Gelacio Beach and colleagues, with an educational lisa from [employer]. Thrive Questionnaire Date Thrive assessed: 03/24/22 AUDIT C Alcohol Use Questionnaire (AUDIT-C) 1. How often do you have a drink containing alcohol?: Never 2. How many drinks containing alcohol do you have on a typical day when you are drinking?: 1 or 2 3. How often do you have six or more drinks on one occasion?: Never Total Score: 0 PORTER-7 AMB Questionnaire PORTER-7 Date PORTER - 7 assessed: 03/24/22 Source: Developed by Drs. Yemi Vela, Christine Butler, Gelacio Hutchison and colleagues, with an educational lisa from [employer]. Physical exam (Primary Care) Vital Signs: Last Vital Signs Pulse 55 11/01/22 12:42 BP 130/72 11/01/22 12:42 Pulse Ox 93 11/01/22 12:42 Oxygen Delivery Method Room Air 11/01/22 12:42 BMI result Body Mass Index 32.1 Tobacco/Smoking Status: Tobacco use Status Tobacco use date assessed 03/24/22 11/01/22 12:43 Patient Tobacco Use Status Never used Tobacco 11/01/22 12:43 e-Cigarette/Vaping Use Never Used 11/01/22 12:43 PHQ-9: PHQ-9 Score PHQ-9: Total score 3 11/01/22 13:02 Depression Screening Interpretation: Positive Thrive Assessment: Date of Thrive Assessment Date Thrive assessed 03/24/22 11/01/22 12:43 Const General: alert; No acute distress Eyes Conjunctivae: conjunctivae normal Resp Auscultation: clear to auscultation bilaterally Cardio Rate: regular rate Rhythm: regular rhythm GI Inspection: Yes normal to inspection Extrem General: Yes normal to inspection and No edema Assessment and Plan Assessment & Plan (1) GERD (gastroesophageal reflux disease): Code(s): K21.9 - Gastro-esophageal reflux disease without esophagitis Qualifiers: Esophagitis presence: without esophagitis Qualified Code(s): K21.9 - Gastro-esophageal reflux disease without esophagitis Plan: Avoid the foods that causes that usually spicy foods, tomato products, juices, coffee, soda and foods that your sensitive to. After eating do not lie down, allow 3-4 hours before in lie down. And keep the head of bed above 30 degrees to avoid the acid from going up. (2) Hypertension: Code(s): I10 - Essential (primary) hypertension Qualifiers: Hypertension type: essential hypertension Qualified Code(s): I10 - Essential (primary) hypertension Plan: Continue with blood pressure medication. Decrease salt intake and exercise patient takes amlodipine 10 mg once a day losartan 100 mg once a day hydrochlorothiazide 25 mg once a and metoprolol 50 mg once a day (3) Hypercholesterolemia: Code(s): E78.00 - Pure hypercholesterolemia, unspecified Plan: Avoid fried foods, chicken skin, eggs, butter margarine, pastries and meat. Be it pork or beef they have a lot of cholesterol LDL goal of less than 130 and triglyceride of less than 150 patient is on atorvastatin 40 mg once a day (4) Mild cognitive impairment: Code(s): G31.84 - Mild cognitive impairment of uncertain or unknown etiology (5) Obesity (BMI 30.0-34.9): Code(s): E66.9 - Obesity, unspecified Plan: Diet and exercise (6) Renal insufficiency: Code(s): N28.9 - Disorder of kidney and ureter, unspecified Plan: Will need repeat blood work (7) Leg cramps: Code(s): R25.2 - Cramp and spasm Orders: Orders Complete Blood Count Auto Diff Today I10 - Essential (primary) hypertension Thyroid Stimulating Hormone Today I10 - Essential (primary) hypertension Lipid Panel Today E78.00 - Pure hypercholesterolemia, unspecified, I10 - Essential (primary) hypertension Phosphorus Today R25.2 - Cramp and spasm Comprehensive Met. Panel Today I10 - Essential (primary) hypertension Free T4 (Free Thyroxine) Today I10 - Essential (primary) hypertension Vitamin B12 and Folate Today I10 - Essential (primary) hypertension Magnesium Today R25.2 - Cramp and spasm Medications: Changed From metoprolol succinate ER 50 mg PO BEDTIME 90 days 90 tabs 3RF I10 - Essential (primary) hypertension To metoprolol succinate ER 25 mg (1/2 x 50 mg) PO BEDTIME 90 days 45 tabs 3RF I10 - Essential (primary) hypertension Coding Level of Care Code Est Pt Level 4 (78836) Diagnoses Gastroesophageal reflux disease without esophagitis K21.9 Esophagitis presence: without esophagitis Essential hypertension I10 Hypertension type: essential hypertension Hypercholesterolemia E78.00 Mild cognitive impairment G31.84 Obesity (BMI 30.0-34.9) E66.9 Renal insufficiency N28.9 Leg cramps R25.2 Additional Codes PHQ-9 - 70840 - PHQ-9 Billing: ([id number])
== END 2022-11-01 13:49 | disposition home or self-care (01) ==
PROVIDERS: PCP Internal Medicine; Visit Provider Internal Medicine
DX: K21.9 Gastro-esophageal reflux disease without esophagitis (principal); I10 Essential (primary) hypertension; E78.00 Pure hypercholesterolemia, unspecified; G31.84 Mild cognitive impairment of uncertain or unknown etiology; E66.9 Obesity, unspecified; N28.9 Disorder of kidney and ureter, unspecified; R25.2 Cramp and spasm
CPT/HCPCS: 99214

== ENCOUNTER 2022-12-04 13:35 | Outpatient (AMB) | payer MEDICARE, MEDICAID, SELFPAY ==
--- NOTE | 2022-12-04 13:55 | A.OFFVIS_ITS ---
Intake Vital Signs 12/04/22 13:56 Height 4 ft 11 in Weight 161 lb 6.054 oz BMI 32.6 BP 130/74 Blood Pressure Location Lt brachial Position Sitting Pulse 65 Pulse Source Pulse Oximeter Intake Visit Reasons: f/u after testing Intake Note: f/u after testing Allergies No Known Allergies [No Known Allergies*] Allergy (Verified 12/04/22 14:03) Medication List - Last Reconciled 12/04/22 by Danni Quigley, HOME HEALTH CLINICIAN-C amlodipine 10 mg See Protocol PO DAILY atorvastatin 40 mg PO BEDTIME hydrochlorothiazide 25 mg PO DAILY lidocaine 5% 1 patch topical DAILY losartan 100 mg PO DAILY metoprolol succinate ER 25 mg (1/2 x 50 mg) PO BEDTIME 90 days mirabegron ER (Myrbetriq) 50 mg PO DAILY 90 days ropinirole 0.25 mg PO BEDTIME tizanidine 4 mg PO BEDTIME PRN HPI f/u after testing HPI Details Tiffani is an 87-year-old female with past medical history hypertension, hyperlipidemia, peripheral vascular disease, chronic kidney disease, prior chest discomfort with mildly elevated troponins, echo had shown no wall motion abnormality. She was maintained on meds for presume CAD including atorvastatin, metoprolol, amlodipine. She had a gap between followups and was not seen between 11/17/2020 and her last visit 09/12/2022. On last visit she did report fatigue and a echocardiogram and Holter monitor were ordered. Today she reports that she continues to have fatigue and shortness of breath with activities such as housework. She also has issues with arthritis in various joints of her body. This causes pain and she describes that she is slowing down. She is not having chest discomfort at rest or with activity. No presyncope, syncope, falls. No PND, orthopnea or edema. Her metoprolol was reduced last visit and she feels it may have helped her a little bit. Daughter is present. Patient has no cardiac questions or concerns. She believes her heart is doing well. [facility] Medical History Leg cramps E coli bacteremia Sepsis Decreased hearing of both ears Osteoporosis screening Encounter for annual wellness exam in Medicare patient Chest discomfort Bacteremia due to Klebsiella pneumoniae Acute coronary syndrome Diarrhea GERD (gastroesophageal reflux disease) Mild cognitive impairment Osteoarthritis Spondylosis of cervical spine Vitamin D deficiency Urinary incontinence Obesity (BMI 30-39.9) Peripheral vascular disease Onychomycosis Adnexal mass Polycystic kidney disease Osteopenia Gout Degenerative disc disease, lumbar Chronic kidney disease (CKD) stage G3b/A3, moderately decreased glomerular filtration rate (GFR) between 30-44 mL/min/1.73 square meter and albuminuria creatinine ratio greater than 300 mg/g Hypercholesterolemia Hypertension Surgical History History of surgery History of cholecystectomy History of hysterectomy Family History Father No problems noted. Mother No problems noted. Brother No problems noted. Daughter No problems noted. Daughter No problems noted. Daughter No problems noted. Daughter No problems noted. Social History Household Members: Family Household Members Other:: 1 Housing: House Do you presently have visiting nurse or other home services: No Alcohol intake: never Patient Tobacco Use Status: Never used Tobacco e-Cigarette/Vaping Use: Never Used Second Hand Smoke Exposure: No Advance Directives Date on File: 11/17/19 service: No Current occupational status: retired Cognitive needs: No Hearing needs: No Vision needs: Yes Review of Systems Const All systems reviewed & are unremarkable except as noted in HPI and below ENT Denies dizziness Card Denies chest pain, Denies chest pain at rest, Denies chest pain with activity, Denies rapid heart rate, Denies pedal edema, Denies edema, Denies leg edema, Denies lightheadedness, Denies palpitations, Denies dyspnea, Denies dyspnea on exertion and Denies orthopnea Resp Denies cough, Denies dyspnea and Denies dyspnea on exertion GI Denies hematochezia and Denies change in stool character Musc Denies abnormal gait, Denies limited range of motion, Denies muscle cramps, Denies muscle weakness, Denies numbness, Denies radiating pain into limb, Denies stiffness and Denies tingling Neuro Denies abnormal gait, Denies dizziness, Denies numbness and Denies tingling Endo Denies palpitations Physical Exam Vital Signs: Last Vital Signs Pulse 65 12/04/22 13:56 BP 130/74 12/04/22 13:56 BMI result Body Mass Index 32.6 Const General: cooperative, healthy appearing, comfortable and no acute distress Orientation/consciousness: patient oriented x3 Neck Neck: Yes normal visual inspection Resp Effort & Inspection: normal respiratory effort Auscultation: clear to auscultation bilaterally, no crackles, no rales, no rhonchi and no wheezes Cardio Jugular venous distension: no JVD Rate: regular rate Rhythm: regular rhythm Heart sounds: S1 normal heart sound present, S2 normal heart sound present, no murmurs and no rubs Neuro General: patient oriented x3 Extrem Other: lower legs very sensitive to touch - chronic problem General: Yes normal to inspection Psych Appearance: grossly normal Mental Status: mental status grossly normal Speech and movement: Normal speech and movement present Assessment & Plan Assessment & Plan (1) Shortness of breath: Code(s): R06.02 - Shortness of breath Plan: Patient reports significant fatigue and shortness of breath with activity. On last visit she reported that if she makes her bed she then has to rest for 10 minutes. She feels this symptom has gradually occurred over the last year. She denies any chest discomfort at rest or with activity. Post last visit noted to range 40s to 50s. A reduce her metoprolol from 50 mg daily down to 25 mg daily. She has known history of PACs and brief atrial tach noted on prior EKG. Holter monitor done on 10/23/2022 for 3 days shows sinus rhythm with average heart rate 58, 62% of the time heart rate less than 60, PACs and short SVT runs, longest 5 beats. Echocardiogram done 10/23/2022 showed EF 60-65%, no valve abnormalities. Today she reports only slight improvement in how she feels. Heart rate is in the 60s. Overall her symptoms are not likely heart rate related. She describes being mostly sedentary because of arthritis discomfort. It is likely that she is deconditioned and that this contributes to her symptoms. Signs and symptoms of angina reviewed with her. Emergency care if ever needed for symptoms. Cardiology follow-up in 6 months, sooner if needed. (2) Bradycardia: Code(s): R00.1 - Bradycardia, unspecified Plan: As above (3) PAC (premature atrial contraction): Code(s): I49.1 - Atrial premature depolarization Medications: New metoprolol succinate ER 25 mg PO DAILY 90 tabs 3RF 90 days Coding Level of Care Code Est Pt Level 3 (92178) Diagnoses Shortness of breath R06.02 Bradycardia R00.1 PAC (premature atrial contraction) I49.1 Time Spent (min) 24
[2022-12-04 13:56] VITALS: BP 130/74; PULSE 65; BMI 32.6
== END 2022-12-04 14:36 | disposition home or self-care (01) ==
PROVIDERS: PCP Internal Medicine; Visit Provider Nurse Practitioner Family
DX: R06.02 Shortness of breath (principal); R00.1 Bradycardia, unspecified
CPT/HCPCS: 99213

== ENCOUNTER → 2022-12-04 13:35 | Outpatient (BNVA) | payer MEDICARE, MEDICAID, SELFPAY | PROVIDERS: PCP Internal Medicine; Visit Provider Nurse Practitioner Family | DX: I49.1 Atrial premature depolarization (principal); R06.02 Shortness of breath; R00.1 Bradycardia, unspecified | CPT/HCPCS: 99212 ==

== ENCOUNTER 2023-02-07 10:12 | Outpatient (REF) | payer MEDICARE, MEDICAID, SELFPAY | END 2023-02-07 10:13 | disposition home or self-care (01) | LOC: HO.LNP 10:12 | PROVIDERS: Visit Provider Nurse Practitioner Family | DX: N39.46 Mixed incontinence (principal) | CPT/HCPCS: 51798; 81003; 87086; 87088; 87186; 99212 ==

== ENCOUNTER 2023-02-07 10:12 | Outpatient (AMB) | payer MEDICARE, MEDICAID, SELFPAY ==
--- NOTE | 2023-02-07 10:16 | MHC.OFFVIS ---
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 Accompanied by: Daughter Allergies No Known Allergies [No Known Allergies*] Allergy (Verified 02/07/23 12:47) Medication List - Last Reconciled 02/07/23 by CONSUELO Contreras- amlodipine 10 mg See Protocol PO DAILY atorvastatin 40 mg PO BEDTIME hydrochlorothiazide 25 mg PO DAILY lidocaine 5% 1 patch topical DAILY losartan 100 mg PO DAILY metoprolol succinate ER 25 mg PO DAILY 90 days ropinirole 0.25 mg PO BEDTIME tizanidine 4 mg PO BEDTIME PRN trazodone 100 mg (2 x 50 mg) PO BEDTIME PRN 90 days HPI HPI Comments History of Present Illness Details Tiffani is a pleasant 87-year-old female patient of Dr. Bassett who is accompanied by her daughter at today's office visit. She has a past medical history of sepsis, diarrhea, GERD, mild cognitive impairment, osteoarthritis, spondylosis of cervical spine, vitamin-D deficiency, urinary incontinence, obesity, PVD, polycystic kidney disease, osteopenia, gout, degenerative disc disease, chronic kidney disease stage III, hypercholesteremia, and hypertension. She presents to the office today for follow-up of her lower urinary tract symptoms. In discussion with the patient today she reports feeling no benefit of Myrbetriq in relation to her lower urinary tract symptoms. She reports having come off of Myrbetriq for 30 days to further assess if symptoms worsened however did not find any improvement in lower urinary tract symptoms (nocturia and urinary urgency and frequency however just at night not throughout the day). She reports having started hydrochlorothiazide with her PCP and has noted increased episodes of nocturia. She reports feeling lower urinary tract symptoms during the day are not bothersome however feels lower urinary tract symptoms worsen at night with increased episodes of nocturia. In office urinalysis results reviewed with the patient and her daughter today. 2+ leukocytes. PVR 16 mL. Discussed attempting to take hydrochlorothiazide earlier in the day to further assess if this will decreased episodes of nocturia as patient reporting since starting hydrochlorothiazide she has noticed increased episodes of nocturia. Discussed stopping urological medications at this time to further assess baseline urinary symptoms as patient reporting vague urinary symptoms and is unsure if Nahun is actually helping her. Discussed sending urine for urine culture for further assessment evaluation. She otherwise denies hematuria, dysuria, foul smelling urine, changes to urinary stream, flank pain, fever, and or chills. [facility] Medical History Leg cramps E coli bacteremia Sepsis Decreased hearing of both ears Osteoporosis screening Encounter for annual wellness exam in Medicare patient Chest discomfort Bacteremia due to Klebsiella pneumoniae Acute coronary syndrome Diarrhea GERD (gastroesophageal reflux disease) Mild cognitive impairment Osteoarthritis Spondylosis of cervical spine Vitamin D deficiency Urinary incontinence Obesity (BMI 30-39.9) Peripheral vascular disease Onychomycosis Adnexal mass Polycystic kidney disease Osteopenia Gout Degenerative disc disease, lumbar Chronic kidney disease (CKD) stage G3b/A3, moderately decreased glomerular filtration rate (GFR) between 30-44 mL/min/1.73 square meter and albuminuria creatinine ratio greater than 300 mg/g Hypercholesterolemia Hypertension Surgical History History of surgery History of cholecystectomy History of hysterectomy Family History Father No problems noted. Mother No problems noted. Brother No problems noted. Daughter No problems noted. Daughter No problems noted. Daughter No problems noted. Daughter No problems noted. Social History Household Members: Family Household Members Other:: 1 Housing: House Do you presently have visiting nurse or other home services: No Alcohol intake: never Patient Tobacco Use Status: Never used Tobacco e-Cigarette/Vaping Use: Never Used Second Hand Smoke Exposure: No Advance Directives Date on File: 11/17/19 service: No Current occupational status: retired Cognitive needs: No Hearing needs: No Vision needs: Yes Review of Systems Const All systems reviewed & are unremarkable except as noted in HPI and below Eyes Reports no additional complaints ENT Reports no additional complaints Card Reports as per HPI Resp Reports no additional complaints GI Reports as per HPI Reports as per HPI Musc Reports as per HPI Neuro Reports as per HPI Psych Reports no additional complaints Endo Reports no additional complaints Physical Exam Const General: cooperative, healthy appearing, comfortable, no acute distress, well developed, alert and awake Nutritional Appearance: overweight Orientation/consciousness: patient oriented x3 Limitations: wheelchair HEENT Head: Yes normal to inspection, Yes normocephalic and Yes atraumatic Ears: hearing grossly normal bilaterally Eyes General: appearance normal, both eyes and all related structures Neck Neck: Yes normal visual inspection and Yes trachea midline Chest Chest palpation & inspection: normal inspection of the chest Resp Effort & Inspection: normal respiratory effort and able to speak in complete sentences Cardio Rhythm: regular rhythm GI Inspection: Yes normal to inspection General: Yes no CVA tenderness Back/Spine/Pelvis Back: no CVA tenderness Neuro General: patient oriented x3 Extrem General: Yes normal to inspection Psych Appearance: grossly normal and well kempt Mental Status: mental status grossly normal Speech and movement: Clear speech present Affect: normal affect Attitude: cooperative Thought process: Normal thought process present Thought content: Normal thought content present Insight: Fair insight present (Psych) Judgement: Fair judgement present (Psych) Office Procedures Post Void Residual Post Residual Void Post Void Residual (PVR): 16 [id number] Void Residual by ultrasound Results AMB Urinalysis, Automated UA Leukoctes 125 Sonal/uL Last Edit by [employer] on 02/07/23 10:47 UA Nitrite Negative Last Edit by [employer] on 02/07/23 10:47 UA Urobilinogen 0.2 mg/dL Last Edit by [employer] on 02/07/23 10:47 UA Protein 30 mg/dL Last Edit by [employer] on 02/07/23 10:47 UA pH 6.0 Last Edit by [employer] on 02/07/23 10:47 UA Blood 0 Karan/uL Last Edit by [employer] on 02/07/23 10:47 UA Specific [place] 1.020 Last Edit by [employer] on 02/07/23 10:47 UA Ketone Negative Last Edit by [employer] on 02/07/23 10:47 UA Bilirubin 0 mg/dL Last Edit by [employer] on 02/07/23 10:47 UA Glucose 0 mg/dL Last Edit by [employer] on 02/07/23 10:47 Results Reviewed Results Reviewed: Laboratory Last Values Urine pH (Auto) 6.0 02/07/23 10:45 Specific [place] (Auto) 1.020 02/07/23 10:45 Urine Protein (Auto) 30 mg/dL 02/07/23 10:45 Glucose (UA)(Auto) 0 mg/dL 02/07/23 10:45 Urine Ketones (Auto) Negative 02/07/23 10:45 Urine Blood (Auto) 0 Karan/uL 02/07/23 10:45 Urine Nitrite (Auto) Negative 02/07/23 10:45 Urine Bilirubin (Auto) 0 mg/dL 02/07/23 10:45 Urine Urobilinogen (Auto) 0.2 mg/dL 02/07/23 10:45 Leukocyte Esterase (Auto) 125 Sonal/uL 02/07/23 10:45 Assessment & Plan Assessment & Plan (1) Urinary incontinence: Code(s): R32 - Unspecified urinary incontinence Qualifiers: Urinary Incontinence type: mixed stress and urge incontinence Qualified Code(s): N39.46 - Mixed incontinence Plan In office urinalysis results reviewed with the patient and her daughter today; as noted above; will send for urine culture. PVR 16ml's. Stop Myrbetriq as discussed. Discussed limiting fluids 2-3 hours prior to assist with decreasing episodes of nocturia. Will reassess urinary concerns in 6 weeks when off urological medications. Discussed, educated, and stressed the importance of drinking plenty of water throughout the day. Follow up in 6 weeks with PVR; or sooner with any issues, concerns, or questions. Orders: Orders AMB Urinalysis Automated Today Z13.9 - Encounter for screening, unspecified AMB Post Void Residual by ultrasound Today N39.46 - Mixed incontinence Patient Instructions: The patient had an opportunity to ask questions regarding the treatment plan. All questions were answered. Physical exam, labs, and imaging were discussed and reviewed in detail. As well as risks, benefits, and discussion of treatment choices. No major barriers to understanding were identified. The patient expressed understanding and agreement with the above treatment plan. The patient was made aware they should contact our office by phone for worsening of their current condition, the appearance of new symptoms, or with any questions or concerns. Compliance is encouraged with any medications and follow up testing that is ordered. It is a privilege to be allowed the opportunity to participate in? your urological care.? Again, if you have any questions or concerns If you have any questions or concerns please do not hesitate to contact me. The office is [phone]. This note is constructed using voice recognition software. While every effort has been made to ensure accuracy oyster shucker errors may have been included. Yours sincerely, CONSUELO Contreras-NARESH Coding Level of Care Code Est Pt Level 3 (68860) Diagnoses Mixed stress and urge urinary incontinence N39.46 Urinary Incontinence type: mixed stress and urge incontinence CPT Codes Post Residual Void - PVR CPT Code: 63828-[id number] Void Residual by ultrasound ([id number])
== END 2023-02-07 11:30 | disposition home or self-care (01) ==
PROVIDERS: Visit Provider Nurse Practitioner Family
DX: Z13.9 Encounter for screening, unspecified (principal); N39.46 Mixed incontinence
CPT/HCPCS: 99213

== ENCOUNTER 2023-03-26 10:30 | Outpatient (REF) | payer MEDICARE, MEDICAID, SELFPAY ==
[2023-03-26 11:50] LABS: MANUAL DIFF FLAG NO
[2023-03-26 12:44] LABS: Basophils Absolute Auto 0.1 X10*3/uL (0.0-0.2); Basophils Percent Auto 0.8 % (0-2); Eosinophils Absolute Auto 0.3 X10*3/uL (0.0-0.4); Eosinophils Percent Auto 3.7 % (0-4); Hematocrit 40.5 % (37.0-47.0); Hemoglobin 13.8 g/dl (12.0-16.0); Imm Gran Abs Auto 0.02 X10*3/uL (0.00-0.03); Imm Gran Pct Auto 0.2 % (0.0-0.4); Lymphocytes Absolute Auto 1.6 X10*3/uL (1.2-4.9); Lymphocytes Percent Auto 19.1 % (20-40); Mean Corpuscular HGB Conc 34.1 g/dl (31.0-35.0); Mean Corpuscular Hemoglobin 30.3 pg (27.0-33.0); Mean Corpuscular Volume 88.8 fL (80.0-98.0); Mean Platelet Volume 11.6 fL (9.4-12.3); Monocytes Absolute Auto 0.6 X10*3/uL (0.1-1.2); Neutrophils Absolute Auto 5.9 x10*3/uL (2.0-8.3); Neutrophils Percent Auto 69.2 % (45-73); Platelet Count 231 X10*3/uL (160-400); Red Blood Count 4.56 X10*6/uL (4.20-5.50); Red Cell Distribution Width 12.8 % (11.0-16.0); White Blood Count 8.6 X10*3/uL (4.8-10.8)
[2023-03-26 13:28] LABS: Alanine Aminotransferase 18 U/L (0-31); Albumin Level 4.2 g/dL (3.5-5.0); Alkaline Phosphatase 80 U/L (39-117); Anion Gap 15 (12-20); Aspartate Amino Transferase 19 U/L (5-31); Bilirubin Total 0.7 mg/dL (0.0-1.0); Blood Urea Nitrogen 15 mg/dL (9-16); Carbon Dioxide 27 mmol/L (22-29); Chloride 100 mmol/L (96-108); Cholesterol 115 mg/dL (<200); Estimated Glomerular Filt Rate 30; Glucose Random 94 mg/dL (60-115); HDL Cholesterol 48 mg/dL (>40); LDL Cholesterol Calculated 42 mg/dL (<100); Magnesium 1.9 mg/dL (1.6-2.6); Phosphorus 3.1 mg/dL (2.7-4.5); Potassium 4.1 mmol/L (3.3-5.1); Sodium 138 mmol/L (135-145); Total Protein 6.9 g/dL (6.5-8.0); Triglycerides 125 mg/dL (<150)
[2023-03-26 13:33] LABS: Free T4 (Free Thyroxine) 1.09 ng/dL (0.71-1.85); Thyroid Stimulating Hormone 2.04 uIU/mL (0.32-4.0)
[2023-03-26 13:42] LABS: Folate 6.4 ng/mL (> or = 4.0); Vitamin B12 932 pg/mL (200-900)
[2023-03-26 18:51] LABS: Appearance Urine Turbid; Color Urine Yellow; Glucose Urine UA Negative (Negative); Leukocyte Esterase Urine Large (3+) (Negative); Nitrite Urine Negative (Negative); PH 5.5 (5.0-9.0); Specific Gravity - Urine 1.015 (1.005-1.025); UMIC TRIGGER UACC YES; Urine Blood Negative (Negative); Urine Ketones Negative (Negative); Urine Protein Trace mg/dL (Neg-Trace)
[2023-03-26 19:06] LABS: Bacteria Urine 4+ (None Seen); RBC Urine 0-2 /HPF (0-2); UACC Culture Trigger YES; WBC Urine >50 /HPF (0-5)
== END 2023-03-26 10:31 | disposition home or self-care (01) ==
LOC: HO.LAB 10:30
PROVIDERS: Absent Provider Internal Medicine; PCP Internal Medicine; Visit Provider Nurse Practitioner Family
DX: I10 Essential (primary) hypertension (principal); R25.2 Cramp and spasm; R35.1 Nocturia; E78.00 Pure hypercholesterolemia, unspecified; N39.46 Mixed incontinence; R33.9 Retention of urine, unspecified; N39.0 Urinary tract infection, site not specified; B96.89 Other specified bacterial agents as the cause of diseases classified elsewhere; Z79.899 Other long term (current) drug therapy
CPT/HCPCS: 36415; 80053; 80061; 81001; 81003; 82607; 82746; 83735; 84100; 84439; 84443; 85025; 87086; 87088; 87186; 99212

== ENCOUNTER 2023-03-26 10:30 | Outpatient (AMB) | payer MEDICARE, MEDICAID, SELFPAY ==
--- NOTE | 2023-03-26 10:36 | MHC.OFFVIS ---
Intake Intake Visit Reasons: 6wks follow up/PVR Intake Note: Patient presents for follow up for urinary incontinence Urology Medications: d/c myrbetriq Blood Thinner: none PVR: Oml Patient was unable to provide an urine sample. 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 Accompanied by: Daughter Allergies No Known Allergies [No Known Allergies*] Allergy (Verified 03/26/23 11:01) Medication List - Last Reconciled 03/26/23 by CONSUELO Contreras- amlodipine 10 mg See Protocol PO DAILY atorvastatin 40 mg PO BEDTIME hydrochlorothiazide 25 mg PO DAILY lidocaine 5% 1 patch topical DAILY losartan 100 mg PO DAILY metoprolol succinate ER 25 mg PO DAILY 90 days ropinirole 0.25 mg PO BEDTIME solifenacin (Vesicare) 5 mg PO DAILY 30 days tizanidine 4 mg PO BEDTIME PRN trazodone 100 mg (2 x 50 mg) PO BEDTIME PRN 90 days HPI HPI Comments History of Present Illness Details Tiffani is a pleasant 87-year-old female patient of Dr. Bassett who is accompanied by her daughter at today's office visit. She has a past medical history of sepsis, diarrhea, GERD, mild cognitive impairment, osteoarthritis, spondylosis of cervical spine, vitamin-D deficiency, urinary incontinence, obesity, PVD, polycystic kidney disease, osteopenia, gout, degenerative disc disease, chronic kidney disease stage III, hypercholesteremia, and hypertension. She presents to the office today for follow-up of her lower urinary tract symptoms (mainly nocturia). Of note, patient was seen approximately 6 weeks ago at which time her Myrbetriq was discontinued in recommendations were made for taking her diuretic earlier in the day as she had been taking it in the evening and reporting episodes of nocturia. In discussion with the patient and her daughter today she reports that although she has started to take her diuretic in the morning/earlier in the day she still continues with episodes of nocturia 2-3 times per night. She discusses given her decreased mobility by the time she gets to the bathroom at night she also experiences incontinent episodes. She otherwise denies urinary urgency, urinary frequency, hematuria, dysuria, foul smelling urine, changes to urinary stream, flank pain, fever, and or chills. Unable to obtain urine for urinalysis however PVR 0 mL. When asked she does report snoring and feeling fatigued in the morning discussed further workup with home sleep study however she declines at this time. Discussed at length potential causes of nocturia as well as lifestyle modifications to assist with nocturia. Patient previously trialed Myrbetriq with no improvement in nocturia/incontinence. She otherwise offers no other issues or concerns at this time. [facility] Medical History Leg cramps E coli bacteremia Sepsis Decreased hearing of both ears Osteoporosis screening Encounter for annual wellness exam in Medicare patient Chest discomfort Bacteremia due to Klebsiella pneumoniae Acute coronary syndrome Diarrhea GERD (gastroesophageal reflux disease) Mild cognitive impairment Osteoarthritis Spondylosis of cervical spine Vitamin D deficiency Urinary incontinence Obesity (BMI 30-39.9) Peripheral vascular disease Onychomycosis Adnexal mass Polycystic kidney disease Osteopenia Gout Degenerative disc disease, lumbar Chronic kidney disease (CKD) stage G3b/A3, moderately decreased glomerular filtration rate (GFR) between 30-44 mL/min/1.73 square meter and albuminuria creatinine ratio greater than 300 mg/g Hypercholesterolemia Hypertension Surgical History History of surgery History of cholecystectomy History of hysterectomy Family History Father No problems noted. Mother No problems noted. Brother No problems noted. Daughter No problems noted. Daughter No problems noted. Daughter No problems noted. Daughter No problems noted. Social History Household Members: Family Household Members Other:: 1 Housing: House Do you presently have visiting nurse or other home services: No Alcohol intake: never Patient Tobacco Use Status: Never used Tobacco e-Cigarette/Vaping Use: Never Used Second Hand Smoke Exposure: No Advance Directives Date on File: 11/17/19 service: No Current occupational status: retired Cognitive needs: No Hearing needs: No Vision needs: Yes Review of Systems Const All systems reviewed & are unremarkable except as noted in HPI and below Eyes Reports no additional complaints ENT Reports no additional complaints Card Reports as per HPI Resp Reports no additional complaints GI Reports as per HPI Reports as per HPI Musc Reports as per HPI Neuro Reports as per HPI Psych Reports no additional complaints Endo Reports no additional complaints Physical Exam Const General: cooperative, healthy appearing, comfortable, no acute distress, well developed, alert and awake Orientation/consciousness: patient oriented x3 Limitations: wheelchair HEENT Head: Yes normal to inspection, Yes normocephalic and Yes atraumatic Ears: hearing grossly normal bilaterally Eyes General: appearance normal, both eyes and all related structures Neck Neck: Yes normal visual inspection and Yes trachea midline Chest Chest palpation & inspection: normal inspection of the chest Resp Effort & Inspection: normal respiratory effort and able to speak in complete sentences Cardio Rate: regular rate GI Inspection: Yes normal to inspection General: Yes no CVA tenderness Back/Spine/Pelvis Back: no CVA tenderness Skin General skin exam: no rashes or lesions noted Neuro General: patient oriented x3 Extrem General: Yes normal to inspection Psych Appearance: grossly normal and well kempt Mental Status: mental status grossly normal Speech and movement: Normal speech and movement present and Clear speech present Affect: normal affect Attitude: cooperative Thought process: Normal thought process present Thought content: Normal thought content present Insight: Fair insight present (Psych) Judgement: Fair judgement present (Psych) Assessment & Plan Assessment & Plan (1) Nocturia: Code(s): R35.1 - Nocturia (2) Urinary incontinence: Code(s): R32 - Unspecified urinary incontinence Qualifiers: Urinary Incontinence type: mixed stress and urge incontinence Qualified Code(s): N39.46 - Mixed incontinence Plan Unable to obtain urie for urinalysis however PVR 0ml's Discussed at length potential causes of nocturia Discussed lifestyle modifications to assist with episodes of nocturia. Discussed attempting to obtain sleep study;however patient declines at this time Discussed obtaining retroperitoneal ultrasound in the near future for further assessment evaluation. Start Vesicare 5mg as discussed and prescribed; discussed increasing if needed after 3 weeks to 10mg daily Discussed possible near future in office cystoscopy and or urodynamics for further assessment evaluation if symptoms persist and/or worsen. Follow-up in 6 weeks with PVR; or sooner with any issues, concerns, and or questions. Orders: Orders AMB Urinalysis Automated Today R33.9 - Retention of urine, unspecified Medications: New solifenacin (Vesicare) 5 mg PO DAILY 30 days 30 tabs 2RF Patient Instructions: The patient had an opportunity to ask questions regarding the treatment plan. All questions were answered. Physical exam, labs, and imaging were discussed and reviewed in detail. As well as risks, benefits, and discussion of treatment choices. No major barriers to understanding were identified. The patient expressed understanding and agreement with the above treatment plan. The patient was made aware they should contact our office by phone for worsening of their current condition, the appearance of new symptoms, or with any questions or concerns. Compliance is encouraged with any medications and follow up testing that is ordered. It is a privilege to be allowed the opportunity to participate in? your urological care.? Again, if you have any questions or concerns If you have any questions or concerns please do not hesitate to contact me. The office is [phone]. This note is constructed using voice recognition software. While every effort has been made to ensure accuracy tinning equipment tender errors may have been included. Yours sincerely, ESPERANZA Contreras Coding Level of Care Code Est Pt Level 4 (64926) Diagnoses Nocturia R35.1 Mixed stress and urge urinary incontinence N39.46 Urinary Incontinence type: mixed stress and urge incontinence
== END 2023-03-26 11:05 | disposition home or self-care (01) ==
PROVIDERS: PCP Internal Medicine; Visit Provider Nurse Practitioner Family
DX: R35.1 Nocturia (principal); N39.46 Mixed incontinence
CPT/HCPCS: 99214

== ENCOUNTER 2023-04-25 11:18 | Outpatient (REF) | payer MEDICARE, MEDICAID, SELFPAY ==
--- NOTE | ~2023-04-25 | US_ITS ---
EXAMINATION: US RETROPERITONEAL COMPLETE (RENAL) CLINICAL INFORMATION: Nocturia. COMPARISON: CT abdomen and pelvis 03/28/2022. Ultrasound kidneys and bladder 12/01/2021. TECHNIQUE: Real-time imaging of the kidneys and bladder. FINDINGS: RIGHT KIDNEY: 10.7 x 4.8 x 4.6 cm (SAG x AP x TRV). The kidney is normal in size, contour, and echogenicity. Renal cortical thickness is normal. No renal calculi or hydronephrosis. Multiple simple appearing cysts, the largest in the lower pole measures 2.0 cm. No imaging follow-up is recommended. LEFT KIDNEY: 11.8 x 5.2 x 4.4 cm (SAG x AP x TRV). The kidney is normal in size, contour, and echogenicity. Renal cortical thickness is normal. No renal calculi or hydronephrosis. Multiple simple appearing cysts, largest in the upper pole measuring 2.1 cm. No imaging follow-up is recommended. BLADDER: Well distended and normal. Right ureteral jet is demonstrated; left is not. Prevoid bladder volume is 258 mL. Postvoid bladder volume is 38.1 mL. US/US retroperitoneal comp IMPRESSION: No hydronephrosis. Post void bladder residual 38 mL.
== END 2023-04-25 11:19 | disposition home or self-care (01) ==
LOC: HO.US 11:18
PROVIDERS: PCP Internal Medicine; Visit Provider Nurse Practitioner Family
DX: R35.1 Nocturia (principal)
CPT/HCPCS: 76770

== ENCOUNTER 2023-05-09 09:35 | Outpatient (AMB) | payer MEDICARE, MEDICAID, SELFPAY ==
[2023-05-09 09:41] VITALS: BP 122/78; PULSE 76; O2SAT 98; BMI 33.2
--- NOTE | 2023-05-09 09:41 | MHC.PC.OV ---
Vital Signs 05/09/23 09:41 Height 4 ft 11 in Weight 164 lb 7.437 oz BMI 33.2 BP 122/78 Blood Pressure Location Lt brachial Position Sitting Pulse 76 Pulse Source Pulse Oximeter Pulse Oximetry (%) 98 Oxygen Delivery Method Room Air Intake Visit Reasons: 6 Months F/U-knee OA, HTN, Intake Note: Patient is here to follow up on 6 months Allergies No Known Allergies [No Known Allergies*] Allergy (Verified 05/09/23 09:48) Medication List - Last Reconciled 05/09/23 by Adry Young MD amlodipine 10 mg See Protocol PO DAILY atorvastatin 40 mg PO BEDTIME clotrimazole 1% 1 appl topical BID 4 weeks hydrochlorothiazide 25 mg PO DAILY lidocaine 5% 1 patch topical DAILY losartan 100 mg PO DAILY metoprolol succinate ER 25 mg PO DAILY 90 days miconazole nitrate 2% (Zeasorb AF) 1 appl topical BID ropinirole 0.25 mg PO BEDTIME solifenacin (Vesicare) 5 mg PO DAILY 30 days tizanidine 4 mg PO BEDTIME PRN trazodone 100 mg (2 x 50 mg) PO BEDTIME PRN 90 days Tobacco use date assessed: 05/09/23 Fall risk assessment: No Falls in past year Last assessed Fall Risk: 05/09/23 Dental Screening Dental Screen Date: 05/09/23 HPI 6 Months F/U-knee OA, HTN, HPI Details 87-year-old obese female with GERD hypertension hypercholesterolemia cognitive impairment renal insufficiency coming in for follow-up. Last seen in October 2022. Review of the notes had a recent ultrasound of the abdomen done by Urology in April 2023 showing no hydronephrosis and postvoid residual of 38 cc patient was started with VESIcare 5 mg once a day patient also saw the resistance welder December 04 echo cardiogram showing no wall motion abnormality presumed CAD advised to decrease metoprolol from 5025 mg once a day echocardiogram October 2022 EF of 60-65% PFSH Medical History Leg cramps E coli bacteremia Sepsis Decreased hearing of both ears Osteoporosis screening Encounter for annual wellness exam in Medicare patient Chest discomfort Bacteremia due to Klebsiella pneumoniae Acute coronary syndrome Diarrhea GERD (gastroesophageal reflux disease) Mild cognitive impairment Osteoarthritis Spondylosis of cervical spine Vitamin D deficiency Urinary incontinence Obesity (BMI 30-39.9) Peripheral vascular disease Onychomycosis Adnexal mass Polycystic kidney disease Osteopenia Gout Degenerative disc disease, lumbar Chronic kidney disease (CKD) stage G3b/A3, moderately decreased glomerular filtration rate (GFR) between 30-44 mL/min/1.73 square meter and albuminuria creatinine ratio greater than 300 mg/g Hypercholesterolemia Hypertension Surgical History History of surgery History of cholecystectomy History of hysterectomy Family History Father No problems noted. Mother No problems noted. Brother No problems noted. Daughter No problems noted. Daughter No problems noted. Daughter No problems noted. Daughter No problems noted. Social History Household Members: Family Household Members Other:: 1 Housing: House Do you presently have visiting nurse or other home services: No Alcohol intake: never Patient Tobacco Use Status: Never used Tobacco e-Cigarette/Vaping Use: Never Used Second Hand Smoke Exposure: No Advance Directives Date on File: 11/17/19 service: No Current occupational status: retired Cognitive needs: No Hearing needs: No Vision needs: Yes Questionnaire Thrive Questionnaire Date Thrive assessed: 03/24/22 AUDIT C Alcohol Use Questionnaire (AUDIT-C) 1. How often do you have a drink containing alcohol?: Never 2. How many drinks containing alcohol do you have on a typical day when you are drinking?: 1 or 2 3. How often do you have six or more drinks on one occasion?: Never Total Score: 0 PORTER-7 AMB Questionnaire PORTER-7 Date PORTER - 7 assessed: 05/09/23 Source: Developed by Drs. Yemi Vela, Christine Butler, Gelacio Hutchison and colleagues, with an educational lisa from [employer]. Physical exam (Primary Care) Vital Signs: Last Vital Signs Pulse 76 05/09/23 09:41 BP 122/78 05/09/23 09:41 Pulse Ox 98 05/09/23 09:41 Oxygen Delivery Method Room Air 05/09/23 09:41 BMI result Body Mass Index 33.2 Tobacco/Smoking Status: Tobacco use Status Tobacco use date assessed 05/09/23 05/09/23 09:42 Patient Tobacco Use Status Never used Tobacco 05/09/23 09:42 e-Cigarette/Vaping Use Never Used 05/09/23 09:42 Thrive Assessment: Date of Thrive Assessment Date Thrive assessed 03/24/22 05/09/23 09:42 Const General: alert; No acute distress Eyes Conjunctivae: conjunctivae normal Resp Auscultation: clear to auscultation bilaterally Cardio Rate: regular rate Rhythm: regular rhythm GI Inspection: Yes normal to inspection Extrem General: Yes normal to inspection and No edema Assessment and Plan Assessment & Plan (1) GERD (gastroesophageal reflux disease): Code(s): K21.9 - Gastro-esophageal reflux disease without esophagitis Qualifiers: Esophagitis presence: without esophagitis Qualified Code(s): K21.9 - Gastro-esophageal reflux disease without esophagitis Plan: Avoid the foods that causes that usually spicy foods, tomato products, juices, coffee, soda and foods that your sensitive to. After eating do not lie down, allow 3-4 hours before in lie down. And keep the head of bed above 30 degrees to avoid the acid from going up. (2) Hypertension: Code(s): I10 - Essential (primary) hypertension Qualifiers: Hypertension type: essential hypertension Qualified Code(s): I10 - Essential (primary) hypertension Plan: Continue with blood pressure medication. Decrease salt intake and exercise presently on amlodipine 10 mg once a day hydrochlorothiazide 25 mg once a day losartan 100 mg once a day and recently decrease metoprolol to 25 mg once a day (3) Hypercholesterolemia: Code(s): E78.00 - Pure hypercholesterolemia, unspecified Plan: Avoid fried foods, chicken skin, eggs, butter margarine, pastries and meat. Be it pork or beef they have a lot of cholesterol LDL goal of less than 70 and triglyceride of less than 150 on atorvastatin 40 mg once a day (4) Obesity (BMI 30.0-34.9): Code(s): E66.9 - Obesity, unspecified Plan: Diet and exercise (5) Renal insufficiency: Code(s): N28.9 - Disorder of kidney and ureter, unspecified Plan: Will need repeat testing, avoid NSAIDs keep well hydrated. (6) Tinea corporis: Code(s): B35.4 - Tinea corporis Orders: Orders Basic Metabolic Panel Today N28.9 - Disorder of kidney and ureter, unspecified Medications: New clotrimazole 1% 1 appl topical BID 45 grams 0RF 4 weeks B35.4 - Tinea corporis miconazole nitrate 2% (Zeasorb AF) 1 appl topical BID 85 grams 12RF B35.4 - Tinea corporis Coding Level of Care Code Est Pt Level 4 (46638) Diagnoses Gastroesophageal reflux disease without esophagitis K21.9 Esophagitis presence: without esophagitis Essential hypertension I10 Hypertension type: essential hypertension Hypercholesterolemia E78.00 Obesity (BMI 30.0-34.9) E66.9 Renal insufficiency N28.9 Tinea corporis B35.4
== END 2023-05-09 10:33 | disposition home or self-care (01) ==
PROVIDERS: PCP Internal Medicine; Visit Provider Internal Medicine
DX: K21.9 Gastro-esophageal reflux disease without esophagitis (principal); E66.9 Obesity, unspecified; Z68.33 Body mass index [BMI] 33.0-33.9, adult; E78.00 Pure hypercholesterolemia, unspecified; N28.9 Disorder of kidney and ureter, unspecified; I10 Essential (primary) hypertension; B35.4 Tinea corporis
CPT/HCPCS: 99214

== ENCOUNTER 2023-05-10 13:43 | Outpatient (REF) | payer MEDICARE, MEDICAID, SELFPAY ==
[2023-05-10 15:52] LABS: Anion Gap 15 (12-20); Blood Urea Nitrogen 15 mg/dL (9-16); Calcium 9.8 mg/dL (8.4-10.2); Carbon Dioxide 28 mmol/L (22-29); Chloride 102 mmol/L (96-108); Estimated Glomerular Filt Rate 28; Glucose Random 92 mg/dL (60-115); Potassium 3.7 mmol/L (3.3-5.1); Sodium 141 mmol/L (135-145)
== END 2023-05-10 13:44 | disposition home or self-care (01) ==
LOC: HO.LAB 13:43
PROVIDERS: PCP Internal Medicine; Visit Provider Internal Medicine
DX: N28.9 Disorder of kidney and ureter, unspecified (principal)
CPT/HCPCS: 36415; 80048

== ENCOUNTER 2023-05-11 10:03 | Outpatient (AMB) | payer MEDICARE, MEDICAID, SELFPAY ==
--- NOTE | 2023-05-11 10:27 | MHC.OFFVIS ---
Intake Intake Visit Reasons: 6w/PVR(set) Intake Note: Patient presents for follow up for urinary incontinence Urology Medications: d/c myrbetriq, vesicare Blood Thinner: none PVR: 41ml's [place] Routeman Required: No Accompanied by: Daughter Allergies No Known Allergies [No Known Allergies*] Allergy (Verified 05/12/23 11:52) Medication List - Last Reconciled 05/12/23 by CONSUELO Contreras- amlodipine 10 mg See Protocol PO DAILY atorvastatin 40 mg PO BEDTIME clotrimazole 1% 1 appl topical BID 4 weeks hydrochlorothiazide 25 mg PO DAILY lidocaine 5% 1 patch topical DAILY losartan 50 mg PO DAILY 90 days metoprolol succinate ER 25 mg PO DAILY 90 days miconazole nitrate 2% (Zeasorb AF) 1 appl topical BID ropinirole 0.25 mg PO BEDTIME solifenacin (Vesicare) 5 mg PO DAILY 30 days tizanidine 4 mg PO BEDTIME PRN trazodone 100 mg (2 x 50 mg) PO BEDTIME PRN 90 days HPI HPI Comments History of Present Illness Details Tiffani is a pleasant 87-year-old female patient of Dr. Bassett who is accompanied by her daughter at today's office visit. She has a past medical history of sepsis, diarrhea, GERD, mild cognitive impairment, osteoarthritis, spondylosis of cervical spine, vitamin-D deficiency, urinary incontinence, obesity, PVD, polycystic kidney disease, osteopenia, gout, degenerative disc disease, chronic kidney disease stage III, hypercholesteremia, and hypertension. She presents to the office today for follow-up of her lower urinary tract symptoms (urinary frequency, nocturia, and episodes of on sensed incontinence). Recent retroperitoneal ultrasound results reviewed with the patient today. Bilateral kidneys with no calculi and or hydronephrosis. Multiple simple appearing cyst noted bilaterally. No imaging follow-up is recommended per radiology report. The bladder is well distended and normal. Pre void bladder volume is approximately 260 mL postvoid bladder volume is approximately 40 mL. Of note, patient was seen approximately 6 weeks ago at which time her Myrbetriq was discontinued as she felt no improvement in lower urinary tract symptoms and started on 5 mg of VESIcare daily. She reports feeling somewhat improvement in her urinary frequency throughout the day however continues with nocturia 2-3 times per night. She discusses given her decreased mobility by the time she gets to the bathroom at night she also experiences incontinent episodes. She otherwise denies urinary urgency, urinary frequency, hematuria, dysuria, foul smelling urine, changes to urinary stream, flank pain, fever, and or chills. Unable to obtain urine for urinalysis however PVR 41 mL. When asked she does report snoring and feeling fatigued in the morning discussed further workup with home sleep study however she declines at this time. Discussed at length potential causes of nocturia as well as lifestyle modifications to assist with nocturia. She discusses following up with her PCP and has recently had a decrease in her losartan dosage due to elevated BUN and creatinine levels. She otherwise offers no other issues or concerns at this time. [facility] Medical History Leg cramps E coli bacteremia Sepsis Decreased hearing of both ears Osteoporosis screening Encounter for annual wellness exam in Medicare patient Chest discomfort Bacteremia due to Klebsiella pneumoniae Acute coronary syndrome Diarrhea GERD (gastroesophageal reflux disease) Mild cognitive impairment Osteoarthritis Spondylosis of cervical spine Vitamin D deficiency Urinary incontinence Obesity (BMI 30-39.9) Peripheral vascular disease Onychomycosis Adnexal mass Polycystic kidney disease Osteopenia Gout Degenerative disc disease, lumbar Chronic kidney disease (CKD) stage G3b/A3, moderately decreased glomerular filtration rate (GFR) between 30-44 mL/min/1.73 square meter and albuminuria creatinine ratio greater than 300 mg/g Hypercholesterolemia Hypertension Surgical History History of surgery History of cholecystectomy History of hysterectomy Family History Father No problems noted. Mother No problems noted. Brother No problems noted. Daughter No problems noted. Daughter No problems noted. Daughter No problems noted. Daughter No problems noted. Social History Household Members: Family Household Members Other:: 1 Housing: House Do you presently have visiting nurse or other home services: No Alcohol intake: never Patient Tobacco Use Status: Never used Tobacco e-Cigarette/Vaping Use: Never Used Second Hand Smoke Exposure: No Advance Directives Date on File: 11/17/19 service: No Current occupational status: retired Cognitive needs: No Hearing needs: No Vision needs: Yes Review of Systems Const All systems reviewed & are unremarkable except as noted in HPI and below Eyes Reports no additional complaints ENT Reports no additional complaints Card Reports as per [facility] Resp Reports no additional complaints GI Reports as per [facility] Reports as per [facility] Musc Reports as per [facility] Neuro Reports as per HPI Psych Reports no additional complaints Endo Reports no additional complaints Physical Exam Const General: cooperative, healthy appearing, comfortable, no acute distress, well developed, alert and awake Orientation/consciousness: patient oriented x3 Limitations: wheelchair HEENT Head: Yes normal to inspection, Yes normocephalic and Yes atraumatic Ears: hearing grossly normal bilaterally Eyes General: appearance normal, both eyes and all related structures Neck Neck: Yes normal visual inspection and Yes trachea midline Chest Chest palpation & inspection: normal inspection of the chest Resp Effort & Inspection: normal respiratory effort and able to speak in complete sentences Cardio Rate: regular rate GI Inspection: Yes normal to inspection General: Yes no CVA tenderness Back/Spine/Pelvis Back: no CVA tenderness Skin General skin exam: no rashes or lesions noted Neuro General: patient oriented x3 Extrem General: Yes normal to inspection Psych Appearance: grossly normal and well kempt Mental Status: mental status grossly normal Speech and movement: Normal speech and movement present and Clear speech present Affect: normal affect Attitude: cooperative Thought process: Normal thought process present Thought content: Normal thought content present Insight: Fair insight present (Psych) Judgement: Fair judgement present (Psych) Office Procedures Post Void Residual Post Residual Void Post Void Residual (PVR): 41 [id number] Void Residual by ultrasound Results Reviewed Results Reviewed: Date of Service: 04/25/23 EXAMINATION: US RETROPERITONEAL COMPLETE (RENAL) FINDINGS: RIGHT KIDNEY: 10.7 x 4.8 x 4.6 cm (SAG x AP x TRV). The kidney is normal in size, contour, and echogenicity. Renal cortical thickness is normal. No renal calculi or hydronephrosis. Multiple simple appearing cysts, the largest in the lower pole measures 2.0 cm. No imaging follow-up is recommended. LEFT KIDNEY: 11.8 x 5.2 x 4.4 cm (SAG x AP x TRV). The kidney is normal in size, contour, and echogenicity. Renal cortical thickness is normal. No renal calculi or hydronephrosis. Multiple simple appearing cysts, largest in the upper pole measuring 2.1 cm. No imaging follow-up is recommended. BLADDER: Well distended and normal. Right ureteral jet is demonstrated; left is not. Prevoid bladder volume is 258 mL. Postvoid bladder volume is 38.1 mL. IMPRESSION: No hydronephrosis. Post void bladder residual 38 mL. Assessment & Plan Assessment & Plan (1) Nocturia: Code(s): R35.1 - Nocturia (2) Urinary incontinence: Code(s): R32 - Unspecified urinary incontinence (3) Renal cyst: Code(s): N28.1 - Cyst of kidney, acquired (4) Urinary incontinence: Comment: dublicate Code(s): R32 - Unspecified urinary incontinence Qualifiers: Urinary Incontinence type: mixed stress and urge incontinence Qualified Code(s): N39.46 - Mixed incontinence Plan Unable to obtain urine for urinalysis however PVR 41ml's Discussed at length potential causes of nocturia Patient reports to be happy with current voiding parameters on 5 mg of VESIcare. Discussed lifestyle modifications to assist with episodes of nocturia; limiting fluids 2-3 hours prior to bed and elevating lower extremities late afternoon. Discussed attempting to obtain sleep study;however patient declines at this time Recent retroperitoneal ultrasound results reviewed with the patient today; as noted above. Continue Vesicare 5mg as discussed and prescribed Discussed possible near future in office cystoscopy and or urodynamics for further assessment evaluation if symptoms persist and/or worsen. Follow-up in 3 months or sooner with any issues, concerns, and or questions. Orders: Orders AMB Urinalysis Automated 05/11/23 Z13.9 - Encounter for screening, unspecified AMB Post Void Residual by ultrasound 05/11/23 R35.1 - Nocturia Patient Instructions: The patient had an opportunity to ask questions regarding the treatment plan. All questions were answered. Physical exam, labs, and imaging were discussed and reviewed in detail. As well as risks, benefits, and discussion of treatment choices. No major barriers to understanding were identified. The patient expressed understanding and agreement with the above treatment plan. The patient was made aware they should contact our office by phone for worsening of their current condition, the appearance of new symptoms, or with any questions or concerns. Compliance is encouraged with any medications and follow up testing that is ordered. It is a privilege to be allowed the opportunity to participate in? your urological care.? Again, if you have any questions or concerns If you have any questions or concerns please do not hesitate to contact me. The office is [phone]. This note is constructed using voice recognition software. While every effort has been made to ensure accuracy lead maintenance technician errors may have been included. Yours sincerely, ESPERANZA Contreras Coding Level of Care Code Est Pt Level 4 (55300) Diagnoses Nocturia R35.1 Urinary incontinence R32 Renal cyst N28.1 CPT Codes Post Residual Void - PVR CPT Code: 04079-[id number] Void Residual by ultrasound ([id number]) Time Spent (min) 30
== END 2023-05-11 11:38 | disposition home or self-care (01) ==
PROVIDERS: PCP Internal Medicine; Visit Provider Nurse Practitioner Family
DX: R35.1 Nocturia (principal); N28.1 Cyst of kidney, acquired; N39.46 Mixed incontinence
CPT/HCPCS: 99214

== ENCOUNTER → 2023-05-11 10:03 | Outpatient (BNVA) | payer MEDICARE, MEDICAID, SELFPAY | PROVIDERS: PCP Internal Medicine; Visit Provider Nurse Practitioner Family | DX: N39.46 Mixed incontinence (principal); N28.1 Cyst of kidney, acquired; R35.1 Nocturia; I12.9 Hypertensive chronic kidney disease with stage 1 through stage 4 chronic kidney disease, or unspecified chronic kidney disease; N18.30 Chronic kidney disease, stage 3 unspecified | CPT/HCPCS: 51798; 99212 ==

== ENCOUNTER 2023-06-14 13:58 | Outpatient (AMB) | payer MEDICARE, MEDICAID, SELFPAY ==
[2023-06-14 14:01] VITALS: BP 130/62; PULSE 71; BMI 32.5
--- NOTE | 2023-06-14 14:01 | MHC.OFFVIS ---
Vital Signs 06/14/23 14:01 Height 4 ft 11 in Weight 161 lb BMI 32.5 BP 130/62 Blood Pressure Location Rt brachial Position Sitting Pulse 71 Pulse Source Pulse Oximeter Intake Visit Reasons: r/s 06/11/23 6 mos followup Production Aide Required: No Wagon Winder: Wagon Winder Present Allergies No Known Allergies [No Known Allergies*] Allergy (Verified 06/14/23 14:03) Medication List - Last Reconciled 06/14/23 by PANCHO Aldana amlodipine 10 mg See Protocol PO DAILY atorvastatin 40 mg PO BEDTIME clotrimazole 1% 1 appl topical BID 4 weeks hydrochlorothiazide 25 mg PO DAILY lidocaine 5% 1 patch topical DAILY losartan 50 mg PO DAILY 90 days metoprolol succinate ER 25 mg PO DAILY 90 days ropinirole 0.25 mg PO BEDTIME solifenacin (Vesicare) 5 mg PO DAILY 30 days tizanidine 4 mg PO BEDTIME PRN trazodone 100 mg (2 x 50 mg) PO BEDTIME PRN 90 days HPI HPI r/s 06/11/23 6 mos followup: Details: Tiffani is an 87-year-old female with past medical history hypertension, hyperlipidemia, peripheral vascular disease, chronic kidney disease, prior chest discomfort with mildly elevated troponins, echo had shown no wall motion abnormality. She was maintained on meds for presume CAD including atorvastatin, metoprolol, amlodipine. She had a gap between followups and was not seen between 11/17/2020 and her last visit 09/12/2022. On last visit she did report fatigue and a echocardiogram and Holter monitor were done showing no significant abnormalities. Today she reports that she continues to have some weakness and fatigue. She feels her shortness of breath symptom has stabilized. She describes having arthritis throughout her body and it is making her more sedentary. She is not having chest discomfort at rest or with activity. No shortness of breath at rest, PND, orthopnea or edema. No lightheadedness, presyncope, syncope, falls. She is in a wheelchair today. She ambulates only short distances in her home. She is taking her medications as directed. Her daughter is present. [facility] Medical History Leg cramps E coli bacteremia Sepsis Decreased hearing of both ears Osteoporosis screening Encounter for annual wellness exam in Medicare patient Chest discomfort Bacteremia due to Klebsiella pneumoniae Acute coronary syndrome Diarrhea GERD (gastroesophageal reflux disease) Mild cognitive impairment Osteoarthritis Spondylosis of cervical spine Vitamin D deficiency Urinary incontinence Obesity (BMI 30-39.9) Peripheral vascular disease Onychomycosis Adnexal mass Polycystic kidney disease Osteopenia Gout Degenerative disc disease, lumbar Chronic kidney disease (CKD) stage G3b/A3, moderately decreased glomerular filtration rate (GFR) between 30-44 mL/min/1.73 square meter and albuminuria creatinine ratio greater than 300 mg/g Hypercholesterolemia Hypertension Surgical History History of surgery History of cholecystectomy History of hysterectomy Family History Father No problems noted. Mother No problems noted. Brother No problems noted. Daughter No problems noted. Daughter No problems noted. Daughter No problems noted. Daughter No problems noted. Social History Household Members: Family Household Members Other:: 1 Housing: House Do you presently have visiting nurse or other home services: No Alcohol intake: never Patient Tobacco Use Status: Never used Tobacco e-Cigarette/Vaping Use: Never Used Second Hand Smoke Exposure: No Advance Directives Date on File: 11/17/19 service: No Current occupational status: retired Cognitive needs: No Hearing needs: No Vision needs: Yes Review of Systems Const All systems reviewed & are unremarkable except as noted in HPI and below Reports fatigue ENT Denies dizziness Card Denies chest pain, Denies chest pain at rest, Denies chest pain with activity, Denies rapid heart rate, Denies pedal edema, Denies edema, Denies leg edema, Denies lightheadedness, Denies palpitations, Denies dyspnea, Denies dyspnea on exertion and Denies orthopnea Resp Denies cough, Denies dyspnea and Denies dyspnea on exertion GI Denies hematochezia and Denies change in stool character Musc Reports abnormal gait, Denies limited range of motion, Denies muscle cramps, Reports muscle weakness, Denies numbness, Denies radiating pain into limb, Denies stiffness and Denies tingling Neuro Reports abnormal gait, Denies dizziness, Denies numbness and Denies tingling Endo Reports fatigue and Denies palpitations Physical Exam Vital Signs: Last Vital Signs Pulse 71 06/14/23 14:01 BP 130/62 06/14/23 14:01 BMI result Body Mass Index 32.5 Const General: cooperative, healthy appearing, comfortable and no acute distress Orientation/consciousness: patient oriented x3 Neck Neck: Yes normal visual inspection Resp Effort & Inspection: normal respiratory effort Auscultation: clear to auscultation bilaterally, no crackles, no rales, no rhonchi and no wheezes Cardio Jugular venous distension: no JVD Rate: regular rate Rhythm: regular rhythm Heart sounds: S1 normal heart sound present, S2 normal heart sound present, no murmurs and no rubs Neuro General: patient oriented x3 Extrem General: Yes normal to inspection and No no pedal edema Psych Appearance: grossly normal Mental Status: mental status grossly normal Speech and movement: Normal speech and movement present Assessment & Plan Assessment & Plan (1) Shortness of breath: Code(s): R06.02 - Shortness of breath Category: Medical Plan: On prior visit she reported fatigue and shortness of breath with activity. She denies any chest discomfort at rest or with activity. Her pulse had been noted to be in the 40s to 50s at her visit and metoprolol was reduced from 50 mg daily down to 25 mg daily. She has known history of PACs and brief atrial tach noted on prior EKG. Holter monitor then done on 10/23/2022 for 3 days shows sinus rhythm with average heart rate 58, 62% of the time heart rate less than 60, PACs and short SVT runs, longest 5 beats. Echocardiogram done 10/23/2022 showed EF 60-65%, no valve abnormalities. On follow-up she reported only slight improvement in how she feels. Heart rate was in the 60s. At that time her fatigue and shortness of breath were not felt to be cardiac related. Today she reports that her breathing has stabilized. It has not any different than 6 months ago. Her fatigue has increased but she reports being mostly sedentary now and limited by her arthritis. It is most likely deconditioning that this contributes to her symptoms. Vital signs are in normal range today. Signs and symptoms of angina reviewed with her. Emergency care if ever needed for symptoms. Cardiology follow-up in 1 year, sooner if needed. (2) PAC (premature atrial contraction): Code(s): I49.1 - Atrial premature depolarization Category: Medical Plan: As above Plan Time spent on chart review, documentation, interview and assessment Coding Level of Care Code Est Pt Level 3 (22915) Diagnoses Shortness of breath R06.02 PAC (premature atrial contraction) I49.1 Time Spent (min) 24
== END 2023-06-14 14:30 | disposition home or self-care (01) ==
PROVIDERS: PCP Internal Medicine; Visit Provider Nurse Practitioner Family
DX: R06.02 Shortness of breath (principal); I49.1 Atrial premature depolarization
CPT/HCPCS: 99213

== ENCOUNTER → 2023-06-14 13:58 | Outpatient (BNVA) | payer MEDICARE, MEDICAID, SELFPAY | PROVIDERS: PCP Internal Medicine; Visit Provider Nurse Practitioner Family | DX: R06.02 Shortness of breath (principal); I49.1 Atrial premature depolarization | CPT/HCPCS: 99212 ==

== ENCOUNTER 2023-08-08 11:53 | Outpatient (REF) | payer MEDICARE, MEDICAID, SELFPAY | END 2023-08-08 11:54 | disposition home or self-care (01) | LOC: HO.LAB 11:53 | PROVIDERS: PCP Internal Medicine; Visit Provider Nurse Practitioner Family | DX: N39.0 Urinary tract infection, site not specified (principal); R32 Unspecified urinary incontinence; R35.1 Nocturia; R35.0 Frequency of micturition; Q61.3 Polycystic kidney, unspecified; I10 Essential (primary) hypertension; Z79.899 Other long term (current) drug therapy | CPT/HCPCS: 51798; 81003; 87086; 87088; 87186; 99212 ==

== ENCOUNTER 2023-08-08 11:53 | Outpatient (AMB) | payer MEDICARE, MEDICAID, SELFPAY ==
--- NOTE | 2023-08-08 12:03 | A.OFFVIS_ITS ---
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 Accompanied by: Daughter Allergies No Known Allergies [No Known Allergies*] Allergy (Verified 08/09/23 07:47) Medication List - Last Reconciled 08/09/23 by CONSUELO Contreras-NARESH amlodipine 10 mg See Protocol PO DAILY atorvastatin 40 mg PO BEDTIME clotrimazole 1% 1 appl topical BID 4 weeks hydrochlorothiazide 25 mg PO DAILY lidocaine 5% 1 patch topical DAILY losartan 50 mg PO DAILY 90 days metoprolol succinate ER 25 mg PO DAILY 90 days nitrofurantoin monohyd/m-cryst 100 mg (Macrobid) 100 mg PO BID 10 days ropinirole 0.25 mg PO BEDTIME solifenacin (Vesicare) 5 mg PO DAILY 30 days tizanidine 4 mg PO BEDTIME PRN trazodone 100 mg (2 x 50 mg) PO BEDTIME PRN 90 days HPI Comments Details: Tiffani is a pleasant 87-year-old female patient of Dr. Bassett who is accompanied by her daughter at today's office visit. She has a past medical history of sepsis, diarrhea, GERD, mild cognitive impairment, osteoarthritis, spondylosis of cervical spine, vitamin-D deficiency, urinary incontinence, obesity, PVD, polycystic kidney disease, osteopenia, gout, degenerative disc disease, chronic kidney disease stage III, hypercholesteremia, and hypertension. She presents to the office today for follow-up of her lower urinary tract sympt oms (urinary frequency, nocturia, and episodes of unsensed incontinence) and recurrent UTI's. In discussion with the patient today she reports noting increased fatigue over the last 3-5 days. She continues to report episodes of nocturia up to 3 times per night however does endorse to be drinking water prior to bed. She also reports drinking water upon episodes of nocturia as she feels she has dry mouth. Previous workup has included a retroperitoneal ultrasound noting bilateral kidneys with no calculi and or hydronephrosis. Multiple simple appearing cyst noted bilaterally. No imaging follow-up is recommended per radiology report. The bladder is well distended and normal. Pre void bladder volume is approximately 260 mL postvoid bladder volume is approximately 40 mL. She reports compliance with VESIcare 5 mg daily. She reports her bothersome urinary issue is her nocturia. She otherwise denies urinary urgency, urinary frequency, hematuria, dysuria, foul smelling urine, changes to urinary stream, flank pain, fever, and or chills. In office urinalysis results reviewed with the patient today. 2+ leukocytes positive nitrates. PVR 61 mL. Discussed at length potential causes of nocturia as well as lifestyle modifications to assist with nocturia. She otherwise offers no other issues or concerns at this time. Patient with previous urine cultures noted E coli 04/06, 02/03, and 04/07. [facility] Medical History Leg cramps E coli bacteremia Sepsis Decreased hearing of both ears Osteoporosis screening Encounter for annual wellness exam in Medicare patient Chest discomfort Bacteremia due to Klebsiella pneumoniae Acute coronary syndrome Diarrhea GERD (gastroesophageal reflux disease) Mild cognitive impairment Osteoarthritis Spondylosis of cervical spine Vitamin D deficiency Urinary incontinence Obesity (BMI 30-39.9) Peripheral vascular disease Onychomycosis Adnexal mass Polycystic kidney disease Osteopenia Gout Degenerative disc disease, lumbar Chronic kidney disease (CKD) stage G3b/A3, moderately decreased glomerular filtration rate (GFR) between 30-44 mL/min/1.73 square meter and albuminuria creatinine ratio greater than 300 mg/g Hypercholesterolemia Hypertension Surgical History History of surgery History of cholecystectomy History of hysterectomy Family History Father No problems noted. Mother No problems noted. Brother No problems noted. Daughter No problems noted. Daughter No problems noted. Daughter No problems noted. Daughter No problems noted. Social History Household Members: Family Household Members Other:: 1 Housing: House Do you presently have visiting nurse or other home services: No Alcohol intake: never Patient Tobacco Use Status: Never used Tobacco e-Cigarette/Vaping Use: Never Used Second Hand Smoke Exposure: No Advance Directives Date on File: 11/17/19 service: No Current occupational status: retired Cognitive needs: No Hearing needs: No Vision needs: Yes Review of Systems Const Reports as per HPI Eyes Reports no additional complaints ENT Reports no additional complaints Card Reports as per HPI Resp Reports no additional complaints GI Reports as per HPI Reports as per HPI Musc Reports as per HPI Neuro Reports as per HPI Psych Reports no additional complaints Endo Reports no additional complaints Arturo/Lymph Reports no additional complaints Aller/Immun Reports no additional complaints Physical Exam Const General: cooperative, healthy appearing, comfortable, no acute distress, well developed, alert and awake Orientation/consciousness: patient oriented x3 Limitations: wheelchair HEENT Head: Yes normal to inspection, Yes normocephalic and Yes atraumatic Ears: hearing grossly normal bilaterally Eyes General: appearance normal, both eyes and all related structures Neck Neck: Yes normal visual inspection and Yes trachea midline Chest Chest palpation & inspection: normal inspection of the chest Resp Effort & Inspection: normal respiratory effort and able to speak in complete sentences Cardio Rate: regular rate GI Inspection: Yes normal to inspection General: Yes no CVA tenderness Back/Spine/Pelvis Back: no CVA tenderness Skin General skin exam: no rashes or lesions noted Neuro General: patient oriented x3 Extrem General: Yes normal to inspection Psych Appearance: grossly normal and well kempt Mental Status: mental status grossly normal Speech and movement: Normal speech and movement present and Clear speech present Affect: normal affect Attitude: cooperative Thought process: Normal thought process present Thought content: Normal thought content present Insight: Fair insight present (Psych) Judgement: Fair judgement present (Psych) Office Procedures Post Void Residual Post Residual Void Post Void Residual (PVR): 61 [id number] Void Residual by ultrasound Results AMB Urinalysis, Automated UA Leukoctes 125 Sonal/uL Last Edit by [employer] on 08/08/23 13:39 UA Nitrite Positive Last Edit by [employer] on 08/08/23 13:39 UA Urobilinogen 0.2 mg/dL Last Edit by [employer] on 08/08/23 13:39 UA Protein 15 mg/dL Last Edit by [employer] on 08/08/23 13:39 UA pH 6.0 Last Edit by [employer] on 08/08/23 13:39 UA Blood 10 Karan/uL Last Edit by [employer] on 08/08/23 13:39 UA Specific [place] 1.015 Last Edit by [employer] on 08/08/23 13:39 UA Ketone Negative Last Edit by [employer] on 08/08/23 13:39 UA Bilirubin 0 mg/dL Last Edit by Za Gabriel on 08/08/23 13:39 UA Glucose 0 mg/dL Last Edit by Za Gabriel on 08/08/23 13:39 Results Reviewed Results Reviewed: Laboratory Last Values Urine pH (Auto) 6.0 08/08/23 13:37 Specific [place] (Auto) 1.015 08/08/23 13:37 Urine Protein (Auto) 15 mg/dL 08/08/23 13:37 Glucose (UA)(Auto) 0 mg/dL 08/08/23 13:37 Urine Ketones (Auto) Negative 08/08/23 13:37 Urine Blood (Auto) 10 Karan/uL 08/08/23 13:37 Urine Nitrite (Auto) Positive 08/08/23 13:37 Urine Bilirubin (Auto) 0 mg/dL 08/08/23 13:37 Urine Urobilinogen (Auto) 0.2 mg/dL 08/08/23 13:37 Leukocyte Esterase (Auto) 125 Sonal/uL 08/08/23 13:37 Assessment & Plan Assessment & Plan (1) Renal cyst: Code(s): N28.1 - Cyst of kidney, acquired Category: Medical (2) Nocturia: Code(s): R35.1 - Nocturia Category: Medical (3) Urinary tract infection: Code(s): N39.0 - Urinary tract infection, site not specified Category: Medical (4) Recurrent urinary tract infection: Code(s): N39.0 - Urinary tract infection, site not specified Category: Medical Plan In office urinalysis results reviewed with the patient today; as noted above; will send for urine culture; will await results. PVR 61 mL. Discussed at length lifestyle modifications to assist with lower urinary tract symptoms. Continue VESIcare as discussed and prescribed. Start Macrobid as discussed and prescribed. Discussed possible near future prophylactic UTI prevention to include Estrace cream and or methenamine and vitamin-C versus prophylactic antibiotic. Discussed UTI prevention with D mannose supplement, vitamin-C, increasing fluid intake, behavioral therapy with timed voiding, perineal hygiene and postcoital voiding, and management of constipation with stool softeners and increased fiber intake. Follow-up in 1-2 months with PVR; or sooner with any issues, concerns, and or questions. Orders: Orders Urine Culture 08/08/23 N39.0 - Urinary tract infection, site not specified AMB Urinalysis Automated 08/08/23 Z13.9 - Encounter for screening, unspecified AMB Post Void Residual by ultrasound 08/08/23 N39.0 - Urinary tract infection, site not specified Medications: New nitrofurantoin macrocrystal 100 mg PO BID 10 days 20 caps 0RF R32 - Unspecified urinary incontinence Patient Instructions: The patient had an opportunity to ask questions regarding the treatment plan. All questions were answered. Physical exam, labs, and imaging were discussed and reviewed in detail. As well as risks, benefits, and discussion of treatment choices. No major barriers to understanding were identified. The patient expressed understanding and agreement with the above treatment plan. The patient was made aware they should contact our office by phone for worsening of their current condition, the appearance of new symptoms, or with any questions or concerns. Compliance is encouraged with any medications and follow up testing that is ordered. It is a privilege to be allowed the opportunity to participate in? your urological care.? Again, if you have any questions or concerns If you have any questions or concerns please do not hesitate to contact me. The office is [phone]. This note is constructed using voice recognition software. While every effort manley s been made to ensure accuracy human services case manager errors may have been included. Yours sincerely, ESPERANZA Contreras Coding Level of Care Code Est Pt Level 4 (64380) Complex EM visit Add On G2211 Diagnoses Renal cyst N28.1 Nocturia R35.1 Urinary tract infection N39.0 Recurrent urinary tract infection N39.0 CPT Codes Post Residual Void - PVR CPT Code: 06628-[id number] Void Residual by ultrasound ([id number])
== END 2023-08-08 12:32 | disposition home or self-care (01) ==
PROVIDERS: PCP Internal Medicine; Visit Provider Nurse Practitioner Family
DX: N28.1 Cyst of kidney, acquired (principal); R35.1 Nocturia; N39.0 Urinary tract infection, site not specified
CPT/HCPCS: 99214; G2211

== ENCOUNTER 2023-08-21 12:56 | Outpatient (AMB) | payer MEDICARE, MEDICAID, SELFPAY ==
[2023-08-21 13:00] VITALS: BP 136/82; PULSE 74; O2SAT 96; BMI 31.9
--- NOTE | 2023-08-21 13:00 | MHC.PC.OV ---
Vital Signs 08/21/23 13:00 Height 4 ft 11 in Weight 157 lb 13.616 oz BMI 31.9 BP 136/82 Blood Pressure Location Lt brachial Position Sitting Pulse 74 Pulse Source Pulse Oximeter Pulse Oximetry (%) 96 Oxygen Delivery Method Room Air Intake Visit Reasons: HTN, renal insuff Allergies No Known Allergies [No Known Allergies*] Allergy (Verified 08/21/23 13:00) Medication List - Last Reconciled 08/21/23 by Adry Young MD amlodipine 10 mg See Protocol PO DAILY atorvastatin 40 mg PO BEDTIME clotrimazole 1% 1 appl topical BID 4 weeks hydrochlorothiazide 25 mg PO DAILY lidocaine 5% 1 patch topical DAILY losartan 50 mg PO DAILY 90 days metoprolol succinate ER 25 mg PO DAILY 90 days nitrofurantoin monohyd/m-cryst 100 mg (Macrobid) 100 mg PO BID 10 days ropinirole 0.5 mg PO BEDTIME 90 days solifenacin (Vesicare) 5 mg PO DAILY 30 days tizanidine 4 mg PO BEDTIME PRN trazodone 100 mg (2 x 50 mg) PO BEDTIME PRN 90 days Tobacco use date assessed: 05/09/23 Fall risk assessment: No Falls in past year Last assessed Fall Risk: 08/21/23 Dental Screening Dental Screen Date: 08/21/23 Did you have a dental visit in the last 12 months?: No Did you have a dental problem in the last 6 months where you did not have access to dental care?: No Was dental information given to patient?: No HPI HTN, renal insuff HPI Details 87-year-old obese female with hypertension hypercholesterolemia GERD renal insufficiency coming in for follow-up. Last seen in April 2023. Review of the notes has been following up with u Urology 09/01/2023 for urinary incontinence on VESIcare patient was advised to start on Macrobid for 10 days discussed about Estrace cream/methenamine and vitamin-C patient also followed up with Gastroenterology for the GERD and rectal urgency [id number] advised to use antidiarrheals or bulking agents. Patient also follows up with Cardiology June 2023 last echocardiogram 10/2022 EF of 60-65% PFSH Medical History (Updated 08/21/23 @ 13:23 by Adry Young MD) Adnexal mass Onychomycosis UTI due to Klebsiella species Allergic conjunctivitis Bacteremia Congestion of nasal sinus Urinary incontinence Constipation Preoperative clearance Renal insufficiency COVID-19 virus infection Low back pain E coli bacteremia Shortness of breath PAC (premature atrial contraction) Urinary tract infection Renal cyst Nocturia Bradycardia Sepsis Decreased hearing of both ears Osteoporosis screening Encounter for annual wellness exam in Medicare patient Chest discomfort Bacteremia due to Klebsiella pneumoniae Acute coronary syndrome Diarrhea GERD (gastroesophageal reflux disease) Mild cognitive impairment Osteoarthritis Spondylosis of cervical spine Vitamin D deficiency Obesity (BMI 30-39.9) Peripheral vascular disease Polycystic kidney disease Osteopenia Gout Degenerative disc disease, lumbar Chronic kidney disease (CKD) stage G3b/A3, moderately decreased glomerular filtration rate (GFR) between 30-44 mL/min/1.73 square meter and albuminuria creatinine ratio greater than 300 mg/g Hypercholesterolemia Hypertension Surgical History History of surgery History of cholecystectomy History of hysterectomy Family History Father No problems noted. Mother No problems noted. Brother No problems noted. Daughter No problems noted. Daughter No problems noted. Daughter No problems noted. Daughter No problems noted. Social History Household Members: Family Household Members Other:: 1 Housing: House Do you presently have visiting nurse or other home services: No Alcohol intake: never Patient Tobacco Use Status: Never used Tobacco Tobacco use type: Cigarette e-Cigarette/Vaping Use: Never Used Second Hand Smoke Exposure: No Advance Directives Date on File: 11/17/19 service: No Current occupational status: retired Cognitive needs: No Hearing needs: No Vision needs: Yes Questionnaire PHQ-9 Over the last 2 weeks, how often have you been bothered by any of the following problems? 1. Little interest or pleasure in doing things: not at all 2. Feeling down, depressed, or hopeless: not at all 3. Trouble falling or staying asleep, or sleeping too much: more than half the days 4. Feeling tired or having little energy: several days 5. Poor appetite or overeating: not at all 6. Feeling bad about yourself - or that you are a failure or have let yourself or your family down: not at all 7. Trouble concentrating on things, such as reading the newspaper or watching television: not at all 8. Moving or speaking so slowly that other people could have noticed. Or the opposite - being so fidgety or restless that you have been moving around a lot more than usual: not at all 9. Thoughts that you would be better off or of hurting yourself in some way: not at all Total score: 3 Depression Screening Interpretation: Positive Depression Screening Done: Yes Source: Developed by Drs. Yemi Vela, Gelacio Beach and colleagues, with an educational lisa from [employer]. Thrive Questionnaire Date Thrive assessed: 08/21/23 I am a: Patient What is your living situation today?: I have a steady place to live Within the past 12 months, did the food you bought not last and you didn't have the money to get more?: Never true Within the past 12 months, did you worry whether your food would run out before you got money to buy more?: Never true Do you have trouble paying for medicines?: No Do you have trouble getting transportation to medical appointments?: No Do you have trouble paying your heating and electricity bill?: No Do you have trouble taking care of your child, family member or friend?: No Do you have trouble with day-to-day activities such as bathing, preparing meals, shopping, managing finances, etc.?: No Are you currently unemployed and looking for a job?: No Are you interested in more education?: No Currently or been in a relationship where the following occur: No concerns reported THRIVE Score: 0 AUDIT C Alcohol Use Questionnaire (AUDIT-C) 1. How often do you have a drink containing alcohol?: Never 2. How many drinks containing alcohol do you have on a typical day when you are drinking?: 1 or 2 3. How often do you have six or more drinks on one occasion?: Never Total Score: 0 PORTER-7 AMB Questionnaire PORTER-7 Date PORTER - 7 assessed: 05/09/23 Source: Developed by Drs. Yemi Vela, Gelacio Beach and colleagues, with an educational lisa from [employer]. Physical exam (Primary Care) Vital Signs: Last Vital Signs Pulse 74 08/21/23 13:00 BP 136/82 08/21/23 13:00 Pulse Ox 96 08/21/23 13:00 Oxygen Delivery Method Room Air 08/21/23 13:00 BMI result Body Mass Index 31.9 Tobacco/Smoking Status: Tobacco use Status Tobacco use date assessed 05/09/23 08/21/23 13:08 Patient Tobacco Use Status Never used Tobacco 08/21/23 13:08 Tobacco use type Cigarette 08/21/23 13:08 e-Cigarette/Vaping Use Never Used 08/21/23 13:08 PHQ-9: PHQ-9 Score PHQ-9: Total score 3 08/21/23 13:23 Depression Screening Interpretation: Positive Thrive Assessment: Date of Thrive Assessment Date Thrive assessed 08/21/23 08/21/23 13:08 Currently or been in a relationship where the following occur: No concerns reported Const General: alert; No acute distress Eyes Conjunctivae: conjunctivae normal Resp Auscultation: clear to auscultation bilaterally Cardio Rate: regular rate Rhythm: regular rhythm GI Inspection: Yes normal to inspection Extrem General: Yes normal to inspection and No edema Assessment and Plan Assessment & Plan (1) Obesity (BMI 30.0-34.9): Code(s): E66.9 - Obesity, unspecified Plan: Diet and exercise (2) Hypertension: Code(s): I10 - Essential (primary) hypertension Qualifiers: Hypertension type: essential hypertension Qualified Code(s): I10 - Essential (primary) hypertension Plan: Continue with blood pressure medication. Decrease salt intake and exercise takes amlodipine 10 mg once a day hydrochlorothiazide 25 mg once a day losartan 50 mg once a day and metoprolol 25 mg once a day (3) GERD (gastroesophageal reflux disease): Code(s): K21.9 - Gastro-esophageal reflux disease without esophagitis Qualifiers: Esophagitis presence: without esophagitis Qualified Code(s): K21.9 - Gastro-esophageal reflux disease without esophagitis Plan: Avoid the foods that causes that usually spicy foods, tomato products, juices, coffee, soda and foods that your sensitive to. After eating do not lie down, allow 3-4 hours before in lie down. And keep the head of bed above 30 degrees to avoid the acid from going up. (4) Osteoporosis: Code(s): M81.0 - Age-related osteoporosis without current pathological fracture Plan: Patient is due for repeat bone density (5) Polycystic kidney disease: Comment: March 2019, November 2021 Code(s): Q61.3 - Polycystic kidney, unspecified Plan: Keep well hydrated avoid NSAIDs (6) Recurrent urinary tract infection: Code(s): N39.0 - Urinary tract infection, site not specified Plan: Patient follows up with urology was treated the last time on VESIcare for urge incontinence (7) Chronic kidney disease (CKD) stage G3b/A3, moderately decreased glomerular filtration rate (GFR) between 30-44 mL/min/1.73 square meter and albuminuria creatinine ratio greater than 300 mg/g: Code(s): N18.32 - Chronic kidney disease, stage 3b Orders: Orders Complete Blood Count Auto Diff Today N18.32 - Chronic kidney disease, stage 3b Comprehensive Met. Panel Today N18.32 - Chronic kidney disease, stage 3b Medications: Changed From ropinirole administer 1-3 hours before bedtime 0.25 mg PO BEDTIME 90 tabs 2RF G25.81 - Restless legs syndrome To ropinirole administer 1-3 hours before bedtime 0.5 mg PO BEDTIME 90 tabs 2RF 90 days G25.81 - Restless legs syndrome On Hold hydrochlorothiazide Hold Comment: complains of dryness 25 mg PO DAILY 90 tabs 0RF I10 - Essential (primary) hypertension Coding Level of Care Code Est Pt Level 4 (87775) Diagnoses Obesity (BMI 30.0-34.9) E66.9 Essential hypertension I10 Hypertension type: essential hypertension Gastroesophageal reflux disease without esophagitis K21.9 Esophagitis presence: without esophagitis Osteoporosis M81.0 Polycystic kidney disease Q61.3 Recurrent urinary tract infection N39.0 Chronic kidney disease (CKD) stage G3b/A3, moderately decreased glomerular filtration rate (GFR) between 30-44 mL/min/1.73 square meter and albuminuria creatinine ratio greater than 300 mg/g N18.32 Additional Codes PHQ-9 - 46715 - PHQ-9 Billing: ([id number])
== END 2023-08-21 13:48 | disposition home or self-care (01) ==
PROVIDERS: PCP Internal Medicine; Visit Provider Internal Medicine
DX: I12.9 Hypertensive chronic kidney disease with stage 1 through stage 4 chronic kidney disease, or unspecified chronic kidney disease (principal); N18.32 Chronic kidney disease, stage 3b; Q61.3 Polycystic kidney, unspecified; M81.0 Age-related osteoporosis without current pathological fracture; K21.9 Gastro-esophageal reflux disease without esophagitis; N39.0 Urinary tract infection, site not specified
CPT/HCPCS: 99214

== ENCOUNTER 2023-10-30 17:13 | Outpatient (REF) | payer MEDICARE, MEDICAID, SELFPAY ==
[2023-10-30 17:19] LABS: Appearance Urine Turbid; Color Urine Dark Yellow; Glucose Urine UA Negative (Negative); Leukocyte Esterase Urine Moderate (2+) (Negative); Nitrite Urine Negative (Negative); PH 5.5 (5.0-9.0); UMIC TRIGGER UACC YES; Urine Blood Negative (Negative); Urine Ketones Trace mg/dL (Negative); Urine Protein 30 (1+) mg/dL (Neg-Trace)
[2023-10-30 18:32] LABS: Bacteria Urine 4+ (None Seen); Calcium Oxalate Crystals Urine Present; Hyaline Casts Urine 0-2 /LPF (0-2); UACC Culture Trigger YES; WBC Urine 21-50 /HPF (0-5)
== END 2023-10-30 17:14 | disposition home or self-care (01) ==
LOC: HO.LNP 17:13
PROVIDERS: Visit Provider Internal Medicine
DX: R39.9 Unspecified symptoms and signs involving the genitourinary system (principal)
CPT/HCPCS: 81001; 87086; 87088; 87186

== ENCOUNTER 2023-12-06 09:23 | Outpatient (REF) | payer MEDICARE, MEDICAID, SELFPAY ==
[2023-12-06 09:47] LABS: MANUAL DIFF FLAG NO
[2023-12-06 10:29] LABS: Basophils Absolute Auto 0.1 X10*3/uL (0.0-0.2); Eosinophils Absolute Auto 0.2 X10*3/uL (0.0-0.4); Eosinophils Percent Auto 2.9 % (0-4); Hematocrit 38.6 % (37.0-47.0); Imm Gran Abs Auto 0.02 X10*3/uL (0.00-0.03); Imm Gran Pct Auto 0.3 % (0.0-0.4); Lymphocytes Absolute Auto 1.5 X10*3/uL (1.2-4.9); Lymphocytes Percent Auto 21.2 % (20-40); Mean Corpuscular HGB Conc 33.7 g/dl (31.0-35.0); Mean Corpuscular Hemoglobin 30.6 pg (27.0-33.0); Mean Corpuscular Volume 90.8 fL (80.0-98.0); Monocytes Absolute Auto 0.5 X10*3/uL (0.1-1.2); Monocytes Percent Auto 7.3 % (2-11); Neutrophils Absolute Auto 4.9 x10*3/uL (2.0-8.3); Neutrophils Percent Auto 67.3 % (45-73); Platelet Count 294 X10*3/uL (160-400); Red Blood Count 4.25 X10*6/uL (4.20-5.50); Red Cell Distribution Width 13.1 % (11.0-16.0); White Blood Count 7.2 X10*3/uL (4.8-10.8)
[2023-12-06 11:10] LABS: Alanine Aminotransferase 9 U/L (0-31); Albumin Level 3.4 g/dL (3.5-5.0); Alkaline Phosphatase 74 U/L (39-117); Anion Gap 12 (12-20); Aspartate Amino Transferase 22 U/L (5-31); Bilirubin Total 0.6 mg/dL (0.0-1.0); Blood Urea Nitrogen 9 mg/dL (9-16); Calcium 8.8 mg/dL (8.4-10.2); Carbon Dioxide 24 mmol/L (22-29); Chloride 103 mmol/L (96-108); Estimated Glomerular Filt Rate 39; Glucose Random 90 mg/dL (60-115); Potassium 4.4 mmol/L (3.3-5.1); Sodium 135 mmol/L (135-145); Total Protein 5.6 g/dL (6.5-8.0)
[2023-12-06 13:22] LABS: Appearance Urine Clear; Color Urine Yellow; Glucose Urine UA Negative (Negative); Leukocyte Esterase Urine Small (1+) (Negative); Nitrite Urine Negative (Negative); UMIC TRIGGER UACC YES; Urine Blood Negative (Negative); Urine Ketones Negative (Negative); Urine Protein Negative (Neg-Trace)
[2023-12-06 13:37] LABS: Bacteria Urine None Seen (None Seen); RBC Urine 0-2 /HPF (0-2); UACC Culture Trigger YES
== END 2023-12-06 09:24 | disposition home or self-care (01) ==
LOC: HO.LAB 09:23
PROVIDERS: PCP Internal Medicine; Visit Provider Internal Medicine
DX: N18.32 Chronic kidney disease, stage 3b (principal); R39.9 Unspecified symptoms and signs involving the genitourinary system
CPT/HCPCS: 36415; 80053; 81001; 85025; 87086

== ENCOUNTER 2023-12-20 10:36 | Outpatient (AMB) | payer MEDICARE, MEDICAID, SELFPAY ==
[2023-12-20 10:50] VITALS: BP 118/54; PULSE 60; O2SAT 94; BMI 30.8
--- NOTE | 2023-12-20 10:50 | A.OFFPC_ITS ---
Vital Signs 12/20/23 10:50 Height 4 ft 11 in Weight 152 lb 5.431 oz BMI 30.8 BP 118/54 L Blood Pressure Location Lt brachial Position Sitting Pulse 60 Pulse Source Pulse Oximeter Pulse Oximetry (%) 94 Oxygen Delivery Method Room Air Intake Visit Reasons: CKD Allergies No Known Allergies [No Known Allergies*] Allergy (Verified 12/20/23 10:54) Tobacco use date assessed: 05/09/23 Fall risk assessment: No Falls in past year Last assessed Fall Risk: 12/20/23 Dental Screening Dental Screen Date: 08/21/23 HPI CKD HPI Details 88-year-old obese female with hypertensi on GERD osteoporosis polycystic kidney disease chronic kidney disease coming in for follow-up. Last seen in August 2023. Patient's colonoscopy is up-to-date bone density 05/01/2021. [facility] Medical History (Updated 12/20/23 @ 11:23 by Adry Young MD) Adnexal mass Onychomycosis UTI due to Klebsiella species Allergic conjunctivitis Bacteremia Congestion of nasal sinus Urinary incontinence Constipation Preoperative clearance Renal insufficiency COVID-19 virus infection Low back pain E coli bacteremia Shortness of breath PAC (premature atrial contraction) Urinary tract infection Renal cyst Nocturia Bradycardia Sepsis Decreased hearing of both ears Osteoporosis screening Encounter for annual wellness exam in Medicare patient Chest discomfort Bacteremia due to Klebsiella pneumoniae Acute coronary syndrome Diarrhea GERD (gastroesophageal reflux disease) Mild cognitive impairment Osteoarthritis Spondylosis of cervical spine Vitamin D deficiency Obesity (BMI 30-39.9) Peripheral vascular disease Polycystic kidney disease Osteopenia Gout Degenerative disc disease, lumbar Chronic kidney disease (CKD) stage G3b/A3, moderately decreased glomerular filtration rate (GFR) between 30-44 mL/min/1.73 square meter and albuminuria creatinine ratio greater than 300 mg/g Hypercholesterolemia Hypertension Surgical History History of surgery History of cholecystectomy History of hysterectomy Family History Father No problems noted. Mother No problems noted. Brother No problems noted. Daughter No problems noted. Daughter No problems noted. Daughter No problems noted. Daughter No problems noted. Social History Household Members: Family Household Members Other:: 1 Housing: House Do you presently have visiting nurse or other home services: No Alcohol intake: never Patient Tobacco Use Status: Never used Tobacco Tobacco use type: Cigarette e-Cigarette/Vaping Use: Never Used Second Hand Smoke Exposure: No Advance Directives Date on File: 11/17/19 service: No Current occupational status: retired Cognitive needs: No Hearing needs: No Vision needs: Yes Questionnaire Thrive Questionnaire Date Thrive assessed: 08/21/23 AUDIT C Alcohol Use Questionnaire (AUDIT-C) 1. How often do you have a drink containing alcohol?: Never 2. How many drinks containing alcohol do you have on a typical day when you are drinking?: 1 or 2 3. How often do you have six or more drinks on one occasion?: Never Total Score: 0 PORTER-7 AMB Questionnaire PORTER-7 Date PORTER - 7 assessed: 05/09/23 Source: Developed by Drs. Yemi Vela, Christine Butler, Gelacio Hutchison and colleagues, with an educational lisa from [employer]. Physical exam (Primary Care) Vital Signs: Last Vital Signs Pulse 60 12/20/23 10:50 BP 118/54 L 12/20/23 10:50 Pulse Ox 94 12/20/23 10:50 Oxygen Delivery Method Room Air 12/20/23 10:50 BMI result Body Mass Index 30.8 Tobacco/Smoking Status: Tobacco use Status Tobacco use date assessed 05/09/23 12/20/23 10:55 Patient Tobacco Use Status Never used Tobacco 12/20/23 10:55 Tobacco use type Cigarette 12/20/23 10:55 e-Cigarette/Vaping Use Never Used 12/20/23 10:55 Thrive Assessment: Date of Thrive Assessment Date Thrive assessed 08/21/23 12/20/23 10:55 Const General: alert; No acute distress Eyes Conjunctivae: conjunctivae normal Resp Auscultation: clear to auscultation bilaterally Cardio Rate: regular rate Rhythm: regular rhythm GI Inspection: Yes normal to inspection Extrem General: Yes normal to inspection and No edema Office Procedures Flu Questionnaire Does the patient have a severe egg allergy?: No Does the patient have severe life threatening allergies?: No Does the patient have a fever or illness today?: No Has the patient ever had Guillain-Treece Syndrome?: No Has the patient ever had any past reaction to a flu shot?: No Results AMB Urinalysis, Automated UA Leukoctes 0 Sonal/uL Last Edit by Iman Medina CMA on 12/20/23 11:58 UA Nitrite Negative Last Edit by Iman Medina, [employer]ARM [employer]MENT SERVICE TECHNICIAN on 12/20/23 11:58 UA Urobilinogen 0.2 mg/dL Last Edit by Iman Medina, FARM EQUIPMENT SERVICE TECHNICIAN on 12/20/23 11:5 8 UA Protein 0 mg/dL Last Edit by Iman Medina, FARM EQUIPMENT SERVICE TECHNICIAN on 12/20/23 11:58 UA pH 6.0 Last Edit by Iman Medina, FARM EQUIPMENT SERVICE TECHNICIAN on 12/20/23 11:58 UA Blood 0 Karan/uL Last Edit by Iman Medina, FARM EQUIPMENT SERVICE TECHNICIAN on 12/20/23 11:58 UA Specific [place] 1.010 Last Edit by Iman Medina, OLIVA on 12/20/23 11: 58 UA Ketone Negative Last Edit by Iman Medina, OLIVA on 12/20/23 11:58 UA Bilirubin 0 mg/dL Last Edit by Iman Medina, FARM EQUIPMENT SERVICE TECHNICIAN on 12/20/23 11:58 UA Glucose 0 mg/dL Last Edit by Iman Medina, FARM EQUIPMENT SERVICE TECHNICIAN on 12/20/23 11:58 Immunizations Fluarix Triv [id number] (PF) 45 mcg (15 mcg x 3)/0.5 mL IM syringe Performing Provider: Adry Young MD [facility] Administered by: VANNESSA Gross on 12/20/23 10:58 Dose Route Admin Location Dispensed Lot Number Expiration Date [facility] [place] [employer] 0.5 mL IM Left Deltoid 0.5 mL [id number] 08/11/24 [id number] [employer] VIS Given Date VIS Provided VIS Publication Date 12/20/23 Single Vaccine 20 Eligibility Eligibility Date Funding Source Not [facility] Eligible 12/20/23 Private Coding Level of Care Code Est Pt Level 4 (11016) Diagnoses Chronic kidney disease (CKD) stage G3b/A3, moderately decreased glomerular filtration rate (GFR) between 30-44 mL/min/1.73 square meter and albuminuria creatinine ratio greater than 300 mg/g N18.32 Essential hypertension I10 Hypertension type: essential hypertension Gastroesophageal reflux disease without esophagitis K21.9 Esophagitis presence: without esophagitis Hypercholesterolemia E78.00 Age-related osteoporosis without current pathological fracture M81.0 Osteoporosis type: age-related Presence of current pathological fracture: without current pathological fracture Assessment & Plan Assessment & Plan (1) Chronic kidney disease (CKD) stage G3b/A3, moderately decreased glomerular filtration rate (GFR) between 30-44 mL/min/1.73 square meter and albuminuria creatinine ratio greater than 300 mg/g: Code(s): N18.32 - Chronic kidney disease, stage 3b Category: Medical Plan: Keep well hydrated numbers are improving. Avoid NSAID (2) Hypertension: Code(s): I10 - Essential (primary) hypertension Category: Medical Qualifiers: Hypertension type: essential hypertension Qualified Code(s): I10 - Essential (primary) hypertension Plan: Continue with blood pressure medication. Decrease salt intake and exercise on amlodipine 10 mg once a day hydrochlorothiazide 25 mg once a day losartan at 50 mg once a day and metoprolol 25 mg once a day (3) GERD (gastroesophageal reflux disease): Code(s): K21.9 - Gastro-esophageal reflux disease without esophagitis Category: Medical Qualifiers: Esophagitis presence: without esophagitis Qualified Code(s): K21.9 - Gastro-esophageal reflux disease without esophagitis Plan: Avoid the foods that causes that usually spicy foods, tomato products, juices, coffee, soda and foods that your sensitive to. After eating do not lie down, allow 3-4 hours before in lie down. And keep the head of bed above 30 degrees to avoid the acid from going up. (4) Hypercholesterolemia: Code(s): E78.00 - Pure hypercholesterolemia, unspecified Category: Medical Plan: Avoid fried foods, chicken skin, eggs, butter margarine, pastries and meat. Be it pork or beef they have a lot of cholesterol LDL goal of less than 130 and triglyceride of less than 150 on atorvastatin 40 mg once a day (5) Osteoporosis: Comment: 2021 Code(s): M81.0 - Age-related osteoporosis without current pathological fracture Category: Medical Qualifiers: Osteoporosis type: age-related Presence of current pathological fracture: without current pathological fracture Qualified Code(s): M81.0 - Age- related osteoporosis without current pathological fracture Plan: Discussed about following up with bone density and discussed about calcium and vitamin-D Orders: Orders Influenza [id number] Immunization Today Z23 - Encounter for immunization AMB Urinalysis Automated Today N18.32 - Chronic kidney disease, stage 3b, Z13.9 - Encounter for screening, unspecified XR DEXA axial skeleton Today M81.0 - Age-related osteoporosis without current pathological fracture Lipid Panel 6 Months E78.00 - Pure hypercholesterolemia, unspecified Vitamin B12 and Folate 6 Months E78.00 - Pure hypercholesterolemia, unspecified Vitamin D 25-OH Total 6 Months E78.00 - Pure hypercholesterolemia, unspecified UA CC w/rflx Micro + Cult 6 Months E78.00 - Pure hypercholesterolemia, unspecified, R30.0 - Dysuria Complete Blood Count Auto Diff 6 Months E78.00 - Pure hypercholesterolemia, unspecified Comprehensive Met. Panel 6 Months E78.00 - Pure hypercholesterolemia, unspecified Thyroid Stimulating Hormone 6 Months E78.00 - Pure hypercholesterolemia, unspecified Free T4 (Free Thyroxine) 6 Months E78.00 - Pure hypercholesterolemia, unspecified Uric Acid 6 Months E78.00 - Pure hypercholesterolemia, unspecified
== END 2023-12-20 11:50 | disposition home or self-care (01) ==
LOC: HO.HMCH 10:36
PROVIDERS: PCP Internal Medicine; Visit Provider Internal Medicine
DX: N18.32 Chronic kidney disease, stage 3b (principal); I10 Essential (primary) hypertension; K21.9 Gastro-esophageal reflux disease without esophagitis; E78.00 Pure hypercholesterolemia, unspecified; M81.0 Age-related osteoporosis without current pathological fracture; Z13.9 Encounter for screening, unspecified; Z23 Encounter for immunization

== ENCOUNTER → 2023-12-20 10:36 | Outpatient (BNVA) | payer MEDICARE, MEDICAID, SELFPAY | PROVIDERS: PCP Internal Medicine; Visit Provider Internal Medicine | DX: Z23 Encounter for immunization (principal); I12.9 Hypertensive chronic kidney disease with stage 1 through stage 4 chronic kidney disease, or unspecified chronic kidney disease; N18.32 Chronic kidney disease, stage 3b; K21.9 Gastro-esophageal reflux disease without esophagitis; E78.00 Pure hypercholesterolemia, unspecified; M81.0 Age-related osteoporosis without current pathological fracture; R30.0 Dysuria | CPT/HCPCS: 81003; 90471; 90656; 99212 ==

== ENCOUNTER 2024-06-18 10:18 | Outpatient (AMB) | payer MEDICARE, MEDICAID, SELFPAY ==
[2024-06-18 10:23] VITALS: BP 128/68; PULSE 68; O2SAT 94; BMI 31.6
--- NOTE | 2024-06-18 10:23 | MHC.PC.OV ---
Vital Signs 06/18/24 10:23 Height 4 ft 11 in Weight 156 lb 4.924 oz BMI 31.6 BP 128/68 Blood Pressure Location Lt brachial Position Sitting Pulse 68 Pulse Source Pulse Oximeter Pulse Oximetry (%) 94 Oxygen Delivery Method Room Air Intake Visit Reasons: Hypertension Allergies No Known Allergies [No Known Allergies*] Allergy (Verified 06/18/24 10:24) Medication List - Last Reconciled 06/18/24 by Adry Young MD amlodipine 10 mg See Protocol PO DAILY atorvastatin 40 mg PO BEDTIME clotrimazole 1% 1 appl topical BID 4 weeks hydrochlorothiazide 25 mg PO DAILY lidocaine 5% 1 patch topical DAILY losartan 50 mg PO DAILY 90 days metoprolol succinate ER 25 mg PO DAILY 90 days ropinirole 0.5 mg PO BEDTIME 90 days solifenacin (Vesicare) 5 mg PO DAILY 30 days tizanidine 4 mg PO BEDTIME PRN trazodone 100 mg (2 x 50 mg) PO BEDTIME PRN 90 days Tobacco use date assessed: 06/18/24 Fall risk assessment: No Falls in past year Last assessed Fall Risk: 06/18/24 Dental Screening Dental Screen Date: 06/18/24 Did you have a dental visit in the last 12 months?: No Did you have a dental problem in the last 6 months where you did not have access to dental care?: No Was dental information given to patient?: No FOR[facility]LY [facility], [facility] Medical History (Updated 12/20/23 @ 11:23 by Adry Young MD) Adnexal mass Onychomycosis UTI due to Klebsiella species Allergic conjunctivitis Bacteremia Congestion of nasal sinus Urinary incontinence Constipation Preoperative clearance Renal insufficiency COVID-19 virus infection Low back pain E coli bacteremia Shortness of breath PAC (premature atrial contraction) Urinary tract infection Renal cyst Nocturia Bradycardia Sepsis Decreased hearing of both ears Osteoporosis screening Encounter for annual wellness exam in Medicare patient Chest discomfort Bacteremia due to Klebsiella pneumoniae Acute coronary syndrome Diarrhea GERD (gastroesophageal reflux disease) Mild cognitive impairment Osteoarthritis Spondylosis of cervical spine Vitamin D deficiency Obesity (BMI 30-39.9) Peripheral vascular disease Polycystic kidney disease Osteopenia Gout Degenerative disc disease, lumbar Chronic kidney disease (CKD) stage G3b/A3, moderately decreased glomerular filtration rate (GFR) between 30-44 mL/min/1.73 square meter and albuminuria creatinine ratio greater than 300 mg/g Hypercholesterolemia Hypertension Surgical History History of surgery History of cholecystectomy History of hysterectomy Family History Father No problems noted. Mother No problems noted. Brother No problems noted. Daughter No problems noted. Daughter No problems noted. Daughter No problems noted. Daughter No problems noted. Social History Household Members: Family Household Members Other:: 1 Housing: House Do you presently have visiting nurse or other home services: No Alcohol intake: never Patient Tobacco Use Status: Never used Tobacco Tobacco use type: Cigarette e-Cigarette/Vaping Use: Never Used Second Hand Smoke Exposure: No Advance Directives Date on File: 11/17/19 service: No Current occupational status: retired Cognitive needs: No Hearing needs: No Vision needs: Yes Questionnaire PHQ-9 Over the last 2 weeks, how often have you been bothered by any of the following problems? 1. Little interest or pleasure in doing things: not at all 2. Feeling down, depressed, or hopeless: not at all 3. Trouble falling or staying asleep, or sleeping too much: several days 4. Feeling tired or having little energy: several days 5. Poor appetite or overeating: not at all 6. Feeling bad about yourself - or that you are a failure or have let yourself or your family down: not at all 7. Trouble concentrating on things, such as reading the newspaper or watching television: not at all 8. Moving or speaking so slowly that other people could have noticed. Or the opposite - being so fidgety or restless that you have been moving around a lot more than usual: not at all 9. Thoughts that you would be better off or of hurting yourself in some way: not at all Total score: 2 Depression Screening Interpretation: Positive Depression Screening Done: Yes 68578 - PHQ-9 Billing: Yes Source: Developed by Drs. Yemi Vela, Christine Butler, Gelacio Hutchison and colleagues, with an educational lisa from [employer]. Thrive Questionnaire Date Thrive assessed: 06/18/24 I am a: Patient What is your living situation today?: I have a steady place to live Within the past 12 months, did the food you bought not last and you didn't have the money to get more?: Never true Within the past 12 months, did you worry whether your food would run out before you got money to buy more?: Never true Do you have trouble paying for medicines?: No Do you have trouble getting transportation to medical appointments?: No Do you have trouble paying your heating and electricity bill?: No Do you have trouble taking care of your child, family member or friend?: No Do you have trouble with day-to-day activities such as bathing, preparing meals, shopping, managing finances, etc.?: Yes Are you currently unemployed and looking for a job?: No Are you interested in more education?: No Please select the resources that you would like help with: None Currently or been in a relationship where the following occur: No concerns reported THRIVE Score: 0 AUDIT C Alcohol Use Questionnaire (AUDIT-C) 1. How often do you have a drink containing alcohol?: Never Total Score: 0 PORTER-7 AMB Questionnaire PORTER-7 Date PORTER - 7 assessed: 06/18/24 Feeling nervous, anxious, or on edge: 0 = Not at all Not being able to stop or control worryin = Not at all Worrying too much about different things: 0 = Not at all Trouble relaxin = Not at all Being so restless that it is hard to sit still: 0 = Not at all Becoming easily annoyed or irritable: 0 = Not at all Feeling afraid as if something awful might happen: 0 = Not at all Total PORTER-7 score (0-4 normal; 5-9 mild; 10-14 moderate; 15-21 severe): 0 Source: Developed by Drs. Yemi Vela, Christine Butler, Gelacio Hutchison and colleagues, with an educational lisa from [employer]. PORTER-7 Assessment Billing PORTER-7 Assessment Tool: PORTER-7 Assessment 29794 Physical exam (Primary Care) Vital Signs: Last Vital Signs Pulse 68 06/18/24 10:23 BP 128/68 06/18/24 10:23 Pulse Ox 94 06/18/24 10:23 Oxygen Delivery Method Room Air 06/18/24 10:23 BMI result Body Mass Index 31.6 Tobacco/Smoking Status: Tobacco use Status Tobacco use date assessed 06/18/24 06/18/24 10:25 Patient Tobacco Use Status Never used Tobacco 06/18/24 10:25 Tobacco use type Cigarette 06/18/24 10:25 e-Cigarette/Vaping Use Never Used 06/18/24 10:25 PHQ-9: PHQ-9 Score PHQ-9: Total score 2 06/18/24 11:14 Depression Screening Interpretation: Positive Thrive Assessment: Date of Thrive Assessment Date Thrive assessed 06/18/24 06/18/24 10:25 Currently or been in a relationship where the following occur: No concerns reported Const General: alert; No acute distress Eyes Conjunctivae: conjunctivae normal Resp Auscultation: clear to auscultation bilaterally Cardio Rate: regular rate Rhythm: regular rhythm GI Inspection: Yes normal to inspection Extrem General: Yes normal to inspection and No edema Immunizations Tenivac (PF) 5 Lf unit-2 Lf unit/0.5 mL intramuscular suspension Performing Provider: Adry Young MD [facility] Administered by: Barbara Jimenez CMA on 06/18/24 11:14 Dose Route Admin Location Dispensed Lot Number Expiration Date NDC Support Clerk 0.5 mL IM Left Deltoid 0.5 mL [id number] 04/12/26 19027-094-28 [employer] VIS Given Date VIS Provided VIS Publication Date 06/18/24 Single Vaccine 20 Eligibility Eligibility Date Funding Source Not [facility] Eligible 06/18/24 Private Coding Level of Care Code Est Pt Level 4 (45119) Complex EM visit Add On G2211 Diagnoses Chronic kidney disease (CKD) stage G3b/A3, moderately decreased glomerular filtration rate (GFR) between 30-44 mL/min/1.73 square meter and albuminuria creatinine ratio greater than 300 mg/g N18.32 Obesity (BMI 30.0-34.9) E66.9 Hypercholesterolemia E78.00 Essential hypertension I10 Hypertension type: essential hypertension Gastroesophageal reflux disease without esophagitis K21.9 Esophagitis presence: without esophagitis Additional Codes PORTER-7 Assessment Billing - PORTER-7 Assessment Tool: PORTER-7 Assessment 39756 ([id number]) PHQ-9 - 24874 - PHQ-9 Billing: Yes ([id number]) Assessment & Plan Assessment & Plan (1) Chronic kidney disease (CKD) stage G3b/A3, moderately decreased glomerular filtration rate (GFR) between 30-44 mL/min/1.73 square meter and albuminuria creatinine ratio greater than 300 mg/g: Code(s): N18.32 - Chronic kidney disease, stage 3b Category: Medical Plan: Keep well hydrated, avoid NSAIDs (2) Obesity (BMI 30.0-34.9): Code(s): E66.9 - Obesity, unspecified Category: Medical Plan: Diet and exercise (3) Hypercholesterolemia: Code(s): E78.00 - Pure hypercholesterolemia, unspecified Category: Medical Plan: Avoid fried foods, chicken skin, eggs, butter margarine, pastries and meat. Be it pork or beef they have a lot of cholesterol LDL goal of less than 100 and triglyceride of less than 150 on atorvastatin 40 mg once a day (4) Hypertension: Code(s): I10 - Essential (primary) hypertension Category: Medical Qualifiers: Hypertension type: essential hypertension Qualified Code(s): I10 - Essential (primary) hypertension Plan: Continue with blood pressure medication. Decrease salt intake and exercise patient takes amlodipine 10 mg once a day losartan 50 mg once a day and metoprolol 25 mg once a day (5) GERD (gastroesophageal reflux disease): Code(s): K21.9 - Gastro-esophageal reflux disease without esophagitis Category: Medical Qualifiers: Esophagitis presence: without esophagitis Qualified Code(s): K21.9 - Gastro-esophageal reflux disease without esophagitis Plan: Avoid the foods that causes that usually spicy foods, tomato products, juices, coffee, soda and foods that your sensitive to. After eating do not lie down, allow 3-4 hours before in lie down. And keep the head of bed above 30 degrees to avoid the acid from going up. Plan History of Present Illness The patient is an 88-year-old female presenting for a follow-up on her chronic health conditions and to address a new musculoskeletal issue. She has long-standing diagnoses of essential hypertension, gastroesophageal reflux disease, gout, lumbar disc disease, hypercholesterolemia, osteoporosis, polycystic kidney disease, and chronic kidney disease, stage 3. Her previous evaluations showed stable renal function and normal electrolytes, with cholesterol management goals set through medication. She reports a recent development of muscular pain in her shoulder, which worsened with specific movements, particularly while trying to get out of bed. The pain has persisted over several weeks, and she utilizes a heating pad for alleviation. Additionally, she experiences stiffness and discomfort in her hands, indicative of potential trigger finger problems, which impede her ability to engage in previous hobbies such as knitting. Issues with arthritis in the knees are also noted, affecting her mobility and daily activities. The patient also expresses concern about altered urination patterns, with reduced frequency during the day and increased at night. Pain management currently involves the use of Tylenol taken twice daily, and she also mentions difficulties with sleep. Health Maintenance - Tetanus vaccination was last administered in 2014; patient expressed willingness for updated administration. - Last blood work in November 2023 indicated normal blood count and electrolyte balances with stable renal function. - Last lipid profile in March 2023 targeting LDL <100 mg/dL and triglycerides <150 mg/dL. - Recommended to keep well-hydrated and avoid NSAIDs. Social History - The patient is mobile around her home but struggles with climbing stairs due to knee problems. - Has difficulty with certain activities due to arthritis, leading to adaptation in daily behaviors. - Experiences diet and hydration-related urination issues at night. - No recent employment or occupational factors discussed. Review of Systems - Musculoskeletal: Reports shoulder muscle pain, joint stiffness in hands indicative of trigger finger, arthritis in the knees. - Genitourinary: Reports nocturnal urination and decreased daytime urination. - Sleep: Reports difficulty in sleeping, often lying awake at night. Physical Exam - General- Interaction conducted with emphasis on non-verbal assessments, patient alert and oriented. - Musculoskeletal- Notable muscular tenderness observed in the shoulder; full range of motion present but with discomfort. Results - Labs: Previous blood work (November 2023) showed normal electrolytes and stable renal function. - Lipid profile (March 2023) with LDL <100 mg/dL and triglycerides <150 mg/dL. Plan I will continue the current antihypertensive regimen as the patient's blood pressure remains controlled. The hypercholesterolemia management will be maintained with atorvastatin and reiterated emphasis on lifestyle modifications such as diet and exercise. For the shoulder pain, a conservative approach with exercises and heating pads will be utilized, with Tylenol for pain management as necessary. Given the concerns regarding urination patterns, I will plan for a urine test to ensure no changes in renal function. Additionally, I will provide tetanus vaccination to update preventive care. Patient was informed and verbally consented to the use of an ambient scribe for clinic note documentation during this visit. Discussion Notes During the visit, I discussed the continuation of current antihypertensive and cholesterol medications given their effectiveness in managing the patient's blood pressure and lipid levels. I explained the conservative approach for the muscular shoulder pain and advised exercises and heating pads, as aggressive pain management could affect renal function. We agreed on a urine test if daytime urination does not improve to confirm renal function status. The importance of continuous activity, despite musculoskeletal pain, was emphasized to maintain function. I discussed updating vaccinations with a tetanus shot during the visit and ensured the patient understood the necessity of continuity in managing her conditions, along with regular monitoring. Patient Instructions - Continue taking all prescribed medications as directed. - Use Tylenol for shoulder muscle pain management as needed. - Apply heating pad to shoulder if discomfort persists. - Maintain regular exercise regimen to alleviate musculoskeletal symptoms, especially in knees. - Ensure adequate hydration and avoid NSAIDs. - Schedule a urine test if urination patterns do not improve. - Follow a healthy lifestyle to manage cholesterol levels, focusing on diet and exercise. - Return for tetanus vaccination today if desired. Orders: Orders UA CC w/rflx Micro + Cult 1 Day N18.32 - Chronic kidney disease, stage 3b, R30.0 - Dysuria Td Immunization Today Z23 - Encounter for immunization
--- OUTSIDE RECORDS SUMMARY | 2024-06-18 11:34 | XMS_ITS | Patient Health Record ---
Author Organization [facility] Address [address] [place] [address] Care Team Providers Care Account Services Representative Name Role Phone Po Adry ANTUNEZ Primary Care Provider UnavailYogi Irby Jr Unavailable Allergies Allergen (clinical drug ingredient) Drug/Non Drug Allergy documented on EMR Reaction Allergy Type Onset Date Status seasonal (uncoded) Unknown Allergy A ctive Reason For Referral No Information Medications Medication SIG (Take, Route, Frequency, Duration) Notes Start Date End Date Status Omeprazole 20 MG 1 capsule 30 minutes before morning meal Orally Once a day for 30 day(s) 05/21/2019 Active Terbinafine HCl 250 MG TK 1 T PO QD Oral for 30 Active Myrbetriq 50 MG TK 1 T PO BID Oral for 30 Active Losartan Potassium 100 MG TK 1 T PO QD O ral for 90 Active tiZANidine HCl 4 MG TK 1 T PO QHS PRN Oral for 90 Active rOPINIRole HCl 1 MG 1 tablet 1 to 3 hours before bedtime Orally Once a day for 30 day(s) Active hydroCHLOROthiazide 25 MG TAKE 1 TABLET BY MOUTH DAILY Oral for 30 I10,Unavailab le Active amLODIPine Besy-Benazepril HCl 2.5-10 MG as directed Orally Active Solifenacin Succinate 5 MG Oral for 90 Active MiraLax 17 GM/SCOOP as directed Orally Active Metoprolol Succinate ER 50 MG TK 1 T PO QD Oral for 90 Active traZODone HCl 50 MG Oral for 90 Active Atorvastatin Calcium 40 MG TAKE 1 TABLET BY MOUTH AT BEDTIME Oral for 90 Active Immunizations Vaccine Route Administration Date Status Comme nts Influenza Unknown 11/12/2018 Administered Influenza Unknown 11/13/2019 Administered Influenza Unknown 12/05/2022 Administered Social History Tobacco Use: Social History Observation Description Date Details (start date - stop date) Never Smoker NA - NA Tobacco Use/Smoking Question Answer Notes Patient is a nonsmoker Alcohol Screen Question Answer Notes Did you have a drink containing alcohol in the p ast year? No Points 0 Interpretation Negative Problems Problem Type SNOMED Code ICD Code Onset Dates Problem Status W/U Status Risk Notes Problem 48325258 Rectal bleeding (K62.5) Active confirmed Problem 804877572 Gastroesophageal reflux disease without esophagitis (K21.9) Active confirmed Problem 37252495 Rectal urgency (R15.2) Active confirmed Problem 99038567 Diarrhea, unspecified type (R19.7) Active confirmed Vital Signs Temperature 97.8 degrees Fahrenheit 07/12/2023 Blood pressure diastolic 00 mm Hg 07/12/2023 Height 59 in 07/12/2023 Blood pressure systolic 000 mm Hg 07/12/2023 Weight 162 lbs 07/12/2023 BMI 32.72 kg/m2 07/12/2023 Encounters Encounter Location Date Provider Diagnosis [facility] [address] [place] [address] 07/12/2023 Yogi Ayala Jr Gastroesophageal reflux disease without esophagitis K21.9 and Rectal urgency R15.2 Assessments Encounter Date Diagnosis (ICD Code) Assessment Notes Treatment Notes Treatment Clinical Notes Section Notes 07/12/2023 Gastroesophageal reflux disease without esophagitis (ICD-10 - K21.9) Fecal immunochemical test (FIT) material was printed We discussed her symptoms today. Her reflux disease under good control on omeprazole and she will continue this. We discussed gastroesophageal reflux disease including diagnosis, and treatment with diet, lifestyle modifications, and weight management. At this time, she is doing well. For her rectal urgency she can use bulking agents and antidiarrheals on a p.r.n. basis. Followup will be in one year, sooner if she has problems. 07/12/2023 Rectal urgency (ICD-10 - R15.2) We discussed he r symptoms today. Her reflux disease under good control on omeprazole and she will continue this. We discussed gastroesophageal reflux disease including diagnosis, and treatment with diet, lifestyle modifications, and weight management. At this time, she is doing well. For her rectal urgency she can use bulking agents and antidiarrheals on a p.r.n. basis. Followup will be in one year, sooner if she has problems. Plan Of Treatment Future Test Test Name Order Date COLONOSCOPY 05/07/2019 Next Appt Details Provider Name:Yogi Webb Nilesharley kimguillermo Sutton, 07/10/2024 01:15:00 PM, [address] [place] [address], [address], [place], [address], Insurance Providers Payer Name Payer Address Payer Phone Subscriber Number Group Number Insured Name Patient Relationship to Insured Coverage Start Date Coverage End Date MEDICARE OF [place] [address] [place] [address] [id number] YAMILETH SHORE Self - patient is the insured MEDICAID OF [facility] [address] [place] [address] [id number] YAMILETH SHORE Self - patient is the insured Medical (General) History Medical History History ICD Code Urinary incontinence Seasonal allergies Polycystic kidney disease Hypertension Hyperlipidemia Gastroesophageal reflux disease Lumbar disc disease Surgical History Surgery Date(Month/Year) cholecystectomy hysterectomy, vaginal left ear cyst removal
--- OUTSIDE RECORDS SUMMARY | 2024-06-18 11:34 | XMS_ITS ---
Author Organization [facility] Address [address] [place] [address] Care Team Providers Care Potato Chip Maker Name Role Phone Po Adry ANTUNEZ Primary Care Provider Yogi Damon Jr Allergies Allergen (clinical drug ingredient) Drug/Non Drug Allergy documented on EMR Reaction Allergy Type Onset Date Status seasonal (uncoded) Unknown Allergy A ctive REASON FOR VISIT Patient presents today for acid reflux Medications Medication SIG (Take, Route, Frequency, Duration) Notes Start Date End Date Status Omeprazole 20 MG 1 capsule 30 minutes before morning meal Orally Once a day for 30 day(s) 05/21/2019 Active hydroCHLOROthiazide 25 MG TAKE 1 TABLET BY MOUTH DAILY Oral for 30 I10,Unavailab le Active Solifenacin Succinate 5 MG Oral for 90 Active traZODone HCl 50 MG Oral for 90 Active Atorvastatin Calcium 40 MG TAKE 1 TABLET BY MOUTH AT BEDTIME Oral for 90 Active Terbinafine HCl 250 MG TK 1 T PO QD Oral for 30 Active Myrbetriq 50 MG TK 1 T PO BID Oral for 30 Active Losartan Potassium 100 MG TK 1 T PO QD O ral for 90 Active tiZANidine HCl 4 MG TK 1 T PO QHS PRN Oral for 90 Active Metoprolol Succinate ER 50 MG TK 1 T PO QD Oral for 90 Active rOPINIRole HCl 1 MG 1 tablet 1 to 3 hours before bedtime Orally Once a day for 30 day(s) Active amLODIPine Besy-Benazepril HCl 2.5-10 MG as directed Orally Active MiraLax 17 GM/SCOOP as directed Orally Active Social History Tobacco Use: Social History Observation [...] Problem Status W/U Status Risk Notes Problem 175736255 Gastroesophageal reflux disease without esophagitis (K21.9) Active confirmed Problem 16001993 Rectal urgency (R15.2) Active confirmed Vital Signs Temperature 97.8 degrees Fahrenheit 07/12/19 24 Blood pressure systolic 000 mm Hg 07/12/19 24 Blood pressure diastolic 00 mm Hg 024 Height 59 in 07/12/2023 Weight 162 lbs 07/12/2023 BMI 32.72 kg/m2 07/12/2023 Encounters Encounter Location Date Provider Diagnosis [facility] [address] [place] [address] 07/12/2023 Yogi Ayala Jr Gastroesophageal reflux disease [...] if she has problems. Plan Of Treatment Treatment Notes Assessment Notes Gastroesophageal reflux dise ase without esophagitis Fecal immunochemical test (FIT) material was printed Next Appt Details Follow Up: 1 Year, Reason: Provider Name:Yogi Cage aaron , 07/10/2024 01:15:00 PM, [address] [facility], [address], [place], [address], Progress Notes * TIFFANI SHORE CDOB:1935 (87 yo F)Acc No.[id number]:07/12/2023 Progress Notes Patient:?TIFFANI SHORE Provider:?Yogi Ayala MD :1935???Age:87 Y???Sex:Female D ate:07/12/2023 Address:[address] [place] [address] , [place], [place] Pcp:Adry Young MD Subjective: * Chief Complaints: * ???1. Patient presents today for acid reflux. * HPI: ???New symptom(s):? Tiffani is a pleasant 79-year-old woman seen today in followup of gastroesophageal reflux disease. She last seen in September of 2020. She continues to take omeprazole l for gastroesophageal reflux disease. She reports symptoms are under good control on this medication. She has no complaints of dysphagia, hematemesis, or melena. She does have occasional hoarseness. She does have some irregularity to her bowels as well. There is no rectal bleeding. * Medical History:?Urinary inc ontinence, Seasonal allergies, Polycystic kidney disease, Hypertension, Hyperlipidemia, Gastroesophageal reflux disease, Lumbar disc disease. * Surgical History:?cholecyste ctomy , hysterectomy, vaginal , left ear cyst removal . * Family History:?Father: dece ased.?Mother: .? There is a family history of ulcerative colitis No family history of liver cancer. * Social History:?Tobacco Use:?Tobacco Use/Smoking?Patient is a?nonsmoker.?Drugs/Alcohol:?Alcohol Screen?Did you have a drink containing alcohol in the past year??No,?Points?0,?Interpretation?Negative.?Miscellaneous:?Marital status: . Occupation: retired. * Medications:?Taking rOPINIRo le HCl 1 MG Tablet 1 tablet 1 to 3 hours before bedtime Orally Once a day, Taking amLODIPine Besy-Benazepril HCl 2.5-10 MG Capsule as directed Orally , Taking MiraLax 17 GM/SCOOP Powder as directed Orally , Taking Metoprolol Succinate ER 50 MG Tablet Extended Release 24 Hour TK 1 T PO QD Oral , Taking Terbinafine HCl 250 MG Tablet TK 1 T PO QD Oral , Taking Myrbetriq 50 MG Tablet Extended Release 24 Hour TK 1 T PO BID Oral , Taking Losartan Potassium 100 MG Tablet TK 1 T PO QD Oral , Taking tiZANidine HCl 4 MG Tablet TK 1 T PO QHS PRN Oral , Taking Omeprazole 20 MG Capsule Delayed Release 1 capsule 30 minutes before morning meal Orally Once a day, Taking traZODone HCl 50 MG Tablet Oral , Taking Atorvastatin Calcium 40 MG Tablet TAKE 1 TABLET BY MOUTH AT BEDTIME Oral , Taking hydroCHLOROthiazide 25 MG Tablet TAKE 1 TABLET BY MOUTH DAILY Oral , Notes: I10,Unavailable, Taking Solifenacin Succinate 5 MG Tablet Oral , Medication List reviewed and reconciled with the patient * Allergies:?Seasonal. Objective: * Vitals:?Wt: 162 lbs, Ht: 59 in, BMI:32.72 Index, BP: 000/00 mm Hg, Temp: 97.8. * Examination: ???General Examination: ???On examination today, Tiffani appears well. Skin is anicteric. Lungs are clear. Heart shows regular rate and rhythm. Abdomen is soft without focal mass or tenderness. Extremities are without edema. Assessment: * Assessment: 1.?Gastroesophageal reflux d isease without esophagitis - K21.9 (Primary)?2.?Rectal urgency - R15.2? We discussed her symptoms to day. Her reflux disease under good control on omeprazole and she will continue this. We discussed gastroesophageal reflux disease including diagnosis, and treatment with diet, lifestyle modifications, and weight management. At this time, she is doing well. For her rectal urgency she can use bulking agents and antidiarrheals on a p.r.n. basis. Followup will be in one year, sooner if she has problems. Plan: * Treatment: * Procedure Codes:?G9903 Pt sc rn tbco id as non user, G9744 PATIENT NOT ELIG D/T ACTIVE DX HTN * Preventive Medicine:? ??Counseling:?Care goal follow-up plan:?Above Normal BMI Follow-up?Giving encouragement to exercise,?BMI management provided?Yes.? ??Urinary Incontinence:?Urinary Incontinence?Assessment:?Present,?Plan of care documented:?Yes,?Type of plan of care:?Lifestyle interventions.? * Follow Up:?1 Year * * Sign off status: Completed true * Provider:?Yogi Ayala MD Date:?0 07/12/2023 Generated for [employer] talia/Tanmay/eTransmitting on:?06/18/2024 11:34 AM EDT History and Physical Notes * HPI (History of Present Illness) Category Sub-Category Detail Notes Category Not es New symptom(s) Tiffani is a pleasant 79-year-old woman seen today in followup of gastroesophageal reflux disease. She last seen in September of 2020. She continues to take omeprazole l for gastroesophageal reflux disease. She reports symptoms are under good control on this medication. She has no complaints of dysphagia, hematemesis, or melena. She does have occasional hoarseness. She does have some irregularity to her bowels as well. There is no rectal bleeding. Examination Category Sub-Category Detail Notes Category Not es General Examination On exami nation today, Tiffani appears well. Skin is anicteric. Lungs are clear. Heart shows regular rate and rhythm. Abdomen is soft without focal mass or tenderness. Extremities are without edema.
== END 2024-06-18 11:22 | disposition home or self-care (01) ==
LOC: HO.HMCH 10:19
PROVIDERS: PCP Internal Medicine; Visit Provider Internal Medicine
DX: I12.9 Hypertensive chronic kidney disease with stage 1 through stage 4 chronic kidney disease, or unspecified chronic kidney disease (principal); N18.32 Chronic kidney disease, stage 3b; E66.9 Obesity, unspecified; Z68.31 Body mass index [BMI] 31.0-31.9, adult; E78.00 Pure hypercholesterolemia, unspecified; K21.9 Gastro-esophageal reflux disease without esophagitis; Z23 Encounter for immunization

== ENCOUNTER → 2024-06-18 10:18 | Outpatient (BNVA) | payer MEDICARE, MEDICAID, SELFPAY | PROVIDERS: PCP Internal Medicine; Visit Provider Internal Medicine | DX: Z23 Encounter for immunization (principal); I12.9 Hypertensive chronic kidney disease with stage 1 through stage 4 chronic kidney disease, or unspecified chronic kidney disease; N18.32 Chronic kidney disease, stage 3b; E78.00 Pure hypercholesterolemia, unspecified; K21.9 Gastro-esophageal reflux disease without esophagitis; E66.9 Obesity, unspecified; Z68.31 Body mass index [BMI] 31.0-31.9, adult; Z71.3 Dietary counseling and surveillance | CPT/HCPCS: 90471; 90714; 96127; 99212 ==

== ENCOUNTER 2024-06-19 13:00 | Outpatient (AMB) | payer MEDICARE, MEDICAID, SELFPAY ==
--- NOTE | 2024-06-19 13:04 | MHC.OFFVIS ---
Vital Signs 06/19/24 13:05 Height 4 ft 11 in BP 132/60 Blood Pressure Location Lt brachial Pulse 61 Pulse Source Monitor Intake Visit Reasons: 1 yr follow up/PVR Contact Center Analyst Required: No Director Business Development: Director Business Development Present Allergies No Known Allergies [No Known Allergies*] Allergy (Verified 06/19/24 13:08) Medication List - Last Reconciled 06/19/24 by Danni Quigley [employer] amlodipine 5 mg PO DAILY atorvastatin 40 mg PO BEDTIME clotrimazole 1% 1 appl topical BID 4 weeks lidocaine 5% 1 patch topical DAILY losartan 50 mg PO DAILY 90 days metoprolol succinate ER 25 mg PO DAILY 90 days ropinirole 0.5 mg PO BEDTIME 90 days solifenacin (Vesicare) 5 mg PO DAILY 30 days tizanidine 4 mg PO BEDTIME PRN trazodone 100 mg (2 x 50 mg) PO BEDTIME PRN 90 days HPI HPI 1 yr follow up/PVR: Details: Tiffani is an 88-year-old female with past medical history hypertension, hyperlipidemia, peripheral vascular disease, chronic kidney disease, prior chest discomfort with mildly elevated troponins, medically managed for presume CAD who presents for follow-up. Today she reports that she has been doing well overall since her last visit June 2023. Her primary concern is of leg edema. She says her legs are skinny in the morning and increase as the day goes on. By nighttime they have tight swelling all the way up near her calf. She has chronic mild shortness of breath with activity which has been stable. No PND, orthopnea. No lightheadedness, presyncope, syncope, falls. She had 1 her chest as she tried to get out of bed which quickly resolved with further movement. She has no chest discomfort with walking. She ambulates short distances only. At this visit she is sitting in a wheelchair. Compliant with her medications. Her daughter is present. [facility] Medical History Adnexal mass Onychomycosis UTI due to Klebsiella species Allergic conjunctivitis Bacteremia Congestion of nasal sinus Urinary incontinence Constipation Preoperative clearance Renal insufficiency COVID-19 virus infection Low back pain E coli bacteremia Shortness of breath PAC (premature atrial contraction) Urinary tract infection Renal cyst Nocturia Bradycardia Sepsis Decreased hearing of both ears Osteoporosis screening Encounter for annual wellness exam in Medicare patient Chest discomfort Bacteremia due to Klebsiella pneumoniae Acute coronary syndrome Diarrhea GERD (gastroesophageal reflux disease) Mild cognitive impairment Osteoarthritis Spondylosis of cervical spine Vitamin D deficiency Obesity (BMI 30-39.9) Peripheral vascular disease Polycystic kidney disease Osteopenia Gout Degenerative disc disease, lumbar Chronic kidney disease (CKD) stage G3b/A3, moderately decreased glomerular filtration rate (GFR) between 30-44 mL/min/1.73 square meter and albuminuria creatinine ratio greater than 300 mg/g Hypercholesterolemia Hypertension Surgical History History of surgery History of cholecystectomy History of hysterectomy Family History Father No problems noted. Mother No problems noted. Brother No problems noted. Daughter No problems noted. Daughter No problems noted. Daughter No problems noted. Daughter No problems noted. Social History Household Members: Family Household Members Other:: 1 Housing: House Do you presently have visiting nurse or other home services: No Alcohol intake: never Patient Tobacco Use Status: Never used Tobacco Tobacco use type: Cigarette e-Cigarette/Vaping Use: Never Used Second Hand Smoke Exposure: No Advance Directives Date on File: 11/17/19 service: No Current occupational status: retired Cognitive needs: No Hearing needs: No Vision needs: Yes Review of Systems Const All systems reviewed & are unremarkable except as noted in HPI and below ENT Denies dizziness Card Denies chest pain, Denies chest pain at rest, Denies chest pain with activity, Denies rapid heart rate, Reports pedal edema, Denies edema, Reports leg edema, Denies lightheadedness, Denies palpitations, Denies dyspnea, Denies dyspnea on exertion and Denies orthopnea Resp Denies cough, Denies dyspnea and Denies dyspnea on exertion GI Denies hematochezia and Denies change in stool character Musc Reports abnormal gait (in wheelchair today), Denies limited range of motion, Denies muscle cramps, Denies muscle weakness, Denies numbness, Denies radiating pain into limb, Denies stiffness and Denies tingling Neuro Reports abnormal gait (in wheelchair today), Denies dizziness, Denies numbness and Denies tingling Endo Denies palpitations Physical Exam Const General: cooperative, healthy appearing, comfortable and no acute distress Orientation/consciousness: patient oriented x3 Neck Neck: Yes normal visual inspection Resp Effort & Inspection: normal respiratory effort Auscultation: clear to auscultation bilaterally, no crackles, no rales, no rhonchi and no wheezes Cardio Jugular venous distension: no JVD Rate: regular rate Rhythm: regular rhythm Heart sounds: S1 normal heart sound present, S2 normal heart sound present, no murmurs and no rubs Neuro General: patient oriented x3 Extrem Other: pitting edema in lower legs to level of mid calf bilaterally Psych Appearance: grossly normal Mental Status: mental status grossly normal Speech and movement: Normal speech and movement present Office Procedures EKG Details: Today, read by me, Sinus rhythm with PACs, LAFB, cant exclude prior anterior infarct, rate 61, Qtc 461ms [id number], Complete Assessment & Plan Assessment & Plan (1) PAC (premature atrial contraction): Code(s): I49.1 - Atrial premature depolarization Category: Medical Plan: She has known history of PACs and brief atrial tach noted on prior EKGs. Holter monitor then done on 10/23/2022 for 3 days shows sinus rhythm with average heart rate 58, 62% of the time heart rate less than 60, PACs and short SVT runs, longest 5 beats. Echocardiogram done 10/23/2022 showed EF 60-65%, no valve abnormalities. No reports of heart palpitations. Continue metoprolol XL 25 mg daily. (2) Hypertension: Code(s): I10 - Essential (primary) hypertension Category: Medical Qualifiers: Hypertension type: essential hypertension Qualified Code(s): I10 - Essential (primary) hypertension Plan: Blood pressure goal less than 130/80. Controlled at this time. She is on amlodipine 10 mg daily, losartan 50 mg daily and metoprolol XL 25 mg daily. She has lower leg edema on exam. She reports edema that increase his throughout each day in his significant by bedtime. This may be related to amlodipine. Will reduce amlodipine down to 5 mg daily. Instructed on home blood pressure checks and a call if her systolic reading is running greater than 140. Will give her a pair of compression stockings from our office supply. Reviewed low-salt diet and leg elevation. If blood pressures become elevated then losartan dose can be increased. She is agreeable to this plan. (3) Leg edema: Code(s): R60.0 - Localized edema Category: Medical Plan: As above (4) Shortness of breath: Code(s): R06.02 - Shortness of breath Category: Medical Plan: Mild shortness of breath with exertional activities which has been unchanged in the last year. Prior echo showing normal EF. She has some mild edema otherwise no signs of fluid overload. Signs and symptoms of heart failure reviewed with her. Her symptom is likely related to deconditioning. No further testing needed at this time. Plan Time spent on chart review, documentation, interview and assessment Medications: New amlodipine dose reduced 5 mg PO DAILY 90 tabs 3RF Discontinued amlodipine Discontinued Reason: Doctor's Order 10 mg See Protocol PO DAILY 90 tabs 0RF Patient Instructions: - Take amlodipine 5 mg daily by splitting current tablets. - Check blood pressure daily and record results. - Wear compression stockings every morning. - Increase fluid intake to improve renal function and hydration. - Monitor daily symptoms, and report if any worsening. - Follow up in three months with Dr. Young and based on home blood pressure tracking. - Contact us if blood pressure is consistently over 140 or if any new symptoms occur. Coding Level of Care Code Est Pt Level 4 (15419) Complex EM visit Add On G2211 Diagnoses PAC (premature atrial contraction) I49.1 Essential hypertension I10 Hypertension type: essential hypertension Leg edema R60.0 Shortness of breath R06.02 CPT Codes EKG - CPT: 10446-[id number], Complete ([id number]) Time Spent (min) 28
[2024-06-19 13:05] VITALS: BP 132/60; PULSE 61
--- OUTSIDE RECORDS SUMMARY | 2024-06-19 14:09 | XMS_ITS ---
Author Organization [facility] Address [address] [place] [address] Care Team Providers Care Assistant Manager Retail Name Role Phone Po Adry ANTUNEZ Primary Care Provider Yogi Damon Jr [phone] Allergies Allergen (clinical drug ingredient) Drug/Non Drug [...] Problem Status W/U Status Risk Notes Problem 956069692 Gastroesophageal reflux disease without esophagitis (K21.9) Active confirmed Problem 18947806 Rectal urgency (R15.2) Active confirmed Vital Signs Temperature 97.8 degrees Fahrenheit 07/12/19 24 Blood pressure systolic 000 mm Hg 07/12/19 24 Blood pressure diastolic 00 mm Hg 024 Height 59 in 07/12/2023 Weight 162 lbs 07/12/2023 BMI 32.72 kg/m2 07/12/2023 Encounters Encounter Location Date Provider Diagnosis [facility] [address] [place] [address] 07/12/2023 Yogi Ayala Jr Gastroesophageal reflux disease [...] Cage aaron , 07/10/2024 01:15:00 PM, [address] [facility], [address], [place], [address], Progress Notes * TIFFANI SHORE CDOB:1935 (87 yo F)Acc No.[id number]:07/12/2023 Progress Notes Patient:?TIFFANI SHORE Provider:?Yogi Ayala MD :1935???Age:87 Y???Sex:Female D ate:07/12/2023 Address:[address] [place] [address] , [place], [place] Pcp:Adry Young MD Subjective: * Chief Complaints: [...] Provider:?Yogi Ayala MD Date:?0 07/12/2023 Generated for [employer] melgar/Tanmay/eTransmitting on:?06/19/2024 02:08 PM EDT History and Physical Notes * HPI [...]
--- OUTSIDE RECORDS SUMMARY | 2024-06-19 14:09 | XMS_ITS | Patient Health Record ---
Author Organization [facility] Address [address] [place] [address] Care Team Providers Care Auto Mechanics Teacher Name Role Phone Po Adry ANTUNEZ Primary [...] Problem Status W/U Status Risk Notes Problem 87341225 Rectal bleeding (K62.5) Active confirmed Problem 466381901 Gastroesophageal reflux disease without esophagitis (K21.9) Active confirmed Problem 29235583 Rectal urgency (R15.2) Active confirmed Problem 15259034 Diarrhea, unspecified type (R19.7) Active confirmed Vital Signs Temperature 97.8 degrees Fahrenheit 07/12/2023 Blood pressure diastolic 00 mm Hg 07/12/2023 Height 59 in 07/12/2023 Blood pressure systolic 000 mm Hg 07/12/2023 Weight 162 lbs 07/12/2023 BMI 32.72 kg/m2 07/12/2023 Encounters Encounter Location Date Provider Diagnosis [facility] [address] [place] [address] 07/12/2023 Yogi Ayala Jr Gastroesophageal reflux disease [...] Webb Nilesharley kimguillermo Sutton, 07/10/2024 01:15:00 PM, [address] [place] [address], [address], [place], [address], Insurance Providers Payer Name Payer Address Payer Phone Subscriber Number Group Number Insured Name Patient Relationship to Insured Coverage Start Date Coverage End Date MEDICARE OF [place] [address] [place] [address] [id number] YAMILETH SHORE Self - patient is the insured MEDICAID OF [facility] [address] [place] [address] [id number] YAMILETH SHORE Self - patient is the insured Medical (General) History Medical History History ICD Code Urinary incontinence Seasonal allergies Polycystic kidney disease Hypertension Hyperlipidemia Gastroesophageal reflux disease Lumbar disc disease Surgical History Surgery Date(Month/Year) cholecystectomy hysterectomy, vaginal left ear cyst removal
== END 2024-06-19 13:43 | disposition home or self-care (01) ==
LOC: HO.HCS 13:01
PROVIDERS: PCP Internal Medicine; Visit Provider Nurse Practitioner Family
DX: I49.1 Atrial premature depolarization (principal); I10 Essential (primary) hypertension; R60.0 Localized edema; R06.02 Shortness of breath
CPT/HCPCS: 93010; 99214; G2211

== ENCOUNTER → 2024-06-19 13:00 | Outpatient (BNVA) | payer MEDICARE, MEDICAID, SELFPAY | PROVIDERS: PCP Internal Medicine; Visit Provider Nurse Practitioner Family | DX: I10 Essential (primary) hypertension (principal); I49.1 Atrial premature depolarization; R60.0 Localized edema; R06.02 Shortness of breath | CPT/HCPCS: 93005; 99212 ==

== ENCOUNTER 2024-06-25 07:48 | Outpatient (REF) | payer MEDICARE, OTHER, SELFPAY ==
--- OUTSIDE RECORDS SUMMARY | 2024-06-25 07:51 | XMS_ITS | Patient Health Record ---
Author Organization [facility] Address [address] [place] [address] Care Team Providers Care Physician Scribe Name Role Phone Po Adry ANTUNEZ Primary [...] Problem Status W/U Status Risk Notes Problem 95504828 Rectal bleeding (K62.5) Active confirmed Problem 967069460 Gastroesophageal reflux disease without esophagitis (K21.9) Active confirmed Problem 92634421 Rectal urgency (R15.2) Active confirmed Problem 52513660 Diarrhea, unspecified type (R19.7) Active confirmed Vital Signs Temperature 97.8 degrees Fahrenheit 07/12/2023 Blood pressure diastolic 00 mm Hg 07/12/2023 Height 59 in 07/12/2023 Blood pressure systolic 000 mm Hg 07/12/2023 Weight 162 lbs 07/12/2023 BMI 32.72 kg/m2 07/12/2023 Encounters Encounter Location Date Provider Diagnosis [facility] [address] [place] [address] 07/12/2023 Yogi Ayala Jr Gastroesophageal reflux disease [...] Webb Nilesharley kimguillermo Sutton, 07/10/2024 01:15:00 PM, [address] [place] [address], [address], [place], [address], Insurance Providers Payer Name Payer Address Payer Phone Subscriber Number Group Number Insured Name Patient Relationship to Insured Coverage Start Date Coverage End Date MEDICARE OF [place] [address] [place] [address] [id number] YAMILETH SHORE Self - patient is the insured MEDICAID OF [facility] [address] [place] [address] [id number] YAMILETH SHORE Self - patient is the insured Medical (General) History Medical History History ICD Code Urinary incontinence Seasonal allergies Polycystic kidney disease Hypertension Hyperlipidemia Gastroesophageal reflux disease Lumbar disc disease Surgical History Surgery Date(Month/Year) cholecystectomy hysterectomy, vaginal left ear cyst removal
--- OUTSIDE RECORDS SUMMARY | 2024-06-25 07:52 | XMS_ITS ---
Author Organization [facility] Address [address] [place] [address] Care Team Providers Care Entertainment Lawyer Name Role Phone Po Adry ANTUNEZ Primary Care Provider Yogi Damon Jr [phone] Allergies Allergen (clinical drug ingredient) Drug/Non [...] Problem Status W/U Status Risk Notes Problem 349620839 Gastroesophageal reflux disease without esophagitis (K21.9) Active confirmed Problem 88489120 Rectal urgency (R15.2) Active confirmed Vital Signs Temperature 97.8 degrees Fahrenheit 07/12/19 24 Blood pressure systolic 000 mm Hg 07/12/19 24 Blood pressure diastolic 00 mm Hg 024 Height 59 in 07/12/2023 Weight 162 lbs 07/12/2023 BMI 32.72 kg/m2 07/12/2023 Encounters Encounter Location Date Provider Diagnosis [facility] [address] [place] [address] 07/12/2023 Yogi Ayala Jr Gastroesophageal reflux disease [...] Cage aaron , 07/10/2024 01:15:00 PM, [address] [facility], [address], [place], [address], Progress Notes * TIFFANI SHORE CDOB:1935 (87 yo F)Acc No.[id number]:07/12/2023 Progress Notes Patient:?TIFFANI SHORE Provider:?Yogi Ayala MD :1935???Age:87 Y???Sex:Female D ate:07/12/2023 Address:[address] [place] [address] , [place], [place] Pcp:Adry Young MD Subjective: * Chief Complaints: [...] Provider:?Yogi Ayala MD Date:?0 07/12/2023 Generated for [employer] talia/Tanmay/eTransmitting on:?06/25/2024 07:51 AM EDT History and Physical Notes * [...]
[2024-06-25 08:10] LABS: MANUAL DIFF FLAG NO
[2024-06-25 08:29] LABS: Basophils Absolute Auto 0.1 X10*3/uL (0.0-0.2); Eosinophils Absolute Auto 0.4 X10*3/uL (0.0-0.4); Eosinophils Percent Auto 5.4 % (0-4); Hematocrit 40.7 % (37.0-47.0); Hemoglobin 13.7 g/dl (12.0-16.0); Imm Gran Abs Auto 0.01 X10*3/uL (0.00-0.03); Imm Gran Pct Auto 0.1 % (0.0-0.4); Lymphocytes Absolute Auto 1.3 X10*3/uL (1.2-4.9); Lymphocytes Percent Auto 18.2 % (20-40); Mean Corpuscular HGB Conc 33.7 g/dl (31.0-35.0); Mean Corpuscular Hemoglobin 30.5 pg (27.0-33.0); Mean Corpuscular Volume 90.6 fL (80.0-98.0); Mean Platelet Volume 11.1 fL (9.4-12.3); Monocytes Absolute Auto 0.5 X10*3/uL (0.1-1.2); Monocytes Percent Auto 6.5 % (2-11); Neutrophils Percent Auto 68.8 % (45-73); Platelet Count 217 X10*3/uL (160-400); Red Blood Count 4.49 X10*6/uL (4.20-5.50); Red Cell Distribution Width 13.5 % (11.0-16.0); White Blood Count 7.2 X10*3/uL (4.8-10.8)
[2024-06-25 09:38] LABS: Alanine Aminotransferase 19 U/L (0-31); Albumin Level 3.9 g/dL (3.5-5.0); Alkaline Phosphatase 77 U/L (39-117); Anion Gap 14 (12-20); Aspartate Amino Transferase 25 U/L (5-31); Bilirubin Total 0.7 mg/dL (0.0-1.0); Blood Urea Nitrogen 18 mg/dL (9-16); Carbon Dioxide 24 mmol/L (22-29); Chloride 109 mmol/L (96-108); Cholesterol 104 mg/dL (<200); Estimated Glomerular Filt Rate 31; Free T4 (Free Thyroxine) 1.07 ng/dL (0.71-1.85); Glucose Random 87 mg/dL (60-115); HDL Cholesterol 43 mg/dL (>40); LDL Cholesterol Calculated 43 mg/dL (<100); Potassium 4.3 mmol/L (3.3-5.1); Sodium 143 mmol/L (135-145); Thyroid Stimulating Hormone 2.28 uIU/mL (0.32-4.0); Total Protein 6.4 g/dL (6.5-8.0); Triglycerides 90 mg/dL (<150)
[2024-06-25 09:41] LABS: Vitamin B12 539 pg/mL (200-900)
[2024-06-25 09:56] LABS: Uric Acid 7.5 mg/dL (2.4-5.7)
== END 2024-06-25 07:49 | disposition home or self-care (01) ==
LOC: HO.LAB 07:48
PROVIDERS: PCP Internal Medicine; Visit Provider Internal Medicine
DX: E78.00 Pure hypercholesterolemia, unspecified (principal)
CPT/HCPCS: 36415; 80053; 80061; 82306; 82607; 82746; 84439; 84443; 84550; 85025

== ENCOUNTER 2024-07-10 12:19 | Emergency (ER) | payer MEDICARE, OTHER, SELFPAY ==
--- NOTE | ~2024-07-10 | US_ITS ---
EXAMINATION: US TRIPLEX LOWER EXTREMITY, LEFT CLINICAL INFORMATION: Pain and swelling, left lower extremity. COMPARISON: None available. TECHNIQUE: Color-flow triplex imaging with spectral analysis and compression Doppler were performed on the left lower extremity. FINDINGS: Respiratory variation, normal compression and augmented flow are present throughout the interrogated common femoral vein, superficial femoral vein, profunda femoral vein, popliteal vein and midcalf peroneal and posterior tibial venous segments . There is a bilobed, 4.4 x 3.2 cm and a 3.7 x 2.2 cm anechoic lesion in the popliteal fossa without flow on color Doppler interrogation US/US venous duplex LE LT IMPRESSION: No acute deep venous thrombosis interrogated veins, left lower extremity. Negative for DVT. Bilobed, 4.4 and 3.7 cm popliteal cyst. Electronically signed by: Jn Noland MD 07/10/2024 01:59 PM EDT
--- NOTE | ~2024-07-10 | XR_ITS ---
EXAMINATION: XR KNEE, LEFT CLINICAL INFORMATION: pain COMPARISON: None available. TECHNIQUE: Four views of the left knee. FINDINGS: No fracture, dislocation, or suspicious bone lesion. Diffuse chondrocalcinosis in the medial lateral compartments. Minimal tricompartmental joint space narrowing. Mild spurring of the tibial spines. No significant joint effusion. Soft tissues appear normal. XR/XR knee LT 3V IMPRESSION: 1. Diffuse chondrocalcinosis suggesting CPPD. 2. Minimal tricompartmental joint space narrowing. 3. No evidence of joint effusion. Electronically signed by: Antoine Alvares MD 07/10/2024 01:20 PM EDT
--- NOTE | 2024-07-10 12:25 | ED_ITS ---
HPI - General Adult General Chief complaint: Extremity Problem Stated complaint: L Leg Pain Time Seen by Provider: 07/10/24 12:25 Source: patient, family (patient's daughter) and EMS Mode of arrival: EMS Limitations: no limitations History of Present Illness ED Provider: Sofia Cee PA-C HPI narrative: Patient is an 88 year old assigned female at with a history of CKD, leg edema, PVD, HTN, GERD, and OA presenting to the emergency department today with left knee pain. Patient states that she normally has left knee pain but today it is much worse and the pain goes down from her knee to her foot. Patient's daughter states that she is concerned because the patient is largely sedintary at home. Patient denies any dizziness, lightheadedness, abdominal pain, nausea, vomiting, fever, chills, blurry vision, double vision, loss of vision, chest pain, difficulty breathing, shortness of breath, back pain, night sweats, pain with urination, increased urinary frequency, increased urinary urgency, blood in her urine or stool, syncope or a near syncopal episode, recent trauma or falls, bowel incontinence, bladder incontinence, or any other complaints at this time. Location: left and lower extremity Relieving factors: none Exacerbating factors: none Associated symptoms: denies other symptoms Treatments prior to arrival: none Related Data Home Medications ?Medication ?Instructions ?Recorded ?Confirmed tizanidine 4 mg tablet 4 mg PO BEDTIME PRN Muscle Pain 03/28/22 06/19/24 Previous Rx's ?Medication ?Instructions ?Recorded lidocaine 5 % topical patch 1 patch topical DAILY #15 ea 09/23/22 clotrimazole 1 % topical cream 1 appl topical BID 4 weeks #45 05/09/23 grams atorvastatin 40 mg tablet 40 mg PO BEDTIME #90 tabs 09/25/23 trazodone 50 mg tablet 100 mg (2 x 50 mg) PO BEDTIME PRN 10/30/23 sleep 90 days #180 tabs metoprolol succinate 25 mg 25 mg PO DAILY 90 days #90 tabs 01/07/24 tablet,extended release 24 hr ropinirole 0.5 mg tablet 0.5 mg PO BEDTIME 90 days #90 tabs 05/12/24 losartan 50 mg tablet 50 mg PO DAILY 90 days #90 tabs 05/30/24 amlodipine 5 mg tablet 5 mg PO DAILY #90 tabs 06/19/24 folic acid 1 mg tablet 1 mg PO DAILY #30 tabs 06/25/24 solifenacin 5 mg tablet (Vesicare) 5 mg PO DAILY 30 days #30 tabs 07/02/24 Allergies Allergy/AdvReac Type Severity Reaction Status Date / Time No Known Allergies Allergy Verified 07/10/24 12:52 [No Known Allergies*] Review of Systems Constitutional: Constitutional: Reports no additional constitutional complaints, Denies chills, Denies fever(s) and Denies night sweats Eyes: Eyes: Reports no additional eye complaints, Denies blurry vision, Denies change in vision, Denies diplopia, Denies eye discharge, Denies loss of vision and Denies eye pain ENT: Denies dizziness Cardiovascular: Cardiovascular: Reports no additional cardiovascular complaints, Denies chest pain, Denies lightheadedness, Denies Loss of Consciousness and Denies dyspnea Respiratory: Respiratory: Reports no additional respiratory complaints and Denies dyspnea Gastrointestinal: Gastrointestinal: Reports no additional gastrointestinal complaints, Denies abdominal pain, Denies melena, Denies hematochezia, Denies ch leo in bowel habits and Denies change in stool character Genitourinary: Genitourinary: Denies hematuria, Denies urinary frequency, Denies dysuria, Denies urinary incontinence, Denies urinary hesitancy and Denies urinary urgency Musculoskeletal: Musculoskeletal: Reports no additional musculoskeletal complaints, Denies numbness and Denies tingling Comments: left knee pain Neurologic: Denies dizziness, Denies loss of vision, Denies numbness and Denies tingling Psychiatric: Psychiatric: Reports no additional psychiatric complaints Endocrine: Endocrine: Reports no additional endocrine complaints Hematologic/Lymphatic: Hematologic/Lymphatic: Reports no additional hematologic/lymphatic complaints Allergic/Immunologic: Allergic/Immunologic: Reports no additional allergic/immunologic complaints PMFSH Past Medical History Attestation statement: The following information was validated with the patient. (all information validated with the patient's daughter) Source: old records reviewed, obtained from family (patient's daughter provided additional history and confirmed the history provided by the patient.) and nursing notes reviewed Medical History Adnexal mass Onychomycosis UTI due to Klebsiella species Allergic conjunctivitis Bacteremia Congestion of nasal sinus Urinary incontinence Constipation Preoperative clearance Renal insufficiency COVID-19 virus infection Low back pain E coli bacteremia Shortness of breath PAC (premature atrial contraction) Urinary tract infection Renal cyst Nocturia Bradycardia Sepsis Decreased hearing of both ears Osteoporosis screening Encounter for annual wellness exam in Medicare patient Chest discomfort Bacteremia due to Klebsiella pneumoniae Acute coronary syndrome Diarrhea GERD (gastroesophageal reflux disease) Mild cognitive impairment Osteoarthritis Spondylosis of cervical spine Vitamin D deficiency Obesity (BMI 30-39.9) Peripheral vascular disease Polycystic kidney disease Osteopenia Gout Degenerative disc disease, lumbar Chronic kidney disease (CKD) stage G3b/A3, moderately decreased glomerular filtration rate (GFR) between 30-44 mL/min/1.73 square meter and albuminuria creatinine ratio greater than 300 mg/g Hypercholesterolemia Hypertension Surgical History History of surgery History of cholecystectomy History of hysterectomy Family History Family History Father No problems noted. Mother No problems noted. Brother No problems noted. Daughter No problems noted. Daughter No problems noted. Daughter No problems noted. Daughter No problems noted. Social History Social History Household Members: Family Household Members Other:: 1 Housing: House Do you presently have visiting nurse or other home services: No Alcohol intake: never Patient Tobacco Use Status: Never used Tobacco Tobacco use type: Cigarette e-Cigarette/Vaping Use: Never Used Second Hand Smoke Exposure: No Advance Directives: Yes Advance Directives on File: Yes Advance Directives Date on File: 11/17/19 service: No Current occupational status: retired Cognitive needs: No Hearing needs: No Vision needs: Yes Physical Exam ED Vital Signs: Vital Signs - 24 hr 07/10/24 12:49 07/10/24 14:00 Temperature 97.8 F Pulse Rate 63 63 Respiratory Rate 18 20 Blood Pressure 175/72 H 168/74 H Pulse Oximetry 95 94 Oxygen Delivery Method Room Air Room Air BMI result Body Mass Index 29.7 Const General: cooperative, no acute distress, alert and awake Nutritional Appearance: well nourished Orientation/consciousness: patient oriented x3 HENMT Head: Yes normal to inspection and Yes atraumatic Ears: hearing grossly normal bilaterally and external ears normal General nose exam: Normal external nose present, no nasal discharge noted and no epistaxis Face and sinus: Yes normal facial exam, No abrasion and No laceration Mouth: Normal oral and palatal mucosa present, no drooling and no muffled voice Eyes General: appearance normal, both eyes and all related structures Periorbital: periorbital findings normal Eyelids: Yes eyelids normal Conjunctivae: conjunctivae normal Pupils: Equal, round and reactive pupils present EOM: EOMs intact bilaterally Neck Neck: Yes normal visual inspection, Yes full ROM and Yes no lymphadenopathy Resp Effort & Inspection: normal respiratory effort and able to speak in complete sentences Neuro General: patient oriented x3, moves all extremities and CN's II-XI intact bilaterally Cranial nerves: Yes Equal, round and reactive pupils present Cognition (Neuro): normal cognition Extrem Other: pain with left knee ROM General: Yes normal to inspection, Yes full ROM and Yes capillary refill normal Psych Appearance: grossly normal Mental Status: mental status grossly normal Affect: normal affect Attitude: cooperative Thought process: Normal thought process present Thought content: Normal thought content present Insight: Good insight present (Psych) Medications Administered Discontinued Medications Generic Name Dose Route Start Last Admin Trade Name Jimbo PRN Reason Stop Dose Admin Ketorolac Tromethamine 15 mg 07/10/24 14:20 07/10/24 14:37 Ketorolac Tromethamine 15 Mg/Ml Vial IM 07/10/24 14:21 15 mg ONCE ONE Administration Medical Decision Making Medical Decision Making [facility] Narrative: Patient is an 88 year old assigned female at with a history of CKD, leg edema, PVD, HTN, GERD, and OA presenting to the emergency department today with left knee pain. Patient's physical exam was as noted in the physical exam portion of this note. Patient's left knee x-ray showed evidence of pseudogout. Patient's left lower extremity US showed evidence of a harris's cyst. I explained my physical exam findings as well as all test results to the patient and the patient's daughter. I answered all questions asked by the patient and the patient's daughter. I stressed the importance of the patient taking her medication as directed (either prescribed or as the over the counter packaging recommends). I stressed the importance of the patient following up with her primary care provider and the orthopedic team. I stressed the importance of the patient returning to the emergency department immediately if her symptoms were to worsen or if she were to develop any dizziness, shortness of breath, difficulty breathing, chest pain, blurry vision, loss of vision, nausea, vomiting, abdominal pain, fever, chills, back pain, or any other complaints. Patient verbalized agreement and understanding with this treatment plan and discharge. Differential Diagnosis Differential Diagnoses: The differential diagnosis associated with the presentation includes Harris's cyst Pseudogout Knee pain OA Admission/Observation Consideration of admission/observation: Escalation of care including admission/observation considered Patient would have been admitted to the hospital had her work up had any findings where hospital admission was appropriate and her clinical presentation warranted hospital admission. Independent Interpretation I performed an independent interpretation of an: Plain X-Ray and Ultrasound Interpretation: My interpretation is in agreement with the radiologist's impression of these imaging studies. EXAMINATION: XR KNEE, LEFT CLINICAL INFORMATION: pain COMPARISON: None available. TECHNIQUE: Four views of the left knee. FINDINGS: No fracture, dislocation, or suspicious bone lesion. Diffuse chondrocalcinosis in the medial lateral compartments. Minimal tricompartmental joint space narrowing. Mild spurring of the tibial spines. No significant joint effusion. Soft tissues appear normal. XR/XR knee LT 3V IMPRESSION: 1. Diffuse chondrocalcinosis suggesting CPPD. 2. Minimal tricompartmental joint space narrowing. 3. No evidence of joint effusion. Electronically signed by: Antoine Alvares MD 07/10/2024 01:20 PM EDT Dictated By: Antoine Alvares MD Signed By: Electronically signed by Antoine Alvares MD 07/10/24 1320 EXAMINATION: US TRIPLEX LOWER EXTREMITY, LEFT CLINICAL INFORMATION: Pain and swelling, left lower extremity. COMPARISON: None available. TECHNIQUE: Color-flow triplex imaging with spectral analysis and compression Doppler were performed on the left lower extremity. FINDINGS: Respiratory variation, normal compression and augmented flow are present throughout the interrogated common femoral vein, superficial femoral vein, profunda femoral vein, popliteal vein and midcalf peroneal and posterior tibial venous segments . There is a bilobed, 4.4 x 3.2 cm and a 3.7 x 2.2 cm anechoic lesion in the popliteal fossa without flow on color Doppler interrogation US/US venous duplex LE LT IMPRESSION: No acute deep venous thrombosis interrogated veins, left lower extremity. Negative for DVT. Bilobed, 4.4 and 3.7 cm popliteal cyst. Electronically signed by: Jn Noland MD 07/10/2024 01:59 PM EDT RP Dictated By: Jn Digsg MD Signed By: Electronically signed by Jn Norman MD 07/10/24 1359 Radiology Impression Discussion of test interpretation with radiology: I have reviewed the radiologist's reading. Independent Historian Clinical information obtained from an independent historian. History obtained from or confirmed by: EMS (EMS provided additional history and confirmed the history provided by the patient.) and Other (Patient's daughter provided saima tional history and confirmed the history provided by the patient.) Discharge Plan Discharge Clinical Impression: Harris's cyst, Pseudogout Patient Disposition: Home, Self-Care Instructions: Harris Cyst (ED) Additional Instructions: Follow up with your primary care provider and the orthopedic team for your left knee pseudogout and naker's cyst. Return to the emergency department immediately if your symptoms worsen or if you develop any numbness, tingling, dizziness, shortness of breath, difficulty breathing, chest pain, blurry vision, loss of vision, nausea, vomiting, abdominal pain, fever, chills, back pain, or any other complaints. Please see the information below about our Patient Portal. If you are not yet enrolled in the [facility] Patient Portal, you will receive an enrollment email invitation following your visit to any [facility] care setting. You may also self-enroll in the Patient Portal by visiting our website: [email or web address] The following information is required to access the Patient Portal: - Your [facility] Medical Record Number - Your personal home email address (must match what is in your electronic medical record, Registration staff can assist with this) - Name - Date of Capabilities of the Patient Portal: - Message some providers - View upcoming appointments - Access your health summary, medical history, and visit history - View current conditions and allergies - View procedure and lab results - View your medications, including guidelines, side effects, and precautions - Complete pre-appointment questionnaires requested by your provider - Ready summary reports of your office visits and procedures To access the Patient Portal Mobile [employer], follow these directions: - Search Altimet in the [employer] Store or [employer] Store - Download the Carley - Search for [facility] - Enter your login/password Prescriptions: No Action atorvastatin 40 mg tablet 40 mg PO BEDTIME Qty: 90 3RF trazodone 50 mg tablet 100 mg PO BEDTIME PRN (Reason: sleep) 90 Days Qty: 180 2RF metoprolol succinate 25 mg tablet extended release 24 hr 25 mg PO DAILY 90 Days Qty: 90 3RF ropinirole 0.5 mg tablet 0.5 mg PO BEDTIME 90 Days Qty: 90 1RF Rx Instructions: administer 1-3 hours before bedtime losartan 50 mg tablet 50 mg PO DAILY 90 Days Qty: 90 0RF folic acid 1 mg tablet 1 mg PO DAILY Qty: 30 3RF solifenacin [Vesicare] 5 mg tablet 5 mg PO DAILY 30 Days Qty: 30 2RF tizanidine 4 mg Tablet 4 mg PO BEDTIME PRN (Reason: Muscle Pain) lidocaine 5 % adhesive patch,medicated 1 patch topical DAILY Qty: 15 0RF Rx Instructions: leave on most painful area for up to 12 hrs clotrimazole 1 % cream 1 appl topical BID 28 Days Qty: 45 0RF amlodipine 5 mg tablet 5 mg PO DAILY Qty: 90 3RF Rx Instructions: dose reduced Referrals: [facility] [Provider Group] (Call to establish and follow up with the orthopedic team for your left knee pseudogout and harris's cyst.) Adry Young MD [Primary Care Provider] - Print Language: Scottish
[2024-07-10 12:49] VITALS: BP 150/74; BP 175/72; PULSE 62; PULSE 63; RESP 18; TEMP 36.6; O2SAT 95; O2SAT 96; BMI 29.7
--- OUTSIDE RECORDS SUMMARY | 2024-07-10 13:07 | XMS_ITS | Patient Health Record ---
Author Organization [facility] Address [address] [place] [address] Care Team Providers Care Manager Intensive Care Name Role Phone Po Adry ANTUNEZ Primary Care Provider UnavailYogi Irby Jr Unavailable [phone] Allergies Allergen (clinical drug ingredient) Drug/Non [...] Problem Status W/U Status Risk Notes Problem 31866691 Rectal bleeding (K62.5) Active confirmed Problem 128315356 Gastroesophageal reflux disease without esophagitis (K21.9) Active confirmed Problem 14082395 Rectal urgency (R15.2) Active confirmed Problem 30930025 Diarrhea, unspecified type (R19.7) Active confirmed Vital Signs Temperature 97.8 degrees Fahrenheit 07/12/2023 Blood pressure diastolic 00 mm Hg 07/12/2023 Height 59 in 07/12/2023 Blood pressure systolic 000 mm Hg 07/12/2023 Weight 162 lbs 07/12/2023 BMI 32.72 kg/m2 07/12/2023 Encounters Encounter Location Date Provider Diagnosis [facility] [address] [place] [phone] 07/12/2023 Yogi Ayala Jr Gastroesophageal reflux disease without esophagitis K21.9 and Rectal urgency R15.2 [facility] [address] [place] [phone] 07/10/2024 Yogi Ayala Jr Assessments Encounter Date Diagnosis (ICD Code) Assessment [...] Test Test Name Order Date COLONOSCOPY 05/07/2019 Insurance Providers Payer Name Payer Address Payer Phone Subscriber Number Group Number Insured Name Patient Relationship to Insured Coverage Start Date Coverage End Date MEDICARE OF [place] [address] [place] [id number] YAMILETH SHORE Self - patient is the insured MEDICAID OF [facility] [address] [place] [address] [id number] YAMILETH SHORE Self - patient is the insured Medical (General) History Medical History History ICD Code Urinary incontinence Seasonal allergies Polycystic kidney disease Hypertension Hyperlipidemia Gastroesophageal reflux disease Lumbar disc disease Surgical History Surgery Date(Month/Year) cholecystectomy hysterectomy, vaginal left ear cyst removal
[2024-07-10 14:00] VITALS: BP 168/74; PULSE 63; RESP 20; O2SAT 94
--- NOTE | 2024-07-10 14:10 | PC.NURSE ---
Patient albe to ambulate to the bathroom utilizing a walker with a steady gait
[2024-07-10] MEDS: Ketorolac Tromethamine 15 MG/ML VIAL IM (14:37)
[2024-07-10 14:51] VITALS: BP 168/74; PULSE 63; RESP 20; TEMP 36.7; O2SAT 94
== END 2024-07-10 14:53 | disposition home or self-care (01) ==
PROVIDERS: Emergency Provider Emergency Medicine Emergency Medical Services; PCP Internal Medicine
DX: M71.22 Synovial cyst of popliteal space [Baker], left knee (principal); R60.0 Localized edema; M11.262 Other chondrocalcinosis, left knee; I10 Essential (primary) hypertension; Z79.899 Other long term (current) drug therapy
CPT/HCPCS: 73562; 93971; 96372; 99284; J1885

== ENCOUNTER → 2024-07-10 12:34 | Outpatient (BNV) | payer MEDICARE, MEDICAID, SELFPAY | PROVIDERS: PCP Internal Medicine; Visit Provider Radiology Diagnostic Radiology | DX: M11.262 Other chondrocalcinosis, left knee (principal); M71.22 Synovial cyst of popliteal space [Baker], left knee | CPT/HCPCS: 73562 ==

== ENCOUNTER 2024-08-07 07:43 | Outpatient (REF) | payer MEDICARE, SELFPAY ==
[2024-08-07 17:03] LABS: Urine Cytology See Pathology rpt
== END 2024-08-07 07:44 | disposition home or self-care (01) ==
LOC: HO.LNP 07:43
PROVIDERS: PCP Internal Medicine; Visit Provider Nurse Practitioner Family
DX: N39.0 Urinary tract infection, site not specified (principal); R31.29 Other microscopic hematuria
CPT/HCPCS: 51798; 81003; 88112; 99212

== ENCOUNTER 2024-08-07 07:43 | Outpatient (AMB) | payer MEDICARE, MEDICAID, SELFPAY ==
--- NOTE | 2024-08-07 07:44 | A.OFFVIS_ITS ---
Intake Visit Reasons: follow up/ med review Intake Note: Patient presents for follow up for urinary incontinence Urology Medications: none Blood Thinner: none PVR: 15ml's Veneer Glue Spreader Required: No Accompanied by: Daughter Allergies No Known Allergies (No Known Allergies*) Allergy (Verified 08/07/24 08:03) Medication List - Last Reconciled 08/07/24 by JHONNY Contreras amlodipine 5 mg PO DAILY atorvastatin 40 mg PO BEDTIME cholecalciferol (vitamin D3) 25 mcg PO DAILY clotrimazole 1% 1 appl topical BID 4 weeks fesoterodine ER 4 mg PO DAILY 30 days folic acid 1 mg PO DAILY lidocaine 5% 1 patch topical DAILY losartan 50 mg PO DAILY 90 days metoprolol succinate ER 25 mg PO DAILY 90 days ropinirole 0.5 mg PO BEDTIME 90 days tizanidine 4 mg PO BEDTIME PRN trazodone 100 mg (2 x 50 mg) PO BEDTIME PRN 90 days HPI Comments Details: Tiffani is a pleasant 88-year-old female patient of Dr. Young who is accompanied by her daughter at today's office visit. She has a past medical history of sepsis, diarrhea, GERD, mild cognitive impairment, osteoarthritis, spondylosis of cervical spine, vitamin-D deficiency, urinary incontinence, obesity, PVD, polycystic kidney disease, osteopenia, gout, degenerative disc disease, chronic kidney disease stage III, hypercholesteremia, and hypertension. She presents to the office today for follow-up of her lower urinary tract symptoms (urinary frequency, nocturia, and episodes of unsensed incontinence) and recurrent UTI's. In discussion with the patient and her daughter today she reports continuing with episodes of nocturia despite compliance with VESIcare 5 mg daily. She does discuss her longstanding history of difficulty in sleeping. She reports that although she limits her fluids prior to bed she does continue to experience episodes of nocturia up to 5 times per night. Previous workup has included a retroperitoneal ultrasound 05/05 noting bilateral kidneys with no calculi and or hydronephrosis. Multiple simple appearing cyst noted bilaterally. No imaging follow-up is recommended per radiology report. The bladder is well distended and normal. Pre void bladder volume is approximately 260 mL postvoid bladder volume is approximately 40 mL. She reports her bothersome urinary issue is her nocturia. he otherwise denies urinary urgency, urinary frequency, hematuria, dysuria, foul smelling urine, changes to urinary stream, flank pain, fever, and or chills. In office urinalysis results reviewed with the patient today. 3+ leukocytes negative nitrates. PVR 15 mL. Discussed at length potential causes of nocturia as well as lifestyle modifications to assist with nocturia. Patient's daughter does report feeling in his more difficult getting the patient out to her appointments given her decrease in mobility. She otherwise offers no other issues or concerns at this time. Patient with previous urine cultures noted E coli 04/06, 02/03, and 04/07. [facility], [facility] Medical History (Updated 08/07/24 @ 08:47 by LUIS ANTONIO Contre[facility]PR[facility] Nocturia Adnexal mass Onychomycosis UTI due to Klebsiella species Allergic conjunctivitis Bacteremia Congestion of nasal sinus Urinary incontinence Constipation Preoperative clearance Renal insufficiency COVID-19 virus infection Low back pain E coli bacteremia Shortness of breath PAC (premature atrial contraction) Urinary tract infection Renal cyst Bradycardia Sepsis Decreased hearing of both ears Osteoporosis screening Encounter for annual wellness exam in Medicare patient Chest discomfort Bacteremia due to Klebsiella pneumoniae Acute coronary syndrome Diarrhea GERD (gastroesophageal reflux disease) Mild cognitive impairment Osteoarthritis Spondylosis of cervical spine Vitamin D deficiency Obesity (BMI 30-39.9) Peripheral vascular disease Polycystic kidney disease Osteopenia Gout Degenerative disc disease, lumbar Chronic kidney disease (CKD) stage G3b/A3, moderately decreased glomerular filtration rate (GFR) between 30-44 mL/min/1.73 square meter and albuminuria creatinine ratio greater than 300 mg/g Hypercholesterolemia Hypertension Surgical History History of surgery History of cholecystectomy History of hysterectomy Family History Father No problems noted. Mother No problems noted. Brother No problems noted. Daughter No problems noted. Daughter No problems noted. Daughter No problems noted. Daughter No problems noted. Social History Household Members: Family Household Members Other:: 1 Housing: House Do you presently have visiting nurse or other home services: No Alcohol intake: never Patient Tobacco Use Status: Never used Tobacco Tobacco use type: Cigarette e-Cigarette/Vaping Use: Never Used Second Hand Smoke Exposure: No Advance Directives Date on File: 11/17/19 service: No Current occupational status: retired Cognitive needs: No Hearing needs: No Vision needs: Yes Review of Systems Const Reports as per HPI Eyes Reports no additional complaints ENT Reports no additional complaints Card Reports as per HPI Resp Reports no additional complaints GI Reports as per HPI Reports as per HPI Musc Reports as per HPI Neuro Reports as per HPI Psych Reports no additional complaints Endo Reports no additional complaints Arturo/Lymph Reports no additional complaints Aller/Immun Reports no additional complaints Physical Exam Const General: cooperative, healthy appearing, comfortable, no acute distress, well developed, alert and awake Orientation/consciousness: patient oriented x3 Limitations: wheelchair HEENT Head: Yes normal to inspection, Yes normocephalic and Yes atraumatic Ears: hearing grossly normal bilaterally Eyes General: appearance normal, both eyes and all related structures Neck Neck: Yes normal visual inspection and Yes trachea midline Chest Chest palpation & inspection: normal inspection of the chest Resp Effort & Inspection: normal respiratory effort and able to speak in complete sentences Cardio Rate: regular rate GI Inspection: Yes normal to inspection General: Yes no CVA tenderness Back/Spine/Pelvis Back: no CVA tenderness Skin General skin exam: no rashes or lesions noted Neuro General: patient oriented x3 Extrem General: Yes normal to inspection Psych Appearance: grossly normal and well kempt Mental Status: mental status grossly normal Speech and movement: Normal speech and movement present and Clear speech present Affect: normal affect Attitude: cooperative Thought process: Normal thought process present Thought content: Normal thought content present Insight: Fair insight present (Psych) Judgement: Fair judgement present (Psych) Office Procedures Post Void Residual Post Residual Void Post Void Residual (PVR): 15 [id number] Void Residual by ultrasound Results AMB Urinalysis, Automated UA Leukoctes 500 Sonal/uL Last Edit by GERARDO Isidro on 08/07/24 08:05 UA Nitrite Last Edit by GERARDO Isidro on 08/07/24 08:05 UA Urobilinogen 0.2 mg/dL Last Edit by Fabianxuanjuan pablo Baptisteivette, [facility] on 08/07/24 08:0 5 UA Protein 15 mg/dL Last Edit by Za Oliva, [facility] on 08/07/24 08:05 UA pH 6.0 Last Edit by Za Baptiste, [facility] on 08/07/24 08:05 UA Blood 25 Karan/uL Last Edit by Fabianjuan pablo Baptiste, [facility] on 08/07/24 08:05 UA Specific [place] 1.015 Last Edit by Fabianjuan pablo Oliva, [facility] on 08/07/24 08: 05 UA Ketone Last Edit by Za Oliva, [facility] on 08/07/24 08:05 UA Bilirubin 0 mg/dL Last Edit by Za Baptiste, [facility] on 08/07/24 08:05 UA Glucose 0 mg/dL Last Edit by Za Baptiste, [facility] on 08/07/24 08:05 Results Reviewed Results Reviewed: Laboratory Last Values Urine pH (Auto) 6.0 08/07/24 07:52 Specific [place] (Auto) 1.015 08/07/24 07:52 Urine Protein (Auto) 15 mg/dL 08/07/24 07:52 Glucose (UA)(Auto) 0 mg/dL 08/07/24 07:52 Urine Blood (Auto) 25 Karan/uL 08/07/24 07:52 Urine Bilirubin (Auto) 0 mg/dL 08/07/24 07:52 Urine Urobilinogen (Auto) 0.2 mg/dL 08/07/24 07:52 Leukocyte Esterase (Auto) 500 Sonal/uL 08/07/24 07:52 Assessment & Plan Assessment & Plan (1) Recurrent UTI: Code(s): N39.0 - Urinary tract infection, site not specified Category: Medical (2) Recurrent urinary tract infection: Code(s): N39.0 - Urinary tract infection, site not specified Category: Medical (3) Microscopic hematuria: Code(s): R31.29 - Other microscopic hematuria Category: Medical Plan In office urinalysis results reviewed with the patient today; as noted above; will send for urine cytology. PVR 15 mL She currently denies any UTI like symptoms. Stop VESIcare. Start Fesoterodine as discussed and prescribed. We discussed continuation of limiting fluids 2-3 hours prior to bed. We did discussed potential near future in office cystoscopy for further assessment evaluation. We discussed sleep hygiene. Follow-up in 1-3 months with PVR; or sooner with any issues, concerns, and or questions. Orders: Orders AMB Urinalysis Automated Today Z13.9 - Encounter for screening, unspecified AMB Post Void Residual by ultrasound Today N39.0 - Urinary tract infection, site not specified Urine Cytology Today R31.29 - Other microscopic hematuria Medications: New fesoterodine ER 4 mg PO DAILY 30 tabs 3RF 30 days N30.40 - Irradiation cystitis without hematuria Discontinued solifenacin (Vesicare) Discontinued Reason: Duplicate 5 mg PO DAILY 30 days 30 tabs 2RF Patient Instructions: The patient had an opportunity to ask questions regarding the treatment plan. All questions were answered. Physical exam, labs, and imaging were discussed and reviewed in detail. As well as risks, benefits, and discussion of treatment choices. No major barriers to understanding were identified. The patient expressed understanding and agreement with the above treatment plan. The patient was made aware they should contact our office by phone for worsening of their current condition, the appearance of new symptoms, or with any questions or concerns. Compliance is encouraged with any medications and follow up testing that is ordered. It is a privilege to be allowed the opportunity to participate in? your urological care.? Again, if you have any questions or concerns If you have any questions or concerns please do not hesitate to contact me. The office is [phone]. This note is constructed using voice recognition software. While every effort has been made to ensure accuracy production sanitizer errors may have been included. Yours sincerely, ESPERANZA Contreras Coding Level of Care Code Est Pt Level 4 (76582) Complex EM visit Add On G2211 Diagnoses Recurrent UTI N39.0 Recurrent urinary tract infection N39.0 Microscopic hematuria R31.29 CPT Codes Post Residual Void - PVR CPT Code: 73612-Xwhw Void Residual by ultrasound ([id number])
--- OUTSIDE RECORDS SUMMARY | 2024-08-07 07:47 | XMS_ITS | Patient Health Record ---
Author Organization [facility] Address [address] [place] [address] Care Team Providers Care Lace Roller Name Role Phone Po Adry ANTUNEZ Primary [...] Problem Status W/U Status Risk Notes Problem 16142182 Rectal bleeding (K62.5) Active confirmed Problem [id number] Gastroesophageal reflux disease without esophagitis (K21.9) Active confirmed Problem [id number] Rectal urgency (R15.2) Active confirmed Problem [id number] Diarrhea, unspecified type (R19.7) Active confirmed Encounters Encounter Location Date Provider Diagnosis [facility] [address] [place] [address] 07/10/2024 Yogi Ayala Jr Plan Of Treatment Future Test Test Name Order Date COLONOSCOPY 05/07/2019 Insurance Providers Payer Name Payer Address Payer Phone Subscriber Number Group Number Insured Name Patient Relationship to Insured Coverage Start Date Coverage End Date MEDICARE OF [place] [address] [place] [phone] [id number] YAMILETH SHORE Self - patient is the insured [facility] [address] [place] [address] [id number] YAMILETH SHORE Self - patient is the insured Medical (General) History Medical History History ICD Code Urinary incontinence Seasonal allergies Polycystic kidney disease Hypertension Hyperlipidemia Gastroesophageal reflux disease Lumbar disc disease Surgical History Surgery Date(Month/Year) cholecystectomy hysterectomy, vaginal left ear cyst removal
== END 2024-08-07 08:25 | disposition home or self-care (01) ==
LOC: HO.HUSH 07:44
PROVIDERS: PCP Internal Medicine; Visit Provider Nurse Practitioner Family
DX: N39.0 Urinary tract infection, site not specified (principal); R31.29 Other microscopic hematuria; Z13.9 Encounter for screening, unspecified
CPT/HCPCS: 99214; G2211

== ENCOUNTER 2024-09-09 20:04 | Emergency (ER) | payer MEDICARE, MEDICAID, SELFPAY ==
--- NOTE | ~2024-09-09 | XR_ITS ---
CLINICAL HISTORY: L hip pain Pelvis and left hip two views Comparison: None provided Findings: No acute fracture or dislocation identified. Mild degenerative change bilateral hips. No radiopaque foreign body noted. Impression: No acute bony abnormality This document has been electronically signed by: Nixon Donohue MD on 09/09/2024 21:35:05
--- NOTE | ~2024-09-09 | CT_ITS ---
CLINICAL HISTORY: Left hip pain? Occult fracture CT abdomen and pelvis without contrast Comparison: 03/28/2022 Findings: Study performed using CT abdomen and pelvis technique. Bony detail is more limited than with pelvic/hip CT. Severe degenerative change throughout spine. Degenerative change noted bilateral hips. No definite pelvic fractures are identified. Liver and spleen within normal limits. Pancreas and adrenal glands unremarkable. Cholecystectomy. Numerous nonspecific bilateral renal densities. Any of these demonstrate isodense or hyperdense appearance. Several are noted to be cystic on measured. Otherwise solid lesions will not be excludable on this study. No evidence for aortic aneurysm. No free fluid or adenopathy in the pelvis. No diverticulitis. Appendix not visualized. Hysterectomy. No adnexal abnormality. Impression: Multiple indeterminate bilateral renal lesions as above Renal mass is not excludable on this study No acute abnormality identified This document has been electronically signed by: Nixon Donohue MD on 09/10/2024 00:58:28
[2024-09-09 20:16] VITALS: BP 131/58; BP 180/86; PULSE 69; PULSE 71; RESP 16; TEMP 36.6; O2SAT 94; BMI 30.5
[2024-09-09 20:21] VITALS: BP 131/58; PULSE 69; RESP 16; TEMP 36.6; O2SAT 94
--- NOTE | 2024-09-09 22:29 | ED.GENADULT ---
HPI - General Adult General Chief complaint: General Medical Stated complaint: L hip & leg pain Time Seen by Provider: 09/09/24 21:50 Source: patient and family Mode of arrival: ambulatory Limitations: no limitations History of Present Illness ED Provider: HPI narrative: Patient's history of osteoarthritis usually take care of herself , ambulate with walker does have chronic hip pain but since yesterday noticed severe pain in the left hip without any injury no bladder or bowel involvement no numbness/ paresthesia Related Data Home Medications ?Medication ?Instructions ?Recorded ?Confirmed tizanidine 4 mg tablet 4 mg PO BEDTIME PRN Muscle Pain 03/28/22 08/07/24 cholecalciferol (vitamin D3) 25 25 mcg PO DAILY 08/07/24 08/07/24 mcg (1,000 unit) capsule Previous Rx's ?Medication ?Instructions ?Recorded lidocaine 5 % topical patch 1 patch topical DAILY #15 ea 09/23/22 clotrimazole 1 % topical cream 1 appl topical BID 4 weeks #45 05/09/23 grams atorvastatin 40 mg tablet 40 mg PO BEDTIME #90 tabs 09/25/23 trazodone 50 mg tablet 100 mg (2 x 50 mg) PO BEDTIME PRN 10/30/23 sleep 90 days #180 tabs metoprolol succinate 25 mg 25 mg PO DAILY 90 days #90 tabs 01/07/24 tablet,extended release 24 hr amlodipine 5 mg tablet 5 mg PO DAILY #90 tabs 06/19/24 folic acid 1 mg tablet 1 mg PO DAILY #30 tabs 06/25/24 fesoterodine 4 mg tablet,extended 4 mg PO DAILY 30 days #30 tabs 08/07/24 release 24 hr ropinirole 0.5 mg tablet 0.5 mg PO BEDTIME 90 days #90 tabs 08/16/24 losartan 50 mg tablet 50 mg PO DAILY 90 days #90 tabs 08/27/24 tramadol 50 mg tablet 50 mg PO Q8-10H PRN pain #20 tabs 09/10/24 Allergies Allergy/AdvReac Type Severity Reaction Status Date / Time No Known Allergies (No Known Allergy Verified 09/09/24 20:19 Allergies*) Review of Systems Review of Systems: Yes all other systems are reviewed and are negative PMFSH Past Medical History Medical History Nocturia Adnexal mass Onychomycosis UTI due to Klebsiella species Allergic conjunctivitis Bacteremia Congestion of nasal sinus Urinary incontinence Constipation Preoperative clearance Renal insufficiency COVID-19 virus infection Low back pain E coli bacteremia Shortness of breath PAC (premature atrial contraction) Urinary tract infection Renal cyst Bradycardia Sepsis Decreased hearing of both ears Osteoporosis screening Encounter for annual wellness exam in Medicare patient Chest discomfort Bacteremia due to Klebsiella pneumoniae Acute coronary syndrome Diarrhea GERD (gastroesophageal reflux disease) Mild cognitive impairment Osteoarthritis Spondylosis of cervical spine Vitamin D deficiency Obesity (BMI 30-39.9) Peripheral vascular disease Polycystic kidney disease Osteopenia Gout Degenerative disc disease, lumbar Chronic kidney disease (CKD) stage G3b/A3, moderately decreased glomerular filtration rate (GFR) between 30-44 mL/min/1.73 square meter and albuminuria creatinine ratio greater than 300 mg/g Hypercholesterolemia Hypertension Surgical History History of surgery History of cholecystectomy History of hysterectomy Family History Family History Father No problems noted. Mother No problems noted. Brother No problems noted. Daughter No problems noted. Daughter No problems noted. Daughter No problems noted. Daughter No problems noted. Social History Social History Household Members: Family Household Members Other:: 1 Housing: House Do you presently have visiting nurse or other home services: No Alcohol intake: never Patient Tobacco Use Status: Never used Tobacco Tobacco use type: Cigarette Smoked in Last 30 Days: No e-Cigarette/Vaping Use: Never Used Second Hand Smoke Exposure: No Use of substances other than those prescribed or required for medical reasons: No Advance Directives: Yes Advance Directives on File: Yes Advance Directives Date on File: 12/16/20 Do you have a plan to hurt others: No Plan service: No Current occupational status: retired Cognitive needs: No Hearing needs: No Vision needs: Yes Physical Exam ED Vital Signs: Vital Signs - 24 hr 09/09/24 20:16 09/09/24 20:21 09/09/24 22:42 Temperature 97.9 F 97.9 F 97.8 F Pulse Rate 69 69 62 Respiratory Rate 16 16 18 Blood Pressure 131/58 L 131/58 L 147/48 H Pulse Oximetry 94 94 95 Oxygen Delivery Method Room Air Room Air Room Air BMI result Body Mass Index 30.5 Appearance: Alert. Oriented X3. No acute distress. ENT: Pharynx normal. Oral Mucosa moist Neck: Normal inspection. Neck supple. CVS: Normal heart rate and rhythm. Pulses normal. Respiratory: No respiratory distress. Equal air entry bilateral, no wheezing/rales/rhonchi Abdomen: Soft and nontender. Bowel sounds are present, no mass palpable, no CVA tenderness Skin: Skin warm and dry. Normal skin color. Normal skin turgor. Extremities: No lower extremity edema. No calf tenderness diffuse tenderness left trochanteric and groin area SLR negative bilateral pain increases on adduction and flexion of the left hip Neuro: Oriented X 3. No motor deficit. No sensory deficit.No cerebellar signs , cranial nerves II-XII intact Medications Administered Discontinued Medications Generic Name Dose Route Start Last Admin Trade Name Freq PRN Reason Stop Dose Admin Tramadol HCl 25 mg 09/09/24 22:42 09/09/24 22:51 Tramadol Hcl 50 Mg Tablet PO 09/09/24 22:43 25 mg ONCE ONE Administration Medical Decision Making Medical Decision Making [facility] Narrative: Patient with chronic left hip pain got worse since yesterday CT scan negative for acute fracture x-ray also negative likely patient has severe arthritis patient felt better after Tramadol able to ambulatory in the ED with walker will discharge patient home on Tramadol advised to follow with PCP Differential Diagnosis Differential Diagnoses: The differential diagnosis associated with the presentation includes Occult fracture/Mets osteolytic lesions/sciatica Independent Interpretation I performed an independent interpretation of an: Plain X-Ray and CT Scan Interpretation: No fracture Radiology Impression Discussion of test interpretation with radiology: I have reviewed the radiologist's reading. Discharge Plan Discharge Clinical Impression: Osteoarthritis of left hip Patient Disposition: Home, Self-Care Instructions: Osteoarthritis (ED) Additional Instructions: Continue take Tylenol as needed for the pain Tramadol 1 tablet every 8 hours as needed for severe pain Follow up with your PCP There was no fracture seen in the x-ray or CT scan Prescriptions: New tramadol 50 mg tablet 50 mg PO Q8-10H PRN (Reason: pain) Qty: 20 0RF No Action atorvastatin 40 mg tablet 40 mg PO BEDTIME Qty: 90 3RF trazodone 50 mg tablet 100 mg PO BEDTIME PRN (Reason: sleep) 90 Days Qty: 180 2RF metoprolol succinate 25 mg tablet extended release 24 hr 25 mg PO DAILY 90 Days Qty: 90 3RF folic acid 1 mg tablet 1 mg PO DAILY Qty: 30 3RF ropinirole 0.5 mg tablet 0.5 mg PO BEDTIME 90 Days Qty: 90 1RF Rx Instructions: administer 1-3 hours before bedtime losartan 50 mg tablet 50 mg PO DAILY 90 Days Qty: 90 0RF tizanidine 4 mg Tablet 4 mg PO BEDTIME PRN (Reason: Muscle Pain) lidocaine 5 % adhesive patch,medicated 1 patch topical DAILY Qty: 15 0RF Rx Instructions: leave on most painful area for up to 12 hrs clotrimazole 1 % cream 1 appl topical BID 28 Days Qty: 45 0RF amlodipine 5 mg tablet 5 mg PO DAILY Qty: 90 3RF Rx Instructions: dose reduced fesoterodine 4 mg tablet extended release 24 hr 4 mg PO DAILY 30 Days Qty: 30 3RF cholecalciferol (vitamin D3) 25 mcg (1,000 unit) capsule 25 mcg PO DAILY Print Language: Indonesian
[2024-09-09 22:42] VITALS: BP 147/48; PULSE 62; RESP 18; TEMP 36.6; O2SAT 95
[2024-09-10 01:59] VITALS: BP 189/66; PULSE 52; RESP 16; TEMP 36.5; O2SAT 95
[2024-09-10 02:32] VITALS: BP 189/66; PULSE 52; RESP 16; TEMP 36.5; O2SAT 95
== END 2024-09-10 02:33 | disposition home or self-care (01) ==
PROVIDERS: Emergency Provider Internal Medicine; PCP Internal Medicine
DX: M16.12 Unilateral primary osteoarthritis, left hip (principal); M25.552 Pain in left hip
CPT/HCPCS: 73502; 74176; 99284

== ENCOUNTER 2024-10-20 10:39 | Outpatient (AMB) | payer MEDICARE, MEDICAID, SELFPAY ==
--- OUTSIDE RECORDS SUMMARY | 2024-07-10 09:15 | XMS_ITS ---
Author Organization [facility] Address [address] [place] [id number] Care Team Providers Care Director [employer] Name Role Phone Adry Young MD Primary Care Provider Yogi Damon Jr REASON FOR VISIT Patient presents today for acid reflux Encounters Encounter Location Date Provider Diagnosis [facility] [address] [address] 07/10/2024 Yogi Ayala Jr Plan Of Treatment No Information Progress Notes * DANA SHORELEY CDOB:1935 (88 yo F)Acc No.[id number]:07/10/2024 Progress Notes Patient: YAMILETH MADRIGAL Provider: Francois Ayala MD :1935 A ge:88 Y S ex:Female Date:07/10/2024 Address:[address] [place], [place] [id number] Pcp:Adry Young MD Subjective: * Chief Complaints: * 1 . Patient presents today for acid reflux. * Medical History: Objective: * Vitals: Assessment: Plan: * Treatment: * * The named appointment provid er may or may not be the originator of this progress note, and it is not deemed complete until electronically signed by the appointment provider. Sign off status: Pending * Provider: Francois Ayala MD Date: 0 07/10/2024 Generated for Maribeli talia/Tanmay/eTransmitting on: 0 10/20/2024 12:51 PM EDT
--- NOTE | 2024-10-20 10:48 | A.OFFPC_ITS ---
Vital Signs 10/20/24 10:49 Height 4 ft 11 in Weight 152 lb 5.431 oz BMI 30.8 BP 148/68 H Blood Pressure Location Lt brachial Position Sitting Pulse 62 Pulse Source Pulse Oximeter Pulse Oximetry (%) 97 Oxygen Delivery Method Room Air Intake Visit Reasons: CKD Allergies No Known Allergies (No Known Allergies*) Allergy (Verified 10/20/24 10:49) Tobacco use date assessed: 06/18/24 Fall risk assessment: No Falls in past year Last assessed Fall Risk: 10/20/24 Dental Screening Dental Screen Date: 06/18/24 [facility] Medical History (Updated 10/20/24 @ 11:14 by Adry Young MD) Nocturia Adnexal mass Onychomycosis UTI due to Klebsiella species Allergic conjunctivitis Bacteremia Congestion of nasal sinus Urinary incontinence Constipation Preoperative clearance Renal insufficiency COVID-19 virus infection Low back pain E coli bacteremia Shortness of breath PAC (premature atrial contraction) Urinary tract infection Renal cyst Bradycardia Sepsis Decreased hearing of both ears Osteoporosis screening Encounter for annual wellness exam in Medicare patient Chest discomfort Bacteremia due to Klebsiella pneumoniae Acute coronary syndrome Diarrhea GERD (gastroesophageal reflux disease) Mild cognitive impairment Osteoarthritis Spondylosis of cervical spine Vitamin D deficiency Obesity (BMI 30-39.9) Peripheral vascular disease Polycystic kidney disease Osteopenia Gout Degenerative disc disease, lumbar Chronic kidney disease (CKD) stage G3b/A3, moderately decreased glomerular filtration rate (GFR) between 30-44 mL/min/1.73 square meter and albuminuria creatinine ratio greater than 300 mg/g Hypercholesterolemia Hypertension Surgical History History of surgery History of cholecystectomy History of hysterectomy Family History Father No problems noted. Mother No problems noted. Brother No problems noted. Daughter No problems noted. Daughter No problems noted. Daughter No problems noted. Daughter No problems noted. Social History Household Members: Family Household Members Other:: 1 Housing: House Do you presently have visiting nurse or other home services: No Alcohol intake: never Patient Tobacco Use Status: Never used Tobacco Tobacco use type: Cigarette e-Cigarette/Vaping Use: Never Used Second Hand Smoke Exposure: No Advance Directives Date on File: 12/16/20 service: No Current occupational status: retired Cognitive needs: No Hearing needs: No Vision needs: Yes Questionnaire PHQ-9 Over the last 2 weeks, how often have you been bothered by any of the following problems? 1. Little interest or pleasure in doing things: not at all 2. Feeling down, depressed, or hopeless: not at all 3. Trouble falling or staying asleep, or sleeping too much: several days 4. Feeling tired or having little energy: several days 5. Poor appetite or overeating: not at all 6. Feeling bad about yourself - or that you are a failure or have let yourself or your family down: not at all 7. Trouble concentrating on things, such as reading the newspaper or watching television: not at all 8. Moving or speaking so slowly that other people could have noticed. Or the opposite - being so fidgety or restless that you have been moving around a lot more than usual: not at all 9. Thoughts that you would be better off or of hurting yourself in some way: not at all Total score: 2 Depression Screening Interpretation: Positive Depression Screening Done: Yes Source: Developed by Drs. Yemi Vela, Christine Butler, Gelacio Hutchison and colleagues, with an educational lisa from [employer]. Thrive Questionnaire Date Thrive assessed: 06/18/24 I am a: Patient What is your living situation today?: I have a steady place to live Within the past 12 months, did the food you bought not last and you didn't have the money to get more?: Never true Within the past 12 months, did you worry whether your food would run out before you got money to buy more?: Never true Do you have trouble paying for medicines?: No Do you have trouble getting transportation to medical appointments?: No Do you have trouble paying your heating and electricity bill?: No Do you have trouble taking care of your child, family member or friend?: No Do you have trouble with day-to-day activities such as bathing, preparing meals, shopping, managing finances, etc.?: Yes Are you currently unemployed and looking for a job?: No Are you interested in more education?: No Please select the resources that you would like help with: None Currently or been in a relationship where the following occur: No concerns reported THRIVE Score: 0 AUDIT C Alcohol Use Questionnaire (AUDIT-C) 1. How often do you have a drink containing alcohol?: Never 3. How often do you have six or more drinks on one occasion?: Never Total Score: 0 PORTER-7 AMB Questionnaire PORTER-7 Date PORTER - 7 assessed: 06/18/24 Source: Developed by Drs. Yemi Vela, Christine Butler, Gelacio Hutchison and colleagues, with an educational lisa from [employer]. Physical exam (Primary Care) Vital Signs: Last Vital Signs Pulse 62 10/20/24 10:49 BP 148/68 H 10/20/24 10:49 Pulse Ox 97 10/20/24 10:49 Oxygen Delivery Method Room Air 10/20/24 10:49 BMI result Body Mass Index 30.8 Tobacco/Smoking Status: Tobacco use Status Tobacco use date assessed 06/18/24 10/20/24 10:50 Patient Tobacco Use Status Never used Tobacco 10/20/24 10:50 Tobacco use type Cigarette 10/20/24 10:50 e-Cigarette/Vaping Use Never Used 10/20/24 10:50 PHQ-9: PHQ-9 Score PHQ-9: Total score 2 10/20/24 11:13 Depression Screening Interpretation: Positive Thrive Assessment: Date of Thrive Assessment Date Thrive assessed 06/18/24 10/20/24 10:50 Currently or been in a relationship where the following occur: No concerns reported Const General: alert; No acute distress Eyes Conjunctivae: conjunctivae normal Resp Auscultation: clear to auscultation bilaterally Cardio Rate: regular rate Rhythm: regular rhythm GI Inspection: Yes normal to inspection Extrem General: Yes normal to inspection and No edema Coding Level of Care Code Est Pt Level 4 (95784) Complex EM visit Add On G2211 Diagnoses Essential hypertension I10 Hypertension type: essential hypertension Hypercholesterolemia E78.00 Peripheral vascular disease I73.9 Obesity (BMI 30.0-34.9) E66.9 Gastroesophageal reflux disease without esophagitis K21.9 Esophagitis presence: without esophagitis Chronic kidney disease (CKD) stage G3b/A3, moderately decreased glomerular filtration rate (GFR) between 30-44 mL/min/1.73 square meter and albuminuria creatinine ratio greater than 300 mg/g N18.32 Folic acid deficiency E53.8 Vitamin D deficiency E55.9 Hip osteoarthritis M16.9 Assessment & Plan Assessment & Plan (1) Hypertension: Code(s): I10 - Essential (primary) hypertension Category: Medical Qualifiers: Hypertension type: essential hypertension Qualified Code(s): I10 - Essential (primary) hypertension Plan: Continue with blood pressure medication. Decrease salt intake and exercise patient on amlodipine 5 mg once a day losartan 50 mg once a day metoprolol 25 mg once a day. Because of leg swelling amlodipine was decreased (2) Hypercholesterolemia: Code(s): E78.00 - Pure hypercholesterolemia, unspecified Category: Medical Plan: Avoid fried foods, chicken skin, eggs, butter margarine, pastries and meat. Be it pork or beef they have a lot of cholesterol LDL goal of less than 70 and triglyceride of less than 150 patient is on atorvastatin 40 mg once a day (3) Peripheral vascular disease: Code(s): I73.9 - Peripheral vascular disease, unspecified Category: Medical Plan: When sitting down elevate the legs, exercise, and support stockings (4) Obesity (BMI 30.0-34.9): Code(s): E66.9 - Obesity, unspecified Category: Medical Plan: Diet and exercise (5) GERD (gastroesophageal reflux disease): Code(s): K21.9 - Gastro-esophageal reflux disease without esophagitis Category: Medical Qualifiers: Esophagitis presence: without esophagitis Qualified Code(s): K21.9 - Gastro-esophageal reflux disease without esophagitis Plan: Avoid the foods that causes that usually spicy foods, tomato products, juices, coffee, soda and foods that your sensitive to. After eating do not lie down, allow 3-4 hours before in lie down. And keep the head of bed above 30 degrees to avoid the acid from going up. (6) Chronic kidney disease (CKD) stage G3b/A3, moderately decreased glomerular filtration rate (GFR) between 30-44 mL/min/1.73 square meter and albuminuria creatinine ratio greater than 300 mg/g: Code(s): N18.32 - Chronic kidney disease, stage 3b Category: Medical Plan: Continue to monitor, continues to be hydrated, avoid NSAIDs (7) Folic acid deficiency: Code(s): E53.8 - Deficiency of other specified B group vitamins Category: Medical Plan: Folic acid 1 mg once a day (8) Vitamin D deficiency: Code(s): E55.9 - Vitamin D deficiency, unspecified Category: Medical Plan: Vitamin-D 7564-6833 units once a day (9) Hip osteoarthritis: Code(s): M16.9 - Osteoarthritis of hip, unspecified Category: Medical Plan: Discussed about pain medication keeping active Plan History of Present Illness The patient is an 88-year-old female presenting for follow-up of multiple chronic conditions including chronic kidney disease and osteoarthritis of the left hip. The patient has a history of lumbar degenerative disc disease, gastroesophageal reflux disease (GERD), hypertension, gout, hypercholesterolemia, cognitive impairment, and osteoporosis. She also has left retroarthritis and polycystic kidney disease. The patient was last seen in June 2024 and has been experiencing left hip and leg pain, for which a CT scan was negative for fracture. She was diagnosed with osteoarthritis of the left hip. The patient follows up with urology and was advised urine cytology. She was started on fisoteridine for her condition. In terms of cardiovascular health, the patient has been seen by cardiology, with an echocardiogram in October 2022 showing normal ejection fraction. She is on metoprolol, amlodipine, and losartan for hypertension management. Amlodipine was decreased due to leg swelling. Recent blood work in June showed normal blood count and electrolytes, but renal function was mildly elevated with a creatinine level of 1.59 mg/dL. Uric acid was 7.5 mg/dL, liver function tests were normal, cholesterol levels were satisfactory, but vitamin D and folic acid levels were low. Health Maintenance Social History Review of Systems Physical Exam Results - CT scan: Negative for fracture in the left hip - Echocardiogram: Normal ejection fraction - Blood work (June 25): Normal blood count, normal electrolytes, creatinine 1.59 mg/dL, uric acid 7.5 mg/dL, normal liver function tests, low vitamin D, low folic acid Plan Patient was informed and verbally consented to the use of an ambient scribe for clinic note documentation during this visit. 1. Chronic Kidney Disease The patient is advised to continue monitoring renal function and maintain hydration. 2. Osteoarthritis Of The Left Hip The patient is advised to manage pain with appropriate medications and maintain activity levels as tolerated. 3. Hypertension The patient is on a regimen of amlodipine, losartan, and metoprolol, with a recent adjustment to decrease amlodipine due to leg swelling. 4. Hypercholesterolemia The patient is on atorvastatin with a goal of LDL less than 70 mg/dL and triglycerides less than 150 mg/dL. 5. Folic Acid Deficiency The patient is advised to take folic acid 1 mg daily. 6. Vitamin D Deficiency The patient is advised to take vitamin D 1000 to 2000 units daily. Discussion Notes Patient Instructions - Continue monitoring renal function and maintain hydration. - Manage pain with appropriate medications and maintain activity levels as tolerated. - Take amlodipine, losartan, and metoprolol as prescribed, with the adjusted dose of amlodipine. - Continue atorvastatin with a goal of LDL less than 70 mg/dL and triglycerides less than 150 mg/dL. - Take folic acid 1 mg daily. - Take vitamin D 1000 to 2000 units daily. Orders: Orders Complete Blood Count Auto Diff 3 Months N18.32 - Chronic kidney disease, stage 3b Comprehensive Met. Panel 3 Months N18.32 - Chronic kidney disease, stage 3b Free T4 (Free Thyroxine) 3 Months N18.32 - Chronic kidney disease, stage 3b Vitamin D 25-OH Total 3 Months N18.32 - Chronic kidney disease, stage 3b Thyroid Stimulating Hormone 3 Months N18.32 - Chronic kidney disease, stage 3b Lipid Panel 3 Months E78.00 - Pure hypercholesterolemia, unspecified, N18.32 - Chronic kidney disease, stage 3b Vitamin B12 and Folate 3 Months N18.32 - Chronic kidney disease, stage 3b Uric Acid 3 Months N18.32 - Chronic kidney disease, stage 3b UA CC w/rflx Micro + Cult 3 Months N18.32 - Chronic kidney disease, stage 3b, R30.0 - Dysuria Medications: Refilled tramadol 50 mg PO Q8-10H PRN 30 tabs 0RF pain N18.32 - Chronic kidney disease, stage 3b
[2024-10-20 10:49] VITALS: BP 148/68; PULSE 62; O2SAT 97; BMI 30.8
--- OUTSIDE RECORDS SUMMARY | 2024-10-20 12:52 | XMS_ITS | Patient Health Record ---
Author Organization [facility] Address [address] [place] [address] Care Team Providers Care Cardiac Care Unit Nurse Name Role Phone Po Adry ANTUNEZ Primary [...] Problem Status W/U Status Risk Notes Problem [id number] Rectal bleeding (K62.5) Active confirmed Problem [id number] Gastroesophageal reflux disease without esophagitis (K21.9) Active confirmed Problem [id number] Rectal urgency (R15.2) Active confirmed Problem [id number] Diarrhea, unspecified type (R19.7) Active confirmed Encounters Encounter Location Date Provider Diagnosis [facility] [address] [place] [address] 07/10/2024 Yogi Ayala Jr Plan Of Treatment Future Test Test Name Order Date COLONOSCOPY 05/07/2019 Insurance Providers Payer Name Payer Address Payer Phone Subscriber Number Group Number Insured Name Patient Relationship to Insured Coverage Start Date Coverage End Date MEDICARE OF [place] [address] [place] [phone] [id number] YAMILETH SHORE Self - patient is the insured [facility] [address] [place] [phone] [id number] YAMILETH SHORE Self - patient is the insured Medical (General) History Medical History History ICD Code Urinary incontinence Seasonal allergies Polycystic kidney disease Hypertension Hyperlipidemia Gastroesophageal reflux disease Lumbar disc disease Surgical History Surgery Date(Month/Year) cholecystectomy hysterectomy, vaginal left ear cyst removal
== END 2024-10-20 11:33 | disposition home or self-care (01) ==
LOC: HO.HMCH 10:40
PROVIDERS: PCP Internal Medicine; Visit Provider Internal Medicine
DX: I12.9 Hypertensive chronic kidney disease with stage 1 through stage 4 chronic kidney disease, or unspecified chronic kidney disease (principal); N18.32 Chronic kidney disease, stage 3b; E66.9 Obesity, unspecified; Z68.30 Body mass index [BMI] 30.0-30.9, adult; E78.00 Pure hypercholesterolemia, unspecified; I73.9 Peripheral vascular disease, unspecified; K21.9 Gastro-esophageal reflux disease without esophagitis; E53.8 Deficiency of other specified B group vitamins; E55.9 Vitamin D deficiency, unspecified; M16.9 Osteoarthritis of hip, unspecified